=== PATIENT | male | born 1960 | race Caucasian/White ===

== ENCOUNTER 2022-07-20 14:33 | Inpatient (IN) | payer OTHER, SELFPAY ==
[2022-07-20] VITALS (7 sets, daily range): BP systolic 80–119; BP diastolic 41–64; PULSE 75–98; RESP 12–15; TEMP 36.6–38.5; O2SAT 92–97; BMI 39.1
--- NOTE | ~2022-07-20 | CT_ITS ---
EXAMINATION: CT CHEST WITHOUT CONTRAST CLINICAL INFORMATION: Sepsis. Rule out aspiration pneumonia COMPARISON: Chest x-ray performed earlier the same date TECHNIQUE: Multidetector volumetric CT imaging of the chest was done. Axial MIP volume rendering provided. Sagittal and coronal reformatted images were obtained. This CT examination was performed using dose optimization techniques as appropriate, variously including the following: *Automated exposure control *Adjustment of mA and/or kV according to patient size (this includes techniques or standardized protocols for targeted exams where dose is matched to indication/reason for exam; i.e. extremities or head) *Use of iterative reconstruction technique DLP: 464 mGy-cm FINDINGS: LUNGS: Minimal subsegmental and/or passive atelectasis in the dependent lower lobes. No airspace consolidation. No suspicious pulmonary nodules. Mild centrilobular emphysema. Minimal biapical pleural parenchymal scarring. Small amount of secretions or aspirated debris in the trachea and right mainstem bronchus. No segmental airways appear clear. No bronchiectasis. MEDIASTINUM: No cardiomegaly or pericardial effusion. LAD and right coronary artery atherosclerotic vascular calcifications. Minimal calcifications in the region the aortic valve. Borderline dilated ascending thoracic aorta measuring 4 cm in AP diameter. Moderate aortic vascular calcifications. Noted central pulmonary trunk measuring approximately 3.8 cm in diameter. No mediastinal or hilar lymphadenopathy by size criteria. CORONARY ARTERY CALCIFICATION: Present, as above. PLEURA: Trace left basilar pleural effusion. Multiple calcified pleural plaques bilateral consistent with prior asbestos exposure. Mild pleural thickening in the lower hemithoraces. AXILLA: No lymphadenopathy. UPPER ABDOMEN: Subtly nodular liver surface contour raising concern for underlying cirrhosis. Spleen is mildly enlarged measuring 16.8 cm in AP dimension. Small amount of perihepatic ascites. Question of layering sludge or noncalcified stones in the imaged gallbladder. Visualized upper abdominal viscera otherwise unremarkable. OSSEOUS STRUCTURES: There is an acute transverse fracture extending through the anterior superior corner of T12 into the T11-T12 intervertebral disc space, sagittal image 68. No other acute fracture. No suspicious osseous lesion. Mild multilevel degenerative disc disease. CT/CT chest wo IV con IMPRESSION: 1. Unexpected finding: Acute transverse fracture through the anterior superior corner of T12 into the T11-T12 intervertebral disc space. Fracture involves the anterior column. 2. No airspace consolidation. 3. Small amount of secretions/mucous versus aspirated debris in the trachea and right mainstem bronchus. 4. Trace left pleural effusion. 5. Multiple calcified pleural plaques consistent with prior asbestos exposure. 6. Mild centrilobular emphysema. 7. Borderline dilated ascending thoracic aorta measuring 4 cm in AP diameter. 8. Findings compatible with cirrhosis and portal hypertension with splenomegaly and small amount of perihepatic ascites. Correlate clinically.
--- NOTE | ~2022-07-20 | XR_ITS ---
EXAMINATION: XR chest 1V CLINICAL INFORMATION: Reason for Exam fever COMPARISON: None TECHNIQUE: XR chest 1V Tubes and lines: None Lungs and pleura: Small nodular density projecting over the left upper lobe could be a lung nodule or calcified plaque. Density projecting over the right middle lung zone also could be a calcified pleural plaque versus nodule. Heart and mediastinum: The mediastinum is within normal limits.. Bones/soft tissue: Skeletal structures included are normal for patient's age. XR/XR chest 1V IMPRESSION: * No radiographic evidence of acute infiltrate or failure. * Bilateral hyperdense nodular opacities could be lung nodules versus pleural plaques, attention to follow-up outpatient chest CT is recommended.
--- NOTE | ~2022-07-20 | CT_ITS ---
EXAMINATION: CT HEAD WITHOUT CONTRAST CLINICAL INFORMATION: Continued confusion and left upper extremity weakness COMPARISON: None TECHNIQUE: Imaging was performed from the skull base to vertex without intravenous administration of contrast. This CT examination was performed using dose optimization techniques as appropriate, variously including the following: *Automated exposure control *Adjustment of mA and/or kV according to patient size (this includes techniques or standardized protocols for targeted exams where dose is matched to indication/reason for exam; i.e. extremities or head) *Use of iterative reconstruction technique Total exam dose length product: 1035 mGy-cm FINDINGS: No intra or extra-axial fluid collection, hemorrhage, or mass. No ventriculomegaly. No midline shift or herniation. Basal cisterns are patent. [place]-white matter differentiation is maintained. No territorial encephalomalacia. Proportional prominence of the ventricles and sulcal spaces is consistent with mild volume loss. There is minimal nonspecific hypoattenuation the periventricular white matter bilaterally. No calvarial fracture or soft tissue abnormality. Minimal mucosal thickening in the maxillary antra and right frontal sinus as well as the left sphenoid sinus. Trace fluid in a couple posterior mastoid air cells, nonspecific. Status post right lens extraction. CT/CT head/brain wo IV con IMPRESSION: No acute intracranial pathology. No intracranial hemorrhage or acute edematous territorial infarct.
--- NOTE | ~2022-07-20 | XR_ITS ---
EXAMINATION: XR CHEST CLINICAL INFORMATION: Hypoxia COMPARISON: Chest radiograph 07/20/2022 TECHNIQUE: Frontal view of the chest was obtained. Limited evaluation as patient reported to be unable hold position and combative. FINDINGS: Lung bases are partially excluded. There is bilateral airways inflammation and patchy areas of airspace opacity suggesting viral or reactive airways disease. No pleural effusion or pneumothorax, cardiomediastinal contours are unremarkable. There are degenerative changes of the shoulders. XR/XR chest 1V IMPRESSION: Bilateral airways inflammation and subtle patchy airspace opacities suggesting a primary airways inflammatory process
--- NOTE | ~2022-07-20 | US_ITS ---
EXAMINATION: US VENOUS WITH DOPPLER UPPER EXTREMITY, LEFT CLINICAL INFORMATION: Pain and swelling COMPARISON: None TECHNIQUE: Ultrasound of the upper extremity is performed using compression sonography and color and pulse Doppler flow with assessment of augmentation of flow. There is also imaging and Doppler assessment of the jugular and subclavian veins. Spectral analysis with color-flow imaging is performed. FINDINGS: Respiratory variation, normal compression, and augmented flow are noted throughout the upper extremity including the axillary, brachial, cubital, and radial and ulnar veins. There is normal flow in the internal jugular and subclavian veins. There is no visible deep or superficial thrombophlebitis. If the patient's symptoms progress, a followup ultrasound in 5 -7 days might be of value to exclude proximal propagation from a nonvisualized distal arm vein. US/US venous duplex UE LT IMPRESSION: No DVT demonstrated in the left upper extremity
--- NOTE | 2022-07-20 14:46 | ECG_ITS ---
Test Reason : HYPOTENSIVE Blood Pressure : / mmHG Vent. Rate : 078 BPM Atrial Rate : 078 BPM P-R Int : 140 ms QRS Dur : 086 ms QT Int : 440 ms P-R-T Axes : 034 069 065 degrees QTc Int : 501 ms Sinus rhythm with Premature supraventricular complexes Prolonged QT Abnormal ECG When compared with ECG of 08-FEB-2003 14:18, Premature supraventricular complexes are now Present QT has lengthened Referred By: Kehinde Thompson Electronically Signed By:JENISE RODRIGUEZ MD
[2022-07-20] MEDS: 0.9 % Sodium Chloride 1,000 ML 999 ML IV (14:55)
--- NOTE | 2022-07-20 14:55 | ED.AMS ---
HPI - Altered Mental Status General Chief Complaint: Altered Mental Status Stated Complaint: ams Time Seen by Provider: 07/20/22 14:42 Source: patient, EMS and RN notes reviewed Mode of arrival: EMS Limitations: altered mental status History of Present Illness HPI narrative: 62-year-old male came in from SNF for evaluation of mental status change. Limited historian patient and limited history from EMS/long-term patient was recently at [facility] (record was requested but not available currently) patient as per EMS at his baseline normal mental status after shower patient started to have change mental status had a fever of 101 and patient became hypotensive. In the ED patient found to have a fever of 101.3 and patient remained with low blood pressure 85/41. Related Data Home Medications Medication Instructions Recorded Confirmed acetaminophen 325 mg tablet 650 mg PO Q6H PRN Fever Or Pain 07/20/22 07/20/22 albuterol sulfate 90 mcg/actuation 2 puff inhalation QID PRN 07/20/22 07/20/22 aerosol inhaler (ProAir HFA) Shortness Of Breath Or Wheezing amlodipine 10 mg tablet 10 mg PO DAILY 07/20/22 07/20/22 aspirin 325 mg tablet,delayed 325 mg PO DAILY 07/20/22 07/20/22 release bisacodyl 10 mg rectal suppository 10 mg MS DAILY PRN Constipation 07/20/22 07/20/22 cholecalciferol (vitamin D3) 25 25 mcg PO DAILY 07/20/22 07/20/22 mcg (1,000 unit) tablet (Vitamin D3) dextrose 40 % oral gel (Glucose 15 g PO Q15M PRN Hypoglycemia 07/20/22 07/20/22 Gel) fluticasone fur. 100 mcg-umeclid 1 inh inhalation DAILY 07/20/22 07/20/22 62.5 mcg-vilant 25 mcg inhalat.powder (Trelegy Ellipta) fluticasone propionate 50 1 spray intranasal DAILY 07/20/22 07/20/22 mcg/actuation nasal spray,suspension (Flonase Allergy Relief) folic acid 1 mg tablet 1 mg PO DAILY 07/20/22 07/20/22 gabapentin 600 mg tablet 600 mg PO QID 07/20/22 07/20/22 glucagon 1 mg/0.2 mL subcutaneous 1 mg subcut Q20M PRN Hypoglycemia 07/20/22 07/20/22 solution hydroxyzine HCl 10 mg tablet 20 mg PO TID PRN Anxiety 07/20/22 07/20/22 ipratropium 0.5 mg-albuterol 3 mg 3 ml inhalation QID PRN Shortness 07/20/22 07/20/22 (2.5 mg base)/3 mL nebulization Of Breath Or Wheezing soln levalbuterol HCl 0.63 mg/3 mL 0.63 mg inhalation TID PRN 07/20/22 07/20/22 solution for nebulization Shortness Of Breath Or Wheezing losartan 100 mg tablet 100 mg PO DAILY 07/20/22 07/20/22 magnesium hydroxide 400 mg/5 mL 30 ml PO DAILY PRN Constipation 07/20/22 07/20/22 oral suspension (Milk of Magnesia) magnesium oxide 400 mg (241.3 mg 400 mg PO BID 07/20/22 07/20/22 magnesium) tablet melatonin 5 mg tablet 5 mg PO BEDTIME PRN Insomnia 07/20/22 07/20/22 metformin 1,000 mg tablet 1,000 mg PO DAILY@1700 07/20/22 07/20/22 metformin 500 mg tablet 500 mg PO DAILY@0800 07/20/22 07/20/22 methadone 5 mg/5 mL oral solution 5 mg PO DAILY@1200 07/20/22 07/20/22 methadone 5 mg/5 mL oral solution 10 mg PO BID 07/20/22 07/20/22 multivitamin 1 tab PO DAILY 07/20/22 07/20/22 nicotine 14 mg/24 hr daily 1 patch transdermal DAILY 07/20/22 07/20/22 transdermal patch nortriptyline 50 mg capsule 50 mg PO BEDTIME 07/20/22 07/20/22 omega 5-nkk-ybv-fish oil 1,000 mg 1 cap PO BEDTIME 07/20/22 07/20/22 (120 mg-180 mg) capsule omega 9-wmx-bbq-fish oil 1,000 mg 1 cap PO TIDAC 07/20/22 07/20/22 (120 mg-180 mg) capsule pyridoxine (vitamin B6) 50 mg 50 mg PO DAILY 07/20/22 07/20/22 tablet rosuvastatin 10 mg tablet 10 mg PO BEDTIME 07/20/22 07/20/22 sodium phosphates 19 gram-7 118 ml MS DAILY PRN Constipation 07/20/22 07/20/22 gram/118 mL enema (Fleet Enema) testosterone cypionate 200 mg/mL 1 ml IM Q2W 07/20/22 07/20/22 intramuscular oil thiamine HCl (vitamin B1) 100 mg 100 mg PO BID 07/20/22 07/20/22 tablet Allergies Allergy/AdvReac Type Severity Reaction Status Date / Time fentanyl [From Duragesic] Allergy Unknown Unknown Verified 07/20/22 14:45 fluoxetine [From Prozac] Allergy Unknown Unknown Verified 07/20/22 14:45 lisinopril AdvReac Unknown Unknown Verified 07/20/22 14:44 Review of Systems Review of Systems: Yes Unobtainable due to mental condition [facility] Social History Social History Advance Directives: Yes Advance Directives Information Provided: No Advance Directives on File: No Physical Exam ED Vital Signs: Vital Signs - 24 hr 07/20/22 14:39 07/20/22 15:01 07/20/22 15:55 Temperature 101.3 F H Pulse Rate 86 77 Respiratory Rate 14 14 Blood Pressure 85/41 L 94/45 L 96/43 L Pulse Oximetry 94 93 Oxygen Delivery Method Nasal Cannula Nasal Cannula Oxygen Flow Rate 2 BMI result Body Mass Index 39.1 Vital signs have been reviewed as appeared to be correct. Blood pressure hypotensive. Heart rate normal. Respiration rate normal. Temperature normal. Oxygen saturation normal. Appearance: Alert. No acute distress. Head: Normal external exam. Normocephalic. Atraumatic. No [place] signs noted. No raccoon eyes noted Eyes: PERRLA. EOMI. Conjunctiva and sclera normal. Eyelids normal. ENT: TM's Normal. Pharynx normal. Uvula midline. Moist mucous membranes. No trismus noted. No drooling noted. No muffled voice noted. Neck: Normal inspection. Neck supple. FROM. No adenopathy. Thyroid Normal. No meningeal signs. No neck mass noted. CVS: Normal heart rate and rhythm. Heart sound normal. No murmurs noted. Pulses normal throughout. Respiratory: No respiratory distress. Painless inspiration. Breath sounds normal. No wheezes/rales/rhonchi noted. Chest nontender. No accessory muscle usage noted or decreased air movement noted. Abdomen: Soft and nontender. Bowel sounds normal in all 4 quadrants. No distention noted. No organomegaly noted. No visible injury noted. Back: No CVA tenderness. Full range of motion noted. Skin: Skin warm and dry. Normal skin color. Normal skin turgor. No rashes/lesions/lacerations noted. Extremities: No lower extremity edema. Extremities exhibit normal range of motion. Extremities nontender. Neuro: Oriented X 3. Cranial nerve exam: II-XII are grossly intact No motor deficit. No sensory deficit. Reflexes normal. Course Course Course Narrative: 62-year-old male came in for acute mental status change patient had recent hospitalization, patient meets criteria for sepsis with no source of infection E a covered with Zosyn and was given 30 cc/kg IV fluid awaiting for CT of the chest and ABG case signed out to Dr. Temple. Reevaluation(s) Reevaluation #1: Record from [facility] was obtained past medical history is significant for COPD, chronic hypoxic respiratory failure on 3 L of O2 nasal cannula, type 2 diabetes, hypertension patient initially was transferred from [facility] for T9 and T12 fracture hospital course at [facility] was complicated with left upper extremity swelling and rhabdomyolysis with acute kidney injuries and transaminitis and aspiration pneumonia. Time: 15:10 Medications Administered Discontinued Medications Generic Name Dose Route Start Last Admin Trade Name Freq PRN Reason Stop Dose Admin Acetaminophen 650 mg 07/20/22 15:01 07/20/22 15:08 Acetaminophen Supp 650 Mg Supp.Rect MS 07/20/22 15:02 650 mg ONCE ONE Administration Sodium Chloride 1,000 mls @ 999 mls/hr 07/20/22 14:45 07/20/22 14:55 Ns IV 07/20/22 15:45 999 mls/hr .Q1H1M ONE Administration Sodium Chloride 1,983 mls @ 1,983 mls/hr 07/20/22 15:01 07/20/22 15:08 Ns IV 07/20/22 16:00 1,983 mls/hr .Q1H STA Administration Piperacillin Sod/Tazobactam 50 mls @ 100 mls/hr 07/20/22 15:03 07/20/22 15:54 Sod 3.375 gm/ Sodium Chloride IV 07/20/22 15:32 Infused ONCE ONE Infusion Medical Decision Making Differential Diagnosis Differential Diagnoses: The differential diagnosis associated with the presentation includes (Hypercarbia/severe sepsis/aspiration pneumonia/UTI) Admission/Observation Consideration of admission/observation: Escalation of care including admission/observation considered Consult Healthcare Provider Management of the patient was discussed with: Hospitalist Lab Data MDM Lab Attestation statement: I reviewed the patient's lab results. Result Diagrams: 07/20/22 15:16 07/20/22 15:16 Labs: Lab Results 07/20/22 07/20/22 07/20/22 Range/Units 14:56 15:01 15:16 WBC (4.8-10.8) X10*3/uL RBC (4.60-5.80) X10*6/uL Hgb (14.0-18.0) g/dl Hct (42.0-52.0) % MCV (80.0-98.0) fL MCH (27.0-33.0) pg MCHC (31.0-36.0) g/dl RDW (11.0-16.0) % Plt Count (160-400) X10*3/uL MPV (9.4-12.4) fL Immature Gran % (Auto) (0.0-0.4) % Neut % (Auto) (45-73) % Lymph % (Auto) (20-40) % [place] % (Auto) (2-11) % Eos % (Auto) (0-4) % Baso % (Auto) (0-2) % Lymph # (Auto) (1.2-4.9) X10*3/uL [place] # (Auto) (0.1-1.2) X10*3/uL Eos # (Auto) (0.0-0.4) X10*3/uL Baso # (Auto) (0.0-0.2) X10*3/uL Abs Immat Gran (auto) (0.00-0.03) X10*3/uL Absolute Neuts (auto) (2.0-8.3) x10*3/uL Absolute Nucleated RBC (0.0-0.012) X10*3/uL Nucleated RBC % (auto) (0.0-0.2) /100WBC Smear Tech's Comments O2 Saturation % ABG pH at Pt Temp (7.35-7.45) ABG pCO2 at Pt Temp (32-45) mmHg ABG pO2 at Pt Temp (83-108) mmHg ABG HCO3 (22-26) mmol/L ABG Base Excess (Actual) mmol/L Sodium (135-145) mmol/L Potassium (3.3-5.1) mmol/L Chloride (96-108) mmol/L Carbon Dioxide (22-29) mmol/L Anion Gap (12-20) BUN (9-16) mg/dL Creatinine (0.5-1.4) mg/dL Estim Creat Clear Calc Estimated GFR POC Glucose 91 (60-115) mg/dL Random Glucose (60-115) mg/dL Lactic Acid (0.5-2.0) mmol/L Calcium (8.4-10.2) mg/dL Total Bilirubin (0.0-1.0) mg/dL Direct Bilirubin (0.0-0.5) mg/dL AST (5-37) U/L ALT (0-40) U/L Alkaline Phosphatase (39-117) U/L Ammonia 76 H (13-55) umol/L Troponin I High Sens (<3.5-35.0) ng/L B-Natriuretic Peptide (<100) pg/mL Total Protein (6.5-8.0) g/dL Albumin (3.5-5.0) g/dL Lipase (8-78) U/L Urine Color Dark Yellow Urine Appearance Clear Urine pH 6.0 (5.0-9.0) Ur Specific [place] 1.015 (1.005-1.025) Urine Protein Trace (Neg-Trace) mg/dL Urine Glucose (UA) Negative (Negative) mg/dL Urine Ketones Trace (Negative) mg/dL Urine Blood Negative (Negative) Urine Nitrite Negative (Negative) Ur Leukocyte Esterase Trace H (Negative) Urine RBC 0-2 (0-2) /HPF Urine WBC 0-5 (0-5) /HPF Ur Squamous Epith Cells 0-2 (0-2) /HPF Urine Bacteria None Seen (None Seen) Hyaline Casts 3-5 (0-2) /LPF Influenza Type A (PCR) (Negative) Influenza Type B (PCR) (Negative) RSV RNA Qual (PCR) (Negative) SARS-CoV-2 RNA (RT-PCR) (Negative) 07/20/22 07/20/22 07/20/22 Range/Units 15:16 15:16 15:16 WBC 9.4 (4.8-10.8) X10*3/uL RBC 3.17 L (4.60-5.80) X10*6/uL Hgb 10.6 L (14.0-18.0) g/dl Hct 33.2 L (42.0-52.0) % MCV 104.7 H (80.0-98.0) fL MCH 33.4 H (27.0-33.0) pg MCHC 31.9 (31.0-36.0) g/dl RDW 14.6 (11.0-16.0) % Plt Count 157 L (160-400) X10*3/uL MPV 11.6 (9.4-12.4) fL Immature Gran % (Auto) 0.4 (0.0-0.4) % Neut % (Auto) 68.1 (45-73) % Lymph % (Auto) 11.2 L (20-40) % [place] % (Auto) 18.7 H (2-11) % Eos % (Auto) 1.0 (0-4) % Baso % (Auto) 0.6 (0-2) % Lymph # (Auto) 1.1 L (1.2-4.9) X10*3/uL [place] # (Auto) 1.8 H (0.1-1.2) X10*3/uL Eos # (Auto) 0.1 (0.0-0.4) X10*3/uL Baso # (Auto) 0.1 (0.0-0.2) X10*3/uL Abs Immat Gran (auto) 0.04 H (0.00-0.03) X10*3/uL Absolute Neuts (auto) 6.4 (2.0-8.3) x10*3/uL Absolute Nucleated RBC 0.000 (0.0-0.012) X10*3/uL Nucleated RBC % (auto) 0.0 (0.0-0.2) /100WBC Smear Tech's Comments VERIFIED O2 Saturation % ABG pH at Pt Temp (7.35-7.45) ABG pCO2 at Pt Temp (32-45) mmHg ABG pO2 at Pt Temp (83-108) mmHg ABG HCO3 (22-26) mmol/L ABG Base Excess (Actual) mmol/L Sodium 146 H (135-145) mmol/L Potassium 4.2 (3.3-5.1) mmol/L Chloride 116 H (96-108) mmol/L Carbon Dioxide 21 L (22-29) mmol/L Anion Gap 13 (12-20) BUN 27 H (9-16) mg/dL Creatinine 1.45 H (0.5-1.4) mg/dL Estim Creat Clear Calc 65.1 Estimated GFR 50 POC Glucose (60-115) mg/dL Random Glucose 89 (60-115) mg/dL Lactic Acid 1.4 (0.5-2.0) mmol/L Calcium 8.3 L (8.4-10.2) mg/dL Total Bilirubin 1.9 H (0.0-1.0) mg/dL Direct Bilirubin 1.0 H (0.0-0.5) mg/dL AST 164 H (5-37) U/L ALT 79 H (0-40) U/L Alkaline Phosphatase 146 H (39-117) U/L Ammonia (13-55) umol/L Troponin I High Sens (<3.5-35.0) ng/L B-Natriuretic Peptide (<100) pg/mL Total Protein 5.4 L (6.5-8.0) g/dL Albumin 3.0 L (3.5-5.0) g/dL Lipase 10 (8-78) U/L Urine Color Urine Appearance Urine pH (5.0-9.0) Ur Specific [place] (1.005-1.025) Urine Protein (Neg-Trace) mg/dL Urine Glucose (UA) (Negative) mg/dL Urine Ketones (Negative) mg/dL Urine Blood (Negative) Urine Nitrite (Negative) Ur Leukocyte Esterase (Negative) Urine RBC (0-2) /HPF Urine WBC (0-5) /HPF Ur Squamous Epith Cells (0-2) /HPF Urine Bacteria (None Seen) Hyaline Casts (0-2) /LPF Influenza Type A (PCR) (Negative) Influenza Type B (PCR) (Negative) RSV RNA Qual (PCR) (Negative) SARS-CoV-2 RNA (RT-PCR) (Negative) 07/20/22 07/20/22 07/20/22 Range/Units 15:16 15:16 15:16 WBC (4.8-10.8) X10*3/uL RBC (4.60-5.80) X10*6/uL Hgb (14.0-18.0) g/dl Hct (42.0-52.0) % MCV (80.0-98.0) fL MCH (27.0-33.0) pg MCHC (31.0-36.0) g/dl RDW (11.0-16.0) % Plt Count (160-400) X10*3/uL MPV (9.4-12.4) fL Immature Gran % (Auto) (0.0-0.4) % Neut % (Auto) (45-73) % Lymph % (Auto) (20-40) % [place] % (Auto) (2-11) % Eos % (Auto) (0-4) % Baso % (Auto) (0-2) % Lymph # (Auto) (1.2-4.9) X10*3/uL [place] # (Auto) (0.1-1.2) X10*3/uL Eos # (Auto) (0.0-0.4) X10*3/uL Baso # (Auto) (0.0-0.2) X10*3/uL Abs Immat Gran (auto) (0.00-0.03) X10*3/uL Absolute Neuts (auto) (2.0-8.3) x10*3/uL Absolute Nucleated RBC (0.0-0.012) X10*3/uL Nucleated RBC % (auto) (0.0-0.2) /100WBC Smear Tech's Comments O2 Saturation % ABG pH at Pt Temp (7.35-7.45) ABG pCO2 at Pt Temp (32-45) mmHg ABG pO2 at Pt Temp (83-108) mmHg ABG HCO3 (22-26) mmol/L ABG Base Excess (Actual) mmol/L Sodium (135-145) mmol/L Potassium (3.3-5.1) mmol/L Chloride (96-108) mmol/L Carbon Dioxide (22-29) mmol/L Anion Gap (12-20) BUN (9-16) mg/dL Creatinine (0.5-1.4) mg/dL Estim Creat Clear Calc Estimated GFR POC Glucose (60-115) mg/dL Random Glucose (60-115) mg/dL Lactic Acid (0.5-2.0) mmol/L Calcium (8.4-10.2) mg/dL Total Bilirubin (0.0-1.0) mg/dL Direct Bilirubin (0.0-0.5) mg/dL AST (5-37) U/L ALT (0-40) U/L Alkaline Phosphatase (39-117) U/L Ammonia (13-55) umol/L Troponin I High Sens 17.1 (<3.5-35.0) ng/L B-Natriuretic Peptide 61 Cancelled (<100) pg/mL Total Protein (6.5-8.0) g/dL Albumin (3.5-5.0) g/dL Lipase (8-78) U/L Urine Color Urine Appearance Urine pH (5.0-9.0) Ur Specific [place] (1.005-1.025) Urine Protein (Neg-Trace) mg/dL Urine Glucose (UA) (Negative) mg/dL Urine Ketones (Negative) mg/dL Urine Blood (Negative) Urine Nitrite (Negative) Ur Leukocyte Esterase (Negative) Urine RBC (0-2) /HPF Urine WBC (0-5) /HPF Ur Squamous Epith Cells (0-2) /HPF Urine Bacteria (None Seen) Hyaline Casts (0-2) /LPF Influenza Type A (PCR) (Negative) Influenza Type B (PCR) (Negative) RSV RNA Qual (PCR) (Negative) SARS-CoV-2 RNA (RT-PCR) (Negative) 07/20/22 07/20/22 Range/Units 15:21 16:46 WBC (4.8-10.8) X10*3/uL RBC (4.60-5.80) X10*6/uL Hgb (14.0-18.0) g/dl Hct (42.0-52.0) % MCV (80.0-98.0) fL MCH (27.0-33.0) pg MCHC (31.0-36.0) g/dl RDW (11.0-16.0) % Plt Count (160-400) X10*3/uL MPV (9.4-12.4) fL Immature Gran % (Auto) (0.0-0.4) % Neut % (Auto) (45-73) % Lymph % (Auto) (20-40) % [place] % (Auto) (2-11) % Eos % (Auto) (0-4) % Baso % (Auto) (0-2) % Lymph # (Auto) (1.2-4.9) X10*3/uL [place] # (Auto) (0.1-1.2) X10*3/uL Eos # (Auto) (0.0-0.4) X10*3/uL Baso # (Auto) (0.0-0.2) X10*3/uL Abs Immat Gran (auto) (0.00-0.03) X10*3/uL Absolute Neuts (auto) (2.0-8.3) x10*3/uL Absolute Nucleated RBC (0.0-0.012) X10*3/uL Nucleated RBC % (auto) (0.0-0.2) /100WBC Smear [facility]' Comments O2 Saturation 86.0 % ABG pH at Pt Temp 7.35 (7.35-7.45) ABG pCO2 at Pt Temp 38 (32-45) mmHg ABG pO2 at Pt Temp 60 L (83-108) mmHg ABG HCO3 21 L (22-26) mmol/L ABG Base Excess (Actual) -3.5 mmol/L Sodium (135-145) mmol/L Potassium (3.3-5.1) mmol/L Chloride (96-108) mmol/L Carbon Dioxide (22-29) mmol/L Anion Gap (12-20) BUN (9-16) mg/dL Creatinine (0.5-1.4) mg/dL Estim Creat Clear Calc Estimated GFR POC Glucose (60-115) mg/dL Random Glucose (60-115) mg/dL Lactic Acid (0.5-2.0) mmol/L Calcium (8.4-10.2) mg/dL Total Bilirubin (0.0-1.0) mg/dL Direct Bilirubin (0.0-0.5) mg/dL AST (5-37) U/L ALT (0-40) U/L Alkaline Phosphatase (39-117) U/L Ammonia (13-55) umol/L Troponin I High Sens (<3.5-35.0) ng/L B-Natriuretic Peptide (<100) pg/mL Total Protein (6.5-8.0) g/dL Albumin (3.5-5.0) g/dL Lipase (8-78) U/L Urine Color Urine Appearance Urine pH (5.0-9.0) Ur Specific [place] (1.005-1.025) Urine Protein (Neg-Trace) mg/dL Urine Glucose (UA) (Negative) mg/dL Urine Ketones (Negative) mg/dL Urine Blood (Negative) Urine Nitrite (Negative) Ur Leukocyte Esterase (Negative) Urine RBC (0-2) /HPF Urine WBC (0-5) /HPF Ur Squamous Epith Cells (0-2) /HPF Urine Bacteria (None Seen) Hyaline Casts (0-2) /LPF Influenza Type A (PCR) NEGATIVE (Negative) Influenza Type B (PCR) NEGATIVE (Negative) RSV RNA Qual (PCR) NEGATIVE (Negative) SARS-CoV-2 RNA (RT-PCR) POSITIVE A (Negative) Independent Interpretation I performed an independent interpretation of an: Plain X-Ray (Chest: No acute pathology.) Radiology Impression Discussion of test interpretation with radiology: I have reviewed the radiologist's reading. Critical Care Time Critical Care Time Critical Care Time: Yes Total Critical Care Time: 60 Attestation: I spent 60 minutes providing critical care service to the patient, this including time spent at the bedside to evaluate the patient, reassess the patient, monitoring vital signs, review labs, and radiographic studies, counseling the patient/family, discussing the case with consultants, disposition the patient. Discharge Plan Discharge Clinical Impression: Altered mental status, COVID-19 virus infection Patient Disposition: Still a Patient Prescriptions: No Action multivitamin Tablet 1 tab PO DAILY metformin 500 mg Tablet 500 mg PO DAILY@0800 acetaminophen 325 mg Tablet 650 mg PO Q6H PRN (Reason: Fever Or Pain) gabapentin 600 mg Tablet 600 mg PO QID nicotine 14 mg/24 hr Patch 24 Hour 1 patch TRANSDERMAL DAILY ipratropium-albuterol 0.5 mg-3 mg(2.5 mg base)/3 mL Solution For Nebulization 3 ml INHALATION QID PRN (Reason: Shortness Of Breath Or Wheezing) levalbuterol HCl 0.63 mg/3 mL Solution For Nebulization 0.63 mg INHALATION TID PRN (Reason: Shortness Of Breath Or Wheezing) dextrose [Glucose Gel] 40 % Gel 15 g PO Q15M PRN (Reason: Hypoglycemia) Rx Instructions: until symptoms of low blood sugar are controlled thiamine HCl (vitamin B1) 100 mg Tablet 100 mg PO BID magnesium oxide 400 mg (241.3 mg magnesium) Tablet 400 mg PO BID magnesium hydroxide [Milk of Magnesia] 400 mg/5 mL Suspension 30 ml PO DAILY PRN (Reason: Constipation) aspirin 325 mg Tablet,Delayed Release (Dr/Ec) 325 mg PO DAILY amlodipine 10 mg Tablet 10 mg PO DAILY bisacodyl 10 mg Suppository 10 mg MS DAILY PRN (Reason: Constipation) Rx Instructions: use if milk of magnesia doesn't work metformin 1,000 mg Tablet 1,000 mg PO DAILY@1700 Fleet Enema 19-7 gram/118 mL Enema 118 ml MS DAILY PRN (Reason: Constipation) Rx Instructions: when bisacodyl is ineffective pyridoxine (vitamin B6) 50 mg Tablet 50 mg PO DAILY folic acid 1 mg Tablet 1 mg PO DAILY testosterone cypionate 200 mg/mL oil 1 ml IM Q2W Rx Instructions: STARTING 08/02/2022 albuterol sulfate [ProAir HFA] 90 mcg/actuation Hfa Aerosol Inhaler 2 puff INHALATION QID PRN (Reason: Shortness Of Breath Or Wheezing) hydroxyzine HCl 10 mg Tablet 20 mg PO TID PRN (Reason: Anxiety) losartan 100 mg Tablet 100 mg PO DAILY fluticasone propionate [Flonase Allergy Relief] 50 mcg/actuation [place],Suspension 1 spray INTRANASAL DAILY Rx Instructions: administer into each nostril nortriptyline 50 mg Capsule 50 mg PO BEDTIME methadone 5 mg/5 mL Solution 10 mg PO BID methadone 5 mg/5 mL Solution 5 mg PO DAILY@1200 rosuvastatin 10 mg Tablet 10 mg PO BEDTIME cholecalciferol (vitamin D3) [Vitamin D3] 25 mcg (1,000 unit) Tablet 25 mcg PO DAILY melatonin 5 mg Tablet 5 mg PO BEDTIME PRN (Reason: Insomnia) omega 5-vmf-bqv-fish oil 1,000 mg (120 mg-180 mg) Capsule 1 cap PO TIDAC omega 1-xwh-bnk-fish oil 1,000 mg (120 mg-180 mg) Capsule 1 cap PO BEDTIME Trelegy Ellipta 100-62.5-25 mcg Blister With Device 1 inh INHALATION DAILY glucagon 1 mg/0.2 mL Solution 1 mg SUBCUT Q20M PRN (Reason: Hypoglycemia) Rx Instructions: until target blood sugar attained
[2022-07-20 15:01] LABS: Glucose, Whole Blood 91 mg/dL (60-115)
[2022-07-20] MEDS: 0.9 % Sodium Chloride 1,983 ML 1983 ML IV (15:08)
[2022-07-20] MEDS: Acetaminophen Supp 650 MG SUPP.RECT PR (15:08)
[2022-07-20 15:13] LABS: Appearance Urine Clear; Color Urine Dark Yellow; Glucose Urine UA Negative (Negative); Leukocyte Esterase Urine Trace (Negative); Nitrite Urine Negative (Negative); Specific Gravity - Urine 1.015 (1.005-1.025); UMIC TRIGGER UACC YES; Urine Blood Negative (Negative); Urine Ketones Trace mg/dL (Negative); Urine Protein Trace mg/dL (Neg-Trace)
[2022-07-20 15:23] LABS: Basophils Absolute Auto 0.1 X10*3/uL (0.0-0.2); Basophils Percent Auto 0.6 % (0-2); Eosinophils Absolute Auto 0.1 X10*3/uL (0.0-0.4); Hematocrit 33.2 % (42.0-52.0); Hemoglobin 10.6 g/dl (14.0-18.0); Imm Gran Abs Auto 0.04 X10*3/uL (0.00-0.03); Imm Gran Pct Auto 0.4 % (0.0-0.4); Lymphocytes Absolute Auto 1.1 X10*3/uL (1.2-4.9); Lymphocytes Percent Auto 11.2 % (20-40); MANUAL DIFF FLAG SCAN; Mean Corpuscular HGB Conc 31.9 g/dl (31.0-36.0); Mean Corpuscular Hemoglobin 33.4 pg (27.0-33.0); Mean Corpuscular Volume 104.7 fL (80.0-98.0); Mean Platelet Volume 11.6 fL (9.4-12.4); Monocytes Absolute Auto 1.8 X10*3/uL (0.1-1.2); Monocytes Percent Auto 18.7 % (2-11); Neutrophils Absolute Auto 6.4 x10*3/uL (2.0-8.3); Neutrophils Percent Auto 68.1 % (45-73); Platelet Count 157 X10*3/uL (160-400); Red Blood Count 3.17 X10*6/uL (4.60-5.80); Red Cell Distribution Width 14.6 % (11.0-16.0); SCAN SMEAR FLAG 1; White Blood Count 9.4 X10*3/uL (4.8-10.8)
[2022-07-20] MEDS: Piperacillin Sodium/Tazobactam 3.375 GM in 0.9 % Sodium Chloride 50 ML IV (15:24)
[2022-07-20 15:27] LABS: Bacteria Urine None Seen (None Seen); RBC Urine 0-2 /HPF (0-2); Squamous Epithelial Cell Urine 0-2 /HPF (0-2); WBC Urine 0-5 /HPF (0-5)
[2022-07-20 15:42] LABS: Ammonia 76 umol/L (13-55)
[2022-07-20 15:46] LABS: Lactic Acid 1.4 mmol/L (0.5-2.0)
[2022-07-20 15:49] LABS: SLIDE REVIEW VERIFIED
[2022-07-20 15:50] LABS: Alanine Aminotransferase 79 U/L (0-40); Alkaline Phosphatase 146 U/L (39-117); Anion Gap 13 (12-20); Aspartate Amino Transferase 164 U/L (5-37); Bilirubin Total 1.9 mg/dL (0.0-1.0); Blood Urea Nitrogen 27 mg/dL (9-16); Calcium 8.3 mg/dL (8.4-10.2); Carbon Dioxide 21 mmol/L (22-29); Chloride 116 mmol/L (96-108); Creatinine Clr Calc Pharmacy 65.1; Estimated Glomerular Filt Rate 50; Glucose Random 89 mg/dL (60-115); Lipase 10 U/L (8-78); Potassium 4.2 mmol/L (3.3-5.1); Sodium 146 mmol/L (135-145); Total Protein 5.4 g/dL (6.5-8.0)
[2022-07-20 15:56] LABS: Troponin-I High Sensitivity 17.1 ng/L (<3.5-35.0)
[2022-07-20 16:07] LABS: B Type Natriuretic Peptide 61 pg/mL (<100)
[2022-07-20 16:20] LABS: Influenza A PCR NEGATIVE (Negative); Influenza B PCR NEGATIVE (Negative); Resp Syncy Virus RNA Qual PCR NEGATIVE (Negative); SARS COV2 PCR INHOUSE POSITIVE (Negative)
[2022-07-20 16:52] LABS: ABG Base Excess -3.5 mmol/L; ABG HCO3 21 mmol/L (22-26); ABG pCO2 38 mmHg (32-45); ABG pH 7.35 (7.35-7.45); ABG pO2 60 mmHg (83-108)
[2022-07-20 16:54] LABS: ABG Refer to POC result
--- NOTE | 2022-07-20 16:59 | PHA.MEDREC ---
Pharmacy Consult ? Medication Reconciliation Pharmacy has completed the medication reconciliation. Patient has a list from [facility].
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
[2022-07-20] MEDS: Lactated Ringers 1,000 ML 999 ML IV (19:59)
--- NOTE | 2022-07-20 20:08 | PC.NURSE ---
Assumed care for pt. Pt alert and oriented to self. Tearful asking where he is at this time. Reports not knowing where he is or how he got here. Pt re-oriented to place. Pt is confused at this time. Continues asking for where is my morning cup of coffee and cigarette?. O2 sat 96% on 3L nc. RR 14. NSR on monitor with HR 78. Abd soft, distended, and non tender. No apparent distress noted. Pt voided dark yellow urine on the urinal with no issues or complaints. Treatment plan explained to pt. Will continue to monitor.
[2022-07-20] MEDS: LORazepam 0.5 MG TABLET PO (22:02)
--- NOTE | 2022-07-20 22:03 | PC.NURSE ---
Pt medicated as ordered. Alert and oriented to self. Continues to be confused and tearful at times. Pt reports pain on the lower back. Red, blanchable skin on buttocks area noted. Cleansed and barrier cream applied to the area. aware
[2022-07-20 23:36] LABS: Magnesium 1.8 mg/dL (1.6-2.6)
[2022-07-21] MEDS: Enoxaparin Sodium 40 MG/0.4 ML SYRINGE SUBCUT ×2 (00:11→23:26)
[2022-07-21] MEDS: Lactulose 20 GM/30 ML SOLUTION 30 GM PO ×4 (00:11→22:04)
[2022-07-21] MEDS: Lactated Ringers 1,000 ML 100 ML IVCONT ×2 (00:52→09:46)
[2022-07-21 00:56] VITALS: PULSE 69; RESP 12; O2SAT 96
[2022-07-21 02:17] VITALS: PULSE 67; RESP 12; O2SAT 95
--- NOTE | 2022-07-21 02:17 | PC.NURSE ---
Pt sleeping at the bedside in no apparent distress. Breahts are even and unlabored with equal chest rises. Will continue to monitor.
[2022-07-21 04:15] VITALS: BP 104/53; PULSE 63; RESP 15; O2SAT 97
[2022-07-21 07:13] LABS: Glucose, Whole Blood 78 mg/dL (60-115)
[2022-07-21 07:17] LABS: Hemoglobin 10.7 g/dl (14.0-18.0); Mean Corpuscular HGB Conc 31.5 g/dl (31.0-36.0); Mean Corpuscular Hemoglobin 33.2 pg (27.0-33.0); Mean Corpuscular Volume 105.6 fL (80.0-98.0); PLT CLUMP 1; Red Blood Count 3.22 X10*6/uL (4.60-5.80); Red Cell Distribution Width 14.4 % (11.0-16.0)
[2022-07-21 07:34] LABS: Anion Gap 15 (12-20); Blood Urea Nitrogen 22 mg/dL (9-16); Calcium 8.2 mg/dL (8.4-10.2); Carbon Dioxide 17 mmol/L (22-29); Chloride 118 mmol/L (96-108); Estimated Glomerular Filt Rate > 60; Glucose Random 82 mg/dL (60-115); Potassium 4.4 mmol/L (3.3-5.1); Sodium 146 mmol/L (135-145)
[2022-07-21 07:42] LABS: Platelet Count 128 X10*3/uL (160-400); White Blood Count 6.2 X10*3/uL (4.8-10.8)
--- NOTE | 2022-07-21 07:43 | P.EN_ITS ---
Event Note Date of Service: 07/21/22 Event Note: Consult placed for ascending thoracic aorta borderline aneurysm - would need to be followed by CT surgery at [facility]. No acute intervention. Will follow p.r.n. Time Spent With Patient Time: Total time managing care of this patient today ____ minutes.
[2022-07-21] MEDS: Aspirin Enteric Coated 325 MG TABLET.DR PO (07:50)
[2022-07-21] MEDS: methADONE HCl 10 MG TABLET PO ×2 (07:50→21:53)
[2022-07-21 07:51] VITALS: BP 113/67; PULSE 65; RESP 12; TEMP 36.8; O2SAT 95
[2022-07-21] MEDS: Magnesium Oxide 400 MG TABLET PO ×2 (07:51→21:54)
[2022-07-21] MEDS: Folic Acid 1 MG TABLET PO (07:51)
[2022-07-21] MEDS: Multivitamin TABLET 1 TAB PO (07:51)
[2022-07-21] MEDS: amLODIPine Besylate 10 MG TABLET PO (07:51)
[2022-07-21] MEDS: Cholecalciferol (Vitamin D3) 25 MCG TABLET PO (07:51)
[2022-07-21] MEDS: Gabapentin 600 MG TABLET PO ×4 (07:51→21:53)
[2022-07-21] MEDS: Nicotine 14 MG PATCH.TD24 TRANSDERMA (07:51)
[2022-07-21] MEDS: Thiamine HCL 100 MG TABLET PO ×2 (07:52→21:53)
--- NOTE | 2022-07-21 08:46 | MHC.CM.PN ---
Patient is Covid (+) and here with AMS; CM spoke with Primary Contact/Father/Cristobal @ [phone]. Patient lives alone in a house and required no DME [employer]. Home self care is the tentative plan and CM has initiated and will follow for dc planning. Cristobal is unsure of Patient's covid/vax status and who the OPHTHALMOLOGY TECHNICIAN is.
--- NOTE | 2022-07-21 09:40 | MHC.EDTECH ---
pt found to be incontinent of feces and urine, RN and PCT cleaned pt, new linens pt sitting up in bed resting comfortably
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
--- NOTE | 2022-07-21 10:48 | PC.NURSE ---
pt incontinent of massive amount of bm and urine, has brief in place from snf facility, heavily saturated. pt cleaned and maddison care done new linens in place. pt ate breakfast, took all morning medications without swallow issue.
[2022-07-21 12:27] LABS: Glucose, Whole Blood 89 mg/dL (60-115)
--- NOTE | 2022-07-21 12:48 | PC.NURSE ---
cleaned of incontinent stool again, pt unable to discern when he needs to use restroom or when soiled.
[2022-07-21] MEDS: methADONE HCl 5 MG TABLET PO (13:12)
--- NOTE | 2022-07-21 17:38 | PC.NURSE ---
attempting to ambulate in room, redirectable, making nonsensical statements, incontinent. linens changed, back to stretcher without incident.
[2022-07-21 18:38] LABS: Glucose, Whole Blood 77 mg/dL (60-115)
--- NOTE | 2022-07-21 19:20 | PC.NURSE ---
I took over care of the pt at 1900. As soon as I got on, pt pulled out his IV in the riht forearm. Bleeding was controlled and pt was cleaned up. Pt IV in the left shoulder still in tact, patent, and secured.
[2022-07-21 21:48] LABS: Glucose, Whole Blood 79 mg/dL (60-115)
[2022-07-21] MEDS: Atorvastatin Calcium 40 MG TABLET PO (21:53)
[2022-07-21] MEDS: Nortriptyline HCl 25 MG CAPSULE 50 MG PO (21:53)
[2022-07-21] MEDS: Melatonin 3 MG TABLET 6 MG PO (22:01)
[2022-07-21] MEDS: Haloperidol Lactate 5 MG/ML VIAL IM (23:25)
[2022-07-22] VITALS (7 sets, daily range): BP systolic 120–158; BP diastolic 58–97; PULSE 80–118; RESP 12–18; TEMP 36.3–37.6; O2SAT 90–93
[2022-07-22] MEDS: Lactated Ringers 1,000 ML 100 ML IVCONT ×3 (01:37→22:46)
[2022-07-22 07:36] LABS: Glucose, Whole Blood 79 mg/dL (60-115)
[2022-07-22] MEDS: Nicotine 14 MG PATCH.TD24 TRANSDERMA (07:44)
[2022-07-22] MEDS: Gabapentin 600 MG TABLET PO ×4 (07:45→20:33)
[2022-07-22] MEDS: methADONE HCl 10 MG TABLET PO ×2 (07:45→20:35)
[2022-07-22] MEDS: amLODIPine Besylate 10 MG TABLET PO (07:45)
[2022-07-22] MEDS: Aspirin Enteric Coated 325 MG TABLET.DR PO (07:45)
[2022-07-22] MEDS: Thiamine HCL 100 MG TABLET PO ×2 (07:45→20:35)
[2022-07-22] MEDS: Multivitamin TABLET 1 TAB PO (07:47)
[2022-07-22] MEDS: Lactulose 20 GM/30 ML SOLUTION 30 GM PO ×3 (07:47→20:33)
[2022-07-22] MEDS: Pyridoxine HCl (Vitamin B6) 50 MG TABLET PO (07:47)
[2022-07-22] MEDS: Folic Acid 1 MG TABLET PO (07:48)
[2022-07-22] MEDS: Cholecalciferol (Vitamin D3) 25 MCG TABLET PO (07:48)
[2022-07-22] MEDS: Magnesium Oxide 400 MG TABLET PO ×2 (08:07→20:36)
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
[2022-07-22 10:05] LABS: Ammonia 70 umol/L (13-55)
[2022-07-22 11:44] LABS: Glucose, Whole Blood 96 mg/dL (60-115)
[2022-07-22] MEDS: methADONE HCl 5 MG TABLET PO (12:46)
[2022-07-22 16:54] LABS: Glucose, Whole Blood 99 mg/dL (60-115)
[2022-07-22 20:24] LABS: Glucose, Whole Blood 103 mg/dL (60-115)
[2022-07-22] MEDS: Acetaminophen 325 MG TABLET 650 MG PO (20:33)
[2022-07-22] MEDS: Melatonin 3 MG TABLET 6 MG PO (20:34)
[2022-07-22] MEDS: Nortriptyline HCl 25 MG CAPSULE 50 MG PO (20:34)
[2022-07-22] MEDS: Atorvastatin Calcium 40 MG TABLET PO (20:35)
[2022-07-22] MEDS: 0.9 % Sodium Chloride Flush 3 ML SYRINGE IVFLUSH (20:36)
[2022-07-23] MEDS: Enoxaparin Sodium 40 MG/0.4 ML SYRINGE SUBCUT ×2 (00:47→23:55)
[2022-07-23] MEDS: OLANZapine 10 MG VIAL 5 MG IM (00:55)
[2022-07-23 05:18] VITALS: BP 147/69; PULSE 109; RESP 16; TEMP 36.8; O2SAT 93
[2022-07-23 07:22] LABS: Ammonia 59 umol/L (13-55)
[2022-07-23 07:27] LABS: Glucose, Whole Blood 84 mg/dL (60-115)
[2022-07-23 08:33] VITALS: BP 148/66; PULSE 110; RESP 18; O2SAT 92
[2022-07-23] MEDS: Gabapentin 600 MG TABLET PO ×3 (09:32→23:54)
[2022-07-23] MEDS: Magnesium Oxide 400 MG TABLET PO ×2 (09:33→23:55)
[2022-07-23] MEDS: methADONE HCl 10 MG TABLET PO ×2 (09:34→23:54)
[2022-07-23] MEDS: Folic Acid 1 MG TABLET PO (09:34)
[2022-07-23] MEDS: Cholecalciferol (Vitamin D3) 25 MCG TABLET PO (09:34)
[2022-07-23] MEDS: amLODIPine Besylate 10 MG TABLET PO (09:36)
[2022-07-23] MEDS: Multivitamin TABLET 1 TAB PO (09:49)
[2022-07-23] MEDS: Nicotine 14 MG PATCH.TD24 TRANSDERMA (09:49)
[2022-07-23 10:50] LABS: Glucose, Whole Blood 83 mg/dL (60-115)
--- NOTE | 2022-07-23 11:46 | HO.PM.IMPN ---
Subjective Subjective Date of Service: 07/23/22 Physical Exam Vital Signs: Vital Signs: Last Vital Signs Temp 98.2 F 07/23/22 05:18 Pulse 110 H 07/23/22 08:33 Resp 18 07/23/22 08:33 BP 148/66 H 07/23/22 08:33 Pulse Ox 92 07/23/22 08:33 O2 Del Method 07/23/22 08:33 O2 Flow Rate 3 07/21/22 07:51 Oxygen Flow Rate 2 07/20/22 14:39 BMI result Body Mass Index 39.1 Const: Other: General: AO X 2, no acute distress Resp: CTA bilateral CVS: S1,S2,RRR GI: +BS, NT, no distention Skin: No rash Neuro: motor grossly intact Psych: appropriate affect Objective Data Active Medications Acetaminophen (Acetaminophen 325 Mg Tablet) 650 mg PO Q6H PRN PRN Reason: Pain, Mild (Pain Scale 1-3) Last Admin: 07/22/22 20:33 Dose: 650 mg Documented By: CARLOZ Albuterol Sulfate (Albuterol Sulfate 90 Mcg 8 Gm Inhaler) 2 puff INHALE QID PRN PRN Reason: Shortness Of Breath Or Wheezing Albuterol/Ipratropium (Albuterol/Iprat 2.5/0.5mg 3 Ml Ampul.Neb) 3 ml INHALE QID PRN PRN Reason: Shortness Of Breath Or Wheezing Amlodipine Besylate (Amlodipine Besylate 10 Mg Tablet) 10 mg PO DAILY [facility]; Protocol Last Admin: 07/23/22 09:36 Dose: 10 mg Documented By: BALJINDER Aspirin (Aspirin Enteric Coated 325 Mg Tablet.) 325 mg PO DAILY [facility] Last Admin: 07/23/22 09:36 Dose: Not Given Documented By: BALJINDER Non-Admin Reason: can't crush Atorvastatin Calcium (Atorvastatin Calcium 40 Mg Tablet) 40 mg PO BEDTIME [facility] Last Admin: 07/22/22 20:35 Dose: 40 mg Documented By: CRALOZ Dextrose (Dextrose 50 % 25 Gm/50 Ml Syringe) 25 gm IVPUSH Q15M PRN; Protocol PRN Reason: per Hypoglycemia Standing Ord. Enoxaparin Sodium (Enoxaparin Sodium 40 Mg/0.4 Ml Syringe) 40 mg SUBCUT Q24H [facility] Last Admin: 07/23/22 00:47 Dose: 40 mg Documented By: CARLOZ Fluticasone Propionate (Fluticasone Propionate Nasal 16 Gm [place]) 1 spray NOSTRIL-B DAILY [facility] Last Admin: 07/23/22 09:29 Dose: Not Given Documented By: BALJINDER Non-Admin Reason: Patient Refused Folic Acid (Folic Acid 1 Mg Tablet) 1 mg PO DAILY [facility] Last Admin: 07/23/22 09:34 Dose: 1 mg Documented By: BALJINDER Gabapentin (Gabapentin 600 Mg Tablet) 600 mg PO QID [facility] Last Admin: 07/23/22 09:32 Dose: 600 mg Documented By: BALJINDER Glucagon (Glucagon,Human Recombinant 1 Mg/Ml Vial) 1 mg IM Q20M PRN PRN Reason: Hypoglycemia Glucose (Glucose Gel 15 Gm Gel..Gram.) 15 gm PO Q15M PRN PRN Reason: Hypoglycemia Glucose (Glucose Gel 15 Gm Gel..Gram.) 15 gm PO Q15M PRN; Protocol PRN Reason: per Hypoglycemia Standing Ord. Insulin Human Lispro (Insulin Lispro 100 Unit/Ml 3 Ml Vial) 0 unit SUBCUT QIDAS [facility]; Protocol Last Admin: 07/23/22 11:27 Dose: Not Given Documented By: BALJINDER Non-Admin Reason: No Insulin Coverage Lactulose (Lactulose 20 Gm/30 Ml Solution) 30 gm PO TID [facility] Last Admin: 07/23/22 09:49 Dose: Not Given Documented By: BALJINDER Non-Admin Reason: Patient Refused Magnesium Oxide (Magnesium Oxide 400 Mg Tablet) 400 mg PO BID [facility] Last Admin: 07/23/22 09:33 Dose: 400 mg Documented By: BALJINDER Melatonin (Melatonin 3 Mg Tablet) 6 mg PO BEDTIME PRN PRN Reason: Insomnia Last Admin: 07/22/22 20:34 Dose: 6 mg Documented By: CARLOZ Methadone HCl (Methadone Hcl 5 Mg Tablet) 5 mg PO DAILY@1200 [facility] Last Admin: 07/22/22 12:46 Dose: 5 mg Documented By: BRI Methadone HCl (Methadone Hcl 10 Mg Tablet) 10 mg PO BID [facility] Last Admin: 07/23/22 09:34 Dose: 10 mg Documented By: BALJINDER Multivitamins/Vitamin C (Multivitamin Tablet) 1 tab PO DAILY [facility] Last Admin: 07/23/22 09:49 Dose: 1 tab Documented By: BALJINDER Nicotine (Nicotine 14 Mg Patch.Td24) 14 mg TRANSDERMA DAILY [facility] Last Admin: 07/23/22 09:49 Dose: 14 mg Documented By: BALJINDER Nortriptyline HCl (Nortriptyline Hcl 25 Mg Capsule) 50 mg PO BEDTIME [facility] Last Admin: 07/22/22 20:34 Dose: 50 mg Documented By: CARLOZ Pharmacy Consult (Consult Rx Perform Med Rec) 1 each MISCELLANE ONCE PRN PRN Reason: Consult order Pyridoxine HCl (Pyridoxine Hcl (Vitamin B6) 50 Mg Tablet) 50 mg PO DAILY [facility] Last Admin: 07/23/22 09:39 Dose: Not Given Documented By: BALJINDER Non-Admin Reason: Patient Refused Sodium Biphosphate/Sodium Phosphate (Sodium Phosphate,[place]-Dibasic 133 Ml Enema) 118 ml [place] DAILY PRN PRN Reason: Constipation Sodium Chloride (0.9 % Sodium Chloride Flush 3 Ml Syringe) 3 ml IVFLUSH QSHIFT [facility] Last Admin: 07/23/22 09:37 Dose: Not Given Documented By: BALJINDER Non-Admin Reason: Patient Refused Thiamine HCl (Thiamine Hcl 100 Mg Tablet) 100 mg PO BID [facility] Last Admin: 07/23/22 09:49 Dose: Not Given Documented By: BALJINDER Non-Admin Reason: Patient Refused Vitamin D (Cholecalciferol (Vitamin D3) 25 Mcg Tablet) 25 mcg PO DAILY [facility] Last Admin: 07/23/22 09:34 Dose: 25 mcg Documented By: BALJINDER Labs CBC & Chem 7: 07/21/22 06:23 07/21/22 06:23 Labs: Laboratory Results - last 24 hr 07/22/22 07/22/22 07/23/22 16:48 20:08 07:01 POC Glucose 99 103 Ammonia 59 H 07/23/22 07/23/22 07:19 10:46 POC Glucose 84 83 Ammonia Microbiology Microbiology Results: Microbiology 07/20/22 15:21 Blood Culture - Preliminary Blood - Venous No growth after 48 hours. 07/20/22 15:16 Blood Culture - Preliminary Blood - Venous No growth after 48 hours. Assessment and Plan (1) Metabolic encephalopathy: Status: Acute (2) Altered mental status: Status: Acute (3) COVID-19 virus infection: Status: Acute Plan ? 62-year-old male with a PMH significant for?COPD, chronic hypoxic respiratory failure on 3 L of O2 at home, [id number] DM 2, HTN, and H/O vertebral fractures who presents from an SNF to the ED with altered mental status. Pt will be admitted to the hospital for treatment of AMS and hypotension in the setting of COVID infection. # COVID--Assymptomanic. Monitor, add steroid if O2 drops below 90 # hypOtension--likely secondary to dehydration and resolved with IVF. Hold BP meds for now # Hepatic encephalopathy (which is a metabolic encephalopathy) with underlying cirrhosis. He is more lucid today, continue lactulose, monitor ammonia (down today) #Anxiety--seems pretty calm now, Ativan PRN # ANEUDY-- likely secondary to dehydration, resolved after IVF # transaminitis -- likely secondary to chirrosis -- follow labs # left arm swelling -- patient was worked up for left arm pain during his recent stay at [facility]; trauma team evaluated him and thought it was likely because his arm was pinned when he fell for a prolonged time.? X-ray of the left forearm and elbow was negative for fractures, left upper extremity ultrasound was negative for DVT. Symptomatic pain treatment # T9 and T12 vertebral fractures -- patient seen by neuro surgery at [facility] at most recent admission who did not recommend brace or logroll precautions -- continue methadone for chronic back pain -- PT, rehab placement upon discharge # alcohol dependence -- h/o withdrawal, most recently during [facility] admission earlier this month -- has not drank since -- continue thiamine and folic acid supplements # h/o aspiration -- dx of aspiration pneumonia at [facility] on 07/03 -- CT today shows evidence of possible aspirated debris in trachea and right mainstem bronchus -- NPO pending swallow eval -- hold on abx for now, pt afebrile, no leukocytosis # dilated ascending thoracic aorta -- CT found dilated ascending thoracic aorta of 4cm -- vascular surgery recommend surveillance # diabetes, non-insulin dependent -- hold home meds -- ssi # COPD, no acute exacerbation, bronchoidlators PRN # HTN--hold Med now given recent low bp Full Code need for inpatient: Hepatic encephalopathy, covid, ANEUDY/dehydration and needing IVF hydration Time Spent With Patient Time: Total time managing care of this patient today ____ minutes. Quality Stroke Does the patient have a stroke diagnosis?: No VTE Prior VTE?: No VTE Risk Level:: Medical - moderate - high VTE Device Contraindication: Treatment Not Indicated VTE Drug Contraindication: N/A - Med Ordered
[2022-07-23 15:12] VITALS: BP 166/74; PULSE 115; RESP 25; TEMP 36.6; O2SAT 91
[2022-07-23 15:28] LABS: Glucose, Whole Blood 90 mg/dL (60-115)
--- NOTE | 2022-07-23 15:48 | MHC.CM.PN ---
DP return to [facility] via BLS. The patient is not ready for discharge today. He is still encephalopathic.
[2022-07-23] MEDS: Albuterol/Iprat 2.5/0.5MG 3 ML AMPUL.NEB INHALE (18:26)
[2022-07-23 18:30] VITALS: PULSE 126; RESP 20; O2SAT 85
[2022-07-23 19:27] LABS: Glucose, Whole Blood 90 mg/dL (60-115)
[2022-07-23 23:50] VITALS: BP 155/74; PULSE 100; RESP 22; TEMP 37.3; O2SAT 94
[2022-07-23] MEDS: Thiamine HCL 100 MG TABLET PO (23:54)
[2022-07-23] MEDS: Atorvastatin Calcium 40 MG TABLET PO (23:54)
[2022-07-23] MEDS: Nortriptyline HCl 25 MG CAPSULE 50 MG PO (23:54)
[2022-07-23] MEDS: 0.9 % Sodium Chloride Flush 3 ML SYRINGE IVFLUSH (23:55)
[2022-07-24 07:33] LABS: Glucose, Whole Blood 93 mg/dL (60-115)
[2022-07-24 08:00] VITALS: BP 152/86; PULSE 104; RESP 20; TEMP 37; O2SAT 92
[2022-07-24] MEDS: Folic Acid 1 MG TABLET PO (09:38)
[2022-07-24] MEDS: Gabapentin 600 MG TABLET PO ×4 (09:38→21:02)
[2022-07-24] MEDS: Multivitamin TABLET 1 TAB PO (09:38)
[2022-07-24] MEDS: Pyridoxine HCl (Vitamin B6) 50 MG TABLET PO (09:38)
[2022-07-24] MEDS: Thiamine HCL 100 MG TABLET PO ×2 (09:38→21:02)
[2022-07-24] MEDS: Magnesium Oxide 400 MG TABLET PO ×2 (09:38→21:02)
[2022-07-24] MEDS: Cholecalciferol (Vitamin D3) 25 MCG TABLET PO (09:38)
[2022-07-24] MEDS: amLODIPine Besylate 10 MG TABLET PO (09:38)
[2022-07-24] MEDS: Lactulose 20 GM/30 ML SOLUTION 30 GM PO ×3 (09:39→21:02)
[2022-07-24] MEDS: methADONE HCl 10 MG TABLET PO ×2 (09:39→21:02)
[2022-07-24] MEDS: Aspirin Enteric Coated 325 MG TABLET.DR PO (09:40)
[2022-07-24] MEDS: 0.9 % Sodium Chloride Flush 3 ML SYRINGE IVFLUSH ×3 (09:40→21:03)
[2022-07-24] MEDS: Nicotine 14 MG PATCH.TD24 TRANSDERMA (09:43)
[2022-07-24 10:51] LABS: Glucose, Whole Blood 137 mg/dL (60-115)
--- NOTE | 2022-07-24 11:24 | HO.PM.IMPN ---
Subjective Subjective Date of Service: 07/24/22 Interval History: f/u on confusion, covid Still confused, less agitated and overall seem better, Review of Systems no fever confused Physical Exam Vital Signs: Vital Signs: Last Vital Signs Temp 98.6 F 07/24/22 08:00 Pulse 104 H 07/24/22 08:00 Resp 20 07/24/22 08:00 BP 152/86 H 07/24/22 08:00 Pulse Ox 92 07/24/22 08:00 O2 Del Method 07/24/22 08:00 O2 Flow Rate 3 07/24/22 08:00 Oxygen Flow Rate 2 07/20/22 14:39 BMI result Body Mass Index 39.1 Const: Other: General: AO X 2, no acute distress Resp: CTA bilateral CVS: S1,S2,RRR GI: +BS, NT, no distention Skin: No rash Neuro: motor grossly intact Psych: appropriate affect Objective Data Active Medications Acetaminophen (Acetaminophen 325 Mg Tablet) 650 mg PO Q6H PRN PRN Reason: Pain, Mild (Pain Scale 1-3) Last Admin: 07/22/22 20:33 Dose: 650 mg Documented By: CARLOZ Albuterol Sulfate (Albuterol Sulfate 90 Mcg 8 Gm Inhaler) 2 puff INHALE QID PRN PRN Reason: Shortness Of Breath Or Wheezing Albuterol/Ipratropium (Albuterol/Iprat 2.5/0.5mg 3 Ml Ampul.Neb) 3 ml INHALE QID PRN PRN Reason: Shortness Of Breath Or Wheezing Last Admin: 07/23/22 18:26 Dose: 3 ml Documented By: ZACKERY Amlodipine Besylate (Amlodipine Besylate 10 Mg Tablet) 10 mg PO DAILY [facility]; Protocol Last Admin: 07/24/22 09:38 Dose: 10 mg Documented By: FERNY Aspirin (Aspirin Enteric Coated 325 Mg Tablet.) 325 mg PO DAILY [facility] Last Admin: 07/24/22 09:40 Dose: 325 mg Documented By: FERNY Atorvastatin Calcium (Atorvastatin Calcium 40 Mg Tablet) 40 mg PO BEDTIME [facility] Last Admin: 07/23/22 23:54 Dose: 40 mg Documented By: ANTOIC Dextrose (Dextrose 50 % 25 Gm/50 Ml Syringe) 25 gm IVPUSH Q15M PRN; Protocol PRN Reason: per Hypoglycemia Standing Ord. Enoxaparin Sodium (Enoxaparin Sodium 40 Mg/0.4 Ml Syringe) 40 mg SUBCUT Q24H [facility] Last Admin: 07/23/22 23:55 Dose: 40 mg Documented By: ELLIE Fluticasone Propionate (Fluticasone Propionate Nasal 16 Gm [place]) 1 spray NOSTRIL-B DAILY [facility] Last Admin: 07/24/22 09:40 Dose: Not Given Documented By: FERNY Non-Admin Reason: Patient Refused Folic Acid (Folic Acid 1 Mg Tablet) 1 mg PO DAILY [facility] Last Admin: 07/24/22 09:38 Dose: 1 mg Documented By: FERNY Gabapentin (Gabapentin 600 Mg Tablet) 600 mg PO QID [facility] Last Admin: 07/24/22 09:38 Dose: 600 mg Documented By: FERNY Glucagon (Glucagon,Human Recombinant 1 Mg/Ml Vial) 1 mg IM Q20M PRN PRN Reason: Hypoglycemia Glucose (Glucose Gel 15 Gm Gel..Gram.) 15 gm PO Q15M PRN PRN Reason: Hypoglycemia Glucose (Glucose Gel 15 Gm Gel..Gram.) 15 gm PO Q15M PRN; Protocol PRN Reason: per Hypoglycemia Standing Ord. Insulin Human Lispro (Insulin Lispro 100 Unit/Ml 3 Ml Vial) 0 unit SUBCUT QIDACHS [facility]; Protocol Last Admin: 07/24/22 11:10 Dose: Not Given Documented By: FERNY Non-Admin Reason: No Insulin Coverage Lactulose (Lactulose 20 Gm/30 Ml Solution) 30 gm PO TID [facility] Last Admin: 07/24/22 09:39 Dose: 30 gm Documented By: FERNY Magnesium Oxide (Magnesium Oxide 400 Mg Tablet) 400 mg PO BID [facility] Last Admin: 07/24/22 09:38 Dose: 400 mg Documented By: FERNY Melatonin (Melatonin 3 Mg Tablet) 6 mg PO BEDTIME PRN PRN Reason: Insomnia Last Admin: 07/22/22 20:34 Dose: 6 mg Documented By: CARLOZ Methadone HCl (Methadone Hcl 5 Mg Tablet) 5 mg PO DAILY@1200 [facility] Last Admin: 07/23/22 13:25 Dose: Not Given Documented By: BALJINDER Non-Admin Reason: Pain Methadone HCl (Methadone Hcl 10 Mg Tablet) 10 mg PO BID [facility] Last Admin: 07/24/22 09:39 Dose: 10 mg Documented By: FERNY Multivitamins/Vitamin C (Multivitamin Tablet) 1 tab PO DAILY [facility] Last Admin: 07/24/22 09:38 Dose: 1 tab Documented By: FERNY Nicotine (Nicotine 14 Mg Patch.Td24) 14 mg TRANSDERMA DAILY [facility] Last Admin: 07/24/22 09:43 Dose: 14 mg Documented By: FERNY Nortriptyline HCl (Nortriptyline Hcl 25 Mg Capsule) 50 mg PO BEDTIME [facility] Last Admin: 07/23/22 23:54 Dose: 50 mg Documented By: ANTOIC Pharmacy Consult (Consult Rx Perform Med Rec) 1 each MISCELLANE ONCE PRN PRN Reason: Consult order Pyridoxine HCl (Pyridoxine Hcl (Vitamin B6) 50 Mg Tablet) 50 mg PO DAILY [facility] Last Admin: 07/24/22 09:38 Dose: 50 mg Documented By: FERNY Sodium Biphosphate/Sodium Phosphate (Sodium Phosphate,[place]-Dibasic 133 Ml Enema) 118 ml [place] DAILY PRN PRN Reason: Constipation Sodium Chloride (0.9 % Sodium Chloride Flush 3 Ml Syringe) 3 ml IVFLUSH QSHIFT [facility] Last Admin: 07/24/22 09:40 Dose: 3 ml Documented By: FERNY Thiamine HCl (Thiamine Hcl 100 Mg Tablet) 100 mg PO BID [facility] Last Admin: 07/24/22 09:38 Dose: 100 mg Documented By: FERNY Vitamin D (Cholecalciferol (Vitamin D3) 25 Mcg Tablet) 25 mcg PO DAILY [facility] Last Admin: 07/24/22 09:38 Dose: 25 mcg Documented By: FERNY Labs CBC & Chem 7: 07/21/22 06:23 07/21/22 06:23 Labs: Laboratory Results - last 24 hr 07/23/22 07/23/22 07/24/22 15:18 19:21 07:29 POC Glucose 90 90 93 07/24/22 10:47 POC Glucose 137 H Assessment and Plan (1) Metabolic encephalopathy: Status: Acute (2) Altered mental status: Status: Acute (3) COVID-19 virus infection: Status: Acute Plan ? 62-year-old male with a PMH significant for?COPD, chronic hypoxic respiratory failure on 3 L of O2 at home, [id number] DM 2, HTN, and H/O vertebral fractures who presents from an SNF to the ED with altered mental status. Pt will be admitted to the hospital for treatment of AMS and hypotension in the setting of COVID infection. # COVID--Assymptomanic. His now on O2, starting decadron ? Remdesevir, repeat xray # hypOtension--likely secondary to dehydration and resolved with IVF. Hold BP meds for now # Hepatic encephalopathy (which is a metabolic encephalopathy) with underlying cirrhosis. He is more lucid today, continue lactulose, monitor ammonia (down today) #Anxiety--seems pretty calm now, Ativan PRN # ANEUDY-- likely secondary to dehydration, resolved after IVF # transaminitis -- likely secondary to chirrosis -- follow labs # left arm swelling -- patient was worked up for left arm pain during his recent stay at [facility]; trauma team evaluated him and thought it was likely because his arm was pinned when he fell for a prolonged time.? X-ray of the left forearm and elbow was negative for fractures, left upper extremity ultrasound was negative for DVT. Symptomatic pain treatment # T9 and T12 vertebral fractures -- patient seen by neuro surgery at [facility] at most recent admission who did not recommend brace or logroll precautions -- continue methadone for chronic back pain -- PT, rehab placement upon discharge # alcohol dependence -- h/o withdrawal, most recently during [facility] admission earlier this month -- has not drank since -- continue thiamine and folic acid supplements # h/o aspiration -- dx of aspiration pneumonia at [facility] on 07/03 -- CT today shows evidence of possible aspirated debris in trachea and right mainstem bronchus -- hold on abx for now, pt afebrile, no leukocytosis # dilated ascending thoracic aorta -- CT found dilated ascending thoracic aorta of 4cm -- vascular surgery recommend surveillance # diabetes, non-insulin dependent -- hold home meds -- ssi # COPD, no acute exacerbation, bronchoidlators PRN # HTN--hold Med now given recent low bp Full Code need for inpatient: Hepatic encephalopathy, covid, ANEUDY/dehydration and needing IVF hydration Time Spent With Patient Time: Total time managing care of this patient today ____ minutes. Quality Stroke Does the patient have a stroke diagnosis?: No VTE Prior VTE?: No VTE Risk Level:: Medical - moderate - high VTE Device Contraindication: Treatment Not Indicated VTE Drug Contraindication: N/A - Med Ordered
[2022-07-24] MEDS: dexAMETHasone sod phosphate 4 MG/ML VIAL 6 MG IVPUSH (12:30)
[2022-07-24] MEDS: methADONE HCl 5 MG TABLET PO (12:31)
[2022-07-24 15:57] VITALS: BP 148/71; PULSE 98; RESP 20; TEMP 36.8; O2SAT 94
[2022-07-24 16:26] LABS: Glucose, Whole Blood 162 mg/dL (60-115)
[2022-07-24] MEDS: Insulin Lispro 100 UNIT/ML 3 ML VIAL SUBCUT ×2 (17:08→21:03)
[2022-07-24 20:58] LABS: Glucose, Whole Blood 163 mg/dL (60-115)
[2022-07-24] MEDS: Nortriptyline HCl 25 MG CAPSULE 50 MG PO (21:02)
[2022-07-24] MEDS: Atorvastatin Calcium 40 MG TABLET PO (21:02)
[2022-07-24] MEDS: Enoxaparin Sodium 40 MG/0.4 ML SYRINGE SUBCUT (21:03)
[2022-07-24 23:32] VITALS: BP 130/73; PULSE 88; RESP 18; TEMP 36.9; O2SAT 92
[2022-07-25 07:14] VITALS: BP 153/78; PULSE 91; RESP 17; TEMP 36.6; O2SAT 97
[2022-07-25 07:26] LABS: Glucose, Whole Blood 138 mg/dL (60-115)
[2022-07-25] MEDS: Folic Acid 1 MG TABLET PO (08:45)
[2022-07-25] MEDS: methADONE HCl 10 MG TABLET PO ×2 (08:45→23:19)
[2022-07-25] MEDS: Cholecalciferol (Vitamin D3) 25 MCG TABLET PO (08:45)
[2022-07-25] MEDS: Gabapentin 600 MG TABLET PO ×4 (08:45→23:20)
[2022-07-25] MEDS: amLODIPine Besylate 10 MG TABLET PO (08:45)
[2022-07-25] MEDS: Magnesium Oxide 400 MG TABLET PO ×2 (08:46→23:20)
[2022-07-25] MEDS: dexAMETHasone sod phosphate 4 MG/ML VIAL 6 MG IVPUSH (08:46)
[2022-07-25] MEDS: Pyridoxine HCl (Vitamin B6) 50 MG TABLET PO (08:46)
[2022-07-25] MEDS: Thiamine HCL 100 MG TABLET PO ×2 (08:46→23:20)
[2022-07-25] MEDS: 0.9 % Sodium Chloride Flush 3 ML SYRINGE IVFLUSH ×3 (08:46→23:24)
[2022-07-25] MEDS: Multivitamin TABLET 1 TAB PO (08:46)
[2022-07-25] MEDS: Nicotine 14 MG PATCH.TD24 TRANSDERMA (08:46)
--- NOTE | 2022-07-25 08:50 | MHC.CM.PN ---
Patient continues with confusion. No discharge planned today. DP return to [facility] @ [facility] via BLS.
[2022-07-25] MEDS: Lactulose 20 GM/30 ML SOLUTION 30 GM PO ×3 (09:10→23:20)
--- NOTE | 2022-07-25 11:20 | HO.PM.IMPN ---
Subjective Subjective Date of Service: 07/25/22 Interval History: f/u on confusion, covid less confused and cooperative, no hypoxia Review of Systems no fever confused Physical Exam Vital Signs: Vital Signs: Last Vital Signs Temp 97.9 F 07/25/22 07:14 Pulse 91 07/25/22 07:14 Resp 17 07/25/22 07:14 BP 153/78 H 07/25/22 07:14 Pulse Ox 97 07/25/22 07:14 O2 Del Method 07/25/22 07:14 O2 Flow Rate 3 07/25/22 07:14 Oxygen Flow Rate 2 07/20/22 14:39 BMI result Body Mass Index 39.1 Const: Other: General: AO X 2, no acute distress Resp: CTA bilateral CVS: S1,S2,RRR GI: +BS, NT, no distention Skin: No rash Neuro: motor grossly intact Psych: appropriate affect Objective Data Active Medications Acetaminophen (Acetaminophen 325 Mg Tablet) 650 mg PO Q6H PRN PRN Reason: Pain, Mild (Pain Scale 1-3) Last Admin: 07/22/22 20:33 Dose: 650 mg Documented By: CARLOZ Albuterol Sulfate (Albuterol Sulfate 90 Mcg 8 Gm Inhaler) 2 puff INHALE QID PRN PRN Reason: Shortness Of Breath Or Wheezing Albuterol/Ipratropium (Albuterol/Iprat 2.5/0.5mg 3 Ml Ampul.Neb) 3 ml INHALE QID PRN PRN Reason: Shortness Of Breath Or Wheezing Last Admin: 07/23/22 18:26 Dose: 3 ml Documented By: ZACKERY Amlodipine Besylate (Amlodipine Besylate 10 Mg Tablet) 10 mg PO DAILY [facility]; Protocol Last Admin: 07/25/22 08:45 Dose: 10 mg Documented By: FERNY Aspirin (Aspirin Enteric Coated 325 Mg Tablet.) 325 mg PO DAILY [facility] Last Admin: 07/25/22 08:55 Dose: Not Given Documented By: FERNY Non-Admin Reason: low platelets/ not crushable Atorvastatin Calcium (Atorvastatin Calcium 40 Mg Tablet) 40 mg PO BEDTIME [facility] Last Admin: 07/24/22 21:02 Dose: 40 mg Documented By: ANTOIC Dexamethasone Sodium Phosphate (Dexamethasone Sod Phosphate 4 Mg/Ml Vial) 6 mg IVPUSH DAILY [facility] Last Admin: 07/25/22 08:46 Dose: 6 mg Documented By: FERNY Dextrose (Dextrose 50 % 25 Gm/50 Ml Syringe) 25 gm IVPUSH Q15M PRN; Protocol PRN Reason: per Hypoglycemia Standing Ord. Enoxaparin Sodium (Enoxaparin Sodium 40 Mg/0.4 Ml Syringe) 40 mg SUBCUT Q24H [facility] Last Admin: 07/24/22 21:03 Dose: 40 mg Documented By: ELLIE Fluticasone Propionate (Fluticasone Propionate Nasal 16 Gm [place]) 1 spray NOSTRIL-B DAILY [facility] Last Admin: 07/24/22 09:40 Dose: Not Given Documented By: FERNY Non-Admin Reason: Patient Refused Folic Acid (Folic Acid 1 Mg Tablet) 1 mg PO DAILY [facility] Last Admin: 07/25/22 08:45 Dose: 1 mg Documented By: FERNY Gabapentin (Gabapentin 600 Mg Tablet) 600 mg PO QID [facility] Last Admin: 07/25/22 08:45 Dose: 600 mg Documented By: FERNY Glucagon (Glucagon,Human Recombinant 1 Mg/Ml Vial) 1 mg IM Q20M PRN PRN Reason: Hypoglycemia Glucose (Glucose Gel 15 Gm Gel..Gram.) 15 gm PO Q15M PRN PRN Reason: Hypoglycemia Glucose (Glucose Gel 15 Gm Gel..Gram.) 15 gm PO Q15M PRN; Protocol PRN Reason: per Hypoglycemia Standing Ord. Insulin Human Lispro (Insulin Lispro 100 Unit/Ml 3 Ml Vial) 0 unit SUBCUT QIDACHS [facility]; Protocol Last Admin: 07/25/22 07:37 Dose: Not Given Documented By: FERNY Non-Admin Reason: No Insulin Coverage Lactulose (Lactulose 20 Gm/30 Ml Solution) 30 gm PO TID [facility] Last Admin: 07/24/22 21:02 Dose: 30 gm Documented By: ELLIE Magnesium Oxide (Magnesium Oxide 400 Mg Tablet) 400 mg PO BID [facility] Last Admin: 07/25/22 08:46 Dose: 400 mg Documented By: FERNY Melatonin (Melatonin 3 Mg Tablet) 6 mg PO BEDTIME PRN PRN Reason: Insomnia Last Admin: 07/22/22 20:34 Dose: 6 mg Documented By: CARLOZ Methadone HCl (Methadone Hcl 5 Mg Tablet) 5 mg PO DAILY@1200 [facility] Last Admin: 07/24/22 12:31 Dose: 5 mg Documented By: FERNY Methadone HCl (Methadone Hcl 10 Mg Tablet) 10 mg PO BID [facility] Last Admin: 07/25/22 08:45 Dose: 10 mg Documented By: FERNY Multivitamins/Vitamin C (Multivitamin Tablet) 1 tab PO DAILY [facility] Last Admin: 07/25/22 08:46 Dose: 1 tab Documented By: FERNY Nicotine (Nicotine 14 Mg Patch.Td24) 14 mg TRANSDERMA DAILY [facility] Last Admin: 07/25/22 08:46 Dose: 14 mg Documented By: FERNY Nortriptyline HCl (Nortriptyline Hcl 25 Mg Capsule) 50 mg PO BEDTIME [facility] Last Admin: 07/24/22 21:02 Dose: 50 mg Documented By: ANTOIC Pharmacy Consult (Consult Rx Perform Med Rec) 1 each MISCELLANE ONCE PRN PRN Reason: Consult order Pyridoxine HCl (Pyridoxine Hcl (Vitamin B6) 50 Mg Tablet) 50 mg PO DAILY [facility] Last Admin: 07/25/22 08:46 Dose: 50 mg Documented By: FERNY Sodium Biphosphate/Sodium Phosphate (Sodium Phosphate,[place]-Dibasic 133 Ml [place]) 118 ml [place] DAILY PRN PRN Reason: Constipation Sodium Chloride (0.9 % Sodium Chloride Flush 3 Ml Syringe) 3 ml IVFLUSH QSHIFT [facility] Last Admin: 07/25/22 08:46 Dose: 3 ml Documented By: FERNY Thiamine HCl (Thiamine Hcl 100 Mg Tablet) 100 mg PO BID [facility] Last Admin: 07/25/22 08:46 Dose: 100 mg Documented By: FERNY Vitamin D (Cholecalciferol (Vitamin D3) 25 Mcg Tablet) 25 mcg PO DAILY [facility] Last Admin: 07/25/22 08:45 Dose: 25 mcg Documented By: FERNY Labs 07/21/22 06:23 07/21/22 06:23 Labs: Laboratory Results - last 24 hr 07/24/22 07/24/22 07/25/22 16:23 20:55 07:13 POC Glucose 162 H 163 H 138 H Assessment and Plan (1) Metabolic encephalopathy: Status: Acute (2) Altered mental status: Status: Acute (3) COVID-19 virus infection: Status: Acute Plan ? 62-year-old male with a PMH significant for?COPD, chronic hypoxic respiratory failure on 3 L of O2 at home, [id number] DM 2, HTN, and H/O vertebral fractures who presents from an SNF to the ED with altered mental status. Pt will be admitted to the hospital for treatment of AMS and hypotension in the setting of COVID infection. # COVID--Assymptomanic. His now on O2, starting decadron, doing better # hypOtension--likely secondary to dehydration and resolved with IVF. Hold BP meds for now # Hepatic encephalopathy (which is a metabolic encephalopathy) with underlying cirrhosis. He is more lucid today #Anxiety--seems pretty calm now, Ativan PRN # ANEUDY-- likely secondary to dehydration, resolved after IVF # transaminitis -- likely secondary to chirrosis -- follow labs # left arm swelling -- patient was worked up for left arm pain during his recent stay at [facility]; trauma team evaluated him and thought it was likely because his arm was pinned when he fell for a prolonged time.? X-ray of the left forearm and elbow was negative for fractures, left upper extremity ultrasound was negative for DVT. Symptomatic pain treatment # T9 and T12 vertebral fractures -- patient seen by neuro surgery at [facility] at most recent admission who did not recommend brace or logroll precautions -- continue methadone for chronic back pain -- PT, rehab placement upon discharge # alcohol dependence -- h/o withdrawal, most recently during [facility] admission earlier this month -- has not drank since -- continue thiamine and folic acid supplements # h/o aspiration -- dx of aspiration pneumonia at [facility] on 07/03 -- CT today shows evidence of possible aspirated debris in trachea and right mainstem bronchus -- hold on abx for now, pt afebrile, no leukocytosis # dilated ascending thoracic aorta -- CT found dilated ascending thoracic aorta of 4cm -- vascular surgery recommend surveillance # diabetes, non-insulin dependent -- hold home meds -- ssi # COPD, no acute exacerbation, bronchoidlators PRN # HTN--hold Med now given recent low bp Full Code need for inpatient: Hepatic encephalopathy, covid, ANEUDY/dehydration and needing IVF hydration Time Spent With Patient Time: Total time managing care of this patient today ____ minutes. Quality Stroke Does the patient have a stroke diagnosis?: No VTE Prior VTE?: No VTE Risk Level:: Medical - moderate - high VTE Device Contraindication: Treatment Not Indicated VTE Drug Contraindication: N/A - Med Ordered
[2022-07-25 11:30] LABS: Glucose, Whole Blood 124 mg/dL (60-115)
[2022-07-25] MEDS: methADONE HCl 5 MG TABLET PO (12:27)
[2022-07-25 16:19] LABS: Glucose, Whole Blood 133 mg/dL (60-115)
--- NOTE | 2022-07-25 18:51 | PC.NURSE ---
throughout the shift, patient was at times combative, aggressive towards staff. Pt would dangle legs and arms over the bedrails and urinate on the floor. He would benefit from a sitter.
[2022-07-25 19:40] VITALS: BP 162/86; PULSE 89; RESP 20; TEMP 36.9; O2SAT 96
[2022-07-25 20:39] LABS: Glucose, Whole Blood 129 mg/dL (60-115)
[2022-07-25 23:13] VITALS: BP 155/86; PULSE 91; RESP 18; TEMP 36.7; O2SAT 93
[2022-07-25] MEDS: Enoxaparin Sodium 40 MG/0.4 ML SYRINGE SUBCUT (23:16)
[2022-07-25] MEDS: Nortriptyline HCl 25 MG CAPSULE 50 MG PO (23:19)
[2022-07-25] MEDS: Atorvastatin Calcium 40 MG TABLET PO (23:20)
[2022-07-25] MEDS: Melatonin 3 MG TABLET 6 MG PO (23:24)
[2022-07-26 03:40] VITALS: BP 133/70; PULSE 77; RESP 18; TEMP 36.2; O2SAT 96
[2022-07-26 07:30] VITALS: BP 147/85; PULSE 71; RESP 17; TEMP 36.3; O2SAT 95
[2022-07-26 07:58] LABS: Glucose, Whole Blood 100 mg/dL (60-115)
[2022-07-26] MEDS: LORazepam 2 MG/ML VIAL 1 MG IVPUSH ×2 (09:33→21:54)
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
[2022-07-26] MEDS: 0.9 % Sodium Chloride Flush 3 ML SYRINGE IVFLUSH ×2 (10:52→21:56)
[2022-07-26] MEDS: Nicotine 14 MG PATCH.TD24 TRANSDERMA (10:52)
[2022-07-26] MEDS: dexAMETHasone sod phosphate 4 MG/ML VIAL 6 MG IVPUSH (10:53)
[2022-07-26] MEDS: Magnesium Oxide 400 MG TABLET PO ×2 (10:54→22:11)
[2022-07-26] MEDS: Pyridoxine HCl (Vitamin B6) 50 MG TABLET PO (10:54)
[2022-07-26] MEDS: Multivitamin TABLET 1 TAB PO (10:54)
[2022-07-26] MEDS: Gabapentin 600 MG TABLET PO ×3 (10:54→21:53)
[2022-07-26] MEDS: Cholecalciferol (Vitamin D3) 25 MCG TABLET PO (10:54)
[2022-07-26] MEDS: Thiamine HCL 100 MG TABLET PO ×2 (10:54→21:53)
[2022-07-26] MEDS: Folic Acid 1 MG TABLET PO (10:54)
[2022-07-26] MEDS: amLODIPine Besylate 10 MG TABLET PO (10:54)
[2022-07-26 11:41] LABS: Glucose, Whole Blood 92 mg/dL (60-115)
[2022-07-26 15:04] VITALS: BP 177/91; PULSE 114; RESP 20; TEMP 37.2; O2SAT 95
[2022-07-26 16:01] LABS: Glucose, Whole Blood 120 mg/dL (60-115)
[2022-07-26 19:29] LABS: Glucose, Whole Blood 127 mg/dL (60-115)
[2022-07-26 21:50] VITALS: BP 135/74; PULSE 103; RESP 20; TEMP 36.7; O2SAT 96
[2022-07-26] MEDS: Nortriptyline HCl 25 MG CAPSULE 50 MG PO (21:53)
[2022-07-26] MEDS: Acetaminophen 325 MG TABLET 650 MG PO (21:53)
[2022-07-26] MEDS: Atorvastatin Calcium 40 MG TABLET PO (21:53)
[2022-07-26] MEDS: Lactulose 20 GM/30 ML SOLUTION 30 GM PO (21:54)
[2022-07-26] MEDS: Melatonin 3 MG TABLET 6 MG PO (21:56)
[2022-07-26 23:00] VITALS: BP 162/84; PULSE 92; RESP 17; TEMP 36.7; O2SAT 92
--- NOTE | 2022-07-27 | ECG_ITS ---
Test Reason : qt check Blood Pressure : / mmHG Vent. Rate : 098 BPM Atrial Rate : 098 BPM P-R Int : 152 ms QRS Dur : 084 ms QT Int : 374 ms P-R-T Axes : 051 076 064 degrees QTc Int : 477 ms Normal sinus rhythm Junctional ST depression, probably normal Borderline ECG When compared with ECG of 20-JUL-2022 16:01, Premature supraventricular complexes are no longer Present Referred By: Danny Ritter Electronically Signed By:Mauro Mcfarland
[2022-07-27 08:00] VITALS: BP 155/87; PULSE 94; RESP 17; TEMP 36.8; O2SAT 92
[2022-07-27 08:03] LABS: Glucose, Whole Blood 89 mg/dL (60-115)
[2022-07-27] MEDS: 0.9 % Sodium Chloride Flush 3 ML SYRINGE IVFLUSH (09:48)
[2022-07-27] MEDS: Nicotine 14 MG PATCH.TD24 TRANSDERMA (09:48)
[2022-07-27] MEDS: Thiamine HCL 100 MG TABLET PO ×2 (09:49→21:39)
[2022-07-27] MEDS: Cholecalciferol (Vitamin D3) 25 MCG TABLET PO (09:49)
[2022-07-27] MEDS: Folic Acid 1 MG TABLET PO (09:49)
[2022-07-27] MEDS: Pyridoxine HCl (Vitamin B6) 50 MG TABLET PO (09:49)
[2022-07-27] MEDS: amLODIPine Besylate 10 MG TABLET PO (09:49)
[2022-07-27] MEDS: Gabapentin 600 MG TABLET PO ×4 (09:50→21:39)
[2022-07-27] MEDS: Multivitamin TABLET 1 TAB PO (09:50)
[2022-07-27] MEDS: Magnesium Oxide 400 MG TABLET PO ×2 (09:50→21:39)
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
[2022-07-27] MEDS: LORazepam 2 MG/ML VIAL 1 MG IVPUSH (11:03)
[2022-07-27 11:26] LABS: Glucose, Whole Blood 79 mg/dL (60-115)
[2022-07-27] MEDS: Lactulose 20 GM/30 ML SOLUTION 30 GM PO ×2 (14:02→21:41)
[2022-07-27 16:00] VITALS: BP 137/78; PULSE 87; RESP 17; TEMP 36.6; O2SAT 94
[2022-07-27 16:38] LABS: Glucose, Whole Blood 102 mg/dL (60-115)
[2022-07-27] MEDS: LORazepam 2 MG/ML VIAL 1 MG IM (17:13)
[2022-07-27 19:41] LABS: Glucose, Whole Blood 95 mg/dL (60-115)
[2022-07-27 19:52] VITALS: BP 144/87; PULSE 95; RESP 20; TEMP 36.4; O2SAT 92
[2022-07-27] MEDS: Atorvastatin Calcium 40 MG TABLET PO (21:39)
[2022-07-27] MEDS: Nortriptyline HCl 25 MG CAPSULE 50 MG PO (21:39)
[2022-07-28] MEDS: Enoxaparin Sodium 40 MG/0.4 ML SYRINGE SUBCUT (00:40)
[2022-07-28 07:28] VITALS: BP 141/55; PULSE 77; RESP 12; TEMP 36.9; O2SAT 93
[2022-07-28 07:52] LABS: Glucose, Whole Blood 89 mg/dL (60-115)
[2022-07-28 09:24] VITALS: BP 145/81; PULSE 118; RESP 20; TEMP 37.7; O2SAT 94
--- NOTE | 2022-07-28 09:24 | MHC.CM.PN ---
DP return to [facility] @ [facility]. Patient continues with encephalopathy. Patient is not ready to discharge today.
[2022-07-28] MEDS: amLODIPine Besylate 10 MG TABLET PO (09:53)
[2022-07-28] MEDS: Gabapentin 600 MG TABLET PO ×4 (09:53→22:05)
[2022-07-28] MEDS: Folic Acid 1 MG TABLET PO (09:53)
[2022-07-28] MEDS: Pyridoxine HCl (Vitamin B6) 50 MG TABLET PO (09:53)
[2022-07-28] MEDS: Thiamine HCL 100 MG TABLET PO ×2 (09:53→22:05)
[2022-07-28] MEDS: Cholecalciferol (Vitamin D3) 25 MCG TABLET PO (09:53)
[2022-07-28] MEDS: dexAMETHasone sod phosphate 4 MG/ML VIAL 6 MG IVPUSH (09:54)
[2022-07-28] MEDS: Aspirin Enteric Coated 325 MG TABLET.DR PO (09:54)
[2022-07-28] MEDS: Acetaminophen 325 MG TABLET 650 MG PO (09:54)
[2022-07-28] MEDS: Nicotine 14 MG PATCH.TD24 TRANSDERMA (09:55)
[2022-07-28] MEDS: 0.9 % Sodium Chloride Flush 3 ML SYRINGE IVFLUSH ×2 (09:55→18:01)
[2022-07-28] MEDS: Lactulose 20 GM/30 ML SOLUTION 30 GM PO ×3 (09:56→22:04)
[2022-07-28] MEDS: Fluticasone Propionate Nasal 16 GM SPRAY 1 SPRAY NOSTRIL-B (09:56)
[2022-07-28] MEDS: Multivitamin TABLET 1 TAB PO (09:57)
[2022-07-28] MEDS: Magnesium Oxide 400 MG TABLET PO ×2 (09:57→22:06)
[2022-07-28 11:33] LABS: Glucose, Whole Blood 135 mg/dL (60-115)
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
[2022-07-28] MEDS: LORazepam 2 MG/ML VIAL 1 MG IM (12:44)
[2022-07-28 14:04] LABS: Hematocrit 40.9 % (42.0-52.0); Hemoglobin 12.9 g/dl (14.0-18.0); Mean Corpuscular HGB Conc 31.5 g/dl (31.0-36.0); Mean Corpuscular Hemoglobin 33.1 pg (27.0-33.0); Mean Corpuscular Volume 104.9 fL (80.0-98.0); Mean Platelet Volume 12.6 fL (9.4-12.4); Platelet Count 126 X10*3/uL (160-400); Red Cell Distribution Width 14.5 % (11.0-16.0)
[2022-07-28 14:26] LABS: Blood Urea Nitrogen 21 mg/dL (9-16); Calcium 9.2 mg/dL (8.4-10.2); Creatinine Clr Calc Pharmacy 100.4; Estimated Glomerular Filt Rate > 60; Glucose Random 131 mg/dL (60-115)
[2022-07-28 15:01] LABS: Anion Gap 15 (12-20); Carbon Dioxide 22 mmol/L (22-29); Chloride 130 mmol/L (96-108); Potassium 3.6 mmol/L (3.3-5.1); Sodium 163 mmol/L (135-145)
[2022-07-28 15:16] VITALS: BP 159/77; PULSE 91; RESP 20; TEMP 37.3; O2SAT 91
[2022-07-28 16:16] LABS: Glucose, Whole Blood 112 mg/dL (60-115)
[2022-07-28] MEDS: Dextrose 5 % 1,000 ML 150 ML IVCONT (16:59)
[2022-07-28 19:48] LABS: Glucose, Whole Blood 194 mg/dL (60-115)
[2022-07-28] MEDS: LORazepam 2 MG/ML VIAL 1 MG IVPUSH (21:59)
[2022-07-28] MEDS: Atorvastatin Calcium 40 MG TABLET PO (22:05)
[2022-07-28] MEDS: Nortriptyline HCl 25 MG CAPSULE 50 MG PO (22:05)
[2022-07-28] MEDS: Insulin Lispro 100 UNIT/ML 3 ML VIAL SUBCUT (22:05)
[2022-07-28] MEDS: Melatonin 3 MG TABLET 6 MG PO (22:05)
[2022-07-28] MEDS: Nystatin Powder 15 GM BOTTLE 1 APPL TOPICAL (22:06)
[2022-07-28 23:06] VITALS: BP 157/81; PULSE 87; RESP 20; TEMP 36.9; O2SAT 90
[2022-07-29] MEDS: 0.9 % Sodium Chloride Flush 3 ML SYRINGE IVFLUSH
[2022-07-29] MEDS: Dextrose 5 % 1,000 ML 150 ML IVCONT ×2 (03:52→04:59)
[2022-07-29 07:25] LABS: Glucose, Whole Blood 172 mg/dL (60-115)
[2022-07-29 07:41] LABS: Anion Gap 15 (12-20); Blood Urea Nitrogen 25 mg/dL (9-16); Calcium 8.9 mg/dL (8.4-10.2); Carbon Dioxide 20 mmol/L (22-29); Chloride 133 mmol/L (96-108); Creatinine Clr Calc Pharmacy 87.4; Estimated Glomerular Filt Rate > 60; Glucose Random 189 mg/dL (60-115); Potassium 4.2 mmol/L (3.3-5.1); Sodium 164 mmol/L (135-145)
[2022-07-29 07:49] VITALS: BP 142/73; PULSE 87; RESP 16; TEMP 36.7; O2SAT 95
[2022-07-29] MEDS: Lactulose 20 GM/30 ML SOLUTION 30 GM PO ×3 (09:07→21:03)
[2022-07-29] MEDS: Nicotine 14 MG PATCH.TD24 TRANSDERMA (09:07)
[2022-07-29] MEDS: OLANZapine 10 MG VIAL 5 MG IM (09:07)
[2022-07-29] MEDS: Insulin Lispro 100 UNIT/ML 3 ML VIAL SUBCUT ×4 (09:08→21:04)
[2022-07-29] MEDS: Aspirin Enteric Coated 325 MG TABLET.DR PO (09:09)
[2022-07-29] MEDS: dexAMETHasone sod phosphate 4 MG/ML VIAL 6 MG IVPUSH (09:09)
[2022-07-29] MEDS: Cholecalciferol (Vitamin D3) 25 MCG TABLET PO (09:09)
[2022-07-29] MEDS: Folic Acid 1 MG TABLET PO (09:09)
[2022-07-29] MEDS: amLODIPine Besylate 10 MG TABLET PO (09:10)
[2022-07-29] MEDS: Multivitamin TABLET 1 TAB PO (09:10)
[2022-07-29] MEDS: Magnesium Oxide 400 MG TABLET PO ×2 (09:10→21:05)
[2022-07-29] MEDS: Thiamine HCL 100 MG TABLET PO ×2 (09:10→21:05)
[2022-07-29] MEDS: Gabapentin 600 MG TABLET PO ×4 (09:10→21:05)
[2022-07-29] MEDS: Pyridoxine HCl (Vitamin B6) 50 MG TABLET PO (09:10)
[2022-07-29] MEDS: Fluticasone Propionate Nasal 16 GM SPRAY 1 SPRAY NOSTRIL-B (09:28)
--- NOTE | 2022-07-29 10:26 | P.CONNP_ITS ---
History of Present Illness Reason for Consult Consult date: 07/29/22 Chief Complaint Chief complaint: Hypertension History of Present Illness Narrative: 62-year-old male with a PMH significant for?COPD, chronic hypoxic respiratory failure on 3 L of O2 at home, [id number] DM 2, HTN, and H/O vertebral fractures who presents from an SNF to the ED with altered mental status.?He was recently admitted to [facility] from July 03 through July 18 .? His hospital course was complicated by left upper extremity swelling, rhab domyolysis, leukocytosis, ANEUDY, transaminitis, acute hypoxic respiratory failure, AMS, aspiration pneumonia and acute alcohol withdrawal. ?In the ED, during this presentation, patient was found have a fever of 101.3 with a blood pressure as low as 85/41. Labs were significant for no leukocytosis, H&H of 10.6/33.2, BUN of 27, creatinine of 1.45, mild transaminitis, hyperbilirubinemia, and alk phos, and elevated ammonia at 76. CXR showed no evidence for acute infiltrates or failure. CT?of chest showed T12 fracture, small amount of secretions/mucus versus aspirated debris in the trachea and right mainstem bronchus, trace left pleural effusion, evidence of asbestos exposure, borderline dilated ascending thoracic aorta of 4 cm, in findings compatible with cirrhosis and portal hypertension with splenomegaly and small amount of perihepatic ascites. Pt was treated with fluids for hypotension. Pt will be admitted to the hospital for treatment of AMS and hypotension.He remains hypernatremic. Nephrology has been consulted to assist in his clinical care. Review of Systems Review of Systems Yes all other systems are reviewed and are negative [facility] Social History Social History Unable to assess alcohol history related to: Unable to respond Patient Tobacco Use Status: Tobacco use Unknown Advance Directives Date on File: 07/22/22 service: No Current occupational status: employed Meds Allergies Allergy/AdvReac Type Severity Reaction Status Date / Time fentanyl [From Duragesic] Allergy Unknown Unknown Verified 07/20/22 14:45 fluoxetine [From Prozac] Allergy Unknown Unknown Verified 07/20/22 14:45 lisinopril AdvReac Unknown Unknown Verified 07/20/22 14:44 Active Medications: Current Medications Acetaminophen (Acetaminophen 325 Mg Tablet) 650 mg PO Q6H PRN PRN Reason: Pain, Mild (Pain Scale 1-3) Last Admin: 07/28/22 09:54 Dose: 650 mg Albuterol Sulfate (Albuterol Sulfate 90 Mcg 8 Gm Inhaler) 2 puff INHALE QID PRN PRN Reason: Shortness Of Breath Or Wheezing Amlodipine Besylate (Amlodipine Besylate 10 Mg Tablet) 10 mg PO DAILY [facility]; Protocol Last Admin: 07/29/22 09:10 Dose: 10 mg Aspirin (Aspirin Enteric Coated 325 Mg Tablet.Dr) 325 mg PO DAILY [facility] Last Admin: 07/29/22 09:09 Dose: 325 mg Atorvastatin Calcium (Atorvastatin Calcium 40 Mg Tablet) 40 mg PO BEDTIME [facility] Last Admin: 07/28/22 22:05 Dose: 40 mg Dexamethasone Sodium Phosphate (Dexamethasone Sod Phosphate 4 Mg/Ml Vial) 6 mg IVPUSH DAILY [facility] Last Admin: 07/29/22 09:09 Dose: 6 mg Dextrose (Dextrose 50 % 25 Gm/50 Ml Syringe) 25 gm IVPUSH Q15M PRN; Protocol PRN Reason: per Hypoglycemia Standing Ord. Enoxaparin Sodium (Enoxaparin Sodium 40 Mg/0.4 Ml Syringe) 40 mg SUBCUT Q24H [facility] Last Admin: 07/29/22 00:00 Dose: 40 mg Fluticasone Propionate (Fluticasone Propionate Nasal 16 Gm [place]) 1 spray NOSTRIL-B DAILY [facility] Last Admin: 07/29/22 09:28 Dose: 1 spray Folic Acid (Folic Acid 1 Mg Tablet) 1 mg PO DAILY [facility] Last Admin: 07/29/22 09:09 Dose: 1 mg Gabapentin (Gabapentin 600 Mg Tablet) 600 mg PO QID [facility] Last Admin: 07/29/22 09:10 Dose: 600 mg Glucagon (Glucagon,Human Recombinant 1 Mg/Ml Vial) 1 mg IM Q20M PRN PRN Reason: Hypoglycemia Glucose (Glucose Gel 15 Gm Gel..Gram.) 15 gm PO Q15M PRN PRN Reason: Hypoglycemia Glucose (Glucose Gel 15 Gm Gel..Gram.) 15 gm PO Q15M PRN; Protocol PRN Reason: per Hypoglycemia Standing Ord. Dextrose (D5w) 1,000 mls @ 150 mls/hr IVCONT .Q6H40M [facility] Last Admin: 07/29/22 04:59 Dose: 150 mls/hr Insulin Human Lispro (Insulin Lispro 100 Unit/Ml 3 Ml Vial) 0 unit SUBCUT QIDACHS [facility]; Protocol Last Admin: 07/29/22 09:08 Dose: 2 unit Lactulose (Lactulose 20 Gm/30 Ml Solution) 30 gm PO TID [facility] Last Admin: 07/29/22 09:07 Dose: 30 gm Lorazepam (Lorazepam 2 Mg/Ml Vial) 1 mg IVPUSH ONCE PRN PRN Reason: anxiety/restlessness Last Admin: 07/27/22 11:03 Dose: 1 mg Lorazepam (Lorazepam 2 Mg/Ml Vial) 1 mg IVPUSH Q6H PRN PRN Reason: Anxiety Last Admin: 07/28/22 21:59 Dose: 1 mg Lorazepam (Lorazepam 2 Mg/Ml Vial) 1 mg IM Q6H PRN PRN Reason: anxiety/restlessness Last Admin: 07/28/22 12:44 Dose: 1 mg Magnesium Oxide (Magnesium Oxide 400 Mg Tablet) 400 mg PO BID [facility] Last Admin: 07/29/22 09:10 Dose: 400 mg Melatonin (Melatonin 3 Mg Tablet) 6 mg PO BEDTIME PRN PRN Reason: Insomnia Last Admin: 07/28/22 22:05 Dose: 6 mg Multivitamins/Vitamin C (Multivitamin Tablet) 1 tab PO DAILY [facility] Last Admin: 07/29/22 09:10 Dose: 1 tab Nicotine (Nicotine 14 Mg Patch.Td24) 14 mg TRANSDERMA DAILY [facility] Last Admin: 07/29/22 09:07 Dose: 14 mg Nortriptyline HCl (Nortriptyline Hcl 25 Mg Capsule) 50 mg PO BEDTIME [facility] Last Admin: 07/28/22 22:05 Dose: 50 mg Nystatin (Nystatin Powder 15 Gm Bottle) 1 appl TOPICAL BID [facility] Last Admin: 07/29/22 09:29 Dose: Not Given Pharmacy Consult (Consult Rx Perform Med Rec) 1 each MISCELLANE ONCE PRN PRN Reason: Consult order Pyridoxine HCl (Pyridoxine Hcl (Vitamin B6) 50 Mg Tablet) 50 mg PO DAILY [facility] Last Admin: 07/29/22 09:10 Dose: 50 mg Sodium Biphosphate/Sodium Phosphate (Sodium Phosphate,[place]-Dibasic 133 Ml Enema) 118 ml [place] DAILY PRN PRN Reason: Constipation Sodium Chloride (0.9 % Sodium Chloride Flush 3 Ml Syringe) 3 ml IVFLUSH QSHIFT [facility] Last Admin: 07/29/22 09:09 Dose: Not Given Thiamine HCl (Thiamine Hcl 100 Mg Tablet) 100 mg PO BID [facility] Last Admin: 07/29/22 09:10 Dose: 100 mg Vitamin D (Cholecalciferol (Vitamin D3) 25 Mcg Tablet) 25 mcg PO DAILY [facility] Last Admin: 07/29/22 09:09 Dose: 25 mcg Home Medications Medication Instructions Recorded Confirmed Last Taken Type acetaminophen 325 mg tablet 650 mg PO Q6H PRN Fever Or Pain 07/20/22 07/20/22 Unknown History albuterol sulfate 90 mcg/actuation 2 puff inhalation QID PRN 07/20/22 07/20/22 Unknown History aerosol inhaler (ProAir HFA) Shortness Of Breath Or Wheezing amlodipine 10 mg tablet 10 mg PO DAILY 07/20/22 07/20/22 Unknown History aspirin 325 mg tablet,delayed 325 mg PO DAILY 07/20/22 07/20/22 Unknown History release bisacodyl 10 mg rectal suppository 10 mg [place] DAILY PRN Constipation 07/20/22 07/20/22 Unknown History cholecalciferol (vitamin D3) 25 25 mcg PO DAILY 07/20/22 07/20/22 Unknown History mcg (1,000 unit) tablet (Vitamin D3) dextrose 40 % oral gel (Glucose 15 g PO Q15M PRN Hypoglycemia 07/20/22 07/20/22 Unknown History Gel) fluticasone fur. 100 mcg-umeclid 1 inh inhalation DAILY 07/20/22 07/20/22 Unknown History 62.5 mcg-vilant 25 mcg inhalat.powder (Trelegy Ellipta) fluticasone propionate 50 1 spray intranasal DAILY 07/20/22 07/20/22 Unknown History mcg/actuation nasal spray,suspension (Flonase Allergy Relief) folic acid 1 mg tablet 1 mg PO DAILY 07/20/22 07/20/22 Unknown History gabapentin 600 mg tablet 600 mg PO QID 07/20/22 07/20/22 Unknown History glucagon 1 mg/0.2 mL subcutaneous 1 mg subcut Q20M PRN Hypoglycemia 07/20/22 0 07/20/22 Unknown History solution hydroxyzine HCl 10 mg tablet 20 mg PO TID PRN Anxiety 07/20/22 07/20/22 Unknown History ipratropium 0.5 mg-albuterol 3 mg 3 ml inhalation QID PRN Shortness 07/20/22 07/20/22 Unknown History (2.5 mg base)/3 mL nebulization Of Breath Or Wheezing soln levalbuterol HCl 0.63 mg/3 mL 0.63 mg inhalation TID PRN 07/20/22 07/20/22 Unknown History solution for nebulization Shortness Of Breath Or Wheezing losartan 100 mg tablet 100 mg PO DAILY 07/20/22 07/20/22 Unknown History magnesium hydroxide 400 mg/5 mL 30 ml PO DAILY PRN Constipation 07/20/22 07/20/22 Unknown History oral suspension (Milk of Magnesia) magnesium oxide 400 mg (241.3 mg 400 mg PO BID 07/20/22 07/20/22 Unknown History magnesium) tablet melatonin 5 mg tablet 5 mg PO BEDTIME PRN Insomnia 07/20/22 07/20/22 Unknown History metformin 1,000 mg tablet 1,000 mg PO DAILY@1700 07/20/22 07/20/22 Unknown History metformin 500 mg tablet 500 mg PO DAILY@0800 07/20/22 07/20/22 Unknown History methadone 5 mg/5 mL oral solution 5 mg PO DAILY@1200 rhabdomyolysis 07/20/22 07/20/22 Unknown History methadone 5 mg/5 mL oral solution 10 mg PO BID rhabdomyolysis 07/20/22 07/20/22 Unknown History multivitamin 1 tab PO DAILY 07/20/22 07/20/22 Unknown History nicotine 14 mg/24 hr daily 1 patch transdermal DAILY 07/20/22 07/20/22 Unknown History transdermal patch nortriptyline 50 mg capsule 50 mg PO BEDTIME 07/20/22 07/20/22 Unknown History omega 3-cnh-orq-fish oil 1,000 mg 1 cap PO BEDTIME 07/20/22 07/20/22 Unknown History (120 mg-180 mg) capsule omega 9-enj-vgu-fish oil 1,000 mg 1 cap PO TIDAC 07/20/22 07/20/22 Unknown History (120 mg-180 mg) capsule pyridoxine (vitamin B6) 50 mg 50 mg PO DAILY 07/20/22 07/20/22 Unknown History tablet rosuvastatin 10 mg tablet 10 mg PO BEDTIME 07/20/22 07/20/22 Unknown History sodium phosphates 19 gram-7 118 ml [place] DAILY PRN Constipation 07/20/22 07/20/22 Unknown History gram/118 mL enema (Fleet Enema) testosterone cypionate 200 mg/mL 1 ml IM Q2W 07/20/22 07/20/22 Unknown History intramuscular oil thiamine HCl (vitamin B1) 100 mg 100 mg PO BID 07/20/22 07/20/22 Unknown History tablet Physical Exam Vital Signs: Last Vital Signs Temp 98.0 F 07/29/22 07:49 Pulse 87 07/29/22 07:49 Resp 16 07/29/22 07:49 BP 142/73 H 07/29/22 07:49 Pulse Ox 95 07/29/22 07:49 O2 Del Method 07/29/22 07:49 O2 Flow Rate 3 07/29/22 07:49 Oxygen Flow Rate 2 07/20/22 14:39 BMI result Body Mass Index 39.1 Const General: no acute distress Neck Neck: Yes supple Resp Auscultation: diminished lung sounds Cardio Rate: regular rate GI Palpation (GI): Soft to palpation Skin Rashes: no rashes Results Lab Results 07/28/22 13:52 07/29/22 06:52 Lab results: Chemistry 07/28/22 07/28/22 07/29/22 13:52 23:05 06:52 Sodium 163 H* Cancelled 164 H* Potassium 3.6 Cancelled 4.2 Carbon Dioxide 22 Cancelled 20 L BUN 21 H Cancelled 25 H Creatinine 0.94 Cancelled 1.08 Calcium 9.2 D Cancelled 8.9 Hematology 07/28/22 13:52 WBC 14.0 H Hgb 12.9 L D Plt Count 126 L Assessment and Plan (1) Hypernatremia: Status: Acute Plan Has significant water deficit Getting D5W @ 150/hour; Could increase D5W to 200/hr ANEUDY has improved; C/W rest of current supportive management Time Spent With Patient Time: Total time managing care of this patient today ____ minutes. Procedures Date of Service Date of Service: 07/29/22
[2022-07-29 11:20] LABS: Glucose, Whole Blood 152 mg/dL (60-115)
[2022-07-29] MEDS: Dextrose 5 % 1,000 ML 200 ML IVCONT ×3 (11:29→23:10)
[2022-07-29 11:30] VITALS: BP 158/83; PULSE 85; RESP 16; TEMP 36.8; O2SAT 94
[2022-07-29] MEDS: LORazepam 2 MG/ML VIAL 1 MG IVPUSH ×2 (14:26→21:04)
[2022-07-29 15:19] VITALS: BP 153/83; PULSE 85; RESP 20; TEMP 36.7; O2SAT 91
--- NOTE | 2022-07-29 15:59 | P.PNIM_ITS ---
Subjective Subjective Date of Service: 07/29/22 Interval History: Remains confused/intermittent agitation Review of Systems Unable to obtain Physical Exam Vital Signs: Vital Signs: Last Vital Signs Temp 98.0 F 07/29/22 15:19 Pulse 85 07/29/22 15:19 Resp 20 07/29/22 15:19 BP 153/83 H 07/29/22 15:19 Pulse Ox 91 L 07/29/22 15:19 O2 Del Method 07/29/22 15:19 O2 Flow Rate 3 07/29/22 15:19 Oxygen Flow Rate 2 07/20/22 14:39 BMI result Body Mass Index 39.1 Const: Other: Awake alert agitated HEENT: Other: Membranes dry Resp: Other: Clear to auscultation bilaterally no rales rhonchi or wheezes Cardio: Other: No S4; positive S1-S2; no S3 murmurs rubs or gallops GI: Other: Soft nontender nondistended normoactive bowel sounds Extrem: Other: No edema bilaterally Objective Data Active Medications Acetaminophen (Acetaminophen 325 Mg Tablet) 650 mg PO Q6H PRN PRN Reason: Pain, Mild (Pain Scale 1-3) Last Admin: 07/28/22 09:54 Dose: 650 mg Documented By: SALLY Albuterol Sulfate (Albuterol Sulfate 90 Mcg 8 Gm Inhaler) 2 puff INHALE QID PRN PRN Reason: Shortness Of Breath Or Wheezing Amlodipine Besylate (Amlodipine Besylate 10 Mg Tablet) 10 mg PO DAILY [facility]; Protocol Last Admin: 07/29/22 09:10 Dose: 10 mg Documented By: JUANITA Aspirin (Aspirin Enteric Coated 325 Mg Tablet.Dr) 325 mg PO DAILY [facility] Last Admin: 07/29/22 09:09 Dose: 325 mg Documented By: JUANITA Atorvastatin Calcium (Atorvastatin Calcium 40 Mg Tablet) 40 mg PO BEDTIME [facility] Last Admin: 07/28/22 22:05 Dose: 40 mg Documented By: DELMAR Dexamethasone Sodium Phosphate (Dexamethasone Sod Phosphate 4 Mg/Ml Vial) 6 mg IVPUSH DAILY [facility] Last Admin: 07/29/22 09:09 Dose: 6 mg Documented By: JUANITA Dextrose (Dextrose 50 % 25 Gm/50 Ml Syringe) 25 gm IVPUSH Q15M PRN; Protocol PRN Reason: per Hypoglycemia Standing Ord. Enoxaparin Sodium (Enoxaparin Sodium 40 Mg/0.4 Ml Syringe) 40 mg SUBCUT Q24H [facility] Last Admin: 07/29/22 00:00 Dose: 40 mg Documented By: DELMAR Fluticasone Propionate (Fluticasone Propionate Nasal 16 Gm [place]) 1 spray NOSTRIL-B DAILY [facility] Last Admin: 07/29/22 09:28 Dose: 1 spray Documented By: JAUNITA Folic Acid (Folic Acid 1 Mg Tablet) 1 mg PO DAILY [facility] Last Admin: 07/29/22 09:09 Dose: 1 mg Documented By: JUANITA Gabapentin (Gabapentin 600 Mg Tablet) 600 mg PO QID [facility] Last Admin: 07/29/22 14:26 Dose: 600 mg Documented By: JUANITA Glucagon (Glucagon,Human Recombinant 1 Mg/Ml Vial) 1 mg IM Q20M PRN PRN Reason: Hypoglycemia Glucose (Glucose Gel 15 Gm Gel..Gram.) 15 gm PO Q15M PRN PRN Reason: Hypoglycemia Glucose (Glucose Gel 15 Gm Gel..Gram.) 15 gm PO Q15M PRN; Protocol PRN Reason: per Hypoglycemia Standing Ord. Dextrose (D5w) 1,000 mls @ 200 mls/hr IVCONT .Q5H [facility] Last Admin: 07/29/22 11:29 Dose: 200 mls/hr Documented By: JUANITA Insulin Human Lispro (Insulin Lispro 100 Unit/Ml 3 Ml Vial) 0 unit SUBCUT QIDACHS [facility]; Protocol Last Admin: 07/29/22 12:21 Dose: 2 unit Documented By: JUANITA Lactulose (Lactulose 20 Gm/30 Ml Solution) 30 gm PO TID [facility] Last Admin: 07/29/22 14:33 Dose: 30 gm Documented By: JUANITA Lorazepam (Lorazepam 2 Mg/Ml Vial) 1 mg IVPUSH ONCE PRN PRN Reason: anxiety/restlessness Last Admin: 07/29/22 14:26 Dose: 1 mg Documented By: JUANITA Lorazepam (Lorazepam 2 Mg/Ml Vial) 1 mg IVPUSH Q6H PRN PRN Reason: Anxiety Last Admin: 07/28/22 21:59 Dose: 1 mg Documented By: DELMAR Lorazepam (Lorazepam 2 Mg/Ml Vial) 1 mg IM Q6H PRN PRN Reason: anxiety/restlessness Last Admin: 07/28/22 12:44 Dose: 1 mg Documented By: SALLY Magnesium Oxide (Magnesium Oxide 400 Mg Tablet) 400 mg PO BID [facility] Last Admin: 07/29/22 09:10 Dose: 400 mg Documented By: JUANITA Melatonin (Melatonin 3 Mg Tablet) 6 mg PO BEDTIME PRN PRN Reason: Insomnia Last Admin: 07/28/22 22:05 Dose: 6 mg Documented By: DELMAR Multivitamins/Vitamin C (Multivitamin Tablet) 1 tab PO DAILY [facility] Last Admin: 07/29/22 09:10 Dose: 1 tab Documented By: JUANITA Nicotine (Nicotine 14 Mg Patch.Td24) 14 mg TRANSDERMA DAILY [facility] Last Admin: 07/29/22 09:07 Dose: 14 mg Documented By: JUANITA Nortriptyline HCl (Nortriptyline Hcl 25 Mg Capsule) 50 mg PO BEDTIME [facility] Last Admin: 07/28/22 22:05 Dose: 50 mg Documented By: DELMAR Nystatin (Nystatin Powder 15 Gm Bottle) 1 appl TOPICAL BID [facility] Last Admin: 07/29/22 09:29 Dose: Not Given Documented By: JUANITA Non-Admin Reason: Med Not Available Pharmacy Consult (Consult Rx Perform Med Rec) 1 each MISCELLANE ONCE PRN PRN Reason: Consult order Pyridoxine HCl (Pyridoxine Hcl (Vitamin B6) 50 Mg Tablet) 50 mg PO DAILY [facility] Last Admin: 07/29/22 09:10 Dose: 50 mg Documented By: JUANITA Sodium Biphosphate/Sodium Phosphate (Sodium Phosphate,[place]-Dibasic 133 Ml Enema) 118 ml [place] DAILY PRN PRN Reason: Constipation Sodium Chloride (0.9 % Sodium Chloride Flush 3 Ml Syringe) 3 ml IVFLUSH QSHIFT [facility] Last Admin: 07/29/22 09:09 Dose: Not Given Documented By: JUANITA Non-Admin Reason: IV Running Thiamine HCl (Thiamine Hcl 100 Mg Tablet) 100 mg PO BID [facility] Last Admin: 07/29/22 09:10 Dose: 100 mg Documented By: JUANITA Vitamin D (Cholecalciferol (Vitamin D3) 25 Mcg Tablet) 25 mcg PO DAILY [facility] Last Admin: 07/29/22 09:09 Dose: 25 mcg Documented By: JUANITA Labs 07/28/22 13:52 07/29/22 06:52 Labs: Laboratory Results - last 24 hr 07/28/22 07/28/22 07/28/22 16:09 19:42 23:05 Anion Gap Cancelled Estim Creat Clear Calc Cancelled Estimated GFR Cancelled POC Glucose 112 194 H Random Glucose Cancelled Calcium Cancelled 07/29/22 07/29/22 07/29/22 06:52 07:14 11:16 Anion Gap 15 Estim Creat Clear Calc 87.4 Estimated GFR > 60 POC Glucose 172 H 152 H Random Glucose 189 H Calcium 8.9 Assessment and Plan (1) COVID-19 virus infection: Status: Acute (2) Metabolic encephalopathy: Status: Acute (3) Hypernatremia: Status: Acute (4) Other fracture of t9-t10 vertebra, initial encounter for closed fracture: Status: Acute (5) Diabetes type 2, controlled: Status: Acute Plan ? 62-year-old male with a PMH significant for?COPD, chronic hypoxic respiratory failure on 3 L of O2 at home, [id number]-zqkfgxcei DM 2, HTN, and H/O vertebral fractures who presents from an SNF to the ED with altered mental status. Pt will be admitted to the hospital for treatment of AMS and hypotension in the setting of COVID infection. 1.COVID-19 -titrate O2 to maintain sats greater equal to 92% -continue Decadron as ordered -DuoNebs p.r.n. 2. Hypernatremia -free water deficit approximately 10 L -D5W at 200 cc an hour -follow renals/divalents 3.Hepatic encephalopathy (which is a metabolic encephalopathy) -multifactorial -continue lactulose t.i.d. -follow ammonia levels and LFTs 4. T9 and T12 vertebral fractures - methadone for chronic back pain; has not received since admit may be contributing to behaviors -- PT, rehab placement upon discharge 5. h/o aspiration -- dx of aspiration pneumonia at [facility] on 07/03 -- CT shows evidence of possible aspirated debris in trachea and right mainstem bronchus -- hold on abx for now, pt afebrile, no leukocytosis 6.Diabetes, non-insulin dependent -acceptable control off therapies -lispro sliding scale 7.HTN -reassess in a.m. -add back therapies as appropriate Full Code Requires ongoing hospitalization to treat metabolic encephalopathy; also requires free water repletion for free water deficit of 10 L Time Spent With Patient Time: Total time managing care of this patient today ____ minutes. Quality Stroke Does the patient have a stroke diagnosis?: No VTE Prior VTE?: No VTE Risk Level:: Medical - moderate - high VTE Device Contraindication: Treatment Not Indicated VTE Drug Contraindication: N/A - Med Ordered
[2022-07-29 16:15] LABS: Glucose, Whole Blood 250 mg/dL (60-115)
[2022-07-29 19:30] LABS: Glucose, Whole Blood 165 mg/dL (60-115)
[2022-07-29] MEDS: Melatonin 3 MG TABLET 6 MG PO (21:05)
[2022-07-29] MEDS: Atorvastatin Calcium 40 MG TABLET PO (21:05)
[2022-07-29] MEDS: Nortriptyline HCl 25 MG CAPSULE 50 MG PO (21:05)
[2022-07-29] MEDS: Acetaminophen 325 MG TABLET 650 MG PO (21:06)
[2022-07-29] MEDS: Nystatin Powder 15 GM BOTTLE 1 APPL TOPICAL (21:07)
[2022-07-29] MEDS: Enoxaparin Sodium 40 MG/0.4 ML SYRINGE SUBCUT ×2 (23:41)
[2022-07-30] VITALS: BP 135/70; PULSE 86; RESP 20; TEMP 36.5; O2SAT 96
[2022-07-30] MEDS: Dextrose 5 % 1,000 ML 200 ML IVCONT ×4 (04:36→23:42)
[2022-07-30 07:10] LABS: Hematocrit 37.1 % (42.0-52.0); Hemoglobin 11.7 g/dl (14.0-18.0); Imm Gran Abs Auto 0.08 X10*3/uL (0.00-0.03); Imm Gran Pct Auto 0.7 % (0.0-0.4); Lymphocytes Absolute Auto 1.7 X10*3/uL (1.2-4.9); Lymphocytes Percent Auto 13.9 % (20-40); MANUAL DIFF FLAG SCAN; Mean Corpuscular HGB Conc 31.5 g/dl (31.0-36.0); Mean Corpuscular Hemoglobin 32.3 pg (27.0-33.0); Mean Corpuscular Volume 102.5 fL (80.0-98.0); Monocytes Absolute Auto 0.8 X10*3/uL (0.1-1.2); Monocytes Percent Auto 6.9 % (2-11); Neutrophils Absolute Auto 9.6 x10*3/uL (2.0-8.3); Neutrophils Percent Auto 78.5 % (45-73); PLT CLUMP 1; Red Blood Count 3.62 X10*6/uL (4.60-5.80); Red Cell Distribution Width 13.8 % (11.0-16.0); SCAN SMEAR FLAG 1
[2022-07-30 07:16] VITALS: BP 146/79; PULSE 84; RESP 14; TEMP 36.7; O2SAT 92
[2022-07-30 07:20] LABS: White Blood Count 12.3 X10*3/uL (4.8-10.8)
[2022-07-30 07:21] LABS: Platelet Count 89 X10*3/uL (160-400)
[2022-07-30 07:28] LABS: Glucose, Whole Blood 154 mg/dL (60-115)
[2022-07-30 07:56] LABS: Alanine Aminotransferase 83 U/L (0-40); Albumin Level 2.9 g/dL (3.5-5.0); Alkaline Phosphatase 164 U/L (39-117); Anion Gap 15 (12-20); Aspartate Amino Transferase 94 U/L (5-37); Bilirubin Total 2.1 mg/dL (0.0-1.0); Blood Urea Nitrogen 23 mg/dL (9-16); Calcium 8.5 mg/dL (8.4-10.2); Carbon Dioxide 20 mmol/L (22-29); Chloride 121 mmol/L (96-108); Creatinine Clr Calc Pharmacy 113.8; Estimated Glomerular Filt Rate > 60; Glucose Fasting 168 mg/dL (60-99); Potassium 3.7 mmol/L (3.3-5.1); Sodium 152 mmol/L (135-145)
[2022-07-30 07:59] LABS: SLIDE REVIEW VERIFIED
[2022-07-30] MEDS: Lactulose 20 GM/30 ML SOLUTION 30 GM PO ×3 (08:21→20:30)
[2022-07-30] MEDS: dexAMETHasone sod phosphate 4 MG/ML VIAL 6 MG IVPUSH (08:22)
[2022-07-30] MEDS: Insulin Lispro 100 UNIT/ML 3 ML VIAL SUBCUT ×2 (08:24→17:04)
[2022-07-30] MEDS: Nicotine 14 MG PATCH.TD24 TRANSDERMA (08:24)
[2022-07-30] MEDS: Multivitamin TABLET 1 TAB PO (08:25)
[2022-07-30] MEDS: amLODIPine Besylate 10 MG TABLET PO (08:25)
[2022-07-30] MEDS: Cholecalciferol (Vitamin D3) 25 MCG TABLET PO (08:25)
[2022-07-30] MEDS: Thiamine HCL 100 MG TABLET PO ×2 (08:25→20:31)
[2022-07-30] MEDS: Gabapentin 600 MG TABLET PO ×4 (08:25→20:31)
[2022-07-30] MEDS: Pyridoxine HCl (Vitamin B6) 50 MG TABLET PO (08:25)
[2022-07-30] MEDS: Magnesium Oxide 400 MG TABLET PO ×2 (08:26→20:30)
[2022-07-30] MEDS: Aspirin Enteric Coated 325 MG TABLET.DR PO (08:26)
[2022-07-30] MEDS: Folic Acid 1 MG TABLET PO (08:26)
[2022-07-30] MEDS: Fluticasone Propionate Nasal 16 GM SPRAY 1 SPRAY NOSTRIL-B (08:27)
[2022-07-30] MEDS: Nystatin Powder 15 GM BOTTLE 1 APPL TOPICAL ×2 (08:27→20:32)
[2022-07-30 10:38] LABS: Ammonia 59 umol/L (13-55)
[2022-07-30 11:29] LABS: Glucose, Whole Blood 108 mg/dL (60-115)
[2022-07-30 12:56] VITALS: BMI 39.1
--- NOTE | 2022-07-30 12:59 | MHC.CLN ---
RE: CONSULT PT WITH INCREASED NUTRITION RISK R/T PRESSURE INJURY PO 50-75% DIET RX: 1800DM CHOPPED WITH HT LIQ-RECOMMEND INCREASING TO 2200DM TO PROMOTE WOUND HEALING PT WITH STAGE 2 COCCYX-NO WOUND ASSESSMENT AVAILABLE RECOMMEND ADDING ENSURE MAX BID TO INCREASE KCALS/PROTEIN SUPP PROVIDES 300KCALS, 60G PROTEIN MONITOR PO INTAKE CLOSELY SEE ALSO FULL CLINICAL NUTRITION ASSESSMENT
[2022-07-30] MEDS: rifAXIMin 550 MG TABLET PO ×2 (13:52→20:31)
--- NOTE | 2022-07-30 14:51 | P.PNIM_ITS ---
Subjective Subjective Date of Service: 07/30/22 Interval History: Remains intermittently agitated. Fair response to Haldol Ativan Review of Systems Unable to obtain Physical Exam Vital Signs: Vital Signs: Last Vital Signs Temp 98.1 F 07/30/22 07:16 Pulse 84 07/30/22 07:16 Resp 14 07/30/22 07:16 BP 146/79 H 07/30/22 07:16 Pulse Ox 92 07/30/22 07:16 O2 Del Method 07/30/22 07:16 O2 Flow Rate 3 07/30/22 07:16 Oxygen Flow Rate 2 07/20/22 14:39 BMI result Body Mass Index 39.1 Const: Other: Awake alert agitated HEENT: Other: Membranes dry Resp: Other: Clear to auscultation bilaterally no rales rhonchi or wheezes Cardio: Other: No S4; positive S1-S2; no S3 murmurs rubs or gallops GI: Other: Soft nontender nondistended normoactive bowel sounds Extrem: Other: No edema bilaterally Objective Data Active Medications Acetaminophen (Acetaminophen 325 Mg Tablet) 650 mg PO Q6H PRN PRN Reason: Pain, Mild (Pain Scale 1-3) Last Admin: 07/29/22 21:06 Dose: 650 mg Documented By: CARLOZ Albuterol Sulfate (Albuterol Sulfate 90 Mcg 8 Gm Inhaler) 2 puff INHALE QID PRN PRN Reason: Shortness Of Breath Or Wheezing Amlodipine Besylate (Amlodipine Besylate 10 Mg Tablet) 10 mg PO DAILY [facility]; Protocol Last Admin: 07/30/22 08:25 Dose: 10 mg Documented By: FRAN Aspirin (Aspirin Enteric Coated 325 Mg Tablet.) 325 mg PO DAILY [facility] Last Admin: 07/30/22 08:26 Dose: 325 mg Documented By: FRAN Atorvastatin Calcium (Atorvastatin Calcium 40 Mg Tablet) 40 mg PO BEDTIME [facility] Last Admin: 07/29/22 21:05 Dose: 40 mg Documented By: CARLOZ Dexamethasone Sodium Phosphate (Dexamethasone Sod Phosphate 4 Mg/Ml Vial) 6 mg IVPUSH DAILY [facility] Last Admin: 07/30/22 08:22 Dose: 6 mg Documented By: FRAN Dextrose (Dextrose 50 % 25 Gm/50 Ml Syringe) 25 gm IVPUSH Q15M PRN; Protocol PRN Reason: per Hypoglycemia Standing Ord. Enoxaparin Sodium (Enoxaparin Sodium 40 Mg/0.4 Ml Syringe) 40 mg SUBCUT Q24H [facility] Last Admin: 07/29/22 23:41 Dose: 40 mg Documented By: CARLOZ Fluticasone Propionate (Fluticasone Propionate Nasal 16 Gm [place]) 1 spray NOSTRIL-B DAILY [facility] Last Admin: 07/30/22 08:27 Dose: 1 spray Documented By: FRAN Folic Acid (Folic Acid 1 Mg Tablet) 1 mg PO DAILY [facility] Last Admin: 07/30/22 08:26 Dose: 1 mg Documented By: FRAN Gabapentin (Gabapentin 600 Mg Tablet) 600 mg PO QID [facility] Last Admin: 07/30/22 13:52 Dose: 600 mg Documented By: FRAN Glucagon (Glucagon,Human Recombinant 1 Mg/Ml Vial) 1 mg IM Q20M PRN PRN Reason: Hypoglycemia Glucose (Glucose Gel 15 Gm Gel..Gram.) 15 gm PO Q15M PRN PRN Reason: Hypoglycemia Glucose (Glucose Gel 15 Gm Gel..Gram.) 15 gm PO Q15M PRN; Protocol PRN Reason: per Hypoglycemia Standing Ord. Dextrose (D5w) 1,000 mls @ 200 mls/hr IVCONT .Q5H [facility] Last Admin: 07/30/22 12:27 Dose: 200 mls/hr Documented By: FRAN Insulin Human Lispro (Insulin Lispro 100 Unit/Ml 3 Ml Vial) 0 unit SUBCUT QIDACHS [facility]; Protocol Last Admin: 07/30/22 12:25 Dose: Not Given Documented By: FRAN Non-Admin Reason: No Insulin Coverage Lactulose (Lactulose 20 Gm/30 Ml Solution) 30 gm PO TID [facility] Last Admin: 07/30/22 08:21 Dose: 30 gm Documented By: FRAN Lorazepam (Lorazepam 2 Mg/Ml Vial) 1 mg IVPUSH ONCE PRN PRN Reason: anxiety/restlessness Last Admin: 07/29/22 14:26 Dose: 1 mg Documented By: JUANITA Lorazepam (Lorazepam 2 Mg/Ml Vial) 1 mg IVPUSH Q6H PRN PRN Reason: Anxiety Last Admin: 07/29/22 21:04 Dose: 1 mg Documented By: CARLOZ Lorazepam (Lorazepam 2 Mg/Ml Vial) 1 mg IM Q6H PRN PRN Reason: anxiety/restlessness Last Admin: 07/28/22 12:44 Dose: 1 mg Documented By: SALLY Magnesium Oxide (Magnesium Oxide 400 Mg Tablet) 400 mg PO BID [facility] Last Admin: 07/30/22 08:26 Dose: 400 mg Documented By: FRAN Melatonin (Melatonin 3 Mg Tablet) 6 mg PO BEDTIME PRN PRN Reason: Insomnia Last Admin: 07/29/22 21:05 Dose: 6 mg Documented By: CARLOZ Multivitamins/Vitamin C (Multivitamin Tablet) 1 tab PO DAILY [facility] Last Admin: 07/30/22 08:25 Dose: 1 tab Documented By: FRAN Nicotine (Nicotine 14 Mg Patch.Td24) 14 mg TRANSDERMA DAILY [facility] Last Admin: 07/30/22 08:24 Dose: 14 mg Documented By: FRAN Nortriptyline HCl (Nortriptyline Hcl 25 Mg Capsule) 50 mg PO BEDTIME [facility] Last Admin: 07/29/22 21:05 Dose: 50 mg Documented By: CARLOZ Nystatin (Nystatin Powder 15 Gm Bottle) 1 appl TOPICAL BID [facility] Last Admin: 07/30/22 08:27 Dose: 1 appl Documented By: FRAN Pharmacy Consult (Consult Rx Perform Med Rec) 1 each MISCELLANE ONCE PRN PRN Reason: Consult order Pyridoxine HCl (Pyridoxine Hcl (Vitamin B6) 50 Mg Tablet) 50 mg PO DAILY [facility] Last Admin: 07/30/22 08:25 Dose: 50 mg Documented By: FRAN Rifaximin (Rifaximin 550 Mg Tablet) 550 mg PO BID [facility] Last Admin: 07/30/22 13:52 Dose: 550 mg Documented By: FRAN Risperidone (Risperidone 0.5 Mg Tablet) 0.5 mg PO BID [facility] Sodium Biphosphate/Sodium Phosphate (Sodium Phosphate,[place]-Dibasic 133 Ml Enema) 118 ml IN DAILY PRN PRN Reason: Constipation Sodium Chloride (0.9 % Sodium Chloride Flush 3 Ml Syringe) 3 ml IVFLUSH QSHIFT [facility] Last Admin: 07/30/22 09:35 Dose: Not Given Documented By: FRAN Non-Admin Reason: IV Running Thiamine HCl (Thiamine Hcl 100 Mg Tablet) 100 mg PO BID [facility] Last Admin: 07/30/22 08:25 Dose: 100 mg Documented By: FRAN Vitamin D (Cholecalciferol (Vitamin D3) 25 Mcg Tablet) 25 mcg PO DAILY [facility] Last Admin: 07/30/22 08:25 Dose: 25 mcg Documented By: FRAN Labs 07/30/22 06:59 07/30/22 06:59 Labs: Laboratory Results - last 24 hr 07/29/22 07/29/22 07/30/22 16:11 19:24 06:59 MCV 102.5 H MCH 32.3 MCHC 31.5 RDW 13.8 Plt Count 89 L D MPV 13.0 H Immature Gran % (Auto) 0.7 H Neut % (Auto) 78.5 H Lymph % (Auto) 13.9 L [place] % (Auto) 6.9 Eos % (Auto) 0.0 Baso % (Auto) 0.0 Lymph # (Auto) 1.7 [place] # (Auto) 0.8 Eos # (Auto) 0.0 Baso # (Auto) 0.0 Abs Immat Gran (auto) 0.08 H Absolute Neuts (auto) 9.6 H Absolute Nucleated RBC 0.000 Nucleated RBC % (auto) 0.0 Smear Tech's Comments VERIFIED Anion Gap Estim Creat Clear Calc Estimated GFR POC Glucose 250 H 165 H Fasting Glucose Calcium Total Bilirubin AST ALT Alkaline Phosphatase Ammonia Total Protein Albumin 07/30/22 07/30/22 07/30/22 06:59 07:16 10:20 MCV MCH MCHC RDW Plt Count MPV Immature Gran % (Auto) Neut % (Auto) Lymph % (Auto) [place] % (Auto) Eos % (Auto) Baso % (Auto) Lymph # (Auto) [place] # (Auto) Eos # (Auto) Baso # (Auto) Abs Immat Gran (auto) Absolute Neuts (auto) Absolute Nucleated RBC Nucleated RBC % (auto) Smear Tech's Comments Anion Gap 15 Estim Creat Clear Calc 113.8 Estimated GFR > 60 POC Glucose 154 H Fasting Glucose 168 H Calcium 8.5 Total Bilirubin 2.1 H AST 94 H ALT 83 H Alkaline Phosphatase 164 H Ammonia 59 H Total Protein 6.0 L Albumin 2.9 L 07/30/22 11:05 MCV MCH MCHC RDW Plt Count MPV Immature Gran % (Auto) Neut % (Auto) Lymph % (Auto) [place] % (Auto) Eos % (Auto) Baso % (Auto) Lymph # (Auto) [place] # (Auto) Eos # (Auto) Baso # (Auto) Abs Immat Gran (auto) Absolute Neuts (auto) Absolute Nucleated RBC Nucleated RBC % (auto) Smear Tech's Comments Anion Gap Estim Creat Clear Calc Estimated GFR POC Glucose 108 Fasting Glucose Calcium Total Bilirubin AST ALT Alkaline Phosphatase Ammonia Total Protein Albumin Assessment and Plan (1) COVID-19 virus infection: Status: Acute (2) Metabolic encephalopathy: Status: Acute (3) Hypernatremia: Status: Acute (4) Other fracture of t9-t10 vertebra, initial encounter for closed fracture: Status: Acute (5) Diabetes type 2, controlled: Status: Acute Plan ? 62-year-old male with a PMH significant for?COPD, chronic hypoxic respiratory failure on 3 L of O2 at home, [id number] DM 2, HTN, and H/O vertebral fractures who presents from an SNF to the ED with altered mental status. Pt will be admitted to the hospital for treatment of AMS and hypotension in the setting of COVID infection. 1.COVID-19 -titrate O2 to maintain sats greater equal to 92% -continue Decadron as ordered -Hung p.r.n. 2. Hypernatremia -free water deficit approximately 10 L -D5W at 200 cc an hour -follow renals/divalents 3.Hepatic encephalopathy (which is a metabolic encephalopathy) .... Symptoms of delirium -add risperidone 0.5 mg b.i.d. -multifactorial -continue lactulose t.i.d. -follow ammonia levels and LFTs 4. T9 and T12 vertebral fractures - methadone for chronic back pain; has not received since admit may be contr ibuting to behaviors -- PT, rehab placement upon discharge 5. h/o aspiration -- dx of aspiration pneumonia at [facility] on 07/03 -- CT shows evidence of possible aspirated debris in trachea and right mainstem bronchus -- hold on abx for now, pt afebrile, no leukocytosis 6.Diabetes, non-insulin dependent -acceptable control off therapies -lispro sliding scale 7.HTN -reassess in a.m. -add back therapies as appropriate Full Code Requires ongoing hospitalization to treat metabolic encephalopathy; also requires free water repletion for free water deficit of 10 L Time Spent With Patient Time: Total time managing care of this patient today ____ minutes. Quality Stroke Does the patient have a stroke diagnosis?: No VTE Prior VTE?: No VTE Risk Level:: Medical - moderate - high VTE Device Contraindication: Treatment Not Indicated VTE Drug Contraindication: N/A - Med Ordered
[2022-07-30] MEDS: risperiDONE 0.5 MG TABLET PO ×2 (15:34→20:31)
[2022-07-30 15:52] VITALS: BP 130/70; PULSE 91; RESP 18; TEMP 37.1; O2SAT 93
[2022-07-30 16:37] LABS: Glucose, Whole Blood 205 mg/dL (60-115)
--- NOTE | 2022-07-30 18:45 | PM.PNNEP ---
Subjective Subjective Date of Service: 07/30/22 Interval history: Remains intermittently agitated. Fair response to Haldol Ativan; All recent data reviewed Physical Exam Vital Signs: Vital Signs: Last Vital Signs Temp 98.8 F 07/30/22 15:52 Pulse 91 07/30/22 15:52 Resp 18 07/30/22 15:52 BP 130/70 07/30/22 15:52 Pulse Ox 93 07/30/22 15:52 O2 Del Method 07/30/22 15:52 O2 Flow Rate 3 07/30/22 15:52 Oxygen Flow Rate 2 07/20/22 14:39 BMI result Body Mass Index 39.1 Const: General: no acute distress Neck: Neck: Yes supple Resp: Auscultation: diminished lung sounds Cardio: Rate: regular rate GI: Palpation (GI): Soft to palpation Neuro: Other: Confused Objective Data Labs 07/30/22 06:59 07/30/22 06:59 Labs: Laboratory Results - last 24 hr 07/29/22 07/30/22 07/30/22 19:24 06:59 06:59 WBC 12.3 H RBC 3.62 L Hgb 11.7 L Hct 37.1 L MCV 102.5 H MCH 32.3 MCHC 31.5 RDW 13.8 Plt Count 89 L D MPV 13.0 H Immature Gran % (Auto) 0.7 H Neut % (Auto) 78.5 H Lymph % (Auto) 13.9 L [place] % (Auto) 6.9 Eos % (Auto) 0.0 Baso % (Auto) 0.0 Lymph # (Auto) 1.7 [place] # (Auto) 0.8 Eos # (Auto) 0.0 Baso # (Auto) 0.0 Abs Immat Gran (auto) 0.08 H Absolute Neuts (auto) 9.6 H Absolute Nucleated RBC 0.000 Nucleated RBC % (auto) 0.0 Smear Tech's Comments VERIFIED Sodium 152 H Potassium 3.7 Chloride 121 H Carbon Dioxide 20 L Anion Gap 15 BUN 23 H Creatinine 0.83 Estim Creat Clear Calc 113.8 Estimated GFR > 60 POC Glucose 165 H Fasting Glucose 168 H Calcium 8.5 Total Bilirubin 2.1 H AST 94 H ALT 83 H Alkaline Phosphatase 164 H Ammonia Total Protein 6.0 L Albumin 2.9 L 07/30/22 07/30/22 07/30/22 07:16 10:20 11:05 WBC RBC Hgb Hct MCV MCH MCHC RDW Plt Count MPV Immature Gran % (Auto) Neut % (Auto) Lymph % (Auto) [place] % (Auto) Eos % (Auto) Baso % (Auto) Lymph # (Auto) [place] # (Auto) Eos # (Auto) Baso # (Auto) Abs Immat Gran (auto) Absolute Neuts (auto) Absolute Nucleated RBC Nucleated RBC % (auto) Smear Tech's Comments Sodium Potassium Chloride Carbon Dioxide Anion Gap BUN Creatinine Estim Creat Clear Calc Estimated GFR POC Glucose 154 H 108 Fasting Glucose Calcium Total Bilirubin AST ALT Alkaline Phosphatase Ammonia 59 H Total Protein Albumin 07/30/22 16:30 WBC RBC Hgb Hct MCV MCH MCHC RDW Plt Count MPV Immature Gran % (Auto) Neut % (Auto) Lymph % (Auto) [place] % (Auto) Eos % (Auto) Baso % (Auto) Lymph # (Auto) [place] # (Auto) Eos # (Auto) Baso # (Auto) Abs Immat Gran (auto) Absolute Neuts (auto) Absolute Nucleated RBC Nucleated RBC % (auto) Smear Tech's Comments Sodium Potassium Chloride Carbon Dioxide Anion Gap BUN Creatinine Estim Creat Clear Calc Estimated GFR POC Glucose 205 H Fasting Glucose Calcium Total Bilirubin AST ALT Alkaline Phosphatase Ammonia Total Protein Albumin Microbiology Microbiology Results: Microbiology 07/20/22 15:21 Blood - Venous Blood Culture - Final No growth after 5 days. 07/20/22 15:16 Blood - Venous Blood Culture - Final No growth after 5 days. Procedures Date of Service Date of Service: 07/30/22 Assessment & Plan Assessment and plan (1) Hypernatremia: Status: Acute Assessment and Plan: Has significant water deficit Increased D5W to 200/hour; Eliana function back to baseline C/W rest of? current supportive management Progress Note: Quality Stroke Does the patient have a stroke diagnosis?: No
[2022-07-30 19:42] VITALS: BP 140/80; PULSE 73; RESP 18; TEMP 36.7; O2SAT 93
[2022-07-30] MEDS: Atorvastatin Calcium 40 MG TABLET PO (20:31)
[2022-07-30] MEDS: Nortriptyline HCl 25 MG CAPSULE 50 MG PO (20:31)
[2022-07-30 20:37] LABS: Glucose, Whole Blood 144 mg/dL (60-115)
[2022-07-31] MEDS: Enoxaparin Sodium 40 MG/0.4 ML SYRINGE SUBCUT (00:15)
[2022-07-31] MEDS: 0.9 % Sodium Chloride Flush 3 ML SYRINGE IVFLUSH ×4 (00:16→20:39)
[2022-07-31] MEDS: Dextrose 5 % 1,000 ML 200 ML IVCONT ×2 (03:22→08:31)
[2022-07-31 05:05] VITALS: BP 179/72; PULSE 74; RESP 16; TEMP 36.4; O2SAT 96
[2022-07-31 07:21] LABS: MANUAL DIFF FLAG NO
[2022-07-31 07:27] LABS: Glucose, Whole Blood 191 mg/dL (60-115)
[2022-07-31 07:41] LABS: Basophils Percent Auto 0.1 % (0-2); Hemoglobin 11.9 g/dl (14.0-18.0); Imm Gran Abs Auto 0.08 X10*3/uL (0.00-0.03); Imm Gran Pct Auto 0.6 % (0.0-0.4); Lymphocytes Absolute Auto 1.4 X10*3/uL (1.2-4.9); Lymphocytes Percent Auto 10.4 % (20-40); Mean Corpuscular HGB Conc 32.2 g/dl (31.0-36.0); Mean Corpuscular Hemoglobin 33.1 pg (27.0-33.0); Mean Corpuscular Volume 102.8 fL (80.0-98.0); Mean Platelet Volume 13.3 fL (9.4-12.4); Monocytes Absolute Auto 0.9 X10*3/uL (0.1-1.2); Monocytes Percent Auto 6.9 % (2-11); Neutrophils Absolute Auto 10.9 x10*3/uL (2.0-8.3); Platelet Count 101 X10*3/uL (160-400); Red Cell Distribution Width 13.5 % (11.0-16.0); White Blood Count 13.3 X10*3/uL (4.8-10.8)
[2022-07-31 08:00] VITALS: BP 158/76; PULSE 77; RESP 20; TEMP 36.6; O2SAT 93
[2022-07-31] MEDS: Nicotine 14 MG PATCH.TD24 TRANSDERMA (08:09)
[2022-07-31] MEDS: dexAMETHasone sod phosphate 4 MG/ML VIAL 6 MG IVPUSH (08:10)
[2022-07-31] MEDS: Lactulose 20 GM/30 ML SOLUTION 30 GM PO ×3 (08:10→20:27)
[2022-07-31] MEDS: Cholecalciferol (Vitamin D3) 25 MCG TABLET PO (08:11)
[2022-07-31] MEDS: Pyridoxine HCl (Vitamin B6) 50 MG TABLET PO (08:11)
[2022-07-31] MEDS: Folic Acid 1 MG TABLET PO (08:11)
[2022-07-31] MEDS: Aspirin Enteric Coated 325 MG TABLET.DR PO (08:11)
[2022-07-31] MEDS: Thiamine HCL 100 MG TABLET PO ×2 (08:11→20:26)
[2022-07-31] MEDS: risperiDONE 0.5 MG TABLET PO (08:11)
[2022-07-31] MEDS: rifAXIMin 550 MG TABLET PO ×2 (08:11→20:26)
[2022-07-31] MEDS: Gabapentin 600 MG TABLET PO ×4 (08:11→20:26)
[2022-07-31] MEDS: Multivitamin TABLET 1 TAB PO (08:12)
[2022-07-31] MEDS: Magnesium Oxide 400 MG TABLET PO ×2 (08:12→20:27)
[2022-07-31] MEDS: Insulin Lispro 100 UNIT/ML 3 ML VIAL SUBCUT ×3 (08:13→22:25)
[2022-07-31 08:18] LABS: Alanine Aminotransferase 87 U/L (0-40); Albumin Level 2.9 g/dL (3.5-5.0); Alkaline Phosphatase 185 U/L (39-117); Anion Gap 13 (12-20); Aspartate Amino Transferase 88 U/L (5-37); Bilirubin Total 2.3 mg/dL (0.0-1.0); Blood Urea Nitrogen 20 mg/dL (9-16); Calcium 8.4 mg/dL (8.4-10.2); Carbon Dioxide 20 mmol/L (22-29); Chloride 117 mmol/L (96-108); Creatinine Clr Calc Pharmacy 115.2; Estimated Glomerular Filt Rate > 60; Glucose Fasting 203 mg/dL (60-99); Potassium 3.2 mmol/L (3.3-5.1); Sodium 147 mmol/L (135-145); Total Protein 5.7 g/dL (6.5-8.0)
[2022-07-31] MEDS: Fluticasone Propionate Nasal 16 GM SPRAY 1 SPRAY NOSTRIL-B (08:37)
[2022-07-31] MEDS: Nystatin Powder 15 GM BOTTLE 1 APPL TOPICAL ×2 (08:37→20:39)
[2022-07-31] MEDS: amLODIPine Besylate 10 MG TABLET PO (08:42)
[2022-07-31 11:15] LABS: Glucose, Whole Blood 111 mg/dL (60-115)
[2022-07-31 15:20] VITALS: BP 150/82; PULSE 82; RESP 20; TEMP 37.1; O2SAT 93
[2022-07-31 16:05] LABS: Glucose, Whole Blood 190 mg/dL (60-115)
[2022-07-31] MEDS: Acetaminophen 325 MG TABLET 650 MG PO (16:32)
--- NOTE | 2022-07-31 16:40 | P.PNIM_ITS ---
Subjective Subjective Date of Service: 07/31/22 Interval History: Remains delirious; Risperdal not effective a current dosing Review of Systems Unable to obtain Physical Exam Vital Signs: Vital Signs: Last Vital Signs Temp 98.8 F 07/31/22 15:20 Pulse 82 07/31/22 15:20 Resp 20 07/31/22 15:20 BP 150/82 H 07/31/22 15:20 Pulse Ox 93 07/31/22 15:20 O2 Del Method 07/31/22 15:20 O2 Flow Rate 3 07/31/22 15:20 Oxygen Flow Rate 2 07/20/22 14:39 BMI result Body Mass Index 39.1 Const: Other: Awake alert agitated HEENT: Other: Membranes dry Resp: Other: Clear to auscultation bilaterally no rales rhonchi or wheezes Cardio: Other: No S4; positive S1-S2; no S3 murmurs rubs or gallops GI: Other: Soft nontender nondistended normoactive bowel sounds Extrem: Other: No edema bilaterally Objective Data Active Medications Acetaminophen (Acetaminophen 325 Mg Tablet) 650 mg PO Q6H PRN PRN Reason: Pain, Mild (Pain Scale 1-3) Last Admin: 07/31/22 16:32 Dose: 650 mg Documented By: QUOC Albuterol Sulfate (Albuterol Sulfate 90 Mcg 8 Gm Inhaler) 2 puff INHALE QID PRN PRN Reason: Shortness Of Breath Or Wheezing Amlodipine Besylate (Amlodipine Besylate 10 Mg Tablet) 10 mg PO DAILY [facility]; Protocol Last Admin: 07/31/22 08:42 Dose: 10 mg Documented By: FRAN Aspirin (Aspirin Enteric Coated 325 Mg Tablet.) 325 mg PO DAILY [facility] Last Admin: 07/31/22 08:11 Dose: 325 mg Documented By: FRAN Atorvastatin Calcium (Atorvastatin Calcium 40 Mg Tablet) 40 mg PO BEDTIME [facility] Last Admin: 07/30/22 20:31 Dose: 40 mg Documented By: MAITE Dexamethasone Sodium Phosphate (Dexamethasone Sod Phosphate 4 Mg/Ml Vial) 6 mg IVPUSH DAILY [facility] Last Admin: 07/31/22 08:10 Dose: 6 mg Documented By: FRAN Dextrose (Dextrose 50 % 25 Gm/50 Ml Syringe) 25 gm IVPUSH Q15M PRN; Protocol PRN Reason: per Hypoglycemia Standing Ord. Enoxaparin Sodium (Enoxaparin Sodium 40 Mg/0.4 Ml Syringe) 40 mg SUBCUT Q24H [facility] Last Admin: 07/31/22 00:15 Dose: 40 mg Documented By: MAITE Fluticasone Propionate (Fluticasone Propionate Nasal 16 Gm [place]) 1 spray NOSTRIL-B DAILY [facility] Last Admin: 07/31/22 08:37 Dose: 1 spray Documented By: FRAN Folic Acid (Folic Acid 1 Mg Tablet) 1 mg PO DAILY [facility] Last Admin: 07/31/22 08:11 Dose: 1 mg Documented By: FRAN Gabapentin (Gabapentin 600 Mg Tablet) 600 mg PO QID [facility] Last Admin: 07/31/22 16:32 Dose: 600 mg Documented By: QUOC Glucagon (Glucagon,Human Recombinant 1 Mg/Ml Vial) 1 mg IM Q20M PRN PRN Reason: Hypoglycemia Glucose (Glucose Gel 15 Gm Gel..Gram.) 15 gm PO Q15M PRN PRN Reason: Hypoglycemia Glucose (Glucose Gel 15 Gm Gel..Gram.) 15 gm PO Q15M PRN; Protocol PRN Reason: per Hypoglycemia Standing Ord. Insulin Human Lispro (Insulin Lispro 100 Unit/Ml 3 Ml Vial) 0 unit SUBCUT QIDACHS [facility]; Protocol Last Admin: 07/31/22 16:32 Dose: 2 unit Documented By: QUOC Lactulose (Lactulose 20 Gm/30 Ml Solution) 30 gm PO TID [facility] Last Admin: 07/31/22 14:28 Dose: 30 gm Documented By: FRAN Lorazepam (Lorazepam 2 Mg/Ml Vial) 1 mg IVPUSH ONCE PRN PRN Reason: anxiety/restlessness Last Admin: 07/29/22 14:26 Dose: 1 mg Documented By: JUANITA Lorazepam (Lorazepam 2 Mg/Ml Vial) 1 mg IVPUSH Q6H PRN PRN Reason: Anxiety Last Admin: 07/29/22 21:04 Dose: 1 mg Documented By: CARLOZ Lorazepam (Lorazepam 2 Mg/Ml Vial) 1 mg IM Q6H PRN PRN Reason: anxiety/restlessness Last Admin: 07/28/22 12:44 Dose: 1 mg Documented By: SALLY Magnesium Oxide (Magnesium Oxide 400 Mg Tablet) 400 mg PO BID [facility] Last Admin: 07/31/22 08:12 Dose: 400 mg Documented By: FRAN Melatonin (Melatonin 3 Mg Tablet) 6 mg PO BEDTIME PRN PRN Reason: Insomnia Last Admin: 07/29/22 21:05 Dose: 6 mg Documented By: CARLOZ Multivitamins/Vitamin C (Multivitamin Tablet) 1 tab PO DAILY [facility] Last Admin: 07/31/22 08:12 Dose: 1 tab Documented By: FRAN Nicotine (Nicotine 14 Mg Patch.Td24) 14 mg TRANSDERMA DAILY [facility] Last Admin: 07/31/22 08:09 Dose: 14 mg Documented By: FRAN Nortriptyline HCl (Nortriptyline Hcl 25 Mg Capsule) 50 mg PO BEDTIME [facility] Last Admin: 07/30/22 20:31 Dose: 50 mg Documented By: MAITE Nystatin (Nystatin Powder 15 Gm Bottle) 1 appl TOPICAL BID [facility] Last Admin: 07/31/22 08:37 Dose: 1 appl Documented By: FRAN Pharmacy Consult (Consult Rx Perform Med Rec) 1 each MISCELLANE ONCE PRN PRN Reason: Consult order Pyridoxine HCl (Pyridoxine Hcl (Vitamin B6) 50 Mg Tablet) 50 mg PO DAILY [facility] Last Admin: 07/31/22 08:11 Dose: 50 mg Documented By: FRAN Rifaximin (Rifaximin 550 Mg Tablet) 550 mg PO BID [facility] Last Admin: 07/31/22 08:11 Dose: 550 mg Documented By: FRAN Risperidone (Risperidone 0.5 Mg Tablet) 0.5 mg PO BID [facility] Last Admin: 07/31/22 08:11 Dose: 0.5 mg Documented By: FRAN Sodium Biphosphate/Sodium Phosphate (Sodium Phosphate,[place]-Dibasic 133 Ml Enema) 118 ml [place] DAILY PRN PRN Reason: Constipation Sodium Chloride (0.9 % Sodium Chloride Flush 3 Ml Syringe) 3 ml IVFLUSH QSHIFT [facility] Last Admin: 07/31/22 16:33 Dose: 3 ml Documented By: QUOC Thiamine HCl (Thiamine Hcl 100 Mg Tablet) 100 mg PO BID [facility] Last Admin: 07/31/22 08:11 Dose: 100 mg Documented By: FRAN Vitamin D (Cholecalciferol (Vitamin D3) 25 Mcg Tablet) 25 mcg PO DAILY [facility] Last Admin: 07/31/22 08:11 Dose: 25 mcg Documented By: FRAN Labs 07/31/22 06:51 07/31/22 06:51 Labs: Laboratory Results - last 24 hr 07/30/22 07/31/22 07/31/22 20:31 06:51 06:51 MCV 102.8 H MCH 33.1 H MCHC 32.2 RDW 13.5 Plt Count 101 L MPV 13.3 H Immature Gran % (Auto) 0.6 H Neut % (Auto) 82.0 H Lymph % (Auto) 10.4 L [place] % (Auto) 6.9 Eos % (Auto) 0.0 Baso % (Auto) 0.1 Lymph # (Auto) 1.4 [place] # (Auto) 0.9 Eos # (Auto) 0.0 Baso # (Auto) 0.0 Abs Immat Gran (auto) 0.08 H Absolute Neuts (auto) 10.9 H Absolute Nucleated RBC 0.000 Nucleated RBC % (auto) 0.0 Anion Gap 13 Estim Creat Clear Calc 115.2 Estimated GFR > 60 POC Glucose 144 H Fasting Glucose 203 H Calcium 8.4 Total Bilirubin 2.3 H AST 88 H ALT 87 H Alkaline Phosphatase 185 H Total Protein 5.7 L Albumin 2.9 L 07/31/22 07/31/22 07/31/22 07:24 11:11 16:01 MCV MCH MCHC RDW Plt Count MPV Immature Gran % (Auto) Neut % (Auto) Lymph % (Auto) [place] % (Auto) Eos % (Auto) Baso % (Auto) Lymph # (Auto) [place] # (Auto) Eos # (Auto) Baso # (Auto) Abs Immat Gran (auto) Absolute Neuts (auto) Absolute Nucleated RBC Nucleated RBC % (auto) Anion Gap Estim Creat Clear Calc Estimated GFR POC Glucose 191 H 111 190 H Fasting Glucose Calcium Total Bilirubin AST ALT Alkaline Phosphatase Total Protein Albumin Assessment and Plan (1) COVID-19 virus infection: Status: Acute (2) Metabolic encephalopathy: Status: Acute (3) Hypernatremia: Status: Acute (4) Diabetes type 2, controlled: Status: Acute Plan ? 62-year-old male with a PMH significant for?COPD, chronic hypoxic respiratory failure on 3 L of O2 at home, [id number] DM 2, HTN, and H/O vertebral fractures who presents from an SNF to the ED with altered mental status. Pt will be admitted to the hospital for treatment of AMS and hypotension in the setting of COVID infection. 1.COVID-19 -titrate O2 to maintain sats greater equal to 92% -continue Decadron as ordered -JaradoNesaundra p.r.devyn 2. Hypernatremia -free water deficit improving -continue D5W at 200 cc an hour -follow renals/divalents 3.Hepatic encephalopathy (which is a metabolic encephalopathy) .... Symptoms of delirium -increase risperidone 1 mg b.i.d. -multifactorial -continue lactulose t.i.d. -follow ammonia levels and LFTs -no improvement overnight will consult psych in a.m. 4. T9 and T12 vertebral fractures - methadone for chronic back pain; has not received since admit may be contribu ting to behaviors -- PT, rehab placement upon discharge 5. h/o aspiration -- dx of aspiration pneumonia at [facility] on 07/03 -- CT shows evidence of possible aspirated debris in trachea and right mainstem bronchus -- hold on abx for now, pt afebrile, no leukocytosis 6.Diabetes, non-insulin dependent -acceptable control off therapies -lispro sliding scale 7.HTN -reassess in a.m. -add back therapies as appropriate Full Code Requires ongoing hospitalization to treat metabolic encephalopathy; also requires free water repletion for free water deficit of 10 L Time Spent With Patient Time: Total time managing care of this patient today ____ minutes. Quality Stroke Does the patient have a stroke diagnosis?: No VTE Prior VTE?: No VTE Risk Level:: Medical - moderate - high VTE Device Contraindication: Treatment Not Indicated VTE Drug Contraindication: N/A - Med Ordered
--- NOTE | 2022-07-31 16:45 | MHC.CM.PN ---
DP return to [facility] @ [facility] via BLS. No PT eval today. Patient continues with confusion.
--- NOTE | 2022-07-31 18:40 | PM.PNNEP ---
Subjective Subjective Date of Service: 07/31/22 Interval history: Remains delirious; Serum Na improving Physical Exam Vital Signs: Vital Signs: Last Vital Signs Temp 98.8 F 07/31/22 15:20 Pulse 82 07/31/22 15:20 Resp 20 07/31/22 15:20 BP 150/82 H 07/31/22 15:20 Pulse Ox 93 07/31/22 15:20 O2 Del Method 07/31/22 15:20 O2 Flow Rate 3 07/31/22 15:20 Oxygen Flow Rate 2 07/20/22 14:39 BMI result Body Mass Index 39.1 Const: General: no acute distress Neck: Neck: Yes supple Resp: Auscultation: diminished lung sounds Cardio: Rate: regular rate GI: Palpation (GI): Soft to palpation Neuro: Other: Delerious Objective Data Labs 07/31/22 06:51 07/31/22 06:51 Labs: Laboratory Results - last 24 hr 07/30/22 07/31/22 07/31/22 20:31 06:51 06:51 WBC 13.3 H RBC 3.60 L Hgb 11.9 L Hct 37.0 L MCV 102.8 H MCH 33.1 H MCHC 32.2 RDW 13.5 Plt Count 101 L MPV 13.3 H Immature Gran % (Auto) 0.6 H Neut % (Auto) 82.0 H Lymph % (Auto) 10.4 L [place] % (Auto) 6.9 Eos % (Auto) 0.0 Baso % (Auto) 0.1 Lymph # (Auto) 1.4 [place] # (Auto) 0.9 Eos # (Auto) 0.0 Baso # (Auto) 0.0 Abs Immat Gran (auto) 0.08 H Absolute Neuts (auto) 10.9 H Absolute Nucleated RBC 0.000 Nucleated RBC % (auto) 0.0 Sodium 147 H Potassium 3.2 L Chloride 117 H Carbon Dioxide 20 L Anion Gap 13 BUN 20 H Creatinine 0.82 Estim Creat Clear Calc 115.2 Estimated GFR > 60 POC Glucose 144 H Fasting Glucose 203 H Calcium 8.4 Total Bilirubin 2.3 H AST 88 H ALT 87 H Alkaline Phosphatase 185 H Total Protein 5.7 L Albumin 2.9 L 07/31/22 07/31/22 07/31/22 07:24 11:11 16:01 WBC RBC Hgb Hct MCV MCH MCHC RDW Plt Count MPV Immature Gran % (Auto) Neut % (Auto) Lymph % (Auto) [place] % (Auto) Eos % (Auto) Baso % (Auto) Lymph # (Auto) [place] # (Auto) Eos # (Auto) Baso # (Auto) Abs Immat Gran (auto) Absolute Neuts (auto) Absolute Nucleated RBC Nucleated RBC % (auto) Sodium Potassium Chloride Carbon Dioxide Anion Gap BUN Creatinine Estim Creat Clear Calc Estimated GFR POC Glucose 191 H 111 190 H Fasting Glucose Calcium Total Bilirubin AST ALT Alkaline Phosphatase Total Protein Albumin Microbiology Microbiology Results: Microbiology 07/20/22 15:21 Blood - Venous Blood Culture - Final No growth after 5 days. 07/20/22 15:16 Blood - Venous Blood Culture - Final No growth after 5 days. Procedures Date of Service Date of Service: 07/31/22 Assessment & Plan Assessment and plan (1) Hypernatremia: Status: Acute Assessment and Plan: Had significant water deficit- improving; COVID 19 + Renal function improved to baseline Getting D5W @ 200/hour; Na improved C/W rest of? current supportive management Time Spent With Patient Time: Total time managing care of this patient today ____ minutes. Progress Note: Quality Stroke Does the patient have a stroke diagnosis?: No
[2022-07-31] MEDS: Nortriptyline HCl 25 MG CAPSULE 50 MG PO (20:25)
[2022-07-31] MEDS: risperiDONE 1 MG TABLET PO (20:26)
[2022-07-31] MEDS: Atorvastatin Calcium 40 MG TABLET PO (20:26)
[2022-07-31 20:38] VITALS: BP 144/84; PULSE 73; RESP 18; TEMP 37; O2SAT 93
[2022-07-31 21:02] LABS: Glucose, Whole Blood 188 mg/dL (60-115)
[2022-07-31 23:22] VITALS: BP 143/67; PULSE 84; RESP 20; TEMP 36.8; O2SAT 96
[2022-08-01] MEDS: Haloperidol Lactate 5 MG/ML VIAL 2.5 MG IVPUSH (00:39)
[2022-08-01 06:19] LABS: MANUAL DIFF FLAG NO
[2022-08-01 06:34] LABS: Basophils Percent Auto 0.1 % (0-2); Hematocrit 37.8 % (42.0-52.0); Hemoglobin 12.5 g/dl (14.0-18.0); Imm Gran Pct Auto 0.8 % (0.0-0.4); Lymphocytes Absolute Auto 1.6 X10*3/uL (1.2-4.9); Lymphocytes Percent Auto 12.4 % (20-40); Mean Corpuscular HGB Conc 33.1 g/dl (31.0-36.0); Mean Corpuscular Hemoglobin 33.4 pg (27.0-33.0); Mean Corpuscular Volume 101.1 fL (80.0-98.0); Mean Platelet Volume 12.9 fL (9.4-12.4); Monocytes Absolute Auto 0.9 X10*3/uL (0.1-1.2); Monocytes Percent Auto 7.5 % (2-11); Neutrophils Absolute Auto 9.9 x10*3/uL (2.0-8.3); Neutrophils Percent Auto 79.2 % (45-73); Platelet Count 107 X10*3/uL (160-400); Red Blood Count 3.74 X10*6/uL (4.60-5.80); Red Cell Distribution Width 13.5 % (11.0-16.0); White Blood Count 12.6 X10*3/uL (4.8-10.8)
[2022-08-01 07:31] LABS: Alanine Aminotransferase 115 U/L (0-40); Albumin Level 2.8 g/dL (3.5-5.0); Alkaline Phosphatase 193 U/L (39-117); Aspartate Amino Transferase 106 U/L (5-37); Bilirubin Total 2.2 mg/dL (0.0-1.0); Blood Urea Nitrogen 25 mg/dL (9-16); Calcium 8.6 mg/dL (8.4-10.2); Creatinine Clr Calc Pharmacy 113.8; Estimated Glomerular Filt Rate > 60; Glucose Fasting 130 mg/dL (60-99); Total Protein 5.8 g/dL (6.5-8.0)
[2022-08-01 07:44] LABS: Glucose, Whole Blood 130 mg/dL (60-115)
[2022-08-01 08:00] VITALS: BP 128/72; PULSE 93; RESP 18; TEMP 36.4; O2SAT 93
[2022-08-01 08:24] LABS: Anion Gap 14 (12-20); Carbon Dioxide 19 mmol/L (22-29); Chloride 123 mmol/L (96-108); Potassium 3.8 mmol/L (3.3-5.1); Sodium 152 mmol/L (135-145)
[2022-08-01] MEDS: rifAXIMin 550 MG TABLET PO ×2 (09:45→21:57)
[2022-08-01] MEDS: risperiDONE 1 MG TABLET PO ×2 (09:46→21:58)
[2022-08-01] MEDS: amLODIPine Besylate 10 MG TABLET PO (09:46)
[2022-08-01] MEDS: Gabapentin 600 MG TABLET PO ×4 (09:46→21:57)
[2022-08-01] MEDS: Aspirin Enteric Coated 325 MG TABLET.DR PO (09:46)
[2022-08-01] MEDS: Cholecalciferol (Vitamin D3) 25 MCG TABLET PO (09:46)
[2022-08-01] MEDS: Magnesium Oxide 400 MG TABLET PO ×2 (09:46→21:59)
[2022-08-01] MEDS: Multivitamin TABLET 1 TAB PO (09:46)
[2022-08-01] MEDS: Folic Acid 1 MG TABLET PO (09:46)
[2022-08-01] MEDS: Lactulose 20 GM/30 ML SOLUTION 30 GM PO ×3 (09:46→21:59)
[2022-08-01] MEDS: Pyridoxine HCl (Vitamin B6) 50 MG TABLET PO (09:46)
[2022-08-01] MEDS: Thiamine HCL 100 MG TABLET PO ×2 (09:46→21:58)
[2022-08-01] MEDS: dexAMETHasone sod phosphate 4 MG/ML VIAL 6 MG IVPUSH (09:47)
[2022-08-01] MEDS: Nicotine 14 MG PATCH.TD24 TRANSDERMA (09:47)
[2022-08-01] MEDS: 0.9 % Sodium Chloride Flush 3 ML SYRINGE IVFLUSH ×2 (09:56→21:59)
[2022-08-01] MEDS: Dextrose 5 % 1,000 ML 200 ML IVCONT ×3 (09:57→21:58)
[2022-08-01] MEDS: Nystatin Powder 15 GM BOTTLE 1 APPL TOPICAL ×2 (10:42→21:59)
--- NOTE | 2022-08-01 11:05 | MHC.CM.PN ---
Per ROUNDS discussion, Patient may be medically cleared to [facility]. CM has asked [facility] to initiate auth with [facility] today. CM will follow.
[2022-08-01 11:15] LABS: Glucose, Whole Blood 205 mg/dL (60-115)
--- NOTE | 2022-08-01 11:16 | MHC.CLN ---
F/U PO INTAKE REMAINS 50-75% DIET RX: 2200DM CHOPPED WITH HT LIQ-APPROPRIATE PT RECEIVING ENSURE MAX BID TO INCREASE KCALS/PROTEIN SUPP PROVIDES 300KCALS, 60G PROTEIN MONITOR PO INTAKE CLOSELY
[2022-08-01] MEDS: Insulin Lispro 100 UNIT/ML 3 ML VIAL SUBCUT ×3 (11:48→21:59)
--- NOTE | 2022-08-01 12:26 | PM.PNNEP ---
Subjective Subjective Date of Service: 08/01/22 Interval history: seen and examined confused Physical Exam Vital Signs: Vital Signs: Last Vital Signs Temp 97.5 F 08/01/22 08:00 Pulse 93 08/01/22 08:00 Resp 18 08/01/22 08:00 BP 128/72 08/01/22 08:00 Pulse Ox 93 08/01/22 08:00 O2 Del Method 08/01/22 08:00 O2 Flow Rate 3 08/01/22 08:00 Oxygen Flow Rate 2 07/20/22 14:39 BMI result Body Mass Index 39.1 Const: General: no acute distress HEENT: Head: Yes normocephalic and Yes atraumatic Neck: Neck: Yes supple Resp: Auscultation: diminished lung sounds Cardio: Heart sounds: S1 normal heart sound present and S2 normal heart sound present GI: Palpation (GI): Soft to palpation and nontender Extrem: General: Yes pedal edema Objective Data Labs 08/01/22 06:07 08/01/22 06:07 Labs: Laboratory Results - last 24 hr 07/31/22 07/31/22 08/01/22 16:01 20:58 06:07 WBC 12.6 H RBC 3.74 L Hgb 12.5 L Hct 37.8 L MCV 101.1 H MCH 33.4 H MCHC 33.1 RDW 13.5 Plt Count 107 L MPV 12.9 H Immature Gran % (Auto) 0.8 H Neut % (Auto) 79.2 H Lymph % (Auto) 12.4 L [place] % (Auto) 7.5 Eos % (Auto) 0.0 Baso % (Auto) 0.1 Lymph # (Auto) 1.6 [place] # (Auto) 0.9 Eos # (Auto) 0.0 Baso # (Auto) 0.0 Abs Immat Gran (auto) 0.10 H Absolute Neuts (auto) 9.9 H Absolute Nucleated RBC 0.000 Nucleated RBC % (auto) 0.0 Sodium Potassium Chloride Carbon Dioxide Anion Gap BUN Creatinine Estim Creat Clear Calc Estimated GFR POC Glucose 190 H 188 H Fasting Glucose Calcium Total Bilirubin AST ALT Alkaline Phosphatase Total Protein Albumin 08/01/22 08/01/22 08/01/22 06:07 07:38 11:00 WBC RBC Hgb Hct MCV MCH MCHC RDW Plt Count MPV Immature Gran % (Auto) Neut % (Auto) Lymph % (Auto) [place] % (Auto) Eos % (Auto) Baso % (Auto) Lymph # (Auto) [place] # (Auto) Eos # (Auto) Baso # (Auto) Abs Immat Gran (auto) Absolute Neuts (auto) Absolute Nucleated RBC Nucleated RBC % (auto) Sodium 152 H Potassium 3.8 Chloride 123 H Carbon Dioxide 19 L Anion Gap 14 BUN 25 H Creatinine 0.83 Estim Creat Clear Calc 113.8 Estimated GFR > 60 POC Glucose 130 H 205 H Fasting Glucose 130 H Calcium 8.6 Total Bilirubin 2.2 H AST 106 H ALT 115 H Alkaline Phosphatase 193 H Total Protein 5.8 L Albumin 2.8 L Microbiology Microbiology Results: Microbiology 07/20/22 15:21 Blood - Venous Blood Culture - Final No growth after 5 days. 07/20/22 15:16 Blood - Venous Blood Culture - Final No growth after 5 days. Procedures Date of Service Date of Service: 08/01/22 Assessment & Plan Assessment and plan (1) Hypernatremia: Status: Acute (2) COVID-19 virus infection: Status: Acute Plan elevated serum sodium due to free water deficit non renal water loss REC continue D5 follow kidney function and electrolytes Time Spent With Patient Time: Total time managing care of this patient today ____ minutes. Progress Note: Quality Stroke Does the patient have a stroke diagnosis?: No
--- NOTE | 2022-08-01 14:41 | HO.PM.IMPN ---
Subjective Subjective Date of Service: 08/01/22 Interval History: Much clearer today but remains confused Review of Systems Unable to obtain Physical Exam Vital Signs: Vital Signs: Last Vital Signs Temp 97.5 F 08/01/22 08:00 Pulse 93 08/01/22 08:00 Resp 18 08/01/22 08:00 BP 128/72 08/01/22 08:00 Pulse Ox 93 08/01/22 08:00 O2 Del Method 08/01/22 08:00 O2 Flow Rate 3 08/01/22 08:00 Oxygen Flow Rate 2 07/20/22 14:39 BMI result Body Mass Index 39.1 Const: Other: Awake alert agitated HEENT: Other: Membranes dry Resp: Other: Clear to auscultation bilaterally no rales rhonchi or wheezes Cardio: Other: No S4; positive S1-S2; no S3 murmurs rubs or gallops GI: Other: Soft nontender nondistended normoactive bowel sounds Extrem: Other: No edema bilaterally Objective Data Active Medications Acetaminophen (Acetaminophen 325 Mg Tablet) 650 mg PO Q6H PRN PRN Reason: Pain, Mild (Pain Scale 1-3) Last Admin: 07/31/22 16:32 Dose: 650 mg Documented By: QUOC Albuterol Sulfate (Albuterol Sulfate 90 Mcg 8 Gm Inhaler) 2 puff INHALE QID PRN PRN Reason: Shortness Of Breath Or Wheezing Amlodipine Besylate (Amlodipine Besylate 10 Mg Tablet) 10 mg PO DAILY [facility]; Protocol Last Admin: 08/01/22 09:46 Dose: 10 mg Documented By: BRI Aspirin (Aspirin Enteric Coated 325 Mg Tablet.) 325 mg PO DAILY [facility] Last Admin: 08/01/22 09:46 Dose: 325 mg Documented By: BRI Atorvastatin Calcium (Atorvastatin Calcium 40 Mg Tablet) 40 mg PO BEDTIME [facility] Last Admin: 07/31/22 20:26 Dose: 40 mg Documented By: NATHALIA Dexamethasone Sodium Phosphate (Dexamethasone Sod Phosphate 4 Mg/Ml Vial) 6 mg IVPUSH DAILY [facility] Last Admin: 08/01/22 09:47 Dose: 6 mg Documented By: BRI Comments: Dextrose (Dextrose 50 % 25 Gm/50 Ml Syringe) 25 gm IVPUSH Q15M PRN; Protocol PRN Reason: per Hypoglycemia Standing Ord. Enoxaparin Sodium (Enoxaparin Sodium 40 Mg/0.4 Ml Syringe) 40 mg SUBCUT Q24H [facility] Last Admin: 08/01/22 00:43 Dose: Not Given Documented By: NATHALIA Non-Admin Reason: Patient Refused Fluticasone Propionate (Fluticasone Propionate Nasal 16 Gm [place]) 1 spray NOSTRIL-B DAILY [facility] Last Admin: 07/31/22 08:37 Dose: 1 spray Documented By: FRAN Folic Acid (Folic Acid 1 Mg Tablet) 1 mg PO DAILY [facility] Last Admin: 08/01/22 09:46 Dose: 1 mg Documented By: BRI Gabapentin (Gabapentin 600 Mg Tablet) 600 mg PO QID [facility] Last Admin: 08/01/22 13:58 Dose: 600 mg Documented By: BRI Glucagon (Glucagon,Human Recombinant 1 Mg/Ml Vial) 1 mg IM Q20M PRN PRN Reason: Hypoglycemia Glucose (Glucose Gel 15 Gm Gel..Gram.) 15 gm PO Q15M PRN PRN Reason: Hypoglycemia Glucose (Glucose Gel 15 Gm Gel..Gram.) 15 gm PO Q15M PRN; Protocol PRN Reason: per Hypoglycemia Standing Ord. Dextrose (D5w) 1,000 mls @ 200 mls/hr IVCONT .Q5H [facility] Last Admin: 08/01/22 14:00 Dose: 200 mls/hr Documented By: BRI Insulin Human Lispro (Insulin Lispro 100 Unit/Ml 3 Ml Vial) 0 unit SUBCUT QIDACHS [facility]; Protocol Last Admin: 08/01/22 11:48 Dose: 4 unit Documented By: BRI Lactulose (Lactulose 20 Gm/30 Ml Solution) 30 gm PO TID [facility] Last Admin: 08/01/22 09:46 Dose: 30 gm Documented By: BRI Lorazepam (Lorazepam 2 Mg/Ml Vial) 1 mg IM Q6H PRN PRN Reason: anxiety/restlessness Last Admin: 07/28/22 12:44 Dose: 1 mg Documented By: SALLY Magnesium Oxide (Magnesium Oxide 400 Mg Tablet) 400 mg PO BID [facility] Last Admin: 08/01/22 09:46 Dose: 400 mg Documented By: BRI Melatonin (Melatonin 3 Mg Tablet) 6 mg PO BEDTIME PRN PRN Reason: Insomnia Last Admin: 07/29/22 21:05 Dose: 6 mg Documented By: CARLOZ Multivitamins/Vitamin C (Multivitamin Tablet) 1 tab PO DAILY [facility] Last Admin: 08/01/22 09:46 Dose: 1 tab Documented By: BRI Nicotine (Nicotine 14 Mg Patch.Td24) 14 mg TRANSDERMA DAILY [facility] Last Admin: 08/01/22 09:47 Dose: 14 mg Documented By: BRI Nortriptyline HCl (Nortriptyline Hcl 25 Mg Capsule) 50 mg PO BEDTIME [facility] Last Admin: 07/31/22 20:25 Dose: 50 mg Documented By: NATHALIA Nystatin (Nystatin Powder 15 Gm Bottle) 1 appl TOPICAL BID [facility] Last Admin: 08/01/22 10:42 Dose: 1 appl Documented By: BRI Pharmacy Consult (Consult Rx Perform Med Rec) 1 each MISCELLANE ONCE PRN PRN Reason: Consult order Pyridoxine HCl (Pyridoxine Hcl (Vitamin B6) 50 Mg Tablet) 50 mg PO DAILY [facility] Last Admin: 08/01/22 09:46 Dose: 50 mg Documented By: BRI Rifaximin (Rifaximin 550 Mg Tablet) 550 mg PO BID [facility] Last Admin: 08/01/22 09:45 Dose: 550 mg Documented By: BRI Risperidone (Risperidone 1 Mg Tablet) 1 mg PO BID [facility] Last Admin: 08/01/22 09:46 Dose: 1 mg Documented By: BRI Sodium Biphosphate/Sodium Phosphate (Sodium Phosphate,[place]-Dibasic 133 Ml Enema) 118 ml [place] DAILY PRN PRN Reason: Constipation Sodium Chloride (0.9 % Sodium Chloride Flush 3 Ml Syringe) 3 ml IVFLUSH QSHIFT [facility] Last Admin: 08/01/22 09:56 Dose: 3 ml Documented By: BRI Thiamine HCl (Thiamine Hcl 100 Mg Tablet) 100 mg PO BID [facility] Last Admin: 08/01/22 09:46 Dose: 100 mg Documented By: BRI Vitamin D (Cholecalciferol (Vitamin D3) 25 Mcg Tablet) 25 mcg PO DAILY [facility] Last Admin: 08/01/22 09:46 Dose: 25 mcg Documented By: BRI Labs 08/01/22 06:07 08/01/22 06:07 Labs: Laboratory Results - last 24 hr 07/31/22 07/31/22 08/01/22 16:01 20:58 06:07 MCV 101.1 H MCH 33.4 H MCHC 33.1 RDW 13.5 Plt Count 107 L MPV 12.9 H Immature Gran % (Auto) 0.8 H Neut % (Auto) 79.2 H Lymph % (Auto) 12.4 L [place] % (Auto) 7.5 Eos % (Auto) 0.0 Baso % (Auto) 0.1 Lymph # (Auto) 1.6 [place] # (Auto) 0.9 Eos # (Auto) 0.0 Baso # (Auto) 0.0 Abs Immat Gran (auto) 0.10 H Absolute Neuts (auto) 9.9 H Absolute Nucleated RBC 0.000 Nucleated RBC % (auto) 0.0 Anion Gap Estim Creat Clear Calc Estimated GFR POC Glucose 190 H 188 H Fasting Glucose Calcium Total Bilirubin AST ALT Alkaline Phosphatase Total Protein Albumin 08/01/22 08/01/22 08/01/22 06:07 07:38 11:00 MCV MCH MCHC RDW Plt Count MPV Immature Gran % (Auto) Neut % (Auto) Lymph % (Auto) [place] % (Auto) Eos % (Auto) Baso % (Auto) Lymph # (Auto) [place] # (Auto) Eos # (Auto) Baso # (Auto) Abs Immat Gran (auto) Absolute Neuts (auto) Absolute Nucleated RBC Nucleated RBC % (auto) Anion Gap 14 Estim Creat Clear Calc 113.8 Estimated GFR > 60 POC Glucose 130 H 205 H Fasting Glucose 130 H Calcium 8.6 Total Bilirubin 2.2 H AST 106 H ALT 115 H Alkaline Phosphatase 193 H Total Protein 5.8 L Albumin 2.8 L Assessment and Plan (1) COVID-19 virus infection: Status: Acute (2) Hypernatremia: Status: Acute (3) Metabolic encephalopathy: Status: Acute Plan ? 62-year-old male with a PMH significant for?COPD, chronic hypoxic respiratory failure on 3 L of O2 at home, [id number] DM 2, HTN, and H/O vertebral fractures who presents from an SNF to the ED with altered mental status. Pt will be admitted to the hospital for treatment of AMS and hypotension in the setting of COVID infection. 1.COVID-19 -titrate O2 to maintain sats greater equal to 92% -continue Decadron as ordered -Hung p.rlamar 2. Hypernatremia -free water deficit improving -continue D5W at 200 cc an hour -follow renals/divalents 3.Hepatic encephalopathy (which is a metabolic encephalopathy) .... Symptoms of delirium -increased risperidone 1 mg b.i.d.... Good response continue same -multifactorial -continue lactulose t.i.d. -follow ammonia levels and LFTs 4. T9 and T12 vertebral fractures - methadone for chronic back pain; has not received since admit may be contributing to behaviors -- PT, rehab placement upon discharge 5.Diabetes, non-insulin dependent -acceptable control off therapies -lispro sliding scale 7.HTN -acceptable control -adjust as indicated Full Code Requires ongoing hospitalization to treat metabolic encephalopathy; also requires free water repletion for free water deficit of 10 L Time Spent With Patient Time: Total time managing care of this patient today ____ minutes. Quality Stroke Does the patient have a stroke diagnosis?: No VTE Prior VTE?: No VTE Risk Level:: Medical - moderate - high VTE Device Contraindication: Treatment Not Indicated VTE Drug Contraindication: N/A - Med Ordered
[2022-08-01 15:38] VITALS: BP 141/76; PULSE 89; RESP 18; TEMP 36.7; O2SAT 94
[2022-08-01 16:15] LABS: Glucose, Whole Blood 265 mg/dL (60-115)
[2022-08-01 19:41] LABS: Glucose, Whole Blood 297 mg/dL (60-115)
[2022-08-01] MEDS: Atorvastatin Calcium 40 MG TABLET PO (21:57)
[2022-08-01] MEDS: Nortriptyline HCl 25 MG CAPSULE 50 MG PO (21:57)
[2022-08-01 23:37] VITALS: BP 165/84; PULSE 68; RESP 18; TEMP 36.3; O2SAT 94
[2022-08-02] MEDS: Enoxaparin Sodium 40 MG/0.4 ML SYRINGE SUBCUT (01:32)
[2022-08-02] MEDS: Dextrose 5 % 1,000 ML 200 ML IVCONT (05:07)
[2022-08-02 07:41] LABS: Glucose, Whole Blood 184 mg/dL (60-115)
[2022-08-02 08:00] VITALS: BP 140/80; PULSE 102; RESP 22; TEMP 36.2; O2SAT 94
[2022-08-02] MEDS: Thiamine HCL 100 MG TABLET PO ×2 (08:59→22:13)
[2022-08-02] MEDS: Aspirin Enteric Coated 325 MG TABLET.DR PO (08:59)
[2022-08-02] MEDS: Cholecalciferol (Vitamin D3) 25 MCG TABLET PO (08:59)
[2022-08-02] MEDS: Gabapentin 600 MG TABLET PO ×4 (08:59→22:12)
[2022-08-02] MEDS: risperiDONE 1 MG TABLET PO ×2 (08:59→22:13)
[2022-08-02] MEDS: Multivitamin TABLET 1 TAB PO (08:59)
[2022-08-02] MEDS: Insulin Lispro 100 UNIT/ML 3 ML VIAL SUBCUT ×4 (08:59→22:13)
[2022-08-02] MEDS: amLODIPine Besylate 10 MG TABLET PO (09:00)
[2022-08-02] MEDS: Folic Acid 1 MG TABLET PO (09:00)
[2022-08-02] MEDS: Pyridoxine HCl (Vitamin B6) 50 MG TABLET PO (09:00)
[2022-08-02] MEDS: dexAMETHasone sod phosphate 4 MG/ML VIAL 6 MG IVPUSH (09:00)
[2022-08-02] MEDS: rifAXIMin 550 MG TABLET PO ×2 (09:00→22:12)
[2022-08-02] MEDS: Nicotine 14 MG PATCH.TD24 TRANSDERMA (09:01)
[2022-08-02] MEDS: Magnesium Oxide 400 MG TABLET PO ×2 (09:02→22:12)
[2022-08-02 09:07] LABS: Basophils Percent Auto 0.1 % (0-2); Eosinophils Absolute Auto 0.1 X10*3/uL (0.0-0.4); Eosinophils Percent Auto 0.4 % (0-4); Hematocrit 39.9 % (42.0-52.0); Hemoglobin 13.1 g/dl (14.0-18.0); Imm Gran Abs Auto 0.32 X10*3/uL (0.00-0.03); Imm Gran Pct Auto 1.3 % (0.0-0.4); Lymphocytes Absolute Auto 1.7 X10*3/uL (1.2-4.9); Lymphocytes Percent Auto 6.9 % (20-40); MANUAL DIFF FLAG SCAN; Mean Corpuscular Hemoglobin 32.7 pg (27.0-33.0); Mean Corpuscular Volume 99.5 fL (80.0-98.0); Monocytes Absolute Auto 1.4 X10*3/uL (0.1-1.2); Monocytes Percent Auto 5.5 % (2-11); Neutrophils Absolute Auto 21.2 x10*3/uL (2.0-8.3); Neutrophils Percent Auto 85.8 % (45-73); Platelet Count 119 X10*3/uL (160-400); Red Blood Count 4.01 X10*6/uL (4.60-5.80); Red Cell Distribution Width 13.6 % (11.0-16.0); SCAN SMEAR FLAG 1; White Blood Count 24.7 X10*3/uL (4.8-10.8)
[2022-08-02] MEDS: 0.9 % Sodium Chloride Flush 3 ML SYRINGE IVFLUSH ×3 (09:09→22:14)
[2022-08-02 09:14] LABS: Mean Corpuscular HGB Conc 32.8 g/dl (31.0-36.0)
[2022-08-02 09:26] LABS: Alanine Aminotransferase 134 U/L (0-40); Albumin Level 2.8 g/dL (3.5-5.0); Alkaline Phosphatase 212 U/L (39-117); Anion Gap 9 (12-20); Aspartate Amino Transferase 94 U/L (5-37); Bilirubin Total 2.1 mg/dL (0.0-1.0); Blood Urea Nitrogen 22 mg/dL (9-16); Calcium 8.5 mg/dL (8.4-10.2); Carbon Dioxide 20 mmol/L (22-29); Chloride 115 mmol/L (96-108); Creatinine Clr Calc Pharmacy 119.5; Estimated Glomerular Filt Rate > 60; Glucose Fasting 187 mg/dL (60-99); Potassium 3.2 mmol/L (3.3-5.1); Sodium 141 mmol/L (135-145); Total Protein 5.8 g/dL (6.5-8.0)
[2022-08-02 09:31] LABS: SLIDE REVIEW VERIFIED
[2022-08-02 09:57] LABS: Ammonia 74 umol/L (13-55)
--- NOTE | 2022-08-02 10:05 | PM.PNNEP ---
Subjective Subjective Date of Service: 08/02/22 Interval history: seen and examined remains confused Physical Exam Vital Signs: Vital Signs: Last Vital Signs Temp 97.2 F 08/02/22 08:00 Pulse 102 H 08/02/22 08:00 Resp 22 H 08/02/22 08:00 BP 140/80 H 08/02/22 08:00 Pulse Ox 94 08/02/22 08:00 O2 Del Method 08/02/22 08:00 O2 Flow Rate 3 08/02/22 08:00 Oxygen Flow Rate 2 07/20/22 14:39 BMI result Body Mass Index 39.1 Const: General: no acute distress HEENT: Head: Yes normocephalic and Yes atraumatic Neck: Neck: Yes supple Resp: Auscultation: diminished lung sounds Cardio: Heart sounds: S1 normal heart sound present and S2 normal heart sound present GI: Palpation (GI): Soft to palpation and nontender Extrem: General: Yes pedal edema Objective Data Labs 08/02/22 08:37 08/02/22 08:37 Labs: Laboratory Results - last 24 hr 08/01/22 08/01/22 08/01/22 11:00 16:09 19:25 WBC RBC Hgb Hct MCV MCH MCHC RDW Plt Count MPV Immature Gran % (Auto) Neut % (Auto) Lymph % (Auto) [place] % (Auto) Eos % (Auto) Baso % (Auto) Lymph # (Auto) [place] # (Auto) Eos # (Auto) Baso # (Auto) Abs Immat Gran (auto) Absolute Neuts (auto) Absolute Nucleated RBC Nucleated RBC % (auto) Smear Tech's Comments Sodium Potassium Chloride Carbon Dioxide Anion Gap BUN Creatinine Estim Creat Clear Calc Estimated GFR POC Glucose 205 H 265 H 297 H Fasting Glucose Calcium Total Bilirubin AST ALT Alkaline Phosphatase Ammonia Total Protein Albumin 08/02/22 08/02/22 08/02/22 07:32 08:37 08:37 WBC 24.7 H RBC 4.01 L Hgb 13.1 L Hct 39.9 L MCV 99.5 H MCH 32.7 MCHC 32.8 RDW 13.6 Plt Count 119 L MPV 13.0 H Immature Gran % (Auto) 1.3 H Neut % (Auto) 85.8 H Lymph % (Auto) 6.9 L [place] % (Auto) 5.5 Eos % (Auto) 0.4 Baso % (Auto) 0.1 Lymph # (Auto) 1.7 [place] # (Auto) 1.4 H Eos # (Auto) 0.1 Baso # (Auto) 0.0 Abs Immat Gran (auto) 0.32 H Absolute Neuts (auto) 21.2 H Absolute Nucleated RBC 0.000 Nucleated RBC % (auto) 0.0 Smear Tech's Comments VERIFIED Sodium Potassium Chloride Carbon Dioxide Anion Gap BUN Creatinine Estim Creat Clear Calc Estimated GFR POC Glucose 184 H Fasting Glucose Calcium Total Bilirubin AST ALT Alkaline Phosphatase Ammonia 74 H Total Protein Albumin 08/02/22 08:37 WBC RBC Hgb Hct MCV MCH MCHC RDW Plt Count MPV Immature Gran % (Auto) Neut % (Auto) Lymph % (Auto) [place] % (Auto) Eos % (Auto) Baso % (Auto) Lymph # (Auto) [place] # (Auto) Eos # (Auto) Baso # (Auto) Abs Immat Gran (auto) Absolute Neuts (auto) Absolute Nucleated RBC Nucleated RBC % (auto) Smear Tech's Comments Sodium 141 Potassium 3.2 L Chloride 115 H Carbon Dioxide 20 L Anion Gap 9 L BUN 22 H Creatinine 0.79 Estim Creat Clear Calc 119.5 Estimated GFR > 60 POC Glucose Fasting Glucose 187 H Calcium 8.5 Total Bilirubin 2.1 H AST 94 H ALT 134 H Alkaline Phosphatase 212 H Ammonia Total Protein 5.8 L Albumin 2.8 L Microbiology Microbiology Results: Microbiology 07/20/22 15:21 Blood - Venous Blood Culture - Final No growth after 5 days. 07/20/22 15:16 Blood - Venous Blood Culture - Final No growth after 5 days. Procedures Date of Service Date of Service: 08/02/22 Assessment & Plan Assessment and plan (1) Hypernatremia: Status: Acute (2) COVID-19 virus infection: Status: Acute Plan free water deficit corrected non renal water loss REC discontinue D5 change IVF to D5 1/2 NS replace potassium follow kidney function and electrolytes Time Spent With Patient Time: Total time managing care of this patient today ____ minutes. Progress Note: Quality Stroke Does the patient have a stroke diagnosis?: No
[2022-08-02] MEDS: Fluticasone Propionate Nasal 16 GM SPRAY 1 SPRAY NOSTRIL-B (10:28)
[2022-08-02] MEDS: Lactulose 20 GM/30 ML SOLUTION 30 GM PO ×3 (10:28→22:13)
[2022-08-02] MEDS: Nystatin Powder 15 GM BOTTLE 1 APPL TOPICAL ×2 (10:29→22:14)
[2022-08-02 11:44] LABS: Glucose, Whole Blood 211 mg/dL (60-115)
--- NOTE | 2022-08-02 12:27 | HO.PM.IMPN ---
Subjective Subjective Date of Service: 08/02/22 Interval History: Remains confused but improved. No fever. Notable diarrhea from lactulose however ammonia remains elevated Review of Systems Unable to obtain Physical Exam Vital Signs: Vital Signs: Last Vital Signs Temp 97.2 F 08/02/22 08:00 Pulse 102 H 08/02/22 08:00 Resp 22 H 08/02/22 08:00 BP 140/80 H 08/02/22 08:00 Pulse Ox 94 08/02/22 08:00 O2 Del Method 08/02/22 08:00 O2 Flow Rate 3 08/02/22 08:00 Oxygen Flow Rate 2 07/20/22 14:39 BMI result Body Mass Index 39.1 Const: Other: Awake alert agitated HEENT: Other: Membranes dry Resp: Other: Clear to auscultation bilaterally no rales rhonchi or wheezes Cardio: Other: No S4; positive S1-S2; no S3 murmurs rubs or gallops GI: Other: Soft nontender nondistended normoactive bowel sounds Skin: Other: Coccyx wound..... Stage I/2 Extrem: Other: No edema bilaterally Objective Data Active Medications Acetaminophen (Acetaminophen 325 Mg Tablet) 650 mg PO Q6H PRN PRN Reason: Pain, Mild (Pain Scale 1-3) Last Admin: 07/31/22 16:32 Dose: 650 mg Documented By: QUOC Albuterol Sulfate (Albuterol Sulfate 90 Mcg 8 Gm Inhaler) 2 puff INHALE QID PRN PRN Reason: Shortness Of Breath Or Wheezing Amlodipine Besylate (Amlodipine Besylate 10 Mg Tablet) 10 mg PO DAILY [facility]; Protocol Last Admin: 08/02/22 09:00 Dose: 10 mg Documented By: WING Aspirin (Aspirin Enteric Coated 325 Mg Tablet.) 325 mg PO DAILY [facility] Last Admin: 08/02/22 08:59 Dose: 325 mg Documented By: WING Atorvastatin Calcium (Atorvastatin Calcium 40 Mg Tablet) 40 mg PO BEDTIME [facility] Last Admin: 08/01/22 21:57 Dose: 40 mg Documented By: CHE Dextrose (Dextrose 50 % 25 Gm/50 Ml Syringe) 25 gm IVPUSH Q15M PRN; Protocol PRN Reason: per Hypoglycemia Standing Ord. Enoxaparin Sodium (Enoxaparin Sodium 40 Mg/0.4 Ml Syringe) 40 mg SUBCUT Q24H [facility] Last Admin: 08/02/22 01:32 Dose: 40 mg Documented By: CHE Fluticasone Propionate (Fluticasone Propionate Nasal 16 Gm [place]) 1 spray NOSTRIL-B DAILY [facility] Last Admin: 08/02/22 10:28 Dose: 1 spray Documented By: WING Folic Acid (Folic Acid 1 Mg Tablet) 1 mg PO DAILY [facility] Last Admin: 08/02/22 09:00 Dose: 1 mg Documented By: WING Gabapentin (Gabapentin 600 Mg Tablet) 600 mg PO QID [facility] Last Admin: 08/02/22 08:59 Dose: 600 mg Documented By: WING Glucagon (Glucagon,Human Recombinant 1 Mg/Ml Vial) 1 mg IM Q20M PRN PRN Reason: Hypoglycemia Glucose (Glucose Gel 15 Gm Gel..Gram.) 15 gm PO Q15M PRN PRN Reason: Hypoglycemia Glucose (Glucose Gel 15 Gm Gel..Gram.) 15 gm PO Q15M PRN; Protocol PRN Reason: per Hypoglycemia Standing Ord. Dextrose/Sodium Chloride (D51/2ns) 1,000 mls @ 100 mls/hr IVCONT .Q10H [facility] Vancomycin HCl 1,250 mg/ (Sodium Chloride) 250 mls @ 166.667 mls/hr IV ONCE ONE Stop: 08/02/22 13:52 Piperacillin Sod/Tazobactam (Sod 4.5 gm/ Sodium Chloride) 100 mls @ 200 mls/hr IV Q6H [facility] Insulin Human Lispro (Insulin Lispro 100 Unit/Ml 3 Ml Vial) 0 unit SUBCUT QIDACHS [facility]; Protocol Last Admin: 08/02/22 08:59 Dose: 2 unit Documented By: WING Lactulose (Lactulose 20 Gm/30 Ml Solution) 30 gm PO TID [facility] Last Admin: 08/02/22 10:28 Dose: 30 gm Documented By: WING Magnesium Oxide (Magnesium Oxide 400 Mg Tablet) 400 mg PO BID [facility] Last Admin: 08/02/22 09:02 Dose: 400 mg Documented By: WING Melatonin (Melatonin 3 Mg Tablet) 6 mg PO BEDTIME PRN PRN Reason: Insomnia Last Admin: 07/29/22 21:05 Dose: 6 mg Documented By: CARLOZ Multivitamins/Vitamin C (Multivitamin Tablet) 1 tab PO DAILY [facility] Last Admin: 08/02/22 08:59 Dose: 1 tab Documented By: WING Nicotine (Nicotine 14 Mg Patch.Td24) 14 mg TRANSDERMA DAILY [facility] Last Admin: 08/02/22 09:01 Dose: 14 mg Documented By: WING Nortriptyline HCl (Nortriptyline Hcl 25 Mg Capsule) 50 mg PO BEDTIME [facility] Last Admin: 08/01/22 21:57 Dose: 50 mg Documented By: CHE Nystatin (Nystatin Powder 15 Gm Bottle) 1 appl TOPICAL BID [facility] Last Admin: 08/02/22 10:29 Dose: 1 appl Documented By: WING Pharmacy Consult (Consult Rx Perform Med Rec) 1 each MISCELLANE ONCE PRN PRN Reason: Consult order Pharmacy Consult (Consult Rx Vancomycin Dosing) 1 each MISCELLANE DAILY PRN PRN Reason: Consult order Pyridoxine HCl (Pyridoxine Hcl (Vitamin B6) 50 Mg Tablet) 50 mg PO DAILY [facility] Last Admin: 08/02/22 09:00 Dose: 50 mg Documented By: WING Rifaximin (Rifaximin 550 Mg Tablet) 550 mg PO BID [facility] Last Admin: 08/02/22 09:00 Dose: 550 mg Documented By: WING Risperidone (Risperidone 1 Mg Tablet) 1 mg PO BID [facility] Last Admin: 08/02/22 08:59 Dose: 1 mg Documented By: WING Sodium Biphosphate/Sodium Phosphate (Sodium Phosphate,[place]-Dibasic 133 Ml Enema) 118 ml [place] DAILY PRN PRN Reason: Constipation Sodium Chloride (0.9 % Sodium Chloride Flush 3 Ml Syringe) 3 ml IVFLUSH QSHIFT [facility] Last Admin: 08/02/22 09:09 Dose: 3 ml Documented By: WING Thiamine HCl (Thiamine Hcl 100 Mg Tablet) 100 mg PO BID [facility] Last Admin: 08/02/22 08:59 Dose: 100 mg Documented By: WING Vitamin D (Cholecalciferol (Vitamin D3) 25 Mcg Tablet) 25 mcg PO DAILY [facility] Last Admin: 08/02/22 08:59 Dose: 25 mcg Documented By: WING Labs 08/02/22 08:37 08/02/22 08:37 Labs: Laboratory Results - last 24 hr 08/01/22 08/01/22 08/02/22 16:09 19:25 07:32 MCV MCH MCHC RDW Plt Count MPV Immature Gran % (Auto) Neut % (Auto) Lymph % (Auto) Wallace % (Auto) Eos % (Auto) Baso % (Auto) Lymph # (Auto) [place] # (Auto) Eos # (Auto) Baso # (Auto) Abs Immat Gran (auto) Absolute Neuts (auto) Absolute Nucleated RBC Nucleated RBC % (auto) Smear Tech's Comments Anion Gap Estim Creat Clear Calc Estimated GFR POC Glucose 265 H 297 H 184 H Fasting Glucose Calcium Total Bilirubin AST ALT Alkaline Phosphatase Ammonia Total Protein Albumin 08/02/22 08/02/22 08/02/22 08:37 08:37 08:37 MCV 99.5 H MCH 32.7 MCHC 32.8 RDW 13.6 Plt Count 119 L MPV 13.0 H Immature Gran % (Auto) 1.3 H Neut % (Auto) 85.8 H Lymph % (Auto) 6.9 L Wallace % (Auto) 5.5 Eos % (Auto) 0.4 Baso % (Auto) 0.1 Lymph # (Auto) 1.7 Wallace # (Auto) 1.4 H Eos # (Auto) 0.1 Baso # (Auto) 0.0 Abs Immat Gran (auto) 0.32 H Absolute Neuts (auto) 21.2 H Absolute Nucleated RBC 0.000 Nucleated RBC % (auto) 0.0 Smear Tech's Comments VERIFIED Anion Gap 9 L Estim Creat Clear Calc 119.5 Estimated GFR > 60 POC Glucose Fasting Glucose 187 H Calcium 8.5 Total Bilirubin 2.1 H AST 94 H ALT 134 H Alkaline Phosphatase 212 H Ammonia 74 H Total Protein 5.8 L Albumin 2.8 L 08/02/22 11:35 MCV MCH MCHC RDW Plt Count MPV Immature Gran % (Auto) Neut % (Auto) Lymph % (Auto) Wallace % (Auto) Eos % (Auto) Baso % (Auto) Lymph # (Auto) Wallace # (Auto) Eos # (Auto) Baso # (Auto) Abs Immat Gran (auto) Absolute Neuts (auto) Absolute Nucleated RBC Nucleated RBC % (auto) Smear Tech's Comments Anion Gap Estim Creat Clear Calc Estimated GFR POC Glucose 211 H Fasting Glucose Calcium Total Bilirubin AST ALT Alkaline Phosphatase Ammonia Total Protein Albumin Assessment and Plan (1) Leukocytosis: Status: Acute (2) Hypernatremia: Status: Acute (3) Metabolic encephalopathy: Status: Acute (4) Diabetes type 2, controlled: Status: Acute Plan ? 62-year-old male with a PMH significant for?COPD, chronic hypoxic respiratory failure on 3 L of O2 at home, [id number] DM 2, HTN, and H/O vertebral fractures who presents from an SNF to the ED with altered mental status. Pt will be admitted to the hospital for treatment of AMS and hypotension in the setting of COVID infection. 1.Leukocytosis -likely secondary to coccyx breakdown and profuse diarrhea -check blood cultures x2 -empirically treat with vancomycin Zosyn -ID consult 2. Hypernatremia -resolved -switch to D51/2 NS -follow renals/divalents 3.Hepatic encephalopathy (which is a metabolic encephalopathy) .... Symptoms of delirium -increased risperidone 1 mg b.i.d.... Good response continue same -multifactorial -continue lactulose t.i.d..... Ammonia remains elevated and now with diarrhea -follow ammonia levels and LFTs 4. T9 and T12 vertebral fractures - methadone for chronic back pain; has not received since admit may be contributing to behaviors -- PT, rehab placement upon discharge 5.Diabetes, non-insulin dependent -acceptable control off therapies -lispro sliding scale 7.HTN -acceptable control -adjust as indicated 8.COVID-19 -recovered Full Code Requires ongoing hospitalization to treat metabolic encephalopathy; now with new white count requiring investigation Time Spent With Patient Time: Total time managing care of this patient today ____ minutes. Quality Stroke Does the patient have a stroke diagnosis?: No VTE Prior VTE?: No VTE Risk Level:: Medical - moderate - high VTE Device Contraindication: Treatment Not Indicated VTE Drug Contraindication: N/A - Med Ordered
--- NOTE | 2022-08-02 13:01 | PHA.PROG ---
Admission Date/Time: July 20, 2022 23:17 Indication: SSTI Weight in k.398 kg Adjusted body weight in K KG [place] body weight in K KG Obesity Dosing Indication % IBW: Serum Creatinine - Last 168 Hours 07/28/22 07/28/22 07/29/22 13:52 23:05 06:52 Creatinine 0.94 Cancelled 1.08 07/30/22 07/31/22 08/01/22 06:59 06:51 06:07 Creatinine 0.83 0.82 0.83 08/02/22 08:37 Creatinine 0.79 Estimated CrCl and GFR - Last 168 Hours 07/28/22 07/28/22 07/29/22 13:52 23:05 06:52 Estim Creat Clear Calc 100.4 Cancelled 87.4 Estimated GFR > 60 Cancelled > 60 07/30/22 07/31/22 08/01/22 06:59 06:51 06:07 Estim Creat Clear Calc 113.8 115.2 113.8 Estimated GFR > 60 > 60 > 60 08/02/22 08:37 Estim Creat Clear Calc 119.5 Estimated GFR > 60 Vancomycin Loading Dose:2000 MG Current Vancomycin Dosing Regimen: 1250 MG Q12H Vancomycin Monitoring using AUC goal of 400 - 600 range with trough as surrogate: PREDICTED AUC OF 558, TROUGH 15.6 TOX 11% Date and Time for next Vancomycin Level to be drawn: BEFORE DOSE 3 08/03/22 @1200 Pharmacist Comments on Vancomycin Plan: OBESE MODEL USED Vancomycin dosing will take advantage of [employer] (formerly [employer]) as a clinical decision support tool that uses Bayesian modeling to calculate individual patient's pharmacokinetic parameters and forecast the patient's drug concentration time course with the target goal AUC 24 range of 400 - 600 mg/L/hr.
[2022-08-02 13:13] VITALS: BP 135/81; PULSE 91; RESP 20; O2SAT 93
[2022-08-02] MEDS: Piperacillin Sodium/Tazobactam 4.5 GM in 0.9 % Sodium Chloride 100 ML IV ×2 (14:48→17:49)
[2022-08-02 15:27] VITALS: BP 148/77; PULSE 81; RESP 20; TEMP 36.7; O2SAT 91
[2022-08-02] MEDS: Dextrose 5 % and 0.45 % NaCl 1,000 ML 100 ML IVCONT (15:49)
[2022-08-02 16:10] LABS: Glucose, Whole Blood 257 mg/dL (60-115)
[2022-08-02 19:38] LABS: Glucose, Whole Blood 240 mg/dL (60-115)
[2022-08-02 20:59] LABS: MANUAL DIFF FLAG NO
[2022-08-02 21:04] LABS: Basophils Percent Auto 0.1 % (0-2); Hematocrit 36.9 % (42.0-52.0); Hemoglobin 12.3 g/dl (14.0-18.0); Imm Gran Abs Auto 0.27 X10*3/uL (0.00-0.03); Imm Gran Pct Auto 1.3 % (0.0-0.4); Lymphocytes Percent Auto 4.7 % (20-40); Mean Corpuscular HGB Conc 33.3 g/dl (31.0-36.0); Mean Corpuscular Hemoglobin 32.9 pg (27.0-33.0); Mean Corpuscular Volume 98.7 fL (80.0-98.0); Mean Platelet Volume 13.3 fL (9.4-12.4); Monocytes Absolute Auto 1.1 X10*3/uL (0.1-1.2); Monocytes Percent Auto 5.2 % (2-11); Neutrophils Percent Auto 88.7 % (45-73); Platelet Count 111 X10*3/uL (160-400); Red Blood Count 3.74 X10*6/uL (4.60-5.80); Red Cell Distribution Width 13.6 % (11.0-16.0); SCAN SMEAR FLAG 1; White Blood Count 20.3 X10*3/uL (4.8-10.8)
[2022-08-02 21:13] LABS: PLT ABN DIST 1
[2022-08-02] MEDS: Atorvastatin Calcium 40 MG TABLET PO (22:13)
[2022-08-02] MEDS: Nortriptyline HCl 25 MG CAPSULE 50 MG PO (22:13)
[2022-08-02 23:51] VITALS: BP 151/86; PULSE 88; RESP 18; TEMP 36.6; O2SAT 96
[2022-08-03] MEDS: Piperacillin Sodium/Tazobactam 4.5 GM in 0.9 % Sodium Chloride 100 ML IV ×3 (05:43→15:54)
[2022-08-03 06:22] LABS: MANUAL DIFF FLAG NO
[2022-08-03 06:31] LABS: Basophils Percent Auto 0.1 % (0-2); Eosinophils Percent Auto 0.2 % (0-4); Hematocrit 37.3 % (42.0-52.0); Hemoglobin 12.4 g/dl (14.0-18.0); Imm Gran Pct Auto 1.6 % (0.0-0.4); Lymphocytes Absolute Auto 1.4 X10*3/uL (1.2-4.9); Lymphocytes Percent Auto 7.3 % (20-40); Mean Corpuscular HGB Conc 33.2 g/dl (31.0-36.0); Mean Corpuscular Volume 99.2 fL (80.0-98.0); Mean Platelet Volume 13.2 fL (9.4-12.4); Monocytes Absolute Auto 1.3 X10*3/uL (0.1-1.2); Monocytes Percent Auto 6.7 % (2-11); Neutrophils Percent Auto 84.1 % (45-73); Platelet Count 100 X10*3/uL (160-400); Red Blood Count 3.76 X10*6/uL (4.60-5.80); Red Cell Distribution Width 13.4 % (11.0-16.0)
[2022-08-03 06:51] LABS: Alanine Aminotransferase 136 U/L (0-40); Albumin Level 2.7 g/dL (3.5-5.0); Alkaline Phosphatase 206 U/L (39-117); Anion Gap 15 (12-20); Aspartate Amino Transferase 87 U/L (5-37); Blood Urea Nitrogen 23 mg/dL (9-16); Calcium 8.3 mg/dL (8.4-10.2); Carbon Dioxide 18 mmol/L (22-29); Chloride 115 mmol/L (96-108); Creatinine Clr Calc Pharmacy 121.1; Estimated Glomerular Filt Rate > 60; Glucose Random 172 mg/dL (60-115); Potassium 3.8 mmol/L (3.3-5.1); Sodium 144 mmol/L (135-145); Total Protein 5.7 g/dL (6.5-8.0)
[2022-08-03 07:35] LABS: Glucose, Whole Blood 168 mg/dL (60-115)
[2022-08-03] MEDS: Lactulose 20 GM/30 ML SOLUTION 30 GM PO ×3 (07:53→21:52)
[2022-08-03] MEDS: Gabapentin 600 MG TABLET PO ×4 (07:54→21:51)
[2022-08-03] MEDS: rifAXIMin 550 MG TABLET PO ×2 (07:54→21:51)
[2022-08-03] MEDS: risperiDONE 1 MG TABLET PO ×2 (07:54→21:51)
[2022-08-03] MEDS: Folic Acid 1 MG TABLET PO (07:54)
[2022-08-03] MEDS: Nicotine 14 MG PATCH.TD24 TRANSDERMA (07:55)
[2022-08-03] MEDS: Pyridoxine HCl (Vitamin B6) 50 MG TABLET PO (07:56)
[2022-08-03] MEDS: Aspirin Enteric Coated 325 MG TABLET.DR PO (07:56)
[2022-08-03] MEDS: Magnesium Oxide 400 MG TABLET PO ×2 (07:56→21:53)
[2022-08-03] MEDS: Multivitamin TABLET 1 TAB PO (07:56)
[2022-08-03] MEDS: Cholecalciferol (Vitamin D3) 25 MCG TABLET PO (07:56)
--- NOTE | 2022-08-03 07:56 | HE.PHANOTE ---
Addendum entered by Frieda Talbot [facility] 08/03/22 08:05: Dr. Gaston also notified Original Note: Vancomycin Dosing Addendum Vancomycin 2000 mg loading dose administered from 08/02/22 @1400 to 08/03/22 @0200 per RN. RN stated there were problems with IV access and the infusion kept stopping. 08/03/22 @0200 dose not given. Times of vancomycin readjusted. Will get random level before 3rd dose tonight at 1800, AAMIR duff notified.
[2022-08-03] MEDS: amLODIPine Besylate 10 MG TABLET PO (07:57)
[2022-08-03] MEDS: Fluticasone Propionate Nasal 16 GM SPRAY 1 SPRAY NOSTRIL-B (07:57)
[2022-08-03] MEDS: Insulin Lispro 100 UNIT/ML 3 ML VIAL SUBCUT ×3 (07:58→17:00)
[2022-08-03] MEDS: Thiamine HCL 100 MG TABLET PO ×2 (07:58→21:52)
[2022-08-03 08:00] VITALS: BP 110/72; PULSE 109; RESP 18; TEMP 36.2; O2SAT 96
[2022-08-03] MEDS: vancomycin HCL 1,250 MG in 0.9 % Sodium Chloride 250 ML 166.67 MG IV (09:00)
[2022-08-03] MEDS: 0.9 % Sodium Chloride Flush 3 ML SYRINGE IVFLUSH (09:13)
[2022-08-03] MEDS: Nystatin Powder 15 GM BOTTLE 1 APPL TOPICAL (10:05)
[2022-08-03] MEDS: Dextrose 5 % and 0.45 % NaCl 1,000 ML 100 ML IVCONT ×2 (10:31→18:27)
[2022-08-03 11:24] LABS: Glucose, Whole Blood 165 mg/dL (60-115)
--- NOTE | 2022-08-03 13:24 | P.PNIM_ITS ---
Subjective Subjective Date of Service: 08/03/22 Interval History: Remains confused but improved. No fever. Notable diarrhea from lactulose however ammonia remains elevated Review of Systems Unable to obtain Physical Exam Vital Signs: Vital Signs: Last Vital Signs Temp 97.2 F 08/03/22 08:00 Pulse 109 H 08/03/22 08:00 Resp 18 08/03/22 08:00 BP 110/72 08/03/22 08:00 Pulse Ox 96 08/03/22 08:00 O2 Del Method 08/03/22 08:00 O2 Flow Rate 3 08/03/22 08:00 Oxygen Flow Rate 2 07/20/22 14:39 BMI result Body Mass Index 39.1 Const: Other: Awake alert agitated HEENT: Other: Membranes dry Resp: Other: Clear to auscultation bilaterally no rales rhonchi or wheezes Cardio: Other: No S4; positive S1-S2; no S3 murmurs rubs or gallops GI: Other: Soft nontender nondistended normoactive bowel sounds Skin: Other: Coccyx wound..... Stage I/2 Extrem: Other: No edema bilaterally Objective Data Active Medications Acetaminophen (Acetaminophen 325 Mg Tablet) 650 mg PO Q6H PRN PRN Reason: Pain, Mild (Pain Scale 1-3) Last Admin: 07/31/22 16:32 Dose: 650 mg Documented By: QUOC Albuterol Sulfate (Albuterol Sulfate 90 Mcg 8 Gm Inhaler) 2 puff INHALE QID PRN PRN Reason: Shortness Of Breath Or Wheezing Amlodipine Besylate (Amlodipine Besylate 10 Mg Tablet) 10 mg PO DAILY [facility]; Protocol Last Admin: 08/03/22 07:57 Dose: 10 mg Documented By: WING Aspirin (Aspirin Enteric Coated 325 Mg Tablet.) 325 mg PO DAILY [facility] Last Admin: 08/03/22 07:56 Dose: 325 mg Documented By: WING Atorvastatin Calcium (Atorvastatin Calcium 40 Mg Tablet) 40 mg PO BEDTIME [facility] Last Admin: 08/02/22 22:13 Dose: 40 mg Documented By: CHE Dextrose (Dextrose 50 % 25 Gm/50 Ml Syringe) 25 gm IVPUSH Q15M PRN; Protocol PRN Reason: per Hypoglycemia Standing Ord. Enoxaparin Sodium (Enoxaparin Sodium 40 Mg/0.4 Ml Syringe) 40 mg SUBCUT Q24H [facility] Last Admin: 08/02/22 23:50 Dose: Not Given Documented By: CHE Non-Admin Reason: Physician Held Med Fluticasone Propionate (Fluticasone Propionate Nasal 16 Gm [place]) 1 spray NOSTRIL-B DAILY [facility] Last Admin: 08/03/22 07:57 Dose: 1 spray Documented By: WING Folic Acid (Folic Acid 1 Mg Tablet) 1 mg PO DAILY [facility] Last Admin: 08/03/22 07:54 Dose: 1 mg Documented By: WING Gabapentin (Gabapentin 600 Mg Tablet) 600 mg PO QID [facility] Last Admin: 08/03/22 07:54 Dose: 600 mg Documented By: WING Glucagon (Glucagon,Human Recombinant 1 Mg/Ml Vial) 1 mg IM Q20M PRN PRN Reason: Hypoglycemia Glucose (Glucose Gel 15 Gm Gel..Gram.) 15 gm PO Q15M PRN PRN Reason: Hypoglycemia Glucose (Glucose Gel 15 Gm Gel..Gram.) 15 gm PO Q15M PRN; Protocol PRN Reason: per Hypoglycemia Standing Ord. Dextrose/Sodium Chloride (D51/2ns) 1,000 mls @ 100 mls/hr IVCONT .Q10H [facility] Last Admin: 08/03/22 10:31 Dose: 100 mls/hr Documented By: WING Piperacillin Sod/Tazobactam (Sod 4.5 gm/ Sodium Chloride) 100 mls @ 200 mls/hr IV Q6H [facility] Last Infusion: 08/03/22 09:00 Dose: 0 mls/hr Documented By: WING Vancomycin HCl 1,250 mg/ (Sodium Chloride) 250 mls @ 166.667 mls/hr IV Q12H [facility] Last Infusion: 08/03/22 10:35 Dose: 0 mls/hr Documented By: WING Insulin Human Lispro (Insulin Lispro 100 Unit/Ml 3 Ml Vial) 0 unit SUBCUT QIDACHS [facility]; Protocol Last Admin: 08/03/22 11:48 Dose: 2 unit Documented By: WING Lactulose (Lactulose 20 Gm/30 Ml Solution) 30 gm PO TID [facility] Last Admin: 08/03/22 07:53 Dose: 30 gm Documented By: WING Magnesium Oxide (Magnesium Oxide 400 Mg Tablet) 400 mg PO BID [facility] Last Admin: 08/03/22 07:56 Dose: 400 mg Documented By: WING Melatonin (Melatonin 3 Mg Tablet) 6 mg PO BEDTIME PRN PRN Reason: Insomnia Last Admin: 07/29/22 21:05 Dose: 6 mg Documented By: CARLOZ Multivitamins/Vitamin C (Multivitamin Tablet) 1 tab PO DAILY [facility] Last Admin: 08/03/22 07:56 Dose: 1 tab Documented By: WING Nicotine (Nicotine 14 Mg Patch.Td24) 14 mg TRANSDERMA DAILY [facility] Last Admin: 08/03/22 07:55 Dose: 14 mg Documented By: WING Nortriptyline HCl (Nortriptyline Hcl 25 Mg Capsule) 50 mg PO BEDTIME [facility] Last Admin: 08/02/22 22:13 Dose: 50 mg Documented By: CHE Nystatin (Nystatin Powder 15 Gm Bottle) 1 appl TOPICAL BID [facility] Last Admin: 08/03/22 10:05 Dose: 1 appl Documented By: WING Pharmacy Consult (Consult Rx Perform Med Rec) 1 each MISCELLANE ONCE PRN PRN Reason: Consult order Pharmacy Consult (Consult Rx Vancomycin Dosing) 1 each MISCELLANE DAILY PRN PRN Reason: Consult order Pyridoxine HCl (Pyridoxine Hcl (Vitamin B6) 50 Mg Tablet) 50 mg PO DAILY [facility] Last Admin: 08/03/22 07:56 Dose: 50 mg Documented By: WING Rifaximin (Rifaximin 550 Mg Tablet) 550 mg PO BID [facility] Last Admin: 08/03/22 07:54 Dose: 550 mg Documented By: WING Risperidone (Risperidone 1 Mg Tablet) 1 mg PO BID [facility] Last Admin: 08/03/22 07:54 Dose: 1 mg Documented By: WING Sodium Biphosphate/Sodium Phosphate (Sodium Phosphate,[place]-Dibasic 133 Ml Enema) 118 ml [place] DAILY PRN PRN Reason: Constipation Sodium Chloride (0.9 % Sodium Chloride Flush 3 Ml Syringe) 3 ml IVFLUSH QSHIFT [facility] Last Admin: 08/03/22 09:13 Dose: 3 ml Documented By: WING Thiamine HCl (Thiamine Hcl 100 Mg Tablet) 100 mg PO BID [facility] Last Admin: 08/03/22 07:58 Dose: 100 mg Documented By: WING Vitamin D (Cholecalciferol (Vitamin D3) 25 Mcg Tablet) 25 mcg PO DAILY [facility] Last Admin: 08/03/22 07:56 Dose: 25 mcg Documented By: WING Labs 08/03/22 05:30 08/03/22 05:30 Labs: Laboratory Results - last 24 hr 08/02/22 08/02/22 08/02/22 16:06 19:34 20:37 MCV 98.7 H MCH 32.9 MCHC 33.3 RDW 13.6 Plt Count 111 L MPV 13.3 H Immature Gran % (Auto) 1.3 H Neut % (Auto) 88.7 H Lymph % (Auto) 4.7 L [place] % (Auto) 5.2 Eos % (Auto) 0.0 Baso % (Auto) 0.1 Lymph # (Auto) 1.0 L [place] # (Auto) 1.1 Eos # (Auto) 0.0 Baso # (Auto) 0.0 Abs Immat Gran (auto) 0.27 H Absolute Neuts (auto) 18.0 H Absolute Nucleated RBC 0.000 Nucleated RBC % (auto) 0.0 Anion Gap Estim Creat Clear Calc Estimated GFR POC Glucose 257 H 240 H Random Glucose Calcium Total Bilirubin AST ALT Alkaline Phosphatase Total Protein Albumin 08/03/22 08/03/22 08/03/22 05:30 05:30 07:31 MCV 99.2 H MCH 33.0 MCHC 33.2 RDW 13.4 Plt Count 100 L MPV 13.2 H Immature Gran % (Auto) 1.6 H Neut % (Auto) 84.1 H Lymph % (Auto) 7.3 L [place] % (Auto) 6.7 Eos % (Auto) 0.2 Baso % (Auto) 0.1 Lymph # (Auto) 1.4 [place] # (Auto) 1.3 H Eos # (Auto) 0.0 Baso # (Auto) 0.0 Abs Immat Gran (auto) 0.30 H Absolute Neuts (auto) 16.0 H Absolute Nucleated RBC 0.000 Nucleated RBC % (auto) 0.0 Anion Gap 15 Estim Creat Clear Calc 121.1 Estimated GFR > 60 POC Glucose 168 H Random Glucose 172 H Calcium 8.3 L Total Bilirubin 2.0 H AST 87 H ALT 136 H Alkaline Phosphatase 206 H Total Protein 5.7 L Albumin 2.7 L 08/03/22 11:21 MCV MCH MCHC RDW Plt Count MPV Immature Gran % (Auto) Neut % (Auto) Lymph % (Auto) [place] % (Auto) Eos % (Auto) Baso % (Auto) Lymph # (Auto) [place] # (Auto) Eos # (Auto) Baso # (Auto) Abs Immat Gran (auto) Absolute Neuts (auto) Absolute Nucleated RBC Nucleated RBC % (auto) Anion Gap Estim Creat Clear Calc Estimated GFR POC Glucose 165 H Random Glucose Calcium Total Bilirubin AST ALT Alkaline Phosphatase Total Protein Albumin Assessment and Plan (1) Leukocytosis: Status: Acute (2) Hypernatremia: Status: Acute (3) Altered mental status: Status: Acute Plan ? 62-year-old male with a PMH significant for?COPD, chronic hypoxic respiratory failure on 3 L of O2 at home, [id number] DM 2, HTN, and H/O vertebral fractures who presents from an SNF to the ED with altered mental status. Pt will be admitted to the hospital for treatment of AMS and hypotension in the setting of COVID infection. 1.Leukocytosis (improved with antibiotics) -likely secondary to coccyx breakdown and profuse diarrhea -check blood cultures x2 -empirically treat with vancomycin Zosyn -ID consult 2. Hypernatremia -resolved -switch to D51/2 NS -follow renals/divalents 3.Hepatic encephalopathy (which is a metabolic encephalopathy) .... Symptoms of delirium -increased risperidone 1 mg b.i.d.... Good response continue same -multifactorial -continue lactulose t.i.d..... Ammonia remains elevated and now with diarrhea -follow ammonia levels and LFTs 4. T9 and T12 vertebral fractures - methadone for chronic back pain; has not received since admit may be contri buting to behaviors -- PT, rehab placement upon discharge 5.Diabetes, non-insulin dependent -acceptable control off therapies -lispro sliding scale 7.HTN -acceptable control -adjust as indicated 8.COVID-19 -recovered Full Code Requires ongoing hospitalization to treat metabolic encephalopathy; now with new white count requiring investigation Time Spent With Patient Time: Total time managing care of this patient today ____ minutes. Quality Stroke Does the patient have a stroke diagnosis?: No VTE Prior VTE?: No VTE Risk Level:: Medical - moderate - high VTE Device Contraindication: Treatment Not Indicated VTE Drug Contraindication: N/A - Med Ordered
[2022-08-03 15:17] VITALS: BP 152/73; PULSE 101; RESP 20; TEMP 36.7; O2SAT 90
[2022-08-03 16:18] LABS: Glucose, Whole Blood 195 mg/dL (60-115)
[2022-08-03 18:37] LABS: Vancomycin Random 5.9 mcg/mL (15-20)
[2022-08-03 19:33] LABS: Glucose, Whole Blood 198 mg/dL (60-115)
[2022-08-03] MEDS: Haloperidol Lactate 5 MG/ML VIAL IM (20:00)
[2022-08-03] MEDS: Nortriptyline HCl 25 MG CAPSULE 50 MG PO (21:51)
[2022-08-03] MEDS: Atorvastatin Calcium 40 MG TABLET PO (21:51)
[2022-08-04] VITALS: BP 143/82; PULSE 93; RESP 16; TEMP 36.7; O2SAT 96
[2022-08-04] MEDS: Enoxaparin Sodium 40 MG/0.4 ML SYRINGE SUBCUT (01:28)
[2022-08-04] MEDS: Nystatin Powder 15 GM BOTTLE 1 APPL TOPICAL ×3 (01:28→22:48)
[2022-08-04 03:05] VITALS: BP 163/88; PULSE 94; RESP 18; TEMP 36.2; O2SAT 95
[2022-08-04 07:30] LABS: Basophils Percent Auto 0.2 % (0-2); Eosinophils Absolute Auto 0.4 X10*3/uL (0.0-0.4); Eosinophils Percent Auto 2.6 % (0-4); Hematocrit 34.1 % (42.0-52.0); Hemoglobin 11.6 g/dl (14.0-18.0); Imm Gran Abs Auto 0.33 X10*3/uL (0.00-0.03); Imm Gran Pct Auto 2.1 % (0.0-0.4); Lymphocytes Absolute Auto 1.7 X10*3/uL (1.2-4.9); Lymphocytes Percent Auto 10.7 % (20-40); MANUAL DIFF FLAG SCAN; Mean Corpuscular Hemoglobin 33.3 pg (27.0-33.0); Monocytes Absolute Auto 1.3 X10*3/uL (0.1-1.2); Monocytes Percent Auto 7.9 % (2-11); Neutrophils Percent Auto 76.5 % (45-73); PLT CLUMP 1; Red Blood Count 3.48 X10*6/uL (4.60-5.80); Red Cell Distribution Width 13.8 % (11.0-16.0); SCAN SMEAR FLAG 1
[2022-08-04 07:53] LABS: Glucose, Whole Blood 134 mg/dL (60-115)
[2022-08-04 08:00] VITALS: BP 137/78; PULSE 76; RESP 18; TEMP 36.1; O2SAT 91
[2022-08-04 08:33] LABS: Alanine Aminotransferase 129 U/L (0-40); Albumin Level 2.5 g/dL (3.5-5.0); Alkaline Phosphatase 184 U/L (39-117); Anion Gap 12 (12-20); Aspartate Amino Transferase 96 U/L (5-37); Bilirubin Total 1.7 mg/dL (0.0-1.0); Blood Urea Nitrogen 26 mg/dL (9-16); Calcium 8.2 mg/dL (8.4-10.2); Carbon Dioxide 16 mmol/L (22-29); Chloride 121 mmol/L (96-108); Creatinine Clr Calc Pharmacy 136.9; Estimated Glomerular Filt Rate > 60; Glucose Random 132 mg/dL (60-115); Potassium 3.3 mmol/L (3.3-5.1); Sodium 146 mmol/L (135-145); Total Protein 5.3 g/dL (6.5-8.0)
[2022-08-04 08:43] LABS: C Reactive Protein 1.79 mg/dL (< or = 0.50)
[2022-08-04 08:45] LABS: Procalcitonin 0.27 ng/mL
[2022-08-04 08:45] LABS: Platelet Count 80 X10*3/uL (160-400); White Blood Count 15.7 X10*3/uL (4.8-10.8)
[2022-08-04 08:46] LABS: SLIDE REVIEW VERIFIED
[2022-08-04] MEDS: Lactulose 20 GM/30 ML SOLUTION 30 GM PO (09:22)
[2022-08-04] MEDS: rifAXIMin 550 MG TABLET PO ×2 (09:24→22:44)
[2022-08-04] MEDS: Thiamine HCL 100 MG TABLET PO ×2 (09:24→22:45)
[2022-08-04] MEDS: amLODIPine Besylate 10 MG TABLET PO (09:25)
[2022-08-04] MEDS: Multivitamin TABLET 1 TAB PO (09:25)
[2022-08-04] MEDS: Folic Acid 1 MG TABLET PO (09:25)
[2022-08-04] MEDS: risperiDONE 1 MG TABLET PO ×2 (09:25→22:45)
[2022-08-04] MEDS: Nicotine 14 MG PATCH.TD24 TRANSDERMA (09:25)
[2022-08-04] MEDS: Aspirin Enteric Coated 325 MG TABLET.DR PO (09:25)
[2022-08-04] MEDS: Pyridoxine HCl (Vitamin B6) 50 MG TABLET PO (09:25)
[2022-08-04] MEDS: Magnesium Oxide 400 MG TABLET PO ×2 (09:25→22:46)
[2022-08-04] MEDS: Cholecalciferol (Vitamin D3) 25 MCG TABLET PO (09:25)
[2022-08-04] MEDS: Gabapentin 600 MG TABLET PO ×4 (09:25→22:45)
--- NOTE | 2022-08-04 10:57 | MHC.CM.PN ---
Patient is documented to have s/s of Confusion; CM spoke with Primary Contact/Father/Cristobal @ [phone] and addressed IMM with him (original to be mailed certified letter to Cristobal and a copy to be placed on the chart). Returning to [facility] is the goal and CM will continue to follow.
[2022-08-04 11:15] LABS: COVID-19 Test Positive (Negative); IDNOW Serial# 16C4AD1C
[2022-08-04 11:16] LABS: Glucose, Whole Blood 217 mg/dL (60-115)
[2022-08-04] MEDS: Piperacillin Sodium/Tazobactam 4.5 GM in 0.9 % Sodium Chloride 100 ML IV ×3 (11:16→22:46)
--- NOTE | 2022-08-04 11:21 | HE.PHANOTE ---
Vancomycin Dosing Patient has not received a dose of vancomycin since 08/03 @ 0900 due to patient not having IV access. Time has been adjust for dose to stat 08/04 @ 1200 as patient now has IV access. Since patient has not received any dose since last level, patient will receive two dose of current regimen and a level will be drawn 08/05 @ 1000. Chiquita Chávez, JoeyD
[2022-08-04] MEDS: Dextrose 5 % and 0.45 % NaCl 1,000 ML 100 ML IVCONT (11:41)
[2022-08-04] MEDS: Insulin Lispro 100 UNIT/ML 3 ML VIAL SUBCUT ×3 (11:46→22:45)
[2022-08-04] MEDS: vancomycin HCL 1,250 MG in 0.9 % Sodium Chloride 250 ML 166.67 MG IV (12:31)
[2022-08-04 12:47] LABS: Leukocytes Stool Qualitative NEGATIVE (NEGATIVE)
[2022-08-04 13:10] LABS: CDiff Gene PCR NEGATIVE (Negative)
[2022-08-04 14:06] LABS: Adenovirus F 40/41 Not Detected (Not Detect.); Astrovirus Not Detected (Not Detect.); Campylobacter Not Detected (Not Detect.); Cryptosporidium Not Detected (Not Detect.); Cyclospora cayetanensis Not Detected (Not Detect.); E. coli EAEC Not Detected (Not Detect.); E. coli EPEC Not Detected (Not Detect.); E. coli ETEC Not Detected (Not Detect.); E. coli STEC Not Detected (Not Detect.); Entamoeba histolytica Not Detected (Not Detect.); Giardia lamblia Not Detected (Not Detect.); Norovirus GI/GII Not Detected (Not Detect.); Plesiomonas shigelloides Not Detected (Not Detect.); Rotavirus A Not Detected (Not Detect.); Salmonella Not Detected (Not Detect.); Sapovirus Not Detected (Not Detect.); Shigella sp./EIEC Not Detected (Not Detect.); Vibrio Not Detected (Not Detect.); Vibrio Cholerae Not Detected (Not Detect.); Yersinia enterocolitica Not Detected (Not Detect.)
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
[2022-08-04 15:35] VITALS: BP 120/63; PULSE 98; RESP 13; TEMP 36.6; O2SAT 92
[2022-08-04 16:04] LABS: Glucose, Whole Blood 162 mg/dL (60-115)
--- NOTE | 2022-08-04 16:26 | P.CNID_ITS ---
History of Present Illness Data of Consult Service Date: 08/04/22 Requesting physician: Tello Patricio Primary Care Provider: Unknown Physician HPI Reason for consult: fever of unknown origin He presents with lethargy for a day. He had recently been at [facility]. He has temperature 101.3 He has positive COVID and is not on oxygen at this time. He also has diarrhea,elevated LFTs. Stool panel negative. He has atelectasis lungs Review of Systems Review of Systems: Yes all other systems are reviewed and are negative [facility] Family History Family history: reviewed and not pertinent Social History Social History Unable to assess alcohol history related to: Unable to respond Patient Tobacco Use Status: Tobacco use Unknown Advance Directives Date on File: 07/22/22 service: No Current occupational status: employed Meds Allergies Allergy/AdvReac Type Severity Reaction Status Date / Time fentanyl [From Duragesic] Allergy Unknown Unknown Verified 07/20/22 14:45 fluoxetine [From Prozac] Allergy Unknown Unknown Verified 07/20/22 14:45 lisinopril AdvReac Unknown Unknown Verified 07/20/22 14:44 Active Medications: Current Medications Acetaminophen (Acetaminophen 325 Mg Tablet) 650 mg PO Q6H PRN PRN Reason: Pain, Mild (Pain Scale 1-3) Last Admin: 07/31/22 16:32 Dose: 650 mg Albuterol Sulfate (Albuterol Sulfate 90 Mcg 8 Gm Inhaler) 2 puff INHALE QID PRN PRN Reason: Shortness Of Breath Or Wheezing Amlodipine Besylate (Amlodipine Besylate 10 Mg Tablet) 10 mg PO DAILY [facility]; Protocol Last Admin: 08/04/22 09:25 Dose: 10 mg Aspirin (Aspirin Enteric Coated 325 Mg Tablet.) 325 mg PO DAILY [facility] Last Admin: 08/04/22 09:25 Dose: 325 mg Atorvastatin Calcium (Atorvastatin Calcium 40 Mg Tablet) 40 mg PO BEDTIME [facility] Last Admin: 08/03/22 21:51 Dose: 40 mg Dextrose (Dextrose 50 % 25 Gm/50 Ml Syringe) 25 gm IVPUSH Q15M PRN; Protocol PRN Reason: per Hypoglycemia Standing Ord. Enoxaparin Sodium (Enoxaparin Sodium 40 Mg/0.4 Ml Syringe) 40 mg SUBCUT Q24H [facility] Last Admin: 08/04/22 01:28 Dose: 40 mg Fluticasone Propionate (Fluticasone Propionate Nasal 16 Gm [place]) 1 spray NOSTRIL-B DAILY [facility] Last Admin: 08/04/22 09:26 Dose: Not Given Folic Acid (Folic Acid 1 Mg Tablet) 1 mg PO DAILY [facility] Last Admin: 08/04/22 09:25 Dose: 1 mg Gabapentin (Gabapentin 600 Mg Tablet) 600 mg PO QID [facility] Last Admin: 08/04/22 11:47 Dose: 600 mg Glucagon (Glucagon,Human Recombinant 1 Mg/Ml Vial) 1 mg IM Q20M PRN PRN Reason: Hypoglycemia Glucose (Glucose Gel 15 Gm Gel..Gram.) 15 gm PO Q15M PRN PRN Reason: Hypoglycemia Glucose (Glucose Gel 15 Gm Gel..Gram.) 15 gm PO Q15M PRN; Protocol PRN Reason: per Hypoglycemia Standing Ord. Vancomycin HCl 1,250 mg/ (Sodium Chloride) 250 mls @ 166.667 mls/hr IV Q12H [facility] Last Infusion: 08/04/22 14:20 Dose: Infused Piperacillin Sod/Tazobactam (Sod 4.5 gm/ Sodium Chloride) 100 mls @ 200 mls/hr IV Q6H [facility] Last Infusion: 08/04/22 11:47 Dose: Infused Insulin Human Lispro (Insulin Lispro 100 Unit/Ml 3 Ml Vial) 0 unit SUBCUT QIDACHS [facility]; Protocol Last Admin: 08/04/22 11:46 Dose: 4 unit Lactulose (Lactulose 20 Gm/30 Ml Solution) 30 gm PO DAILY [facility] Magnesium Oxide (Magnesium Oxide 400 Mg Tablet) 400 mg PO BID [facility] Last Admin: 08/04/22 09:25 Dose: 400 mg Melatonin (Melatonin 3 Mg Tablet) 6 mg PO BEDTIME PRN PRN Reason: Insomnia Last Admin: 07/29/22 21:05 Dose: 6 mg Multivitamins/Vitamin C (Multivitamin Tablet) 1 tab PO DAILY [facility] Last Admin: 08/04/22 09:25 Dose: 1 tab Nicotine (Nicotine 14 Mg Patch.Td24) 14 mg TRANSDERMA DAILY [facility] Last Admin: 08/04/22 09:25 Dose: 14 mg Non-Formulary Medication (Sekyyuvshnk-Epohrevdk-Xqkxwgac [Trelegy Ellipta]) 1 inhalation INHALE DAILY [facility] Nortriptyline HCl (Nortriptyline Hcl 25 Mg Capsule) 50 mg PO BEDTIME [facility] Last Admin: 08/03/22 21:51 Dose: 50 mg Nystatin (Nystatin Powder 15 Gm Bottle) 1 appl TOPICAL BID [facility] Last Admin: 08/04/22 09:26 Dose: 1 appl Pharmacy Consult (Consult Rx Perform Med Rec) 1 each MISCELLANE ONCE PRN PRN Reason: Consult order Pharmacy Consult (Consult Rx Vancomycin Dosing) 1 each MISCELLANE DAILY PRN PRN Reason: Consult order Pyridoxine HCl (Pyridoxine Hcl (Vitamin B6) 50 Mg Tablet) 50 mg PO DAILY [facility] Last Admin: 08/04/22 09:25 Dose: 50 mg Rifaximin (Rifaximin 550 Mg Tablet) 550 mg PO BID [facility] Last Admin: 08/04/22 09:24 Dose: 550 mg Risperidone (Risperidone 1 Mg Tablet) 1 mg PO BID [facility] Last Admin: 08/04/22 09:25 Dose: 1 mg Sodium Biphosphate/Sodium Phosphate (Sodium Phosphate,[place]-Dibasic 133 Ml Enema) 118 ml [place] DAILY PRN PRN Reason: Constipation Sodium Chloride (0.9 % Sodium Chloride Flush 3 Ml Syringe) 3 ml IVFLUSH QSHIFT [facility] Last Admin: 08/04/22 07:10 Dose: Not Given Thiamine HCl (Thiamine Hcl 100 Mg Tablet) 100 mg PO BID [facility] Last Admin: 08/04/22 09:24 Dose: 100 mg Vitamin D (Cholecalciferol (Vitamin D3) 25 Mcg Tablet) 25 mcg PO DAILY [facility] Last Admin: 08/04/22 09:25 Dose: 25 mcg Home Medications Medication Instructions Recorded Confirmed Last Taken Type acetaminophen 325 mg tablet 650 mg PO Q6H PRN Fever Or Pain 07/20/22 07/20/22 Unknown History albuterol sulfate 90 mcg/actuation 2 puff inhalation QID PRN 07/20/22 07/20/22 Unknown History aerosol inhaler (ProAir HFA) Shortness Of Breath Or Wheezing amlodipine 10 mg tablet 10 mg PO DAILY 07/20/22 07/20/22 Unknown History aspirin 325 mg tablet,delayed 325 mg PO DAILY 07/20/22 07/20/22 Unknown History release bisacodyl 10 mg rectal suppository 10 mg [place] DAILY PRN Constipation 07/20/22 07/20/22 Unknown History cholecalciferol (vitamin D3) 25 25 mcg PO DAILY 07/20/22 07/20/22 Unknown History mcg (1,000 unit) tablet (Vitamin D3) dextrose 40 % oral gel (Glucose 15 g PO Q15M PRN Hypoglycemia 07/20/22 07/20/22 Unknown History Gel) fluticasone fur. 100 mcg-umeclid 1 inh inhalation DAILY 07/20/22 07/20/22 Unknown History 62.5 mcg-vilant 25 mcg inhalat.powder (Trelegy Ellipta) fluticasone propionate 50 1 spray intranasal DAILY 07/20/22 07/20/22 Unknown History mcg/actuation nasal spray,suspension (Flonase Allergy Relief) folic acid 1 mg tablet 1 mg PO DAILY 07/20/22 07/20/22 Unknown History gabapentin 600 mg tablet 600 mg PO QID 07/20/22 07/20/22 Unknown History glucagon 1 mg/0.2 mL subcutaneous 1 mg subcut Q20M PRN Hypoglycemia 07/20/22 07/20/22 Unknown History solution hydroxyzine HCl 10 mg tablet 20 mg PO TID PRN Anxiety 07/20/22 07/20/22 Unknown History ipratropium 0.5 mg-albuterol 3 mg 3 ml inhalation QID PRN Shortness 07/20/22 07/20/22 Unknown History (2.5 mg base)/3 mL nebulization Of Breath Or Wheezing soln levalbuterol HCl 0.63 mg/3 mL 0.63 mg inhalation TID PRN 07/20/22 07/20/22 Unknown History solution for nebulization Shortness Of Breath Or Wheezing losartan 100 mg tablet 100 mg PO DAILY 07/20/22 07/20/22 Unknown History magnesium hydroxide 400 mg/5 mL 30 ml PO DAILY PRN Constipation 07/20/22 07/20/22 Unknown History oral suspension (Milk of Magnesia) magnesium oxide 400 mg (241.3 mg 400 mg PO BID 07/20/22 07/20/22 Unknown History magnesium) tablet melatonin 5 mg tablet 5 mg PO BEDTIME PRN Insomnia 07/20/22 07/20/22 Unknown History metformin 1,000 mg tablet 1,000 mg PO DAILY@1700 07/20/22 07/20/22 Unknown History metformin 500 mg tablet 500 mg PO DAILY@0800 07/20/22 07/20/22 Unknown History methadone 5 mg/5 mL oral solution 5 mg PO DAILY@1200 rhabdomyolysis 07/20/22 07/20/22 Unknown History methadone 5 mg/5 mL oral solution 10 mg PO BID rhabdomyolysis 07/20/22 07/20/22 Unknown History multivitamin 1 tab PO DAILY 07/20/22 07/20/22 Unknown History nicotine 14 mg/24 hr daily 1 patch transdermal DAILY 07/20/22 07/20/22 Unknown History transdermal patch nortriptyline 50 mg capsule 50 mg PO BEDTIME 07/20/22 07/20/22 Unknown History omega 3-yut-kne-fish oil 1,000 mg 1 cap PO BEDTIME 07/20/22 07/20/22 Unknown H istory (120 mg-180 mg) capsule omega 2-wls-knc-fish oil 1,000 mg 1 cap PO TIDAC 07/20/22 07/20/22 Unknown History (120 mg-180 mg) capsule pyridoxine (vitamin B6) 50 mg 50 mg PO DAILY 07/20/22 07/20/22 Unknown History tablet rosuvastatin 10 mg tablet 10 mg PO BEDTIME 07/20/22 07/20/22 Unknown History sodium phosphates 19 gram-7 118 ml [place] DAILY PRN Constipation 07/20/22 07/20/22 Unknown History gram/118 mL enema (Fleet Enema) testosterone cypionate 200 mg/mL 1 ml IM Q2W 07/20/22 07/20/22 Unknown History intramuscular oil thiamine HCl (vitamin B1) 100 mg 100 mg PO BID 07/20/22 07/20/22 Unknown History tablet Physical Exam Vital Signs: Vital Signs: Last Vital Signs Temp 97.8 F 08/04/22 15:35 Pulse 98 08/04/22 15:35 Resp 13 08/04/22 15:35 BP 120/63 08/04/22 15:35 Pulse Ox 92 08/04/22 15:35 O2 Del Method 08/04/22 15:35 O2 Flow Rate 3 08/04/22 00:00 Oxygen Flow Rate 2 07/20/22 14:39 BMI result Body Mass Index 39.1 Const: General: cooperative HEENT: Head: Yes normal to inspection Face and sinus: Yes normal facial exam Mouth: Normal oral and palatal mucosa present Teeth and gingiva: dentition normal Eyes: General: appearance normal, both eyes and all related structures Pupils: Equal, round and reactive pupils present Resp: Effort & Inspection: normal respiratory effort Cardio: Rate: regular rate Rhythm: regular rhythm GI: Palpation (GI): Soft to palpation and nontender : General: Yes no CVA tenderness Back/Spine/Pelvis: Back: no CVA tenderness Skin: General skin exam: no rashes or lesions noted Neuro: General: moves all extremities Cranial nerves: Yes Equal, round and reactive pupils present Extrem: General: Yes normal to inspection Psych: Other: confusion Results Labs 08/04/22 06:58 08/04/22 07:55 Labs: Short CBC 08/04/22 Range/Units 06:58 WBC 15.7 H (4.8-10.8) X10*3/uL Hgb 11.6 L (14.0-18.0) g/dl Hct 34.1 L (42.0-52.0) % Plt Count 80 L (160-400) X10*3/uL BMP 08/04/22 07:55 Sodium 146 H Potassium 3.3 Chloride 121 H Carbon Dioxide 16 L BUN 26 H Creatinine 0.69 Calcium 8.2 L Liver Function 08/04/22 Range/Units 07:55 Total Bilirubin 1.7 H (0.0-1.0) mg/dL AST 96 H (5-37) U/L ALT 129 H (0-40) U/L Alkaline Phosphatase 184 H (39-117) U/L Albumin 2.5 L (3.5-5.0) g/dL Microbiology Microbiology Results: Microbiology 08/02/22 13:03 Blood - Venous Blood Culture - Preliminary No growth after 48 hours. 08/02/22 13:03 Blood - Venous Blood Culture - Preliminary No growth after 48 hours. 07/20/22 15:21 Blood - Venous Blood Culture - Final No growth after 5 days. 07/20/22 15:16 Blood - Venous Blood Culture - Final No growth after 5 days. Assessment and Plan (1) Leukocytosis: Status: Acute (2) Metabolic encephalopathy: Status: Acute He has COVID and resolving leukocytosis. He has possible aspiration pneumonia. He has no oxygen requirement at this time. (3) COVID-19 virus infection: Status: Acute Plan Continue Zosyn 3-5 d total Stop Vancomycin Time Spent With Patient Time: Total time managing care of this patient today ____ minutes.
--- NOTE | 2022-08-04 16:34 | P.CONWO_ITS ---
History of Present Illness Data of Consult Service Date: 08/04/22 Requesting physician: Tello Patricio Primary Care Provider: Unknown Physician HPI Reason for consult: coccygeal ulcer [id number]: Very ill 62 year old male with aortic aneurysm history and discussion of some type of thoracic vertebral issue possibly contributing to impaired mobility, incontinent of urine and stool, further confounded by alcohol withdrawal and hyperammonemia/liver disease for which lactulose is indicated. We are asked to view the coccygeal ulcer and make recommendations under these circumstances. A rectal tube has already been placed as of 02 AUG 2022. Review of Systems Review of Systems: The patient opens his eyes and looks at me with tactile and verbal cueing. He falls back to sleep. An aide helps with get him onto his side. Yes Unobtainable due to mental status PMFSH Social History Unable to assess alcohol history related to: Unable to respond Patient Tobacco Use Status: Tobacco use Unknown Advance Directives Date on File: 07/22/22 service: No Current occupational status: employed Meds Allergies Allergy/AdvReac Type Severity Reaction Status Date / Time fentanyl [From Duragesic] Allergy Unknown Unknown Verified 07/20/22 14:45 fluoxetine [From Prozac] Allergy Unknown Unknown Verified 07/20/22 14:45 lisinopril AdvReac Unknown Unknown Verified 07/20/22 14:44 Active Medications: Current Medications Acetaminophen (Acetaminophen 325 Mg Tablet) 650 mg PO Q6H PRN PRN Reason: Pain, Mild (Pain Scale 1-3) Last Admin: 07/31/22 16:32 Dose: 650 mg Albuterol Sulfate (Albuterol Sulfate 90 Mcg 8 Gm Inhaler) 2 puff INHALE QID PRN PRN Reason: Shortness Of Breath Or Wheezing Amlodipine Besylate (Amlodipine Besylate 10 Mg Tablet) 10 mg PO DAILY [facility]; Protocol Last Admin: 08/04/22 09:25 Dose: 10 mg Aspirin (Aspirin Enteric Coated 325 Mg Tablet.) 325 mg PO DAILY [facility] Last Admin: 08/04/22 09:25 Dose: 325 mg Atorvastatin Calcium (Atorvastatin Calcium 40 Mg Tablet) 40 mg PO BEDTIME [facility] Last Admin: 08/03/22 21:51 Dose: 40 mg Dextrose (Dextrose 50 % 25 Gm/50 Ml Syringe) 25 gm IVPUSH Q15M PRN; Protocol PRN Reason: per Hypoglycemia Standing Ord. Enoxaparin Sodium (Enoxaparin Sodium 40 Mg/0.4 Ml Syringe) 40 mg SUBCUT Q24H [facility] Last Admin: 08/04/22 01:28 Dose: 40 mg Fluticasone Propionate (Fluticasone Propionate Nasal 16 Gm Eads) 1 spray NOSTRIL-B DAILY [facility] Last Admin: 08/04/22 09:26 Dose: Not Given Folic Acid (Folic Acid 1 Mg Tablet) 1 mg PO DAILY [facility] Last Admin: 08/04/22 09:25 Dose: 1 mg Gabapentin (Gabapentin 600 Mg Tablet) 600 mg PO QID [facility] Last Admin: 08/04/22 11:47 Dose: 600 mg Glucagon (Glucagon,Human Recombinant 1 Mg/Ml Vial) 1 mg IM Q20M PRN PRN Reason: Hypoglycemia Glucose (Glucose Gel 15 Gm Gel..Gram.) 15 gm PO Q15M PRN PRN Reason: Hypoglycemia Glucose (Glucose Gel 15 Gm Gel..Gram.) 15 gm PO Q15M PRN; Protocol PRN Reason: per Hypoglycemia Standing Ord. Vancomycin HCl 1,250 mg/ (Sodium Chloride) 250 mls @ 166.667 mls/hr IV Q12H [facility] Last Infusion: 08/04/22 14:20 Dose: Infused Piperacillin Sod/Tazobactam (Sod 4.5 gm/ Sodium Chloride) 100 mls @ 200 mls/hr IV Q6H [facility] Last Infusion: 08/04/22 11:47 Dose: Infused Insulin Human Lispro (Insulin Lispro 100 Unit/Ml 3 Ml Vial) 0 unit SUBCUT QIDACHS [facility]; Protocol Last Admin: 08/04/22 11:46 Dose: 4 unit Lactulose (Lactulose 20 Gm/30 Ml Solution) 30 gm PO DAILY [facility] Magnesium Oxide (Magnesium Oxide 400 Mg Tablet) 400 mg PO BID [facility] Last Admin: 08/04/22 09:25 Dose: 400 mg Melatonin (Melatonin 3 Mg Tablet) 6 mg PO BEDTIME PRN PRN Reason: Insomnia Last Admin: 07/29/22 21:05 Dose: 6 mg Multivitamins/Vitamin C (Multivitamin Tablet) 1 tab PO DAILY [facility] Last Admin: 08/04/22 09:25 Dose: 1 tab Nicotine (Nicotine 14 Mg Patch.Td24) 14 mg TRANSDERMA DAILY [facility] Last Admin: 08/04/22 09:25 Dose: 14 mg Non-Formulary Medication (Efipabvqctz-Cfzmwwyqo-Upymsyfb [Trelegy Ellipta]) 1 inhalation INHALE DAILY [facility] Nortriptyline HCl (Nortriptyline Hcl 25 Mg Capsule) 50 mg PO BEDTIME [facility] Last Admin: 08/03/22 21:51 Dose: 50 mg Nystatin (Nystatin Powder 15 Gm Bottle) 1 appl TOPICAL BID [facility] Last Admin: 08/04/22 09:26 Dose: 1 appl Pharmacy Consult (Consult Rx Perform Med Rec) 1 each MISCELLANE ONCE PRN PRN Reason: Consult order Pyridoxine HCl (Pyridoxine Hcl (Vitamin B6) 50 Mg Tablet) 50 mg PO DAILY [facility] Last Admin: 08/04/22 09:25 Dose: 50 mg Rifaximin (Rifaximin 550 Mg Tablet) 550 mg PO BID [facility] Last Admin: 08/04/22 09:24 Dose: 550 mg Risperidone (Risperidone 1 Mg Tablet) 1 mg PO BID [facility] Last Admin: 08/04/22 09:25 Dose: 1 mg Sodium Biphosphate/Sodium Phosphate (Sodium Phosphate,Clinch-Dibasic 133 Ml Enema) 118 ml AL DAILY PRN PRN Reason: Constipation Sodium Chloride (0.9 % Sodium Chloride Flush 3 Ml Syringe) 3 ml IVFLUSH QSHIFT [facility] Last Admin: 08/04/22 07:10 Dose: Not Given Thiamine HCl (Thiamine Hcl 100 Mg Tablet) 100 mg PO BID [facility] Last Admin: 08/04/22 09:24 Dose: 100 mg Vitamin D (Cholecalciferol (Vitamin D3) 25 Mcg Tablet) 25 mcg PO DAILY [facility] Last Admin: 08/04/22 09:25 Dose: 25 mcg Home Medications Medication Instructions Recorded Confirmed Last Taken Type acetaminophen 325 mg tablet 650 mg PO Q6H PRN Fever Or Pain 07/20/22 07/20/22 Unknown History albuterol sulfate 90 mcg/actuation 2 puff inhalation QID PRN 07/20/22 07/20/22 Unknown History aerosol inhaler (ProAir HFA) Shortness Of Breath Or Wheezing amlodipine 10 mg tablet 10 mg PO DAILY 07/20/22 07/20/22 Unknown History aspirin 325 mg tablet,delayed 325 mg PO DAILY 07/20/22 07/20/22 Unknown History release bisacodyl 10 mg rectal suppository 10 mg AL DAILY PRN Constipation 07/20/22 07/20/22 Unknown History cholecalciferol (vitamin D3) 25 25 mcg PO DAILY 07/20/22 07/20/22 Unknown Histor y mcg (1,000 unit) tablet (Vitamin D3) dextrose 40 % oral gel (Glucose 15 g PO Q15M PRN Hypoglycemia 07/20/22 07/20/22 Unknown History Gel) fluticasone fur. 100 mcg-umeclid 1 inh inhalation DAILY 07/20/22 07/20/22 Unknown History 62.5 mcg-vilant 25 mcg inhalat.powder (Trelegy Ellipta) fluticasone propionate 50 1 spray intranasal DAILY 07/20/22 07/20/22 Unknown H istory mcg/actuation nasal spray,suspension (Flonase Allergy Relief) folic acid 1 mg tablet 1 mg PO DAILY 07/20/22 07/20/22 Unknown History gabapentin 600 mg tablet 600 mg PO QID 07/20/22 07/20/22 Unknown History glucagon 1 mg/0.2 mL subcutaneous 1 mg subcut Q20M PRN Hypoglycemia 07/20/22 07/20/22 Unknown History solution hydroxyzine HCl 10 mg tablet 20 mg PO TID PRN Anxiety 07/20/22 07/20/22 Unknown History ipratropium 0.5 mg-albuterol 3 mg 3 ml inhalation QID PRN Shortness 07/20/22 07/20/22 Unknown History (2.5 mg base)/3 mL nebulization Of Breath Or Wheezing soln levalbuterol HCl 0.63 mg/3 mL 0.63 mg inhalation TID PRN 07/20/22 07/20/22 Unkno wn History solution for nebulization Shortness Of Breath Or Wheezing losartan 100 mg tablet 100 mg PO DAILY 07/20/22 07/20/22 Unknown History magnesium hydroxide 400 mg/5 mL 30 ml PO DAILY PRN Constipation 07/20/22 07/20/22 Unknown History oral suspension (Milk of Magnesia) magnesium oxide 400 mg (241.3 mg 400 mg PO BID 07/20/22 07/20/22 Unknown History magnesium) tablet melatonin 5 mg tablet 5 mg PO BEDTIME PRN Insomnia 07/20/22 07/20/22 Unknown History metformin 1,000 mg tablet 1,000 mg PO DAILY@1700 07/20/22 07/20/22 Unknown History metformin 500 mg tablet 500 mg PO DAILY@0800 07/20/22 07/20/22 Unknown History methadone 5 mg/5 mL oral solution 5 mg PO DAILY@1200 rhabdomyolysis 07/20/22 07/20/22 Unknown History methadone 5 mg/5 mL oral solution 10 mg PO BID rhabdomyolysis 07/20/22 07/20/22 Unknown History multivitamin 1 tab PO DAILY 07/20/22 07/20/22 Unknown History nicotine 14 mg/24 hr daily 1 patch transdermal DAILY 07/20/22 07/20/22 Unknown History transdermal patch nortriptyline 50 mg capsule 50 mg PO BEDTIME 07/20/22 07/20/22 Unknown History omega 8-nus-pfl-fish oil 1,000 mg 1 cap PO BEDTIME 07/20/22 07/20/22 Unknown History (120 mg-180 mg) capsule omega 1-xzw-net-fish oil 1,000 mg 1 cap PO TIDAC 07/20/22 07/20/22 Unknown History (120 mg-180 mg) capsule pyridoxine (vitamin B6) 50 mg 50 mg PO DAILY 07/20/22 07/20/22 Unknown History tablet rosuvastatin 10 mg tablet 10 mg PO BEDTIME 07/20/22 07/20/22 Unknown History sodium phosphates 19 gram-7 118 ml AL DAILY PRN Constipation 07/20/22 07/20/22 Unknown History gram/118 mL enema (Fleet Enema) testosterone cypionate 200 mg/mL 1 ml IM Q2W 07/20/22 07/20/22 Unknown History intramuscular oil thiamine HCl (vitamin B1) 100 mg 100 mg PO BID 07/20/22 07/20/22 Unknown History tablet Physical Exam Vital Signs and Narrative: Vital Signs: Last Vital Signs Temp 97.8 F 08/04/22 15:35 Pulse 98 08/04/22 15:35 Resp 13 08/04/22 15:35 BP 120/63 08/04/22 15:35 Pulse Ox 92 08/04/22 15:35 O2 Del Method 08/04/22 15:35 O2 Flow Rate 3 08/04/22 00:00 Oxygen Flow Rate 2 07/20/22 14:39 BMI result Body Mass Index 39.1 Skin preservation of the perianal area and surrounding buttocks is excellent. There is no skin breakdown from moisture associated dermatitis. Tinge of pinkish hue and scant moisture are seen, possibly from normal sweating. The rectal tube is doing a good job diverting wet stool away from the dermis of the buttocks. A small Allevyn foam is removed from the apex of the coccyx to view the wound, then subsequently replaced. Beneath this is a full-thickness slough laden ulcer of unclear etiology. Because of surrounding blanchable dermis, it is unlikely that the primary source is ischemic pressure. It is more likely that chronic wetness initially contributed to friction and shear to cause this ulcer. It is appropriately addressed with a rectal tube. See recommendations for further possible strategies. Results Labs 08/04/22 06:58 08/04/22 07:55 Labs: Laboratory Results - last 24 hr 08/03/22 08/03/22 08/04/22 18:07 19:29 06:58 MCV 98.0 MCH 33.3 H MCHC 34.0 RDW 13.8 Plt Count 80 L MPV Not Reportable Immature Gran % (Auto) 2.1 H Neut % (Auto) 76.5 H Lymph % (Auto) 10.7 L Clinch % (Auto) 7.9 Eos % (Auto) 2.6 Baso % (Auto) 0.2 Lymph # (Auto) 1.7 Clinch # (Auto) 1.3 H Eos # (Auto) 0.4 Baso # (Auto) 0.0 Abs Immat Gran (auto) 0.33 H Absolute Neuts (auto) 12.0 H Absolute Nucleated RBC 0.000 Nucleated RBC % (auto) 0.0 Smear Tech's Comments VERIFIED Anion Gap Estim Creat Clear Calc Estimated GFR POC Glucose 198 H Random Glucose Calcium Total Bilirubin AST ALT Alkaline Phosphatase C-Reactive Protein Total Protein Albumin Procalcitonin Stool Leukocytes, Qual Stl C. cayetanensis PCR Stool Rotavirus A PCR Stl Adenov F 40/41 PCR Stool Astrovirus (PCR) Stool Campylobacter PCR Stool Cryptosporidium PCR Stl Sh Tox Pr E STEC PCR Stool E coli O157 PCR Stl Enterotoxigenic E PCR Stool EPEC (PCR) Stool EAEC (PCR) Stl E. histolytica PCR Stool Giardia Lamblia PCR Stl P. shigelloides PCR Stool Salmonella PCR Stool Sapovirus (PCR) Stl Shigella/EIEC PCR St Y.enterocolitica PCR Stool Vibrio (PCR) Stl Vibrio cholerae PCR Stl Norovirus GI/GII PCR Random Vancomycin 5.9 L C. difficile Tox B Gene COVID-19 (FABIOLA) COVID-19 [employer] 08/04/22 08/04/22 08/04/22 07:48 07:55 07:55 MCV MCH MCHC RDW Plt Count MPV Immature Gran % (Auto) Neut % (Auto) Lymph % (Auto) Clinch % (Auto) Eos % (Auto) Baso % (Auto) Lymph # (Auto) Clinch # (Auto) Eos # (Auto) Baso # (Auto) Abs Immat Gran (auto) Absolute Neuts (auto) Absolute Nucleated RBC Nucleated RBC % (auto) Smear Tech's Comments Anion Gap 12 Estim Creat Clear Calc 136.9 Estimated GFR > 60 POC Glucose 134 H Random Glucose 132 H Calcium 8.2 L Total Bilirubin 1.7 H AST 96 H ALT 129 H Alkaline Phosphatase 184 H C-Reactive Protein 1.79 H Total Protein 5.3 L Albumin 2.5 L Procalcitonin 0.27 Stool Leukocytes, Qual Stl C. cayetanensis PCR Stool Rotavirus A PCR Stl Adenov F 40/41 PCR Stool Astrovirus (PCR) Stool Campylobacter PCR Stool Cryptosporidium PCR Stl Sh Tox Pr E STEC PCR Stool E coli O157 PCR Stl Enterotoxigenic E PCR Stool EPEC (PCR) Stool EAEC (PCR) Stl E. histolytica PCR Stool Giardia Lamblia PCR Stl P. shigelloides PCR Stool Salmonella PCR Stool Sapovirus (PCR) Stl Shigella/EIEC PCR St Y.enterocolitica PCR Stool Vibrio (PCR) Stl Vibrio cholerae PCR Stl Norovirus GI/GII PCR Random Vancomycin C. difficile Tox B Gene COVID-19 (FABIOLA) COVID-19 kaufDA Com 08/04/22 08/04/22 08/04/22 10:45 11:11 11:30 MCV MCH MCHC RDW Plt Count MPV Immature Gran % (Auto) Neut % (Auto) Lymph % (Auto) Clinch % (Auto) Eos % (Auto) Baso % (Auto) Lymph # (Auto) Clinch # (Auto) Eos # (Auto) Baso # (Auto) Abs Immat Gran (auto) Absolute Neuts (auto) Absolute Nucleated RBC Nucleated RBC % (auto) Smear Tech's Comments Anion Gap Estim Creat Clear Calc Estimated GFR POC Glucose 217 H Random Glucose Calcium Total Bilirubin AST ALT Alkaline Phosphatase C-Reactive Protein Total Protein Albumin Procalcitonin Stool Leukocytes, Qual NEGATIVE Stl C. cayetanensis PCR Stool Rotavirus A PCR Stl Adenov F 40/ PCR Stool Astrovirus (PCR) Stool Campylobacter PCR Stool Cryptosporidium PCR Stl Sh Tox Pr E STEC PCR Stool E coli O157 PCR Stl Enterotoxigenic E PCR Stool EPEC (PCR) Stool EAEC (PCR) Stl E. histolytica PCR Stool Giardia Lamblia PCR Stl P. shigelloides PCR Stool Salmonella PCR Stool Sapovirus (PCR) Stl Shigella/EIEC PCR St Y.enterocolitica PCR Stool Vibrio (PCR) Stl Vibrio cholerae PCR Stl Norovirus GI/GII PCR Random Vancomycin C. difficile Tox B Gene COVID-19 (FABIOLA) Positive A COVID-19 Clin Com See Note 08/04/22 08/04/22 08/04/22 11:30 11:30 16:01 MCV MCH MCHC RDW Plt Count MPV Immature Gran % (Auto) Neut % (Auto) Lymph % (Auto) Clinch % (Auto) Eos % (Auto) Baso % (Auto) Lymph # (Auto) Clinch # (Auto) Eos # (Auto) Baso # (Auto) Abs Immat Gran (auto) Absolute Neuts (auto) Absolute Nucleated RBC Nucleated RBC % (auto) Smear Tech's Comments Anion Gap Estim Creat Clear Calc Estimated GFR POC Glucose 162 H Random Glucose Calcium Total Bilirubin AST ALT Alkaline Phosphatase C-Reactive Protein Total Protein Albumin Procalcitonin Stool Leukocytes, Qual Stl C. cayetanensis PCR Not Detected Stool Rotavirus A PCR Not Detected Stl Adenov F 40 PCR Not Detected Stool Astrovirus (PCR) Not Detected Stool Campylobacter PCR Not Detected Stool Cryptosporidium PCR Not Detected Stl Sh Tox Pr E STEC PCR Not Detected Stool E coli O157 PCR Not applicable Stl Enterotoxigenic E PCR Not Detected Stool EPEC (PCR) Not Detected Stool EAEC (PCR) Not Detected Stl E. histolytica PCR Not Detected Stool Giardia Lamblia PCR Not Detected Stl P. shigelloides PCR Not Detected Stool Salmonella PCR Not Detected Stool Sapovirus (PCR) Not Detected Stl Shigella/EIEC PCR Not Detected St Y.enterocolitica PCR Not Detected Stool Vibrio (PCR) Not Detected Stl Vibrio cholerae PCR Not Detected Stl Norovirus GI/GII PCR Not Detected Random Vancomycin C. difficile Tox B Gene NEGATIVE COVID-19 (FABIOLA) COVID-19 Clin Com Assessment and Plan (1) Dermatitis, unspecified: Status: Acute Plan 62 year old male with multiple medical problems who has a previous hospitalization at [facility] recently, was sent to a subacute facility and returns here for ongoing care. His disposition is not clear to me. The skin of the buttocks is well preserved with a rectal tube. One might consider the application of zinc oxide to the pinkish perianal and buttocks dermis for protection from moisture associated dermatitis. A better solution to the coccyg eal opening might be small piece of silver alginate cut to fit the hole with periwound zinc and secondary dressing atop. The problem with the Allevyn foam as primary dressing is that it harbors moisture and macerates the intact tissue. If large enough, it can reduce friction/shear forces, another consideration, a hint of this is seen at the foam border edge. In general, for the amount of complexity that this patient has endured, in addition to prolonged hospitalization and impaired mobility, his skin looks very much intact, other than this coccygeal wound which does not show pressure as the primary etiology based on blanchability of surrounding tissues. Time Spent With Patient Time: Total time managing care of this patient today ____ minutes.
[2022-08-04 19:33] VITALS: BP 124/70; PULSE 101; RESP 17; TEMP 36.8; O2SAT 94
[2022-08-04 20:16] LABS: Glucose, Whole Blood 183 mg/dL (60-115)
[2022-08-04] MEDS: Acetaminophen 325 MG TABLET 650 MG PO (22:42)
[2022-08-04] MEDS: Melatonin 3 MG TABLET 6 MG PO (22:44)
[2022-08-04] MEDS: Atorvastatin Calcium 40 MG TABLET PO (22:45)
[2022-08-04] MEDS: Nortriptyline HCl 25 MG CAPSULE 50 MG PO (22:45)
[2022-08-04 23:30] VITALS: BP 134/72; PULSE 99; RESP 18; TEMP 36.9; O2SAT 96
[2022-08-05] MEDS: Enoxaparin Sodium 40 MG/0.4 ML SYRINGE SUBCUT (00:36)
[2022-08-05] MEDS: vancomycin HCL 1,250 MG in 0.9 % Sodium Chloride 250 ML 166.7 MG IV (00:36)
[2022-08-05] MEDS: 0.9 % Sodium Chloride Flush 3 ML SYRINGE IVFLUSH (00:36)
[2022-08-05] MEDS: Piperacillin Sodium/Tazobactam 4.5 GM in 0.9 % Sodium Chloride 100 ML IV ×4 (05:47→22:55)
[2022-08-05 06:39] LABS: MANUAL DIFF FLAG NO
[2022-08-05 06:49] LABS: Basophils Percent Auto 0.2 % (0-2); Eosinophils Absolute Auto 0.5 X10*3/uL (0.0-0.4); Eosinophils Percent Auto 3.7 % (0-4); Hematocrit 36.2 % (42.0-52.0); Hemoglobin 11.9 g/dl (14.0-18.0); Imm Gran Abs Auto 0.18 X10*3/uL (0.00-0.03); Imm Gran Pct Auto 1.4 % (0.0-0.4); Lymphocytes Absolute Auto 1.8 X10*3/uL (1.2-4.9); Mean Corpuscular HGB Conc 32.9 g/dl (31.0-36.0); Mean Corpuscular Hemoglobin 33.1 pg (27.0-33.0); Mean Corpuscular Volume 100.8 fL (80.0-98.0); Mean Platelet Volume 12.7 fL (9.4-12.4); Monocytes Absolute Auto 1.2 X10*3/uL (0.1-1.2); Monocytes Percent Auto 9.2 % (2-11); Neutrophils Absolute Auto 9.3 x10*3/uL (2.0-8.3); Neutrophils Percent Auto 71.5 % (45-73); Red Blood Count 3.59 X10*6/uL (4.60-5.80)
[2022-08-05 06:50] LABS: Platelet Count 75 X10*3/uL (160-400)
[2022-08-05 07:16] LABS: Alanine Aminotransferase 122 U/L (0-40); Albumin Level 2.4 g/dL (3.5-5.0); Alkaline Phosphatase 179 U/L (39-117); Aspartate Amino Transferase 103 U/L (5-37); Bilirubin Total 1.7 mg/dL (0.0-1.0); Blood Urea Nitrogen 19 mg/dL (9-16); Creatinine Clr Calc Pharmacy 129.4; Estimated Glomerular Filt Rate > 60; Glucose Random 82 mg/dL (60-115); Total Protein 5.4 g/dL (6.5-8.0)
[2022-08-05 07:26] LABS: Anion Gap 13 (12-20); Carbon Dioxide 16 mmol/L (22-29); Chloride 118 mmol/L (96-108); Potassium 4.2 mmol/L (3.3-5.1); Sodium 143 mmol/L (135-145)
[2022-08-05 07:27] VITALS: BP 132/72; PULSE 102; RESP 20; TEMP 36.9; O2SAT 95
[2022-08-05 07:55] LABS: Glucose, Whole Blood 94 mg/dL (60-115)
[2022-08-05 08:21] LABS: Ammonia 53 umol/L (13-55)
--- NOTE | 2022-08-05 10:39 | PM.PNNEP ---
Subjective Subjective Date of Service: 08/05/22 Interval history: Events noted Physical Exam Vital Signs: Vital Signs: Last Vital Signs Temp 98.5 F 08/05/22 07:27 Pulse 102 H 08/05/22 07:27 Resp 20 08/05/22 07:27 BP 132/72 08/05/22 07:27 Pulse Ox 95 08/05/22 07:27 O2 Del Method 08/05/22 07:27 O2 Flow Rate 3 08/05/22 07:27 Oxygen Flow Rate 2 07/20/22 14:39 BMI result Body Mass Index 39.1 Const: General: no acute distress HEENT: Head: Yes normocephalic and Yes atraumatic Neck: Neck: Yes supple Resp: Auscultation: diminished lung sounds Cardio: Rate: regular rate Heart sounds: S1 normal heart sound present and S2 normal heart sound present GI: Palpation (GI): Soft to palpation and nontender Skin: Rashes: no rashes Neuro: Other: Delerious Extrem: General: Yes pedal edema Objective Data Labs 08/05/22 06:06 08/05/22 06:06 Labs: Laboratory Results - last 24 hr 08/04/22 08/04/22 08/04/22 10:45 11:11 11:30 WBC RBC Hgb Hct MCV MCH MCHC RDW Plt Count MPV Immature Gran % (Auto) Neut % (Auto) Lymph % (Auto) [place] % (Auto) Eos % (Auto) Baso % (Auto) Lymph # (Auto) [place] # (Auto) Eos # (Auto) Baso # (Auto) Abs Immat Gran (auto) Absolute Neuts (auto) Absolute Nucleated RBC Nucleated RBC % (auto) Sodium Potassium Chloride Carbon Dioxide Anion Gap BUN Creatinine Estim Creat Clear Calc Estimated GFR POC Glucose 217 H Random Glucose Calcium Total Bilirubin AST ALT Alkaline Phosphatase Ammonia Total Protein Albumin Stool Leukocytes, Qual NEGATIVE Stl C. cayetanensis PCR Stool Rotavirus A PCR Stl Adenov F 40/41 PCR Stool Astrovirus (PCR) Stool Campylobacter PCR Stool Cryptosporidium PCR Stl Sh Tox Pr E STEC PCR Stool E coli O157 PCR Stl Enterotoxigenic E PCR Stool EPEC (PCR) Stool EAEC (PCR) Stl E. histolytica PCR Stool Giardia Lamblia PCR Stl P. shigelloides PCR Stool Salmonella PCR Stool Sapovirus (PCR) Stl Shigella/EIEC PCR St Y.enterocolitica PCR Stool Vibrio (PCR) Stl Vibrio cholerae PCR Stl Norovirus GI/GII PCR C. difficile Tox B Gene COVID-19 (FABIOLA) Positive A COVID-19 Clin Com See Note 08/04/22 08/04/22 08/04/22 11:30 11:30 16:01 WBC RBC Hgb Hct MCV MCH MCHC RDW Plt Count MPV Immature Gran % (Auto) Neut % (Auto) Lymph % (Auto) [place] % (Auto) Eos % (Auto) Baso % (Auto) Lymph # (Auto) [place] # (Auto) Eos # (Auto) Baso # (Auto) Abs Immat Gran (auto) Absolute Neuts (auto) Absolute Nucleated RBC Nucleated RBC % (auto) Sodium Potassium Chloride Carbon Dioxide Anion Gap BUN Creatinine Estim Creat Clear Calc Estimated GFR POC Glucose 162 H Random Glucose Calcium Total Bilirubin AST ALT Alkaline Phosphatase Ammonia Total Protein Albumin Stool Leukocytes, Qual Stl C. cayetanensis PCR Not Detected Stool Rotavirus A PCR Not Detected Stl Adenov F 40/41 PCR Not Detected Stool Astrovirus (PCR) Not Detected Stool Campylobacter PCR Not Detected Stool Cryptosporidium PCR Not Detected Stl Sh Tox Pr E STEC PCR Not Detected Stool E coli O157 PCR Not applicable Stl Enterotoxigenic E PCR Not Detected Stool EPEC (PCR) Not Detected Stool EAEC (PCR) Not Detected Stl E. histolytica PCR Not Detected Stool Giardia Lamblia PCR Not Detected Stl P. shigelloides PCR Not Detected Stool Salmonella PCR Not Detected Stool Sapovirus (PCR) Not Detected Stl Shigella/EIEC PCR Not Detected St Y.enterocolitica PCR Not Detected Stool Vibrio (PCR) Not Detected Stl Vibrio cholerae PCR Not Detected Stl Norovirus GI/GII PCR Not Detected C. difficile Tox B Gene NEGATIVE COVID-19 (FABIOLA) COVID-19 Clin Com 08/04/22 08/05/22 08/05/22 20:07 06:06 06:06 WBC 13.0 H RBC 3.59 L Hgb 11.9 L Hct 36.2 L MCV 100.8 H MCH 33.1 H MCHC 32.9 RDW 14.0 Plt Count 75 L MPV 12.7 H Immature Gran % (Auto) 1.4 H Neut % (Auto) 71.5 Lymph % (Auto) 14.0 L [place] % (Auto) 9.2 Eos % (Auto) 3.7 Baso % (Auto) 0.2 Lymph # (Auto) 1.8 [place] # (Auto) 1.2 Eos # (Auto) 0.5 H Baso # (Auto) 0.0 Abs Immat Gran (auto) 0.18 H Absolute Neuts (auto) 9.3 H Absolute Nucleated RBC 0.000 Nucleated RBC % (auto) 0.0 Sodium 143 Potassium 4.2 D Chloride 118 H Carbon Dioxide 16 L Anion Gap 13 BUN 19 H Creatinine 0.73 Estim Creat Clear Calc 129.4 Estimated GFR > 60 POC Glucose 183 H Random Glucose 82 Calcium 8.0 L Total Bilirubin 1.7 H AST 103 H ALT 122 H Alkaline Phosphatase 179 H Ammonia Total Protein 5.4 L Albumin 2.4 L Stool Leukocytes, Qual Stl C. cayetanensis PCR Stool Rotavirus A PCR Stl Adenov F 40/ PCR Stool Astrovirus (PCR) Stool Campylobacter PCR Stool Cryptosporidium PCR Stl Sh Tox Pr E STEC PCR Stool E coli O157 PCR Stl Enterotoxigenic E PCR Stool EPEC (PCR) Stool EAEC (PCR) Stl E. histolytica PCR Stool Giardia Lamblia PCR Stl P. shigelloides PCR Stool Salmonella PCR Stool Sapovirus (PCR) Stl Shigella/EIEC PCR St Y.enterocolitica PCR Stool Vibrio (PCR) Stl Vibrio cholerae PCR Stl Norovirus GI/GII PCR C. difficile Tox B Gene COVID-19 (FABIOLA) COVID-19 Clin Com 08/05/22 08/05/22 07:50 08:06 WBC RBC Hgb Hct MCV MCH MCHC RDW Plt Count MPV Immature Gran % (Auto) Neut % (Auto) Lymph % (Auto) [place] % (Auto) Eos % (Auto) Baso % (Auto) Lymph # (Auto) [place] # (Auto) Eos # (Auto) Baso # (Auto) Abs Immat Gran (auto) Absolute Neuts (auto) Absolute Nucleated RBC Nucleated RBC % (auto) Sodium Potassium Chloride Carbon Dioxide Anion Gap BUN Creatinine Estim Creat Clear Calc Estimated GFR POC Glucose 94 Random Glucose Calcium Total Bilirubin AST ALT Alkaline Phosphatase Ammonia 53 Total Protein Albumin Stool Leukocytes, Qual Stl C. cayetanensis PCR Stool Rotavirus A PCR Stl Adenov F 40/ PCR Stool Astrovirus (PCR) Stool Campylobacter PCR Stool Cryptosporidium PCR Stl Sh Tox Pr E STEC PCR Stool E coli O157 PCR Stl Enterotoxigenic E PCR Stool EPEC (PCR) Stool EAEC (PCR) Stl E. histolytica PCR Stool Giardia Lamblia PCR Stl P. shigelloides PCR Stool Salmonella PCR Stool Sapovirus (PCR) Stl Shigella/EIEC PCR St Y.enterocolitica PCR Stool Vibrio (PCR) Stl Vibrio cholerae PCR Stl Norovirus GI/GII PCR C. difficile Tox B Gene COVID-19 (FABIOLA) COVID-19 Clin Com Microbiology Microbiology Results: Microbiology 08/02/22 13:03 Blood - Venous Blood Culture - Preliminary No growth after 48 hours. 08/02/22 13:03 Blood - Venous Blood Culture - Preliminary No growth after 48 hours. 07/20/22 15:21 Blood - Venous Blood Culture - Final No growth after 5 days. 07/20/22 15:16 Blood - Venous Blood Culture - Final No growth after 5 days. Procedures Date of Service Date of Service: 08/05/22 Assessment & Plan Assessment and plan (1) Hypernatremia: Status: Acute (2) COVID-19 virus infection: Status: Acute Plan free water deficit leading to dysnatremia non renal water loss REC Keep I > O with D5 1/2 NS watch potassium follow kidney function and electrolytes Time Spent With Patient Time: Total time managing care of this patient today ____ minutes. Progress Note: Quality Stroke Does the patient have a stroke diagnosis?: No
--- NOTE | 2022-08-05 11:16 | HO.PICC ---
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 Following completion of [place] Protocol the skin and soft tissues were anesthetized with 1% Lidocaine plain. Using ultrasound guidance, right brachial vein access was obtained twice by Pattie Koenig RN, but unable to pass guidewire. Right brachial vein access was obtained on first attempt by Torin Wesley RN. Over an 0.018 wire through peel-away sheath, a 5FR double lumen PASV PICC line was positioned. Catheter length is 45 CM internal length, 0 CM external length, for a total trimmed length of 45 CM. The procedure was performed in S272. Tip verification was performed by Radha Bacon with Sherlock 3CG. Tip located in SVC. Ultrasound was used to document vein patency and for needle entry. A formal ultrasound picture and cardiac rhythm strip was recorded. Vascular Director Of Cardiology has released the line for use and it is currently dressed with a StatLock, Tegaderm, and CHG disc. Verification has been performed for blood return and line patency. Arm Circumference: 29 CM Equipment: Tigermed Power PICC Solo Catheter Type: 5FR PASV double lumen PICC Lot #: [id number]
[2022-08-05 12:02] LABS: Glucose, Whole Blood 152 mg/dL (60-115)
[2022-08-05] MEDS: Gabapentin 600 MG TABLET PO ×3 (12:23→21:12)
[2022-08-05] MEDS: rifAXIMin 550 MG TABLET PO ×2 (12:23→21:12)
[2022-08-05] MEDS: risperiDONE 1 MG TABLET PO ×2 (12:24→21:12)
[2022-08-05] MEDS: Thiamine HCL 100 MG TABLET PO ×2 (12:24→21:12)
[2022-08-05] MEDS: Aspirin Enteric Coated 325 MG TABLET.DR PO (12:24)
[2022-08-05] MEDS: Pyridoxine HCl (Vitamin B6) 50 MG TABLET PO (12:24)
[2022-08-05] MEDS: amLODIPine Besylate 10 MG TABLET PO (12:24)
[2022-08-05] MEDS: Folic Acid 1 MG TABLET PO (12:24)
[2022-08-05] MEDS: Cholecalciferol (Vitamin D3) 25 MCG TABLET PO (12:24)
[2022-08-05] MEDS: Magnesium Oxide 400 MG TABLET PO ×2 (12:24→21:12)
[2022-08-05] MEDS: Multivitamin TABLET 1 TAB PO (12:25)
[2022-08-05] MEDS: Insulin Lispro 100 UNIT/ML 3 ML VIAL SUBCUT ×2 (12:25→21:11)
[2022-08-05] MEDS: Nicotine 14 MG PATCH.TD24 TRANSDERMA (12:25)
--- NOTE | 2022-08-05 14:39 | HO.PM.IMPN ---
Subjective Subjective Date of Service: 08/05/22 Interval History: remains confused family - brother + father- at bedside; pt has improved considerably from admission but still not at his baseline pt was drinking EtOH heavily at home Review of Systems Review of Systems: Yes Unobtainable due to mental status Physical Exam Vital Signs: Vital Signs: Last Vital Signs Temp 98.5 F 08/05/22 07:27 Pulse 102 H 08/05/22 07:27 Resp 20 08/05/22 07:27 BP 132/72 08/05/22 07:27 Pulse Ox 95 08/05/22 07:27 O2 Del Method 08/05/22 07:27 O2 Flow Rate 3 08/05/22 07:27 Oxygen Flow Rate 2 07/20/22 14:39 BMI result Body Mass Index 39.1 Gen: in no acute distress HEENT: sclera anicteric, moist mucus membranes Neck: supple Lungs: clear to auscultation bilaterally Heart: regular rate and rhythm, no murmurs Abd: soft, non-tender, non-distended Ext: no edema Skin: warm/well-perfused Neuro: alert, disoriented, no asterixis Psych: appropriate affect Objective Data Active Medications Acetaminophen (Acetaminophen 325 Mg Tablet) 650 mg PO Q6H PRN PRN Reason: Pain, Mild (Pain Scale 1-3) Last Admin: 08/04/22 22:42 Dose: 650 mg Documented By: CARLOZ Albuterol Sulfate (Albuterol Sulfate 90 Mcg 8 Gm Inhaler) 2 puff INHALE QID PRN PRN Reason: Shortness Of Breath Or Wheezing Amlodipine Besylate (Amlodipine Besylate 10 Mg Tablet) 10 mg PO DAILY [facility]; Protocol Last Admin: 08/05/22 12:24 Dose: 10 mg Documented By: PREMA Aspirin (Aspirin Enteric Coated 325 Mg Tablet.) 325 mg PO DAILY [facility] Last Admin: 08/05/22 12:24 Dose: 325 mg Documented By: PREMA Atorvastatin Calcium (Atorvastatin Calcium 40 Mg Tablet) 40 mg PO BEDTIME [facility] Last Admin: 08/04/22 22:45 Dose: 40 mg Documented By: CARLOZ Dextrose (Dextrose 50 % 25 Gm/50 Ml Syringe) 25 gm IVPUSH Q15M PRN; Protocol PRN Reason: per Hypoglycemia Standing Ord. Enoxaparin Sodium (Enoxaparin Sodium 40 Mg/0.4 Ml Syringe) 40 mg SUBCUT Q24H [facility] Last Admin: 08/05/22 00:36 Dose: 40 mg Documented By: CARLOZ Fluticasone Propionate (Fluticasone Propionate Nasal 16 Gm [place]) 1 spray NOSTRIL-B DAILY [facility] Last Admin: 08/05/22 11:59 Dose: Not Given Documented By: ZACK-RENA Non-Admin Reason: Patient Refused Folic Acid (Folic Acid 1 Mg Tablet) 1 mg PO DAILY [facility] Last Admin: 08/05/22 12:24 Dose: 1 mg Documented By: ZACK-RENA Gabapentin (Gabapentin 600 Mg Tablet) 600 mg PO QID [facility] Last Admin: 08/05/22 12:23 Dose: 600 mg Documented By: PREMA Glucagon (Glucagon,Human Recombinant 1 Mg/Ml Vial) 1 mg IM Q20M PRN PRN Reason: Hypoglycemia Glucose (Glucose Gel 15 Gm Gel..Gram.) 15 gm PO Q15M PRN PRN Reason: Hypoglycemia Glucose (Glucose Gel 15 Gm Gel..Gram.) 15 gm PO Q15M PRN; Protocol PRN Reason: per Hypoglycemia Standing Ord. Piperacillin Sod/Tazobactam (Sod 4.5 gm/ Sodium Chloride) 100 mls @ 200 mls/hr IV Q6H [facility] Stop: 08/09/22 10:59 Last Infusion: 08/05/22 13:22 Dose: 0 mls/hr Documented By: PREMA Insulin Human Lispro (Insulin Lispro 100 Unit/Ml 3 Ml Vial) 0 unit SUBCUT QIDACHS [facility]; Protocol Last Admin: 08/05/22 12:25 Dose: 2 unit Documented By: PREMA Lactulose (Lactulose 20 Gm/30 Ml Solution) 30 gm PO DAILY [facility] Last Admin: 08/05/22 11:59 Dose: Not Given Documented By: SEEMAFA Non-Admin Reason: per md Magnesium Oxide (Magnesium Oxide 400 Mg Tablet) 400 mg PO BID [facility] Last Admin: 08/05/22 12:24 Dose: 400 mg Documented By: PREMA Melatonin (Melatonin 3 Mg Tablet) 6 mg PO BEDTIME PRN PRN Reason: Insomnia Last Admin: 08/04/22 22:44 Dose: 6 mg Documented By: CARLOZ Multivitamins/Vitamin C (Multivitamin Tablet) 1 tab PO DAILY [facility] Last Admin: 08/05/22 12:25 Dose: 1 tab Documented By: PREMA Nicotine (Nicotine 14 Mg Patch.Td24) 14 mg TRANSDERMA DAILY [facility] Last Admin: 08/05/22 12:25 Dose: 14 mg Documented By: PREMA Non-Formulary Medication (Ywmyxgyuink-Jhyqfbkkf-Sawscbke [Trelegy Ellipta]) 1 inhalation INHALE DAILY [facility] Nortriptyline HCl (Nortriptyline Hcl 25 Mg Capsule) 50 mg PO BEDTIME [facility] Last Admin: 08/04/22 22:45 Dose: 50 mg Documented By: CARLOZ Nystatin (Nystatin Powder 15 Gm Bottle) 1 appl TOPICAL BID [facility] Last Admin: 08/05/22 12:25 Dose: Not Given Documented By: PREMA Non-Admin Reason: Off Unit: Surgery Pharmacy Consult (Consult Rx Perform Med Rec) 1 each MISCELLANE ONCE PRN PRN Reason: Consult order Pyridoxine HCl (Pyridoxine Hcl (Vitamin B6) 50 Mg Tablet) 50 mg PO DAILY [facility] Last Admin: 08/05/22 12:24 Dose: 50 mg Documented By: PREMA Rifaximin (Rifaximin 550 Mg Tablet) 550 mg PO BID [facility] Last Admin: 08/05/22 12:23 Dose: 550 mg Documented By: PREMA Risperidone (Risperidone 1 Mg Tablet) 1 mg PO BID [facility] Last Admin: 08/05/22 12:24 Dose: 1 mg Documented By: PREMA Sodium Biphosphate/Sodium Phosphate (Sodium Phosphate,[place]-Dibasic 133 Ml [place]ema) 118 ml [place] DAILY PRN PRN Reason: Constipation Sodium Chloride (0.9 % Sodium Chloride Flush 3 Ml Syringe) 3 ml IVFLUSH QSHIFT [facility] Last Admin: 08/05/22 07:10 Dose: Not Given Documented By: [email or web address]-ABDIRIZAKFA Non-Admin Reason: See Note Sodium Chloride (0.9 % Sodium Chloride Flush 10 Ml Syringe) 5 ml IVFLUSH TID [facility] Last Admin: 08/05/22 12:25 Dose: Not Given Documented By: ZACK-RENA Non-Admin Reason: See Note Thiamine HCl (Thiamine Hcl 100 Mg Tablet) 100 mg PO BID [facility] Last Admin: 08/05/22 12:24 Dose: 100 mg Documented By: PREMA Vitamin D (Cholecalciferol (Vitamin D3) 25 Mcg Tablet) 25 mcg PO DAILY [facility] Last Admin: 08/05/22 12:24 Dose: 25 mcg Documented By: PREMA Labs 08/05/22 06:06 08/05/22 06:06 Labs: Laboratory Results - last 24 hr 08/04/22 08/04/22 08/05/22 16:01 20:07 06:06 MCV 100.8 H MCH 33.1 H MCHC 32.9 RDW 14.0 Plt Count 75 L MPV 12.7 H Immature Gran % (Auto) 1.4 H Neut % (Auto) 71.5 Lymph % (Auto) 14.0 L [place] % (Auto) 9.2 Eos % (Auto) 3.7 Baso % (Auto) 0.2 Lymph # (Auto) 1.8 [place] # (Auto) 1.2 Eos # (Auto) 0.5 H Baso # (Auto) 0.0 Abs Immat Gran (auto) 0.18 H Absolute Neuts (auto) 9.3 H Absolute Nucleated RBC 0.000 Nucleated RBC % (auto) 0.0 Anion Gap Estim Creat Clear Calc Estimated GFR POC Glucose 162 H 183 H Random Glucose Calcium Total Bilirubin AST ALT Alkaline Phosphatase Ammonia Total Protein Albumin 08/05/22 08/05/22 08/05/22 06:06 07:50 08:06 MCV MCH MCHC RDW Plt Count MPV Immature Gran % (Auto) Neut % (Auto) Lymph % (Auto) [place] % (Auto) Eos % (Auto) Baso % (Auto) Lymph # (Auto) [place] # (Auto) Eos # (Auto) Baso # (Auto) Abs Immat Gran (auto) Absolute Neuts (auto) Absolute Nucleated RBC Nucleated RBC % (auto) Anion Gap 13 Estim Creat Clear Calc 129.4 Estimated GFR > 60 POC Glucose 94 Random Glucose 82 Calcium 8.0 L Total Bilirubin 1.7 H AST 103 H ALT 122 H Alkaline Phosphatase 179 H Ammonia 53 Total Protein 5.4 L Albumin 2.4 L 08/05/22 11:58 MCV MCH MCHC RDW Plt Count MPV Immature Gran % (Auto) Neut % (Auto) Lymph % (Auto) [place] % (Auto) Eos % (Auto) Baso % (Auto) Lymph # (Auto) [place] # (Auto) Eos # (Auto) Baso # (Auto) Abs Immat Gran (auto) Absolute Neuts (auto) Absolute Nucleated RBC Nucleated RBC % (auto) Anion Gap Estim Creat Clear Calc Estimated GFR POC Glucose 152 H Random Glucose Calcium Total Bilirubin AST ALT Alkaline Phosphatase Ammonia Total Protein Albumin Microbiology Microbiology Results: Microbiology 08/02/22 13:03 Blood Culture - Preliminary Blood - Venous No growth after 48 hours. 08/02/22 13:03 Blood Culture - Preliminary Blood - Venous No growth after 48 hours. Assessment and Plan (1) Leukocytosis: Status: Acute (2) Hypernatremia: Status: Acute (3) Altered mental status: Status: Acute Plan d#16 62yo M with alcoholc cirrhosis, COPD, chronic hypoxia on 3L O2, DM2, HTN, vertebral fractures, sent in from [facility] where he was for STR with AMS, found to have Covid-19 infection # leukocytosis # aspiration PNA - on baseline amount of O2 [3L]. ID consulted appreciated. pip/meño 08/04-08/09/22. trend PCT. WBCs coming down # hyperNa - resolved # hepatic encephalopathy - hold lactulose for a few days due to profuse diarrhea [tests for infection all negative], d/c rectal tube, continue rifaximin # T9/T12 vertebral fractures - was on methadone for chronic back pain but this was stopped due to encephalopathy; pain is controlled at this point # DM2 - correction-dose lispro # COPD not in acute exac - prn albuterol, triple controller inhaler therapy # chronic hypoxic resp failure - 3L O2 via NC # hypotension # ANEUDY - resolved after fluid repletion # HTN - amlodipine # AUD - continue B vitamins; no evidence of withdrawal but may have EtOH dementia # Covid-19 - recovered, s/p dexamethasone # VTE ppx: LMWH # dispo: anticipate return to SNF after resolution of infection issue In my clinical judgment, the patient requires continued inpatient hospitalization for the following reasons: IV ABX Time Spent With Patient Time: Total time managing care of this patient today __35__ minutes. Quality Stroke Does the patient have a stroke diagnosis?: No VTE Prior VTE?: No VTE Risk Level:: Medical - moderate - high VTE Device Contraindication: Treatment Not Indicated VTE Drug Contraindication: N/A - Med Ordered
[2022-08-05 15:23] VITALS: BP 140/77; PULSE 97; RESP 18; TEMP 36.4; O2SAT 97
[2022-08-05] MEDS: 0.9 % Sodium Chloride Flush 10 ML SYRINGE 5 ML IVFLUSH ×2 (15:37→22:55)
[2022-08-05 15:59] LABS: Glucose, Whole Blood 111 mg/dL (60-115)
[2022-08-05 19:50] LABS: Glucose, Whole Blood 176 mg/dL (60-115)
[2022-08-05] MEDS: Atorvastatin Calcium 40 MG TABLET PO (21:12)
[2022-08-05] MEDS: Nortriptyline HCl 25 MG CAPSULE 50 MG PO (21:12)
[2022-08-05] MEDS: Nystatin Powder 15 GM BOTTLE 1 APPL TOPICAL (22:59)
[2022-08-05 23:34] VITALS: BP 158/76; PULSE 96; RESP 18; TEMP 37.1
[2022-08-06] MEDS: 0.9 % Sodium Chloride Flush 3 ML SYRINGE IVFLUSH (00:43)
[2022-08-06] MEDS: Enoxaparin Sodium 40 MG/0.4 ML SYRINGE SUBCUT (00:43)
[2022-08-06 04:01] VITALS: BP 139/73; PULSE 91; RESP 20; TEMP 37.2; O2SAT 94
[2022-08-06] MEDS: Piperacillin Sodium/Tazobactam 4.5 GM in 0.9 % Sodium Chloride 100 ML IV ×4 (06:02→22:44)
[2022-08-06 07:27] VITALS: BP 142/72; PULSE 96; RESP 12; TEMP 36.9; O2SAT 95
[2022-08-06 07:34] LABS: Hematocrit 33.2 % (42.0-52.0); Hemoglobin 11.3 g/dl (14.0-18.0); Mean Corpuscular Hemoglobin 34.2 pg (27.0-33.0); Mean Corpuscular Volume 100.6 fL (80.0-98.0); Mean Platelet Volume 12.8 fL (9.4-12.4); Red Cell Distribution Width 14.2 % (11.0-16.0); White Blood Count 15.9 X10*3/uL (4.8-10.8)
[2022-08-06 07:35] LABS: Platelet Count 79 X10*3/uL (160-400)
[2022-08-06 07:35] LABS: Glucose, Whole Blood 128 mg/dL (60-115)
[2022-08-06 07:38] LABS: INTERNATIONAL NORM RATIO 1.8 (0.9-1.1); Prothrombin Time 21.5 SEC (10.0-13.1)
[2022-08-06 08:07] LABS: Anion Gap 12 (12-20); Blood Urea Nitrogen 17 mg/dL (9-16); Carbon Dioxide 17 mmol/L (22-29); Chloride 120 mmol/L (96-108); Creatinine Clr Calc Pharmacy 136.9; Estimated Glomerular Filt Rate > 60; Glucose Random 128 mg/dL (60-115); Magnesium 1.9 mg/dL (1.6-2.6); Potassium 3.3 mmol/L (3.3-5.1); Sodium 146 mmol/L (135-145)
[2022-08-06 08:11] LABS: Procalcitonin 0.23 ng/mL
[2022-08-06 08:56] LABS: Ammonia 52 umol/L (13-55)
--- NOTE | 2022-08-06 09:10 | MHC.CM.PN ---
Patient from [facility] for STR. He was sent to [facility] for AMS. Patient Covid+ on admit. He is considered covid recovered. Patient is not medically cleared for discharge. A PT eval will be ordered by MD when the patient is ready and able to participate. A clinical update has been sent to [facility] this morning. DP return to [facility] for STR via BLS.
[2022-08-06] MEDS: 0.9 % Sodium Chloride Flush 10 ML SYRINGE 5 ML IVFLUSH ×3 (09:16→20:54)
[2022-08-06 09:18] VITALS: BP 142/72; PULSE 96; O2SAT 95
[2022-08-06] MEDS: Nicotine 14 MG PATCH.TD24 TRANSDERMA (09:18)
[2022-08-06] MEDS: Gabapentin 600 MG TABLET PO ×4 (09:20→20:55)
[2022-08-06] MEDS: Cholecalciferol (Vitamin D3) 25 MCG TABLET PO (09:20)
[2022-08-06] MEDS: Thiamine HCL 100 MG TABLET PO ×2 (09:20→20:55)
[2022-08-06] MEDS: amLODIPine Besylate 10 MG TABLET PO (09:20)
[2022-08-06] MEDS: Magnesium Oxide 400 MG TABLET PO ×2 (09:20→20:55)
[2022-08-06] MEDS: rifAXIMin 550 MG TABLET PO ×2 (09:20→20:55)
[2022-08-06] MEDS: risperiDONE 1 MG TABLET PO ×2 (09:20→20:55)
[2022-08-06] MEDS: Pyridoxine HCl (Vitamin B6) 50 MG TABLET PO (09:21)
[2022-08-06] MEDS: Multivitamin TABLET 1 TAB PO (09:21)
[2022-08-06] MEDS: Folic Acid 1 MG TABLET PO (09:21)
[2022-08-06] MEDS: Aspirin Enteric Coated 325 MG TABLET.DR PO (09:21)
[2022-08-06] MEDS: Nystatin Powder 15 GM BOTTLE 1 APPL TOPICAL ×2 (09:22→21:09)
[2022-08-06] MEDS: Fluticasone Propionate Nasal 16 GM SPRAY 1 SPRAY NOSTRIL-B (09:22)
--- NOTE | 2022-08-06 10:49 | MHC.CLN ---
F/U PO INTAKE VARIABLE RANGING FROM 0-75% DIET RX: 2200DM CHOPPED WITH HT LIQ-APPROPRIATE PT RECEIVING ENSURE MAX BID TO INCREASE KCALS/PROTEIN FOR WOUND HEALING SUPP PROVIDES 300KCALS, 60G PROTEIN MONITOR PO INTAKE CLOSELY
--- NOTE | 2022-08-06 10:57 | HO.PM.IMPN ---
Subjective Subjective Date of Service: 08/06/22 Interval History: fewer stools + less liquid no fever confused no abd pain no hematochezia or melena Review of Systems Review of Systems: Yes all other systems are reviewed and are negative Physical Exam Vital Signs: Vital Signs: Last Vital Signs Temp 98.5 F 08/06/22 07:27 Pulse 96 08/06/22 09:18 Resp 12 08/06/22 07:27 BP 142/72 H 08/06/22 09:18 Pulse Ox 95 08/06/22 09:18 O2 Del Method 08/06/22 07:27 O2 Flow Rate 2 08/06/22 07:27 Oxygen Flow Rate 2 07/20/22 14:39 BMI result Body Mass Index 39.1 Gen: in no acute distress HEENT: sclera anicteric, moist mucus membranes Neck: supple Lungs: clear to auscultation bilaterally Heart: regular rate and rhythm, no murmurs Abd: soft, non-tender, non-distended Ext: no edema Skin: warm/well-perfused Neuro: alert, disoriented, no asterixis Psych: appropriate affect Objective Data Active Medications Acetaminophen (Acetaminophen 325 Mg Tablet) 650 mg PO Q6H PRN PRN Reason: Pain, Mild (Pain Scale 1-3) Last Admin: 08/04/22 22:42 Dose: 650 mg Documented By: CARLOZ Albuterol Sulfate (Albuterol Sulfate 90 Mcg 8 Gm Inhaler) 2 puff INHALE QID PRN PRN Reason: Shortness Of Breath Or Wheezing Amlodipine Besylate (Amlodipine Besylate 10 Mg Tablet) 10 mg PO DAILY [facility]; Protocol Last Admin: 08/06/22 09:20 Dose: 10 mg Documented By: FRAN Aspirin (Aspirin Enteric Coated 325 Mg Tablet.) 325 mg PO DAILY [facility] Last Admin: 08/06/22 09:21 Dose: 325 mg Documented By: FRAN Atorvastatin Calcium (Atorvastatin Calcium 40 Mg Tablet) 40 mg PO BEDTIME [facility] Last Admin: 08/05/22 21:12 Dose: 40 mg Documented By: ALISHA Dextrose (Dextrose 50 % 25 Gm/50 Ml Syringe) 25 gm IVPUSH Q15M PRN; Protocol PRN Reason: per Hypoglycemia Standing Ord. Enoxaparin Sodium (Enoxaparin Sodium 40 Mg/0.4 Ml Syringe) 40 mg SUBCUT Q24H [facility] Last Admin: 08/06/22 00:43 Dose: 40 mg Documented By: CAROLINA Fluticasone Propionate (Fluticasone Propionate Nasal 16 Gm [place]) 1 spray NOSTRIL-B DAILY [facility] Last Admin: 08/06/22 09:22 Dose: 1 spray Documented By: FRAN Folic Acid (Folic Acid 1 Mg Tablet) 1 mg PO DAILY [facility] Last Admin: 08/06/22 09:21 Dose: 1 mg Documented By: FRAN Gabapentin (Gabapentin 600 Mg Tablet) 600 mg PO QID [facility] Last Admin: 08/06/22 09:20 Dose: 600 mg Documented By: FRAN Glucagon (Glucagon,Human Recombinant 1 Mg/Ml Vial) 1 mg IM Q20M PRN PRN Reason: Hypoglycemia Glucose (Glucose Gel 15 Gm Gel..Gram.) 15 gm PO Q15M PRN PRN Reason: Hypoglycemia Glucose (Glucose Gel 15 Gm Gel..Gram.) 15 gm PO Q15M PRN; Protocol PRN Reason: per Hypoglycemia Standing Ord. Piperacillin Sod/Tazobactam (Sod 4.5 gm/ Sodium Chloride) 100 mls @ 200 mls/hr IV Q6H [facility] Stop: 08/09/22 10:59 Last Infusion: 08/06/22 06:48 Dose: 0 mls/hr Documented By: CAROLINA Insulin Human Lispro (Insulin Lispro 100 Unit/Ml 3 Ml Vial) 0 unit SUBCUT QIDACHS [facility]; Protocol Last Admin: 08/06/22 09:15 Dose: Not Given Documented By: FRAN Non-Admin Reason: No Insulin Coverage Lactulose (Lactulose 20 Gm/30 Ml Solution) 30 gm PO DAILY [facility] Last Admin: 08/05/22 11:59 Dose: Not Given Documented By: ZACK-SOFFA Non-Admin Reason: per md Magnesium Oxide (Magnesium Oxide 400 Mg Tablet) 400 mg PO BID [facility] Last Admin: 08/06/22 09:20 Dose: 400 mg Documented By: FRAN Melatonin (Melatonin 3 Mg Tablet) 6 mg PO BEDTIME PRN PRN Reason: Insomnia Last Admin: 08/04/22 22:44 Dose: 6 mg Documented By: CARLOZ Multivitamins/Vitamin C (Multivitamin Tablet) 1 tab PO DAILY [facility] Last Admin: 08/06/22 09:21 Dose: 1 tab Documented By: FRAN Nicotine (Nicotine 14 Mg Patch.Td24) 14 mg TRANSDERMA DAILY [facility] Last Admin: 08/06/22 09:18 Dose: 14 mg Documented By: FRAN Non-Formulary Medication (Kzptzmccxci-Txirnyjaz-Ozlmnelp [Trelegy Ellipta]) 1 inhalation INHALE DAILY [facility] Nortriptyline HCl (Nortriptyline Hcl 25 Mg Capsule) 50 mg PO BEDTIME [facility] Last Admin: 08/05/22 21:12 Dose: 50 mg Documented By: ALISHA Nystatin (Nystatin Powder 15 Gm Bottle) 1 appl TOPICAL BID [facility] Last Admin: 08/06/22 09:22 Dose: 1 appl Documented By: FRAN Pharmacy Consult (Consult Rx Perform Med Rec) 1 each MISCELLANE ONCE PRN PRN Reason: Consult order Pyridoxine HCl (Pyridoxine Hcl (Vitamin B6) 50 Mg Tablet) 50 mg PO DAILY [facility] Last Admin: 08/06/22 09:21 Dose: 50 mg Documented By: FRAN Rifaximin (Rifaximin 550 Mg Tablet) 550 mg PO BID [facility] Last Admin: 08/06/22 09:20 Dose: 550 mg Documented By: FRAN Risperidone (Risperidone 1 Mg Tablet) 1 mg PO BID [facility] Last Admin: 08/06/22 09:20 Dose: 1 mg Documented By: FRAN Sodium Biphosphate/Sodium Phosphate (Sodium Phosphate,[place]-Dibasic 133 Ml Enema) 118 ml [place] DAILY PRN PRN Reason: Constipation Sodium Chloride (0.9 % Sodium Chloride Flush 3 Ml Syringe) 3 ml IVFLUSH QSHIFT [facility] Last Admin: 08/06/22 09:17 Dose: Not Given Documented By: FRAN Non-Admin Reason: iv dc Sodium Chloride (0.9 % Sodium Chloride Flush 10 Ml Syringe) 5 ml IVFLUSH TID [facility] Last Admin: 08/06/22 09:16 Dose: 5 ml Documented By: FRAN Thiamine HCl (Thiamine Hcl 100 Mg Tablet) 100 mg PO BID [facility] Last Admin: 08/06/22 09:20 Dose: 100 mg Documented By: FRAN Vitamin D (Cholecalciferol (Vitamin D3) 25 Mcg Tablet) 25 mcg PO DAILY [facility] Last Admin: 08/06/22 09:20 Dose: 25 mcg Documented By: FRAN Labs 08/06/22 07:25 08/06/22 07:25 Labs: Laboratory Results - last 24 hr 08/05/22 08/05/22 08/05/22 11:58 15:25 19:46 MCV MCH MCHC RDW Plt Count MPV Absolute Nucleated RBC Nucleated RBC % (auto) PT INR Anion Gap Estim Creat Clear Calc Estimated GFR POC Glucose 152 H 111 176 H Random Glucose Calcium Magnesium Ammonia Procalcitonin 08/06/22 08/06/22 08/06/22 07:25 07:25 07:25 MCV 100.6 H MCH 34.2 H MCHC 34.0 RDW 14.2 Plt Count 79 L MPV 12.8 H Absolute Nucleated RBC 0.000 Nucleated RBC % (auto) 0.0 PT INR Anion Gap 12 Estim Creat Clear Calc 136.9 Estimated GFR > 60 POC Glucose Random Glucose 128 H Calcium 8.0 L Magnesium 1.9 Ammonia Procalcitonin 0.23 08/06/22 08/06/22 08/06/22 07:25 07:29 08:42 MCV MCH MCHC RDW Plt Count MPV Absolute Nucleated RBC Nucleated RBC % (auto) PT 21.5 H INR 1.8 H Anion Gap Estim Creat Clear Calc Estimated GFR POC Glucose 128 H Random Glucose Calcium Magnesium Ammonia 52 Procalcitonin Assessment and Plan (1) Leukocytosis: Status: Acute (2) Hypernatremia: Status: Acute (3) Altered mental status: Status: Acute Plan d#17 62yo M with alcoholc cirrhosis, COPD, chronic hypoxia on 3L O2, DM2, HTN, vertebral fractures, sent in from [facility] where he was for STR with AMS, found to have Covid-19 infection # leukocytosis # aspiration PNA - on baseline amount of O2 [3L]. ID consulted appreciated. pip/meño 08/04-08/09/22. trend PCT. WBCs coming down # hyperNa - resolved # hepatic encephalopathy - hold lactulose for a few days due to profuse diarrhea [tests for infection all negative], d/c'ed rectal tube, continue rifaximin # T9/T12 vertebral fractures - was on methadone for chronic back pain but this was stopped due to encephalopathy; pain is controlled at this point # coccygeal wound, not pressure - Wound Care consulted, recommend: zinc oxide to the pinkish perianal and buttocks dermis for protection from moisture associated dermatitis. A better solution to the coccygeal opening might be small piece of silver alginate cut to fit the hole with periwound zinc and secondary dressing atop # DM2 - correction-dose lispro # COPD not in acute exac - prn albuterol, triple controller inhaler therapy # chronic hypoxic resp failure - 3L O2 via NC # hypotension # ANEUDY - resolved after fluid repletion # HTN - amlodipine # AUD - continue B vitamins; no evidence of withdrawal but may have EtOH dementia; [employer] consultation # Covid-19 - recovered, s/p dexamethasone # VTE ppx: LMWH # dispo: anticipate return to SNF after resolution of infection issue In my clinical judgment, the patient requires continued inpatient hospitalization for the following reasons: IV ABX Time Spent With Patient Time: Total time managing care of this patient today _35___ minutes. Quality Stroke Does the patient have a stroke diagnosis?: No VTE Prior VTE?: No VTE Risk Level:: Medical - moderate - high VTE Device Contraindication: Treatment Not Indicated VTE Drug Contraindication: N/A - Med Ordered
[2022-08-06 11:11] LABS: Glucose, Whole Blood 212 mg/dL (60-115)
[2022-08-06] MEDS: Insulin Lispro 100 UNIT/ML 3 ML VIAL SUBCUT ×2 (12:52→16:46)
[2022-08-06 15:34] VITALS: BP 134/68; PULSE 89; RESP 18; TEMP 37; O2SAT 96
--- NOTE | 2022-08-06 15:54 | MHC.SL.SWA ---
Addendum entered and electronically signed by Alessia Berkowitz MA, CCC-[employer] SENIOR DEVELOPER 08/07/22 11:59: D.S. Original Note: Risk of Aspiration Due to: Neurological Condition History of Pneumonia Reduced Cognition Dysphasia Diet Status: UPGRADE liquids Liquid Consistency and Strategies for Safe Swallow: Liquid Intake Recommendation: Thin Liquid Intake Strategies: Small Sips No Straws Solid Food Consistency: Dietary Recommendations: Chopped/Advanced (NDD3) Oral Medication Intake: Whole with Liquid Please contact the pharmacy regarding appropriate crushable or liquid drug formulations that are available whenever modified delivery is recommended. Compensatory Strategies and Precautions to be Taken for Safe Swallow: Sitting Upright (90 deg) No Straw Liquids from Cup Small Bites and Sips Alternate Liquids/Solids Rate of Ingestion Change Supervision While Eating and Drinking for Safe Swallow: Total Supervision (1:1) Recommendation for Speech: Outpatient Speech Therapy Inpatient Speech Therapy Comment: Recommend UPGRADE to THIN liquids. Continue with CHOPPED/ADVANCED (NDD3) solids. Pills whole in liquid/puree depending on patient preference. Recommend full supervision d/t observed impulsivity when presented w/ cup of water. Monitor for s/s of aspiration. Updated MD, RN, and RD via [employer]. [employer]IOR DEVEL[employer] to continue to follow. If [facility] or hospitalist indicate there was a MBSS was done (at [facility]) indicating silent aspiration, recommend downgrade liquids to recommended thickness based on MBSS and recommend repeat MBSS. Food Production Manager Clinican/Clinical Fellow: Yes: Danelle Garcia M.A., CF-[employer] SENIOR DEVELOPER Supervisory Statement: I have reviewed and agree with the student/clinical fellow's documentation: Speech Language Pathologist:
[2022-08-06 16:20] LABS: Glucose, Whole Blood 154 mg/dL (60-115)
[2022-08-06 19:50] VITALS: BP 143/64; PULSE 78; RESP 18; TEMP 37.1; O2SAT 95
[2022-08-06 20:37] LABS: Glucose, Whole Blood 95 mg/dL (60-115)
[2022-08-06] MEDS: Nortriptyline HCl 25 MG CAPSULE 50 MG PO (20:55)
[2022-08-06] MEDS: Atorvastatin Calcium 40 MG TABLET PO (20:55)
[2022-08-07] VITALS: BP 125/73; PULSE 91; RESP 18; TEMP 37.7; O2SAT 95
[2022-08-07] MEDS: Enoxaparin Sodium 40 MG/0.4 ML SYRINGE SUBCUT ×2 (00:34→23:31)
[2022-08-07] MEDS: 0.9 % Sodium Chloride Flush 3 ML SYRINGE IVFLUSH ×2 (00:34→20:06)
[2022-08-07] MEDS: Piperacillin Sodium/Tazobactam 4.5 GM in 0.9 % Sodium Chloride 100 ML IV ×4 (04:26→22:46)
[2022-08-07 06:54] LABS: Ammonia 51 umol/L (13-55); Hematocrit 31.9 % (42.0-52.0); Hemoglobin 10.6 g/dl (14.0-18.0); Mean Corpuscular HGB Conc 33.2 g/dl (31.0-36.0); Mean Corpuscular Hemoglobin 33.1 pg (27.0-33.0); Mean Corpuscular Volume 99.7 fL (80.0-98.0); Mean Platelet Volume 12.6 fL (9.4-12.4); Red Cell Distribution Width 14.4 % (11.0-16.0); White Blood Count 16.9 X10*3/uL (4.8-10.8)
[2022-08-07 06:56] LABS: Platelet Count 86 X10*3/uL (160-400)
[2022-08-07 07:18] LABS: Alanine Aminotransferase 84 U/L (0-40); Albumin Level 2.5 g/dL (3.5-5.0); Alkaline Phosphatase 181 U/L (39-117); Anion Gap 11 (12-20); Aspartate Amino Transferase 50 U/L (5-37); Bilirubin Total 2.3 mg/dL (0.0-1.0); Blood Urea Nitrogen 17 mg/dL (9-16); Calcium 7.8 mg/dL (8.4-10.2); Carbon Dioxide 20 mmol/L (22-29); Chloride 120 mmol/L (96-108); Creatinine Clr Calc Pharmacy 143.1; Estimated Glomerular Filt Rate > 60; Glucose Random 175 mg/dL (60-115); Magnesium 1.9 mg/dL (1.6-2.6); Potassium 2.9 mmol/L (3.3-5.1); Sodium 148 mmol/L (135-145); Total Protein 5.2 g/dL (6.5-8.0)
[2022-08-07 07:37] VITALS: BP 130/70; PULSE 98; RESP 20; TEMP 37.2; O2SAT 93
[2022-08-07 07:39] LABS: Glucose, Whole Blood 171 mg/dL (60-115)
[2022-08-07] MEDS: Insulin Lispro 100 UNIT/ML 3 ML VIAL SUBCUT ×3 (07:56→20:07)
[2022-08-07] MEDS: Potassium Chloride ER 20 MEQ TAB.ER.PRT 40 MEQ PO (07:56)
[2022-08-07] MEDS: risperiDONE 1 MG TABLET PO ×2 (07:56→20:06)
[2022-08-07] MEDS: Dextrose 5 % 1,000 ML 75 ML IVCONT ×2 (07:56→20:06)
[2022-08-07] MEDS: amLODIPine Besylate 10 MG TABLET PO (07:58)
[2022-08-07] MEDS: rifAXIMin 550 MG TABLET PO ×2 (07:58→20:06)
[2022-08-07] MEDS: Cholecalciferol (Vitamin D3) 25 MCG TABLET PO (07:58)
[2022-08-07] MEDS: Folic Acid 1 MG TABLET PO (07:58)
[2022-08-07] MEDS: Pyridoxine HCl (Vitamin B6) 50 MG TABLET PO (07:58)
[2022-08-07] MEDS: Aspirin Enteric Coated 325 MG TABLET.DR PO (07:58)
[2022-08-07] MEDS: Gabapentin 600 MG TABLET PO ×4 (07:58→20:06)
[2022-08-07] MEDS: Thiamine HCL 100 MG TABLET PO ×2 (07:58→20:06)
[2022-08-07] MEDS: Lactulose 20 GM/30 ML SOLUTION 30 GM PO (07:59)
[2022-08-07] MEDS: Magnesium Oxide 400 MG TABLET PO ×2 (07:59→20:06)
[2022-08-07] MEDS: Potassium Chloride/H20 10 MEQ/100 ML PIGGYBACK 100 MEQ IV ×4 (07:59→11:26)
[2022-08-07] MEDS: Multivitamin TABLET 1 TAB PO (07:59)
[2022-08-07] MEDS: Nystatin Powder 15 GM BOTTLE 1 APPL TOPICAL ×2 (08:00→20:22)
[2022-08-07] MEDS: Nicotine 14 MG PATCH.TD24 TRANSDERMA (08:00)
[2022-08-07 09:43] VITALS: BP 130/70; PULSE 98; O2SAT 93
--- NOTE | 2022-08-07 10:21 | HO.PM.IMPN ---
Subjective Subjective Date of Service: 08/07/22 Interval History: Denies abd pain Still quite confused Stools more formed Na high, K low Review of Systems Review of Systems: Yes all other systems are reviewed and are negative Physical Exam Vital Signs: Vital Signs: Last Vital Signs Temp 99.0 F 08/07/22 07:37 Pulse 98 08/07/22 09:43 Resp 20 08/07/22 07:37 BP 130/70 08/07/22 09:43 Pulse Ox 93 08/07/22 09:43 O2 Del Method 08/07/22 07:37 O2 Flow Rate 3 08/07/22 07:37 Oxygen Flow Rate 2 07/20/22 14:39 BMI result Body Mass Index 39.1 Gen: in no acute distress HEENT: sclera anicteric, moist mucus membranes Neck: supple Lungs: clear to auscultation bilaterally Heart: regular rate and rhythm, no murmurs Abd: soft, non-tender, non-distended Ext: no edema, RUE PICC Skin: warm/well-perfused Neuro: alert, disoriented, no asterixis Psych: appropriate affect Objective Data Active Medications Acetaminophen (Acetaminophen 325 Mg Tablet) 650 mg PO Q6H PRN PRN Reason: Pain, Mild (Pain Scale 1-3) Last Admin: 08/04/22 22:42 Dose: 650 mg Documented By: CARLOZ Albuterol Sulfate (Albuterol Sulfate 90 Mcg 8 Gm Inhaler) 2 puff INHALE QID PRN PRN Reason: Shortness Of Breath Or Wheezing Amlodipine Besylate (Amlodipine Besylate 10 Mg Tablet) 10 mg PO DAILY [facility]; Protocol Last Admin: 08/07/22 07:58 Dose: 10 mg Documented By: LO Aspirin (Aspirin Enteric Coated 325 Mg Tablet.) 325 mg PO DAILY [facility] Last Admin: 08/07/22 07:58 Dose: 325 mg Documented By: LO Atorvastatin Calcium (Atorvastatin Calcium 40 Mg Tablet) 40 mg PO BEDTIME [facility] Last Admin: 08/06/22 20:55 Dose: 40 mg Documented By: ALISHA Dextrose (Dextrose 50 % 25 Gm/50 Ml Syringe) 25 gm IVPUSH Q15M PRN; Protocol PRN Reason: per Hypoglycemia Standing Ord. Enoxaparin Sodium (Enoxaparin Sodium 40 Mg/0.4 Ml Syringe) 40 mg SUBCUT Q24H [facility] Last Admin: 08/07/22 00:34 Dose: 40 mg Documented By: ROBER Fluticasone Propionate (Fluticasone Propionate Nasal 16 Gm Rush) 1 spray NOSTRIL-B DAILY [facility] Last Admin: 08/07/22 08:16 Dose: Not Given Documented By: LO Non-Admin Reason: Patient Refused Folic Acid (Folic Acid 1 Mg Tablet) 1 mg PO DAILY [facility] Last Admin: 08/07/22 07:58 Dose: 1 mg Documented By: LO Gabapentin (Gabapentin 600 Mg Tablet) 600 mg PO QID [facility] Last Admin: 08/07/22 07:58 Dose: 600 mg Documented By: LO Glucagon (Glucagon,Human Recombinant 1 Mg/Ml Vial) 1 mg IM Q20M PRN PRN Reason: Hypoglycemia Glucose (Glucose Gel 15 Gm Gel..Gram.) 15 gm PO Q15M PRN PRN Reason: Hypoglycemia Glucose (Glucose Gel 15 Gm Gel..Gram.) 15 gm PO Q15M PRN; Protocol PRN Reason: per Hypoglycemia Standing Ord. Piperacillin Sod/Tazobactam (Sod 4.5 gm/ Sodium Chloride) 100 mls @ 200 mls/hr IV Q6H [facility] Stop: 08/09/22 10:59 Last Infusion: 08/07/22 05:13 Dose: 0 mls/hr Documented By: ROBER Dextrose (D5w) 1,000 mls @ 75 mls/hr IVCONT .[id number] [facility] Last Admin: 08/07/22 07:56 Dose: 75 mls/hr Documented By: LO Potassium Chloride (Potassium Chloride/H20) 10 meq in 100 mls @ 100 mls/hr IV Q1H [facility] Stop: 08/07/22 11:29 Last Admin: 08/07/22 09:15 Dose: 100 mls/hr Documented By: LO Insulin Human Lispro (Insulin Lispro 100 Unit/Ml 3 Ml Vial) 0 unit SUBCUT QIDACHS [facility]; Protocol Last Admin: 08/07/22 07:56 Dose: 2 unit Documented By: LO Lactulose (Lactulose 20 Gm/30 Ml Solution) 30 gm PO DAILY [facility] Last Admin: 08/07/22 07:59 Dose: 30 gm Documented By: LO Magnesium Oxide (Magnesium Oxide 400 Mg Tablet) 400 mg PO BID [facility] Last Admin: 08/07/22 07:59 Dose: 400 mg Documented By: LO Melatonin (Melatonin 3 Mg Tablet) 6 mg PO BEDTIME PRN PRN Reason: Insomnia Last Admin: 08/04/22 22:44 Dose: 6 mg Documented By: CARLOZ Multivitamins/Vitamin C (Multivitamin Tablet) 1 tab PO DAILY [facility] Last Admin: 08/07/22 07:59 Dose: 1 tab Documented By: LO Nicotine (Nicotine 14 Mg Patch.Td24) 14 mg TRANSDERMA DAILY [facility] Last Admin: 08/07/22 08:00 Dose: 14 mg Documented By: LO Non-Formulary Medication (Vimkptjvmht-Ckspsbnha-Ouzrmghy [Trelegy Ellipta]) 1 inhalation INHALE DAILY [facility] Nortriptyline HCl (Nortriptyline Hcl 25 Mg Capsule) 50 mg PO BEDTIME [facility] Last Admin: 08/06/22 20:55 Dose: 50 mg Documented By: ALISHA Nystatin (Nystatin Powder 15 Gm Bottle) 1 appl TOPICAL BID [facility] Last Admin: 08/07/22 08:00 Dose: 1 appl Documented By: LO Pharmacy Consult (Consult Rx Perform Med Rec) 1 each MISCELLANE ONCE PRN PRN Reason: Consult order Pyridoxine HCl (Pyridoxine Hcl (Vitamin B6) 50 Mg Tablet) 50 mg PO DAILY [facility] Last Admin: 08/07/22 07:58 Dose: 50 mg Documented By: LO Rifaximin (Rifaximin 550 Mg Tablet) 550 mg PO BID [facility] Last Admin: 08/07/22 07:58 Dose: 550 mg Documented By: LO Risperidone (Risperidone 1 Mg Tablet) 1 mg PO BID [facility] Last Admin: 08/07/22 07:56 Dose: 1 mg Documented By: LO Sodium Biphosphate/Sodium Phosphate (Sodium Phosphate,[place]-Dibasic 133 Ml Enema) 118 ml NV DAILY PRN PRN Reason: Constipation Sodium Chloride (0.9 % Sodium Chloride Flush 3 Ml Syringe) 3 ml IVFLUSH QSHIFT [facility] Last Admin: 08/07/22 08:31 Dose: Not Given Documented By: LO Non-Admin Reason: IV Running Sodium Chloride (0.9 % Sodium Chloride Flush 10 Ml Syringe) 5 ml IVFLUSH TID [facility] Last Admin: 08/07/22 09:17 Dose: Not Given Documented By: LO Non-Admin Reason: IV Running Thiamine HCl (Thiamine Hcl 100 Mg Tablet) 100 mg PO BID [facility] Last Admin: 08/07/22 07:58 Dose: 100 mg Documented By: LO Vitamin D (Cholecalciferol (Vitamin D3) 25 Mcg Tablet) 25 mcg PO DAILY [facility] Last Admin: 08/07/22 07:58 Dose: 25 mcg Documented By: LO Labs 08/07/22 06:30 08/07/22 06:30 Labs: Laboratory Results - last 24 hr 08/06/22 08/06/22 08/06/22 11:06 15:32 19:49 MCV MCH MCHC RDW Plt Count MPV Absolute Nucleated RBC Nucleated RBC % (auto) Anion Gap Estim Creat Clear Calc Estimated GFR POC Glucose 212 H 154 H 95 Random Glucose Calcium Magnesium Total Bilirubin AST ALT Alkaline Phosphatase Ammonia Total Protein Albumin 08/07/22 08/07/22 08/07/22 06:30 06:30 06:30 MCV 99.7 H MCH 33.1 H MCHC 33.2 RDW 14.4 Plt Count 86 L MPV 12.6 H Absolute Nucleated RBC 0.000 Nucleated RBC % (auto) 0.0 Anion Gap 11 L Estim Creat Clear Calc 143.1 Estimated GFR > 60 POC Glucose Random Glucose 175 H Calcium 7.8 L Magnesium 1.9 Total Bilirubin 2.3 H AST 50 H ALT 84 H Alkaline Phosphatase 181 H Ammonia 51 Total Protein 5.2 L Albumin 2.5 L 08/07/22 07:26 MCV MCH MCHC RDW Plt Count MPV Absolute Nucleated RBC Nucleated RBC % (auto) Anion Gap Estim Creat Clear Calc Estimated GFR POC Glucose 171 H Random Glucose Calcium Magnesium Total Bilirubin AST ALT Alkaline Phosphatase Ammonia Total Protein Albumin Assessment and Plan (1) Hypernatremia: Status: Acute (2) Metabolic encephalopathy: Status: Acute (3) Leukocytosis: Status: Acute (4) Altered mental status: Status: Acute Plan d#[id number] 62yo M with alcoholic cirrhosis, COPD, chronic hypoxia on 3L O2, DM2, HTN, vertebral fractures, sent in from [facility] where he was for STR with AMS, found to have Covid-19 infection # leukocytosis # aspiration PNA - on baseline amount of O2 [3L]. ID consulted appreciated. pip/meño 08/04-08/09/22. trend PCT. WBCs coming down # hyperNa - will give IV D5W @ 75/hr, should correct Na to 144-145 by tomorrow. encourage free water intake. # hypoK - replete IV/PO and recheck BMP in AM # aspiration - [employer] following: DOWNGRADE to NECTAR THICK lquids and PILLS CRUSHED in PUREE today # hepatic encephalopathy - holding lactulose for a few days due to profuse diarrhea [tests for infection all negative], d/c'ed rectal tube on 08/05. resume in a few days? continue rifaximin # T9/T12 vertebral fractures - was on methadone for chronic back pain but this was stopped due to encephalopathy; pain is controlled at this point # thrombocytopaenia - mild, stable; due to cirrhosis # coccygeal wound, not pressure - Wound Care consulted, recommend: zinc oxide to the pinkish perianal and buttocks dermis for protection from moisture associated dermatitis. A better solution to the coccygeal opening might be small piece of silver alginate cut to fit the hole with periwound zinc and secondary dressing atop # DM2 - correction-dose lispro # COPD not in acute exac - prn albuterol, triple controller inhaler therapy # chronic hypoxic resp failure - 3L O2 via NC # hypotension # ANEUDY - resolved after fluid repletion # HTN - amlodipine # AUD - continue B vitamins; no evidence of withdrawal but may have EtOH dementia # Covid-19 - recovered, s/p dexamethasone # VTE ppx: LMWH # dispo: anticipate return to SNF after improvement in electrolytes In my clinical judgment, the patient requires continued inpatient hospitalization for the following reasons: IV ABX, electrolyte repletion Time Spent With Patient Time: Total time managing care of this patient today __40__ minutes. Quality Stroke Does the patient have a stroke diagnosis?: No VTE Prior VTE?: No VTE Risk Level:: Medical - moderate - high VTE Device Contraindication: Treatment Not Indicated VTE Drug Contraindication: N/A - Med Ordered
--- NOTE | 2022-08-07 10:28 | MHC.SL.SWA ---
Speech Pathologist Impression: Risk of Aspiration Due to: Neurological Condition History of Pneumonia Reduced Cognition Dysphasia Diet Status: Recommend DOWNGRADE liquids to NECTAR THICK, administer pills CRUSHED in PUREE, AVOID/remove from tray foods with MIXED CONSISTENCIES (e.g. soups with solids, cereal and milk, fruit in syrup). Liquid Consistency and Strategies for Safe Swallow: Liquid Intake Recommendation: Louin Thick Liquid Intake Strategies: Small Sips No Straws Solid Food Consistency: Dietary Recommendations: Chopped/Advanced (NDD3) Additional Modifications to Solid Foods: AVOID/remove from tray foods with MIXED CONSISTENCIES (e.g. soups with solids, cereal and milk, fruit in syrup). No straws. Patient would benefit from supervision during meal due to risk for aspiration and evident impulsivity/confusion. Oral Medication Intake: Crushed with Puree Please contact the pharmacy regarding appropriate crushable or liquid drug formulations that are available whenever modified delivery is recommended. Compensatory Strategies and Precautions to be Taken for Safe Swallow: Sitting Upright (90 deg) No Straw Liquids from Cup Small Bites and Sips Alternate Liquids/Solids Rate of Ingestion Change Supervision While Eating and Drinking for Safe Swallow: Total Supervision (1:1) Foods to Avoid: MIXED CONSISTENCIES, difficult to chew solids, crunchy or crumbly solids. Swallowing Recommended Treatments: Compens. Strategy Educat. Recommendation for Speech: Outpatient Speech Therapy Inpatient Speech Therapy Comment: Patient seen yesterday by [employer] for first time during this hospital stay for clinical swallow assessment. [employer] upgraded diet to Chopped/Advanced with THIN liquids, pills whole with liquid. Patient was awake, had consumed all liquids on his breakfast tray as well as yogurt, but still had most of the solids (eggs, ground pancakes) on tray. Patient said he wanted some of the chicken. Food was warmed and patient was given bites of the egg and bites of pancake, with patient producing a rotary chew, normal oral transit time, timely swallow, no oral residual on bites of solids. Patient also had mandarin oranges in syrup, this was also given, with similar oral/pharyngeal pattern of swallow, no clinical signs of aspiration. Patient was given cup with water, with patient taking a reasonable sized sip, on second sip, coughed immediately after swallow. Patient also commented that the water tasted like booze. Patient also commented on what he believed was a paratrooper in the room. Recommend DOWNGRADE liquids to NECTAR THICK, administer pills CRUSHED in PUREE, AVOID/remove from tray foods with MIXED CONSISTENCIES (e.g. soups with solids, cereal and milk, fruit in syrup). MD/RD notified of recommendation, white board reading HONEY THICK changed to recommended consistencies. Patient would benefit from supervision during meal due to impulsivity/confusion; at a minimum needs tray set up well so that he can access food, proceed with meal. Frequency/Duration: Date Range for Service Req: Timeline to reassess: Tobacco Dipper Clinican/Clinical Fellow: No Supervisory Statement: I have reviewed and agree with the student/clinical fellow's documentation: N/A Speech Language Pathologist: Leeanne Hodge M.A., CCC-[employer]
[2022-08-07 11:30] LABS: Glucose, Whole Blood 256 mg/dL (60-115)
--- NOTE | 2022-08-07 13:58 | PM.PNNEP ---
Subjective Subjective Date of Service: 08/07/22 Interval history: Denies abd pain Still quite confused Stools more formed Na high, K low Physical Exam Vital Signs: Vital Signs: Last Vital Signs Temp 99.0 F 08/07/22 07:37 Pulse 98 08/07/22 09:43 Resp 20 08/07/22 07:37 BP 130/70 08/07/22 09:43 Pulse Ox 93 08/07/22 09:43 O2 Del Method 08/07/22 07:37 O2 Flow Rate 3 08/07/22 07:37 Oxygen Flow Rate 2 07/20/22 14:39 BMI result Body Mass Index 39.1 Const: General: no acute distress HEENT: Head: Yes normocephalic and Yes atraumatic Neck: Neck: Yes supple Resp: Auscultation: diminished lung sounds Cardio: Rate: regular rate Heart sounds: S1 normal heart sound present and S2 normal heart sound present GI: Palpation (GI): Soft to palpation and nontender Skin: Rashes: no rashes Neuro: Other: Delerious Extrem: General: Yes pedal edema Objective Data Labs 08/07/22 06:30 08/07/22 06:30 Labs: Laboratory Results - last 24 hr 08/06/22 08/06/22 08/07/22 15:32 19:49 06:30 WBC 16.9 H RBC 3.20 L Hgb 10.6 L Hct 31.9 L MCV 99.7 H MCH 33.1 H MCHC 33.2 RDW 14.4 Plt Count 86 L MPV 12.6 H Absolute Nucleated RBC 0.000 Nucleated RBC % (auto) 0.0 Sodium Potassium Chloride Carbon Dioxide Anion Gap BUN Creatinine Estim Creat Clear Calc Estimated GFR POC Glucose 154 H 95 Random Glucose Calcium Magnesium Total Bilirubin AST ALT Alkaline Phosphatase Ammonia Total Protein Albumin 08/07/22 08/07/22 08/07/22 06:30 06:30 07:26 WBC RBC Hgb Hct MCV MCH MCHC RDW Plt Count MPV Absolute Nucleated RBC Nucleated RBC % (auto) Sodium 148 H Potassium 2.9 L Chloride 120 H Carbon Dioxide 20 L Anion Gap 11 L BUN 17 H Creatinine 0.66 Estim Creat Clear Calc 143.1 Estimated GFR > 60 POC Glucose 171 H Random Glucose 175 H Calcium 7.8 L Magnesium 1.9 Total Bilirubin 2.3 H AST 50 H ALT 84 H Alkaline Phosphatase 181 H Ammonia 51 Total Protein 5.2 L Albumin 2.5 L 08/07/22 11:14 WBC RBC Hgb Hct MCV MCH MCHC RDW Plt Count MPV Absolute Nucleated RBC Nucleated RBC % (auto) Sodium Potassium Chloride Carbon Dioxide Anion Gap BUN Creatinine Estim Creat Clear Calc Estimated GFR POC Glucose 256 H Random Glucose Calcium Magnesium Total Bilirubin AST ALT Alkaline Phosphatase Ammonia Total Protein Albumin Microbiology Microbiology Results: Microbiology 08/02/22 13:03 Blood - Venous Blood Culture - Preliminary No growth after 48 hours. 08/02/22 13:03 Blood - Venous Blood Culture - Preliminary No growth after 48 hours. 07/20/22 15:21 Blood - Venous Blood Culture - Final No growth after 5 days. 07/20/22 15:16 Blood - Venous Blood Culture - Final No growth after 5 days. Procedures Date of Service Date of Service: 08/07/22 Assessment & Plan Assessment and plan (1) Hypernatremia: Status: Acute (2) COVID-19 virus infection: Status: Acute Plan free water deficit leading to dysnatremia non renal water loss Hypokalemia REC Keep I > O with D5w Replace potassium follow kidney function and electrolytes Time Spent With Patient Time: Total time managing care of this patient today ____ minutes. Progress Note: Quality Stroke Does the patient have a stroke diagnosis?: No
[2022-08-07 15:26] VITALS: BP 136/64; PULSE 92; RESP 20; TEMP 37.3; O2SAT 96
[2022-08-07 16:10] LABS: Glucose, Whole Blood 89 mg/dL (60-115)
[2022-08-07 19:47] LABS: Glucose, Whole Blood 159 mg/dL (60-115)
[2022-08-07] MEDS: Nortriptyline HCl 25 MG CAPSULE 50 MG PO (20:06)
[2022-08-07] MEDS: Atorvastatin Calcium 40 MG TABLET PO (20:06)
[2022-08-07] MEDS: 0.9 % Sodium Chloride Flush 10 ML SYRINGE 5 ML IVFLUSH (22:46)
[2022-08-07 23:30] VITALS: BP 106/56; PULSE 90; RESP 18; TEMP 36.7; O2SAT 94
[2022-08-08] MEDS: Piperacillin Sodium/Tazobactam 4.5 GM in 0.9 % Sodium Chloride 100 ML IV ×3 (04:48→17:17)
[2022-08-08 05:54] LABS: Hematocrit 31.6 % (42.0-52.0); Hemoglobin 10.5 g/dl (14.0-18.0); Mean Corpuscular HGB Conc 33.2 g/dl (31.0-36.0); Mean Corpuscular Hemoglobin 33.5 pg (27.0-33.0); Mean Platelet Volume 12.3 fL (9.4-12.4); Red Blood Count 3.13 X10*6/uL (4.60-5.80); Red Cell Distribution Width 14.8 % (11.0-16.0); White Blood Count 17.3 X10*3/uL (4.8-10.8)
[2022-08-08 05:55] LABS: Platelet Count 90 X10*3/uL (160-400)
[2022-08-08 06:24] LABS: Anion Gap 14 (12-20); Blood Urea Nitrogen 20 mg/dL (9-16); Calcium 7.9 mg/dL (8.4-10.2); Carbon Dioxide 19 mmol/L (22-29); Chloride 120 mmol/L (96-108); Creatinine Clr Calc Pharmacy 143.1; Estimated Glomerular Filt Rate > 60; Glucose Random 132 mg/dL (60-115); Potassium 3.7 mmol/L (3.3-5.1); Sodium 149 mmol/L (135-145)
[2022-08-08 07:41] LABS: Glucose, Whole Blood 148 mg/dL (60-115)
[2022-08-08 07:49] VITALS: BP 130/64; PULSE 97; RESP 20; TEMP 36.9; O2SAT 96
[2022-08-08] MEDS: 0.9 % Sodium Chloride Flush 10 ML SYRINGE 5 ML IVFLUSH (09:16)
[2022-08-08] MEDS: 0.9 % Sodium Chloride Flush 3 ML SYRINGE IVFLUSH (09:16)
[2022-08-08] MEDS: Nicotine 14 MG PATCH.TD24 TRANSDERMA (09:16)
[2022-08-08] MEDS: Aspirin Enteric Coated 325 MG TABLET.DR PO (09:17)
[2022-08-08] MEDS: Folic Acid 1 MG TABLET PO (09:17)
[2022-08-08] MEDS: risperiDONE 1 MG TABLET PO ×2 (09:17→19:39)
[2022-08-08] MEDS: Thiamine HCL 100 MG TABLET PO ×2 (09:17→19:40)
[2022-08-08] MEDS: rifAXIMin 550 MG TABLET PO ×2 (09:17→19:39)
[2022-08-08] MEDS: Pyridoxine HCl (Vitamin B6) 50 MG TABLET PO (09:17)
[2022-08-08] MEDS: Multivitamin TABLET 1 TAB PO (09:17)
[2022-08-08] MEDS: Gabapentin 600 MG TABLET PO ×4 (09:17→19:39)
[2022-08-08] MEDS: Magnesium Oxide 400 MG TABLET PO ×2 (09:18→19:39)
[2022-08-08] MEDS: Cholecalciferol (Vitamin D3) 25 MCG TABLET PO (09:18)
[2022-08-08] MEDS: Lactulose 20 GM/30 ML SOLUTION 30 GM PO (09:18)
[2022-08-08] MEDS: Nystatin Powder 15 GM BOTTLE 1 APPL TOPICAL ×2 (09:19→21:11)
[2022-08-08] MEDS: Fluticasone Propionate Nasal 16 GM SPRAY 1 SPRAY NOSTRIL-B (09:19)
[2022-08-08] MEDS: amLODIPine Besylate 10 MG TABLET PO (09:19)
[2022-08-08 10:20] VITALS: BP 130/64; PULSE 97; O2SAT 96
--- NOTE | 2022-08-08 10:55 | MHC.CLN ---
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
[2022-08-08 10:56] LABS: Glucose, Whole Blood 169 mg/dL (60-115)
[2022-08-08] MEDS: Insulin Lispro 100 UNIT/ML 3 ML VIAL SUBCUT ×2 (11:06→19:40)
[2022-08-08] MEDS: Dextrose 5 % 1,000 ML 75 ML IVCONT (11:07)
--- NOTE | 2022-08-08 11:55 | P.PNNP_ITS ---
Subjective Subjective Date of Service: 08/08/22 Interval history: Awake on isolation Still quite confused d Na high, K low Physical Exam 2 Vital Signs: Vital Signs: Last Vital Signs Temp 98.4 F 08/08/22 07:49 Pulse 97 08/08/22 10:20 Resp 20 08/08/22 07:49 BP 130/64 08/08/22 10:20 Pulse Ox 96 08/08/22 10:20 O2 Del Method 08/08/22 07:49 O2 Flow Rate 3 08/08/22 07:49 Oxygen Flow Rate 2 07/20/22 14:39 BMI result Body Mass Index 39.1 Const: General: no acute distress HEENT: Head: Yes normocephalic and Yes atraumatic Neck: Neck: Yes supple Resp: Auscultation: diminished lung sounds Cardio: Rate: regular rate Heart sounds: S1 normal heart sound present and S2 normal heart sound present GI: Palpation (GI): Soft to palpation and nontender Skin: Rashes: no rashes Neuro: Other: Delerious Extrem: General: Yes pedal edema Objective Data Labs 08/08/22 05:46 08/08/22 05:46 Labs: Laboratory Results - last 24 hr 08/07/22 08/07/22 08/08/22 16:05 19:44 05:46 WBC 17.3 H RBC 3.13 L Hgb 10.5 L Hct 31.6 L MCV 101.0 H MCH 33.5 H MCHC 33.2 RDW 14.8 Plt Count 90 L MPV 12.3 Absolute Nucleated RBC 0.000 Nucleated RBC % (auto) 0.0 Sodium Potassium Chloride Carbon Dioxide Anion Gap BUN Creatinine Estim Creat Clear Calc Estimated GFR POC Glucose 89 159 H Random Glucose Calcium Procalcitonin 08/08/22 08/08/22 08/08/22 05:46 05:46 07:36 WBC RBC Hgb Hct MCV MCH MCHC RDW Plt Count MPV Absolute Nucleated RBC Nucleated RBC % (auto) Sodium 149 H Potassium 3.7 D Chloride 120 H Carbon Dioxide 19 L Anion Gap 14 BUN 20 H Creatinine 0.66 Estim Creat Clear Calc 143.1 Estimated GFR > 60 POC Glucose 148 H Random Glucose 132 H Calcium 7.9 L Procalcitonin 0.20 08/08/22 10:53 WBC RBC Hgb Hct MCV MCH MCHC RDW Plt Count MPV Absolute Nucleated RBC Nucleated RBC % (auto) Sodium Potassium Chloride Carbon Dioxide Anion Gap BUN Creatinine Estim Creat Clear Calc Estimated GFR POC Glucose 169 H Random Glucose Calcium Procalcitonin Microbiology Microbiology Results: Microbiology 08/02/22 13:03 Blood - Venous Blood Culture - Final No growth after 5 days. 08/02/22 13:03 Blood - Venous Blood Culture - Final No growth after 5 days. 07/20/22 15:21 Blood - Venous Blood Culture - Final No growth after 5 days. 07/20/22 15:16 Blood - Venous Blood Culture - Final No growth after 5 days. Procedures Date of Service Date of Service: 08/08/22 Assessment & Plan Assessment and plan (1) Hypernatremia: Status: Acute (2) COVID-19 virus infection: Status: Acute Plan free water deficit leading to dysnatremia non renal water loss Hypokalemia REC Keep I > O with D5w- Increase rate by 50 ml Add PO bicarb 650 mg tid x 6 doses Replace potassium. f/u divalants and replace follow kidney function and electrolytes Time Spent With Patient Time: Total time managing care of this patient today ____ minutes. Progress Note: Quality Stroke Does the patient have a stroke diagnosis?: No
[2022-08-08 13:33] LABS: Anion Gap 11 (12-20); Blood Urea Nitrogen 21 mg/dL (9-16); Calcium 8.1 mg/dL (8.4-10.2); Carbon Dioxide 20 mmol/L (22-29); Chloride 121 mmol/L (96-108); Creatinine Clr Calc Pharmacy 143.1; Estimated Glomerular Filt Rate > 60; Glucose Random 144 mg/dL (60-115); Potassium 3.4 mmol/L (3.3-5.1); Sodium 149 mmol/L (135-145)
--- NOTE | 2022-08-08 13:42 | HO.PM.IMPN ---
Subjective Subjective Date of Service: 08/08/22 Interval History: Denies abd pain Still quite confused Stools more formed Review of Systems Review of Systems: Yes all other systems are reviewed and are negative Physical Exam Vital Signs: Vital Signs: Last Vital Signs Temp 98.4 F 08/08/22 07:49 Pulse 97 08/08/22 10:20 Resp 20 08/08/22 07:49 BP 130/64 08/08/22 10:20 Pulse Ox 96 08/08/22 10:20 O2 Del Method 08/08/22 07:49 O2 Flow Rate 3 08/08/22 07:49 Oxygen Flow Rate 2 07/20/22 14:39 BMI result Body Mass Index 39.1 Objective Data Active Medications Acetaminophen (Acetaminophen 325 Mg Tablet) 650 mg PO Q6H PRN PRN Reason: Pain, Mild (Pain Scale 1-3) Last Admin: 08/04/22 22:42 Dose: 650 mg Documented By: CARLOZ Albuterol Sulfate (Albuterol Sulfate 90 Mcg 8 Gm Inhaler) 2 puff INHALE QID PRN PRN Reason: Shortness Of Breath Or Wheezing Amlodipine Besylate (Amlodipine Besylate 10 Mg Tablet) 10 mg PO DAILY [facility]; Protocol Last Admin: 08/08/22 09:19 Dose: 10 mg Documented By: LO Aspirin (Aspirin Enteric Coated 325 Mg Tablet.) 325 mg PO DAILY [facility] Last Admin: 08/08/22 09:17 Dose: 325 mg Documented By: LO Atorvastatin Calcium (Atorvastatin Calcium 40 Mg Tablet) 40 mg PO BEDTIME [facility] Last Admin: 08/07/22 20:06 Dose: 40 mg Documented By: JEFF Dextrose (Dextrose 50 % 25 Gm/50 Ml Syringe) 25 gm IVPUSH Q15M PRN; Protocol PRN Reason: per Hypoglycemia Standing Ord. Enoxaparin Sodium (Enoxaparin Sodium 40 Mg/0.4 Ml Syringe) 40 mg SUBCUT Q24H [facility] Last Admin: 08/07/22 23:31 Dose: 40 mg Documented By: JEFF Fluticasone Propionate (Fluticasone Propionate Nasal 16 Gm [place]) 1 spray NOSTRIL-B DAILY [facility] Last Admin: 08/08/22 09:19 Dose: 1 spray Documented By: LO Folic Acid (Folic Acid 1 Mg Tablet) 1 mg PO DAILY [facility] Last Admin: 08/08/22 09:17 Dose: 1 mg Documented By: LO Gabapentin (Gabapentin 600 Mg Tablet) 600 mg PO QID [facility] Last Admin: 08/08/22 12:41 Dose: 600 mg Documented By: LO Glucagon (Glucagon,Human Recombinant 1 Mg/Ml Vial) 1 mg IM Q20M PRN PRN Reason: Hypoglycemia Glucose (Glucose Gel 15 Gm Gel..Gram.) 15 gm PO Q15M PRN PRN Reason: Hypoglycemia Glucose (Glucose Gel 15 Gm Gel..Gram.) 15 gm PO Q15M PRN; Protocol PRN Reason: per Hypoglycemia Standing Ord. Piperacillin Sod/Tazobactam (Sod 4.5 gm/ Sodium Chloride) 100 mls @ 200 mls/hr IV Q6H [facility] Stop: 08/09/22 10:59 Last Infusion: 08/08/22 12:16 Dose: 0 mls/hr Documented By: OL Dextrose (D5w) 1,000 mls @ 75 mls/hr IVCONT .[id number] [facility] Last Admin: 08/08/22 11:07 Dose: 75 mls/hr Documented By: LO Insulin Human Lispro (Insulin Lispro 100 Unit/Ml 3 Ml Vial) 0 unit SUBCUT QIDACHS [facility]; Protocol Last Admin: 08/08/22 11:06 Dose: 2 unit Documented By: LO Lactulose (Lactulose 20 Gm/30 Ml Solution) 30 gm PO DAILY [facility] Last Admin: 08/08/22 09:18 Dose: 30 gm Documented By: LO Magnesium Oxide (Magnesium Oxide 400 Mg Tablet) 400 mg PO BID [facility] Last Admin: 08/08/22 09:18 Dose: 400 mg Documented By: LO Melatonin (Melatonin 3 Mg Tablet) 6 mg PO BEDTIME PRN PRN Reason: Insomnia Last Admin: 08/04/22 22:44 Dose: 6 mg Documented By: CARLOZ Multivitamins/Vitamin C (Multivitamin Tablet) 1 tab PO DAILY [facility] Last Admin: 08/08/22 09:17 Dose: 1 tab Documented By: LO Nicotine (Nicotine 14 Mg Patch.Td24) 14 mg TRANSDERMA DAILY [facility] Last Admin: 08/08/22 09:16 Dose: 14 mg Documented By: LO Non-Formulary Medication (Ndsveudbsco-Accnyvisw-Tpbakivg [Trelegy Ellipta]) 1 inhalation INHALE DAILY [facility] Nortriptyline HCl (Nortriptyline Hcl 25 Mg Capsule) 50 mg PO BEDTIME [facility] Last Admin: 08/07/22 20:06 Dose: 50 mg Documented By: JEFF Nystatin (Nystatin Powder 15 Gm Bottle) 1 appl TOPICAL BID [facility] Last Admin: 08/08/22 09:19 Dose: 1 appl Documented By: LO Pharmacy Consult (Consult Rx Perform Med Rec) 1 each MISCELLANE ONCE PRN PRN Reason: Consult order Pyridoxine HCl (Pyridoxine Hcl (Vitamin B6) 50 Mg Tablet) 50 mg PO DAILY [facility] Last Admin: 08/08/22 09:17 Dose: 50 mg Documented By: LO Rifaximin (Rifaximin 550 Mg Tablet) 550 mg PO BID [facility] Last Admin: 08/08/22 09:17 Dose: 550 mg Documented By: LO Risperidone (Risperidone 1 Mg Tablet) 1 mg PO BID [facility] Last Admin: 08/08/22 09:17 Dose: 1 mg Documented By: LO Sodium Biphosphate/Sodium Phosphate (Sodium Phosphate,[place]-Dibasic 133 Ml Enema) 118 ml [place] DAILY PRN PRN Reason: Constipation Sodium Chloride (0.9 % Sodium Chloride Flush 3 Ml Syringe) 3 ml IVFLUSH QSHIFT [facility] Last Admin: 08/08/22 09:16 Dose: 3 ml Documented By: LO Sodium Chloride (0.9 % Sodium Chloride Flush 10 Ml Syringe) 5 ml IVFLUSH TID [facility] Last Admin: 08/08/22 09:16 Dose: 5 ml Documented By: LO Thiamine HCl (Thiamine Hcl 100 Mg Tablet) 100 mg PO BID [facility] Last Admin: 08/08/22 09:17 Dose: 100 mg Documented By: LO Vitamin D (Cholecalciferol (Vitamin D3) 25 Mcg Tablet) 25 mcg PO DAILY [facility] Last Admin: 08/08/22 09:18 Dose: 25 mcg Documented By: LO Labs 08/08/22 05:46 08/08/22 13:03 Labs: Laboratory Results - last 24 hr 08/07/22 08/07/2208/08/23 16:05 19:44 05:46 MCV 101.0 H MCH 33.5 H MCHC 33.2 RDW 14.8 Plt Count 90 L MPV 12.3 Absolute Nucleated RBC 0.000 Nucleated RBC % (auto) 0.0 Anion Gap Estim Creat Clear Calc Estimated GFR POC Glucose 89 159 H Random Glucose Calcium Procalcitonin 08/08/22 08/08/22 08/08/22 05:46 05:46 07:36 MCV MCH MCHC RDW Plt Count MPV Absolute Nucleated RBC Nucleated RBC % (auto) Anion Gap 14 Estim Creat Clear Calc 143.1 Estimated GFR > 60 POC Glucose 148 H Random Glucose 132 H Calcium 7.9 L Procalcitonin 0.20 08/08/22 08/08/22 10:53 13:03 MCV MCH MCHC RDW Plt Count MPV Absolute Nucleated RBC Nucleated RBC % (auto) Anion Gap 11 L Estim Creat Clear Calc 143.1 Estimated GFR > 60 POC Glucose 169 H Random Glucose 144 H Calcium 8.1 L Procalcitonin Microbiology Microbiology Results: Microbiology 08/02/22 13:03 Blood Culture - Final Blood - Venous No growth after 5 days. 08/02/22 13:03 Blood Culture - Final Blood - Venous No growth after 5 days. Assessment and Plan (1) Hypernatremia: Status: Acute (2) Metabolic encephalopathy: Status: Acute (3) Leukocytosis: Status: Acute (4) Altered mental status: Status: Acute Plan 62yo M with alcoholic cirrhosis, COPD, chronic hypoxia on 3L O2, DM2, HTN, vertebral fractures, sent in from [facility] where he was for STR with AMS, found to have Covid-19 infection Leukocytosis aspiration PNA on baseline amount of O2 [3L]. ID consulted appreciated. pip/meño 08/04-08/09/22. trend PCT. WBCs coming down hyperNa will give IV D5W @ 100/hr, should correct Na to 144-145 by tomorrow. encourage free water intake. hypoK. 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 resume in a few days? continue rifaximin T9/T12 vertebral fractures was on methadone for chronic back pain but this was stopped due to encephalopathy; pain is controlled at this point thrombocytopaenia mild, stable; due to cirrhosis coccygeal wound, not pressure Wound Care consulted, recommend: zinc oxide to the pinkish perianal and buttocks dermis for protection from moisture associated dermatitis. A better solution to the coccygeal opening might be small piece of silver alginate cut to fit the hole with periwound zinc and secondary dressing atop DM2 correction-dose lispro COPD not in acute exac prn albuterol, triple controller inhaler therapy chronic hypoxic resp failure 3L O2 via NC hypotension ANEUDY resolved after fluid repletion HTN amlodipine AUD continue B vitamins; no evidence of withdrawal but may have EtOH dementia Covid-19 recovered, s/p dexamethasone VTE ppx: LMWH Attending Dr. Springer dispo: anticipate return to SNF after improvement in electrolytes In my clinical judgment, the patient requires continued inpatient hospitalization for the following reasons: IV ABX, electrolyte repletion Time Spent With Patient Time: Total time managing care of this patient today ____ minutes. Quality Stroke Does the patient have a stroke diagnosis?: No VTE Prior VTE?: No VTE Risk Level:: Medical - moderate - high VTE Device Contraindication: Treatment Not Indicated VTE Drug Contraindication: N/A - Med Ordered
[2022-08-08 15:04] VITALS: BP 147/66; PULSE 120; RESP 20; TEMP 37; O2SAT 96
--- NOTE | 2022-08-08 15:38 | MHC.SL.SWA ---
Speech Pathologist Impression: Oropharyngeal dysphagia Risk of Aspiration Due to: Neurological Condition History of Pneumonia Reduced Cognition Dysphasia Diet Status: Recommend continue with CHOPPED/ADVANCED (NDD3) solids and NECTAR THICK liquids, administer pills CRUSHED in PUREE, AVOID/remove from tray foods with MIXED CONSISTENCIES (e.g. soups with solids, cereal and milk, fruit in syrup). Liquid Consistency and Strategies for Safe Swallow: Liquid Intake Recommendation: Virgie Thick Liquid Intake Strategies: Small Sips No Straws Solid Food Consistency: Dietary Recommendations: Chopped/Advanced (NDD3) Additional Modifications to Solid Foods: AVOID/remove from tray foods with MIXED CONSISTENCIES (e.g. soups with solids, cereal and milk, fruit in syrup). No straws. Patient would benefit from supervision during meal due to risk for aspiration and evident impulsivity/confusion. Oral Medication Intake: Crushed with Puree Please contact the pharmacy regarding appropriate crushable or liquid drug formulations that are available whenever modified delivery is recommended. Compensatory Strategies and Precautions to be Taken for Safe Swallow: Sitting Upright (90 deg) No Straw Liquids from Cup Small Bites and Sips Alternate Liquids/Solids Rate of Ingestion Change Supervision While Eating and Drinking for Safe Swallow: Total Supervision (1:1) Foods to Avoid: MIXED CONSISTENCIES, difficult to chew solids, crunchy or crumbly solids. Swallowing Recommended Treatments: Compens. Strategy Educat. Recommendation for Speech: Outpatient Speech Therapy Inpatient Speech Therapy Senior Pl Sql Developer Clinican/Clinical Fellow: No Supervisory Statement: I have reviewed and agree with the student/clinical fellow's documentation: N/A Speech Language Pathologist: Alessia Berkowitz M.A., CCC-TELEPHONE TRIAGE NURSE
[2022-08-08 15:58] LABS: Glucose, Whole Blood 134 mg/dL (60-115)
[2022-08-08 19:35] LABS: Glucose, Whole Blood 224 mg/dL (60-115)
[2022-08-08] MEDS: Melatonin 3 MG TABLET 6 MG PO (19:39)
[2022-08-08] MEDS: Nortriptyline HCl 25 MG CAPSULE 50 MG PO (19:40)
[2022-08-08] MEDS: Atorvastatin Calcium 40 MG TABLET PO (19:40)
[2022-08-08] MEDS: Dextrose 5 % 1,000 ML 100 ML IVCONT (21:13)
[2022-08-09] MEDS: Piperacillin Sodium/Tazobactam 4.5 GM in 0.9 % Sodium Chloride 100 ML IV ×2 (00:20→05:19)
[2022-08-09] MEDS: Enoxaparin Sodium 40 MG/0.4 ML SYRINGE SUBCUT (01:25)
[2022-08-09] MEDS: 0.9 % Sodium Chloride Flush 3 ML SYRINGE IVFLUSH ×3 (01:27→16:53)
[2022-08-09 07:29] LABS: Glucose, Whole Blood 127 mg/dL (60-115)
[2022-08-09 07:50] VITALS: BP 129/67; PULSE 92; RESP 18; TEMP 36.8; O2SAT 98
[2022-08-09 08:55] LABS: Anion Gap 14 (12-20); Blood Urea Nitrogen 21 mg/dL (9-16); Carbon Dioxide 17 mmol/L (22-29); Chloride 121 mmol/L (96-108); Creatinine Clr Calc Pharmacy 143.1; Estimated Glomerular Filt Rate > 60; Glucose Random 141 mg/dL (60-115); Potassium 3.9 mmol/L (3.3-5.1); Sodium 148 mmol/L (135-145)
[2022-08-09] MEDS: Multivitamin TABLET 1 TAB PO (09:07)
[2022-08-09] MEDS: amLODIPine Besylate 10 MG TABLET PO (09:07)
[2022-08-09] MEDS: rifAXIMin 550 MG TABLET PO (09:07)
[2022-08-09] MEDS: Gabapentin 600 MG TABLET PO ×4 (09:07→21:44)
[2022-08-09] MEDS: risperiDONE 1 MG TABLET PO ×2 (09:07→21:45)
[2022-08-09] MEDS: Magnesium Oxide 400 MG TABLET PO ×2 (09:08→21:44)
[2022-08-09] MEDS: Cholecalciferol (Vitamin D3) 25 MCG TABLET PO (09:08)
[2022-08-09] MEDS: Pyridoxine HCl (Vitamin B6) 50 MG TABLET PO (09:08)
[2022-08-09] MEDS: Folic Acid 1 MG TABLET PO (09:08)
[2022-08-09] MEDS: Thiamine HCL 100 MG TABLET PO ×2 (09:08→21:44)
[2022-08-09] MEDS: 0.9 % Sodium Chloride Flush 10 ML SYRINGE 5 ML IVFLUSH ×3 (09:09→21:45)
[2022-08-09] MEDS: Nystatin Powder 15 GM BOTTLE 1 APPL TOPICAL ×2 (09:09→21:45)
[2022-08-09] MEDS: Fluticasone Propionate Nasal 16 GM SPRAY 1 SPRAY NOSTRIL-B (09:09)
[2022-08-09] MEDS: Nicotine 14 MG PATCH.TD24 TRANSDERMA (09:13)
--- NOTE | 2022-08-09 09:16 | P.PNIM_ITS ---
Subjective Subjective Date of Service: 08/09/22 Interval History: Denies abd pain Still quite confused Stools more formed Review of Systems Review of Systems: Yes all other systems are reviewed and are negative Physical Exam Vital Signs: Vital Signs: Last Vital Signs Temp 98.2 F 08/09/22 07:50 Pulse 92 08/09/22 07:50 Resp 18 08/09/22 07:50 BP 129/67 08/09/22 07:50 Pulse Ox 98 08/09/22 07:50 O2 Del Method 08/09/22 07:50 O2 Flow Rate 2 08/09/22 07:50 Oxygen Flow Rate 2 07/20/22 14:39 BMI result Body Mass Index 39.1 Appearing in no acute distress lung sounds are clear to auscultation heart regular rate rhythm, clear S1, S2 positive bowel sounds, abdomen is soft, nontender neuro patient is alert x3, no focal deficits Objective Data Active Medications Acetaminophen (Acetaminophen 325 Mg Tablet) 650 mg PO Q6H PRN PRN Reason: Pain, Mild (Pain Scale 1-3) Last Admin: 08/04/22 22:42 Dose: 650 mg Documented By: CARLOZ Albuterol Sulfate (Albuterol Sulfate 90 Mcg 8 Gm Inhaler) 2 puff INHALE QID PRN PRN Reason: Shortness Of Breath Or Wheezing Amlodipine Besylate (Amlodipine Besylate 10 Mg Tablet) 10 mg PO DAILY [facility]; Protocol Last Admin: 08/09/22 09:07 Dose: 10 mg Documented By: BALJINDER Aspirin (Aspirin Enteric Coated 325 Mg Tablet.) 325 mg PO DAILY [facility] Last Admin: 08/08/22 09:17 Dose: 325 mg Atorvastatin Calcium (Atorvastatin Calcium 40 Mg Tablet) 40 mg PO BEDTIME [facility] Last Admin: 08/08/22 19:40 Dose: 40 mg Documented By: MAITE Dextrose (Dextrose 50 % 25 Gm/50 Ml Syringe) 25 gm IVPUSH Q15M PRN; Protocol PRN Reason: per Hypoglycemia Standing Ord. Enoxaparin Sodium (Enoxaparin Sodium 40 Mg/0.4 Ml Syringe) 40 mg SUBCUT Q24H [facility] Last Admin: 08/09/22 01:25 Dose: 40 mg Documented By: MAITE Fluticasone Propionate (Fluticasone Propionate Nasal 16 Gm [place]) 1 spray NOSTRIL-B DAILY [facility] Last Admin: 08/09/22 09:09 Dose: 1 spray Documented By: BALJINDER Fluticasone/Vilanterol (Fluticasone/Vilanterol 100/25 Blst.W.Dev) 1 puff INHALE RDAILY [facility] Folic Acid (Folic Acid 1 Mg Tablet) 1 mg PO DAILY [facility] Last Admin: 08/09/22 09:08 Dose: 1 mg Documented By: BALJINDER Gabapentin (Gabapentin 600 Mg Tablet) 600 mg PO QID [facility] Last Admin: 08/09/22 09:07 Dose: 600 mg Documented By: BALJINDER Glucagon (Glucagon,Human Recombinant 1 Mg/Ml Vial) 1 mg IM Q20M PRN PRN Reason: Hypoglycemia Glucose (Glucose Gel 15 Gm Gel..Gram.) 15 gm PO Q15M PRN PRN Reason: Hypoglycemia Glucose (Glucose Gel 15 Gm Gel..Gram.) 15 gm PO Q15M PRN; Protocol PRN Reason: per Hypoglycemia Standing Ord. Piperacillin Sod/Tazobactam (Sod 4.5 gm/ Sodium Chloride) 100 mls @ 200 mls/hr IV Q6H [facility] Stop: 08/09/22 10:59 Last Infusion: 08/09/22 06:03 Dose: 0 mls/hr Documented By: MAITE Insulin Human Lispro (Insulin Lispro 100 Unit/Ml 3 Ml Vial) 0 unit SUBCUT QIDACHS [facility]; Protocol Last Admin: 08/09/22 07:39 Dose: Not Given Documented By: BALJINDER Non-Admin Reason: No Insulin Coverage Lactulose (Lactulose 20 Gm/30 Ml Solution) 30 gm PO DAILY [facility] Last Admin: 08/08/22 09:18 Dose: 30 gm Documented By: LO Magnesium Oxide (Magnesium Oxide 400 Mg Tablet) 400 mg PO BID [facility] Last Admin: 08/09/22 09:08 Dose: 400 mg Documented By: BALJINDER Melatonin (Melatonin 3 Mg Tablet) 6 mg PO BEDTIME PRN PRN Reason: Insomnia Last Admin: 08/08/22 19:39 Dose: 6 mg Documented By: MAITE Multivitamins/Vitamin C (Multivitamin Tablet) 1 tab PO DAILY [facility] Last Admin: 08/09/22 09:07 Dose: 1 tab Documented By: BALJINDER Nicotine (Nicotine 14 Mg Patch.Td24) 14 mg TRANSDERMA DAILY [facility] Last Admin: 08/08/22 09:16 Dose: 14 mg Documented By: LO Nortriptyline HCl (Nortriptyline Hcl 25 Mg Capsule) 50 mg PO BEDTIME [facility] Last Admin: 08/08/22 19:40 Dose: 50 mg Documented By: MAITE Nystatin (Nystatin Powder 15 Gm Bottle) 1 appl TOPICAL BID [facility] Last Admin: 08/09/22 09:09 Dose: 1 appl Documented By: BALJINDER Pharmacy Consult (Consult Rx Perform Med Rec) 1 each MISCELLANE ONCE PRN PRN Reason: Consult order Pyridoxine HCl (Pyridoxine Hcl (Vitamin B6) 50 Mg Tablet) 50 mg PO DAILY [facility] Last Admin: 08/09/22 09:08 Dose: 50 mg Documented By: BALJINDER Rifaximin (Rifaximin 550 Mg Tablet) 550 mg PO BID [facility] Last Admin: 08/09/22 09:07 Dose: 550 mg Documented By: BALJINDER Risperidone (Risperidone 1 Mg Tablet) 1 mg PO BID [facility] Last Admin: 08/09/22 09:07 Dose: 1 mg Documented By: BALJINDER Sodium Biphosphate/Sodium Phosphate (Sodium Phosphate,[place]-Dibasic 133 Ml Enema) 118 ml [place] DAILY PRN PRN Reason: Constipation Sodium Chloride (0.9 % Sodium Chloride Flush 3 Ml Syringe) 3 ml IVFLUSH QSHIFT [facility] Last Admin: 08/09/22 09:08 Dose: 3 ml Documented By: BALJINDER Sodium Chloride (0.9 % Sodium Chloride Flush 10 Ml Syringe) 5 ml IVFLUSH TID [facility] Last Admin: 08/09/22 09:09 Dose: 5 ml Documented By: BALJINDER Thiamine HCl (Thiamine Hcl 100 Mg Tablet) 100 mg PO BID [facility] Last Admin: 08/09/22 09:08 Dose: 100 mg Documented By: BALJINDER Tiotropium [place] (Tiotropium [place] 18 Mcg Cap.W.Dev) 1 puff INHALE RDAILY [facility] Vitamin D (Cholecalciferol (Vitamin D3) 25 Mcg Tablet) 25 mcg PO DAILY [facility] Last Admin: 08/09/22 09:08 Dose: 25 mcg Documented By: HO.FOSTEKR Labs 08/08/22 05:46 08/09/22 08:09 Labs: Laboratory Results - last 24 hr 08/08/22 08/08/22 08/08/22 10:53 13:03 15:55 Anion Gap 11 L Estim Creat Clear Calc 143.1 Estimated GFR > 60 POC Glucose 169 H 134 H Random Glucose 144 H Calcium 8.1 L 08/08/22 08/09/22 08/09/22 19:32 07:22 08:09 Anion Gap 14 Estim Creat Clear Calc 143.1 Estimated GFR > 60 POC Glucose 224 H 127 H Random Glucose 141 H Calcium 8.0 L Assessment and Plan (1) Hypernatremia: Status: Acute (2) Metabolic encephalopathy: Status: Acute (3) Leukocytosis: Status: Acute (4) Altered mental status: Status: Acute Plan 62yo M with alcoholic cirrhosis, COPD, chronic hypoxia on 3L O2, DM2, HTN, vertebral fractures, sent in from [facility] where he was for STR with AMS, found to have Covid-19 infection Leukocytosis. Trending down aspiration PNA on baseline amount of O2 [3L]. ID consulted appreciated. pip/meño 08/04-08/09/22. trend PCT. WBCs coming down hyperNa. trendsing down D5W @ 100/hr encourage free water intake. hypoK. 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 T9/T12 vertebral fractures was on methadone for chronic back pain but this was stopped due to encephalopathy pain is controlled at this point thrombocytopaenia mild, stable; due to cirrhosis coccygeal wound, not pressure Wound Care consulted, recommend: zinc oxide to the pinkish perianal and buttocks dermis for protection from moisture associated dermatitis. A better solution to the coccygeal opening might be small piece of silver alginate cut to fit the hole with periwound zinc and secondary dressing atop DM2 correction-dose lispro COPD not in acute exac prn albuterol, triple controller inhaler therapy chronic hypoxic resp failure 3L O2 via NC hypotension ANEUDY resolved after fluid repletion HTN amlodipine AUD continue B vitamins; no evidence of withdrawal but may have EtOH dementia Covid-19 recovered, s/p dexamethasone VTE ppx: LMWH Attending Dr. Kasper dispo: anticipate return to SNF after improvement in electrolytes In my clinical judgment, the patient requires continued inpatient hospitalization for the following reasons: IV ABX, electrolyte repletion Time Spent With Patient Time: Total time managing care of this patient today ____ minutes. Quality Stroke Does the patient have a stroke diagnosis?: No VTE Prior VTE?: No VTE Risk Level:: Medical - moderate - high VTE Device Contraindication: Treatment Not Indicated VTE Drug Contraindication: N/A - Med Ordered
[2022-08-09] MEDS: Lactulose 20 GM/30 ML SOLUTION 30 GM PO (09:19)
[2022-08-09 11:07] LABS: Glucose, Whole Blood 158 mg/dL (60-115)
[2022-08-09] MEDS: Insulin Lispro 100 UNIT/ML 3 ML VIAL SUBCUT (11:17)
[2022-08-09] MEDS: Fluticasone/Vilanterol 100/25 BLST.W.DEV 1 PUFF INHALE (11:47)
[2022-08-09 11:50] VITALS: PULSE 87; RESP 20; O2SAT 98
--- NOTE | 2022-08-09 13:30 | PM.PNNEP ---
Subjective Subjective Date of Service: 08/09/22 Interval history: Still quite confused Stools more formed Physical Exam Vital Signs: Vital Signs: Last Vital Signs Temp 98.2 F 08/09/22 07:50 Pulse 87 08/09/22 11:50 Resp 20 08/09/22 11:50 BP 129/67 08/09/22 07:50 Pulse Ox 98 08/09/22 07:50 O2 Del Method 08/09/22 07:50 O2 Flow Rate 2 08/09/22 07:50 Oxygen Flow Rate 2 07/20/22 14:39 BMI result Body Mass Index 39.1 Appearing in no acute distress lung sounds are clear to auscultation heart regular rate rhythm, clear S1, S2 positive bowel sounds, abdomen is soft, nontender neuro patient is alert x3, no focal deficits Objective Data Labs 08/08/22 05:46 08/09/22 08:09 Labs: Laboratory Results - last 24 hr 08/08/22 08/08/22 08/08/22 13:03 15:55 19:32 Sodium 149 H Potassium 3.4 Chloride 121 H Carbon Dioxide 20 L Anion Gap 11 L BUN 21 H Creatinine 0.66 Estim Creat Clear Calc 143.1 Estimated GFR > 60 POC Glucose 134 H 224 H Random Glucose 144 H Calcium 8.1 L 08/09/22 08/09/22 08/09/22 07:22 08:09 10:59 Sodium 148 H Potassium 3.9 Chloride 121 H Carbon Dioxide 17 L Anion Gap 14 BUN 21 H Creatinine 0.66 Estim Creat Clear Calc 143.1 Estimated GFR > 60 POC Glucose 127 H 158 H Random Glucose 141 H Calcium 8.0 L Microbiology Microbiology Results: Microbiology 08/02/22 13:03 Blood - Venous Blood Culture - Final No growth after 5 days. 08/02/22 13:03 Blood - Venous Blood Culture - Final No growth after 5 days. 07/20/22 15:21 Blood - Venous Blood Culture - Final No growth after 5 days. 07/20/22 15:16 Blood - Venous Blood Culture - Final No growth after 5 days. Procedures Date of Service Date of Service: 08/09/22 Assessment & Plan Assessment and plan (1) Hypernatremia: Status: Acute (2) COVID-19 virus infection: Status: Acute Plan free water deficit leading to dysnatremia non renal water loss Hypokalemia REC Keep I > O with D5w- 100 ml Add PO bicarb 650 mg tid x 6 doses Replace potassium. f/u divalants and replace follow kidney function and electrolytes Time Spent With Patient Time: Total time managing care of this patient today ____ minutes. Progress Note: Quality Stroke Does the patient have a stroke diagnosis?: No
[2022-08-09 13:41] LABS: Sodium 151 mmol/L (135-145)
[2022-08-09 15:19] VITALS: BP 135/70; PULSE 90; RESP 19; TEMP 36.9; O2SAT 97
[2022-08-09 16:17] LABS: Glucose, Whole Blood 105 mg/dL (60-115)
[2022-08-09] MEDS: Acetaminophen 325 MG TABLET 650 MG PO (17:04)
[2022-08-09 19:23] VITALS: BP 126/59; PULSE 82; RESP 18; TEMP 36.2; O2SAT 97
[2022-08-09 20:04] LABS: Glucose, Whole Blood 134 mg/dL (60-115)
[2022-08-09] MEDS: Nortriptyline HCl 25 MG CAPSULE 50 MG PO (21:44)
[2022-08-09] MEDS: Atorvastatin Calcium 40 MG TABLET PO (21:44)
[2022-08-09 23:33] VITALS: BP 115/64; PULSE 114; RESP 20; TEMP 36.7; O2SAT 94
[2022-08-10] MEDS: Enoxaparin Sodium 40 MG/0.4 ML SYRINGE SUBCUT (00:37)
[2022-08-10] MEDS: 0.9 % Sodium Chloride Flush 3 ML SYRINGE IVFLUSH ×4 (00:38→20:36)
[2022-08-10] MEDS: Acetaminophen 325 MG TABLET 650 MG PO ×3 (00:45→17:46)
[2022-08-10 06:45] LABS: Anion Gap 10 (12-20); Blood Urea Nitrogen 23 mg/dL (9-16); Calcium 8.1 mg/dL (8.4-10.2); Carbon Dioxide 21 mmol/L (22-29); Chloride 121 mmol/L (96-108); Creatinine Clr Calc Pharmacy 162.8; Estimated Glomerular Filt Rate > 60; Glucose Random 124 mg/dL (60-115); Potassium 3.4 mmol/L (3.3-5.1); Sodium 149 mmol/L (135-145)
[2022-08-10 07:10] VITALS: BP 133/70; PULSE 96; RESP 20; TEMP 37.2; O2SAT 95
[2022-08-10 07:22] LABS: Glucose, Whole Blood 117 mg/dL (60-115)
[2022-08-10] MEDS: Fluticasone/Vilanterol 100/25 BLST.W.DEV 1 PUFF INHALE (08:04)
[2022-08-10 08:06] VITALS: PULSE 91; RESP 18; O2SAT 97
--- NOTE | 2022-08-10 08:55 | P.PNIM_ITS ---
Subjective Subjective Date of Service: 08/10/22 Interval History: Denies abd pain Still quite confused Stools more formed Review of Systems Review of Systems: Yes all other systems are reviewed and are negative Physical Exam Vital Signs: Vital Signs: Last Vital Signs Temp 98.9 F 08/10/22 07:10 Pulse 91 08/10/22 08:06 Resp 18 08/10/22 08:06 BP 133/70 08/10/22 07:10 Pulse Ox 95 08/10/22 07:10 O2 Del Method 08/10/22 07:10 O2 Flow Rate 2 08/10/22 07:10 Oxygen Flow Rate 2 07/20/22 14:39 BMI result Body Mass Index 39.1 Appearing in no acute distress lung sounds are clear to auscultation heart regular rate rhythm, clear S1, S2 positive bowel sounds, abdomen is soft, nontender neuro patient is alert, confused Objective Data Active Medications Acetaminophen (Acetaminophen 325 Mg Tablet) 650 mg PO Q6H PRN PRN Reason: Pain, Mild (Pain Scale 1-3) Last Admin: 08/10/22 00:45 Dose: 650 mg Documented By: ELIANA Albuterol Sulfate (Albuterol Sulfate 90 Mcg 8 Gm Inhaler) 2 puff INHALE QID PRN PRN Reason: Shortness Of Breath Or Wheezing Amlodipine Besylate (Amlodipine Besylate 10 Mg Tablet) 10 mg PO DAILY [facility]; Protocol Last Admin: 08/09/22 09:07 Dose: 10 mg Documented By: BALJINDER Aspirin (Aspirin Enteric Coated 325 Mg Tablet.) 325 mg PO DAILY [facility] Last Admin: 08/09/22 09:13 Dose: Not Given Documented By: BALJINDER Non-Admin Reason: cant crush med Atorvastatin Calcium (Atorvastatin Calcium 40 Mg Tablet) 40 mg PO BEDTIME [facility] Last Admin: 08/09/22 21:44 Dose: 40 mg Documented By: ELIANA Dextrose (Dextrose 50 % 25 Gm/50 Ml Syringe) 25 gm IVPUSH Q15M PRN; Protocol PRN Reason: per Hypoglycemia Standing Ord. Enoxaparin Sodium (Enoxaparin Sodium 40 Mg/0.4 Ml Syringe) 40 mg SUBCUT Q24H [facility] Last Admin: 08/10/22 00:37 Dose: 40 mg Documented By: ELIANA Fluticasone Propionate (Fluticasone Propionate Nasal 16 Gm [place]) 1 spray NOSTRIL-B DAILY [facility] Last Admin: 08/09/22 09:09 Dose: 1 spray Documented By: BALJINDER Fluticasone/Vilanterol (Fluticasone/Vilanterol 100/25 Blst.W.Dev) 1 puff INHALE RDAILY [facility] Last Admin: 08/10/22 08:04 Dose: 1 puff Documented By: TIA Folic Acid (Folic Acid 1 Mg Tablet) 1 mg PO DAILY [facility] Last Admin: 08/09/22 09:08 Dose: 1 mg Documented By: BALJINDER Gabapentin (Gabapentin 600 Mg Tablet) 600 mg PO QID [facility] Last Admin: 08/09/22 21:44 Dose: 600 mg Documented By: ELIANA Glucagon (Glucagon,Human Recombinant 1 Mg/Ml Vial) 1 mg IM Q20M PRN PRN Reason: Hypoglycemia Glucose (Glucose Gel 15 Gm Gel..Gram.) 15 gm PO Q15M PRN PRN Reason: Hypoglycemia Glucose (Glucose Gel 15 Gm Gel..Gram.) 15 gm PO Q15M PRN; Protocol PRN Reason: per Hypoglycemia Standing Ord. Dextrose/Sodium Chloride (D5ns) 1,000 mls @ 150 mls/hr IVCONT .Q6H40M [facility] Insulin Human Lispro (Insulin Lispro 100 Unit/Ml 3 Ml Vial) 0 unit SUBCUT QIDACHS [facility]; Protocol Last Admin: 08/10/22 07:25 Dose: Not Given Documented By: BALJINDER Non-Admin Reason: No Insulin Coverage Lactulose (Lactulose 20 Gm/30 Ml Solution) 30 gm PO DAILY [facility] Last Admin: 08/09/22 09:19 Dose: 30 gm Documented By: BALJINDER Magnesium Oxide (Magnesium Oxide 400 Mg Tablet) 400 mg PO BID [facility] Last Admin: 08/09/22 21:44 Dose: 400 mg Documented By: ELIANA Melatonin (Melatonin 3 Mg Tablet) 6 mg PO BEDTIME PRN PRN Reason: Insomnia Last Admin: 08/08/22 19:39 Dose: 6 mg Documented By: MAITE Multivitamins/Vitamin C (Multivitamin Tablet) 1 tab PO DAILY [facility] Last Admin: 08/09/22 09:07 Dose: 1 tab Documented By: BALJINDER Nicotine (Nicotine 14 Mg Patch.Td24) 14 mg TRANSDERMA DAILY [facility] Last Admin: 08/09/22 09:13 Dose: 14 mg Documented By: BALJINDER Nortriptyline HCl (Nortriptyline Hcl 25 Mg Capsule) 50 mg PO BEDTIME [facility] Last Admin: 08/09/22 21:44 Dose: 50 mg Documented By: ELIANA Nystatin (Nystatin Powder 15 Gm Bottle) 1 appl TOPICAL BID [facility] Last Admin: 08/09/22 21:45 Dose: 1 appl Documented By: ELIANA Pharmacy Consult (Consult Rx Perform Med Rec) 1 each MISCELLANE ONCE PRN PRN Reason: Consult order Pyridoxine HCl (Pyridoxine Hcl (Vitamin B6) 50 Mg Tablet) 50 mg PO DAILY [facility] Last Admin: 08/09/22 09:08 Dose: 50 mg Documented By: BALJINDER Risperidone (Risperidone 1 Mg Tablet) 1 mg PO BID [facility] Last Admin: 08/09/22 21:45 Dose: 1 mg Documented By: ELIANA Sodium Bicarbonate (Sodium Bicarbonate 650 Mg Tablet) 650 mg PO QID [facility] Stop: 08/11/22 13:01 Sodium Biphosphate/Sodium Phosphate (Sodium Phosphate,[place]-Dibasic 133 Ml Enema) 118 ml [place] DAILY PRN PRN Reason: Constipation Sodium Chloride (0.9 % Sodium Chloride Flush 3 Ml Syringe) 3 ml IVFLUSH QSHIFT [facility] Last Admin: 08/10/22 00:38 Dose: 3 ml Documented By: ELIANA Sodium Chloride (0.9 % Sodium Chloride Flush 10 Ml Syringe) 5 ml IVFLUSH TID [facility] Last Admin: 08/09/22 21:45 Dose: 5 ml Documented By: ELIANA Thiamine HCl (Thiamine Hcl 100 Mg Tablet) 100 mg PO BID [facility] Last Admin: 08/09/22 21:44 Dose: 100 mg Documented By: ELIANA Tiotropium [place] (Tiotropium [place] 18 Mcg Cap.W.Dev) 1 puff INHALE RDAILY [facility] Last Admin: 08/10/22 08:05 Dose: 1 puff Documented By: TIA Vitamin D (Cholecalciferol (Vitamin D3) 25 Mcg Tablet) 25 mcg PO DAILY [facility] Last Admin: 08/09/22 09:08 Dose: 25 mcg Documented By: BALJINDER Labs 08/08/22 05:46 08/10/22 06:00 Labs: Laboratory Results - last 24 hr 08/09/22 08/09/22 08/09/22 08:09 10:59 16:12 Anion Gap 14 Estim Creat Clear Calc 143.1 Estimated GFR > 60 POC Glucose 158 H 105 Random Glucose 141 H Calcium 8.0 L 08/09/22 08/10/22 08/10/22 20:00 06:00 07:14 Anion Gap 10 L Estim Creat Clear Calc 162.8 Estimated GFR > 60 POC Glucose 134 H 117 H Random Glucose 124 H Calcium 8.1 L Assessment and Plan (1) Hypernatremia: Status: Acute (2) Metabolic encephalopathy: Status: Acute (3) Leukocytosis: Status: Acute (4) Altered mental status: Status: Acute Plan 62yo M with alcoholic cirrhosis, COPD, chronic hypoxia on 3L O2, DM2, HTN, vertebral fractures, sent in from [facility] where he was for STR with AMS, found to have Covid-19 infection HyperNa. still u, 149 today seems like free water deficit as he has been on thick liquids increase D5W to 150hr encourage free water intake. Leukocytosis. Trending down aspiration PNA on baseline amount of O2 [3L]. ID consulted appreciated. pip/meoñ 08/04-08/09/22. trend PCT. WBCs coming down hypoK. 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 T9/T12 vertebral fractures was on methadone for chronic back pain but this was stopped due to encephalopathy pain is controlled at this point thrombocytopaenia mild, stable; due to cirrhosis coccygeal wound, not pressure Wound Care consulted, recommend: zinc oxide to the pinkish perianal and buttocks dermis for protection from moisture associated dermatitis. A better solution to the coccygeal opening might be small piece of silver alginate cut to fit the hole with periwound zinc and secondary dressing atop DM2 correction-dose lispro COPD not in acute exac prn albuterol, triple controller inhaler therapy chronic hypoxic resp failure 3L O2 via NC hypotension ANEUDY resolved after fluid repletion HTN amlodipine AUD continue B vitamins; no evidence of withdrawal but may have EtOH dementia Covid-19 recovered, s/p dexamethasone VTE ppx: LMWH Attending Dr. Shields dispo: anticipate return to SNF after improvement in electrolytes In my clinical judgment, the patient requires continued inpatient hospitalization for the following reasons: IV ABX, electrolyte repletion Time Spent With Patient Time: Total time managing care of this patient today ____ minutes. Quality Stroke Does the patient have a stroke diagnosis?: No VTE Prior VTE?: No VTE Risk Level:: Medical - moderate - high VTE Device Contraindication: Treatment Not Indicated VTE Drug Contraindication: N/A - Med Ordered
[2022-08-10] MEDS: Pyridoxine HCl (Vitamin B6) 50 MG TABLET PO (09:12)
[2022-08-10] MEDS: Gabapentin 600 MG TABLET PO ×4 (09:12→20:35)
[2022-08-10] MEDS: Multivitamin TABLET 1 TAB PO (09:12)
[2022-08-10] MEDS: risperiDONE 1 MG TABLET PO ×2 (09:12→20:34)
[2022-08-10] MEDS: Cholecalciferol (Vitamin D3) 25 MCG TABLET PO (09:12)
[2022-08-10] MEDS: Folic Acid 1 MG TABLET PO (09:12)
[2022-08-10] MEDS: amLODIPine Besylate 10 MG TABLET PO (09:12)
[2022-08-10] MEDS: Magnesium Oxide 400 MG TABLET PO ×2 (09:12→20:35)
[2022-08-10] MEDS: Sodium Bicarbonate 650 MG TABLET PO ×4 (09:12→20:36)
[2022-08-10] MEDS: Lactulose 20 GM/30 ML SOLUTION 30 GM PO (09:12)
[2022-08-10] MEDS: Thiamine HCL 100 MG TABLET PO ×2 (09:12→20:36)
[2022-08-10] MEDS: Fluticasone Propionate Nasal 16 GM SPRAY 1 SPRAY NOSTRIL-B (09:13)
[2022-08-10] MEDS: Nicotine 14 MG PATCH.TD24 TRANSDERMA (09:14)
[2022-08-10] MEDS: Nystatin Powder 15 GM BOTTLE 1 APPL TOPICAL (09:14)
[2022-08-10] MEDS: 0.9 % Sodium Chloride Flush 10 ML SYRINGE 5 ML IVFLUSH ×2 (09:35→16:13)
[2022-08-10] MEDS: Dextrose 5 % and 0.9 % NaCl 1,000 ML 150 ML IVCONT ×3 (09:44→23:31)
[2022-08-10 11:00] LABS: Glucose, Whole Blood 174 mg/dL (60-115)
[2022-08-10] MEDS: Insulin Lispro 100 UNIT/ML 3 ML VIAL SUBCUT ×2 (11:09→20:34)
[2022-08-10 15:24] LABS: Potassium Urine Random 28.8 mmol/L; Sodium Urine Random < 20.0 mmol/L
[2022-08-10 15:33] LABS: Glucose, Whole Blood 122 mg/dL (60-115)
[2022-08-10 15:36] VITALS: BP 120/77; PULSE 90; RESP 19; TEMP 37.2; O2SAT 97
[2022-08-10 15:38] LABS: Chloride Urine Random < 20.0 mmol/L
[2022-08-10 20:31] LABS: Glucose, Whole Blood 161 mg/dL (60-115)
[2022-08-10] MEDS: Nortriptyline HCl 25 MG CAPSULE 50 MG PO (20:34)
[2022-08-10] MEDS: Atorvastatin Calcium 40 MG TABLET PO (20:35)
[2022-08-10] MEDS: Melatonin 3 MG TABLET 6 MG PO (20:35)
[2022-08-10 20:43] VITALS: BP 130/65; PULSE 98; RESP 18; TEMP 36.9; O2SAT 96
[2022-08-10 23:33] VITALS: BP 118/60; PULSE 98; RESP 20; TEMP 37.2; O2SAT 93
[2022-08-11] VITALS (7 sets, daily range): BP systolic 130–155; BP diastolic 64–89; PULSE 91–116; RESP 18–20; TEMP 36.7–37.3; O2SAT 92–98
[2022-08-11] MEDS: Enoxaparin Sodium 40 MG/0.4 ML SYRINGE SUBCUT (01:42)
[2022-08-11] MEDS: Dextrose 5 % and 0.9 % NaCl 1,000 ML 150 ML IVCONT ×2 (06:27→06:28)
[2022-08-11 07:18] LABS: Glucose, Whole Blood 147 mg/dL (60-115)
[2022-08-11] MEDS: Fluticasone/Vilanterol 100/25 BLST.W.DEV 1 PUFF INHALE (07:36)
[2022-08-11] MEDS: Thiamine HCL 100 MG TABLET PO ×2 (08:17→19:53)
[2022-08-11] MEDS: amLODIPine Besylate 10 MG TABLET PO (08:17)
[2022-08-11] MEDS: Multivitamin TABLET 1 TAB PO (08:17)
[2022-08-11] MEDS: Folic Acid 1 MG TABLET PO (08:17)
[2022-08-11] MEDS: Aspirin Enteric Coated 325 MG TABLET.DR PO (08:17)
[2022-08-11] MEDS: Sodium Bicarbonate 650 MG TABLET PO ×2 (08:17→14:57)
[2022-08-11] MEDS: Gabapentin 600 MG TABLET PO ×4 (08:17→19:53)
[2022-08-11] MEDS: risperiDONE 1 MG TABLET PO ×2 (08:18→19:52)
[2022-08-11] MEDS: Pyridoxine HCl (Vitamin B6) 50 MG TABLET PO (08:18)
[2022-08-11] MEDS: Magnesium Oxide 400 MG TABLET PO ×2 (08:18→19:53)
[2022-08-11] MEDS: Cholecalciferol (Vitamin D3) 25 MCG TABLET PO (08:19)
[2022-08-11] MEDS: Fluticasone Propionate Nasal 16 GM SPRAY 1 SPRAY NOSTRIL-B (08:20)
[2022-08-11] MEDS: Lactulose 20 GM/30 ML SOLUTION 30 GM PO (08:21)
[2022-08-11] MEDS: Nicotine 14 MG PATCH.TD24 TRANSDERMA (08:21)
[2022-08-11 08:52] LABS: Anion Gap 14 (12-20); Blood Urea Nitrogen 21 mg/dL (9-16); Calcium 7.9 mg/dL (8.4-10.2); Carbon Dioxide 18 mmol/L (22-29); Chloride 123 mmol/L (96-108); Creatinine Clr Calc Pharmacy 160.1; Estimated Glomerular Filt Rate > 60; Glucose Random 151 mg/dL (60-115); Potassium 3.7 mmol/L (3.3-5.1); Sodium 151 mmol/L (135-145)
--- NOTE | 2022-08-11 09:39 | HO.PM.IMPN ---
Subjective Subjective Date of Service: 08/12/22 Interval History: Denies abd pain Still quite confused Stools more formed Review of Systems Review of Systems: Yes all other systems are reviewed and are negative Physical Exam Vital Signs: Vital Signs: Last Vital Signs Temp 98.0 F 08/11/22 07:50 Pulse 104 H 08/11/22 07:50 Resp 20 08/11/22 07:50 BP 134/64 08/11/22 07:50 Pulse Ox 94 08/11/22 07:50 O2 Del Method 08/11/22 07:50 O2 Flow Rate 3 08/11/22 07:50 Oxygen Flow Rate 2 07/20/22 14:39 BMI result Body Mass Index 39.1 Appearing in no acute distress lung sounds are clear to auscultation heart regular rate rhythm, clear S1, S2 positive bowel sounds, abdomen is soft, nontender neuro patient is alert x3, no focal deficits Objective Data Active Medications Acetaminophen (Acetaminophen 325 Mg Tablet) 650 mg PO Q6H PRN PRN Reason: Pain, Mild (Pain Scale 1-3) Last Admin: 08/10/22 17:46 Dose: 650 mg Documented By: BALJINDER Albuterol Sulfate (Albuterol Sulfate 90 Mcg 8 Gm Inhaler) 2 puff INHALE QID PRN PRN Reason: Shortness Of Breath Or Wheezing Amlodipine Besylate (Amlodipine Besylate 10 Mg Tablet) 10 mg PO DAILY [facility]; Protocol Last Admin: 08/11/22 08:17 Dose: 10 mg Documented By: ORLY Aspirin (Aspirin Enteric Coated 325 Mg Tablet.) 325 mg PO DAILY [facility] Last Admin: 08/11/22 08:17 Dose: 325 mg Documented By: ORLY Atorvastatin Calcium (Atorvastatin Calcium 40 Mg Tablet) 40 mg PO BEDTIME [facility]PL[facility] Last Admin: 08/10/22 20:35 Dose: 40 mg Documented By: ALANNA Dextrose (Dextrose 50 % 25 Gm/50 Ml Syringe) 25 gm IVPUSH Q15M PRN; Protocol PRN Reason: per Hypoglycemia Standing Ord. Enoxaparin Sodium (Enoxaparin Sodium 40 Mg/0.4 Ml Syringe) 40 mg SUBCUT Q24H [facility] Last Admin: 08/11/22 01:42 Dose: 40 mg Documented By: ALANNA Fluticasone Propionate (Fluticasone Propionate Nasal 16 Gm [place]) 1 spray NOSTRIL-B DAILY [facility] Last Admin: 08/11/22 08:20 Dose: 1 spray Documented By: ORLY Fluticasone/Vilanterol (Fluticasone/Vilanterol 100/25 Blst.W.Dev) 1 puff INHALE RDAILY [facility] Last Admin: 08/11/22 07:36 Dose: 1 puff Documented By: KD Folic Acid (Folic Acid 1 Mg Tablet) 1 mg PO DAILY [facility] Last Admin: 08/11/22 08:17 Dose: 1 mg Documented By: ORLY Furosemide (Furosemide 40 Mg/4 Ml Vial) 40 mg IVPUSH ONCE ONE; Protocol Stop: 08/11/22 09:38 Gabapentin (Gabapentin 600 Mg Tablet) 600 mg PO QID [facility] Last Admin: 08/11/22 08:17 Dose: 600 mg Documented By: ORLY Glucagon (Glucagon,Human Recombinant 1 Mg/Ml Vial) 1 mg IM Q20M PRN PRN Reason: Hypoglycemia Glucose (Glucose Gel 15 Gm Gel..Gram.) 15 gm PO Q15M PRN PRN Reason: Hypoglycemia Glucose (Glucose Gel 15 Gm Gel..Gram.) 15 gm PO Q15M PRN; Protocol PRN Reason: per Hypoglycemia Standing Ord. Albumin Human ([place] 25 %) 100 mls @ 100 mls/hr IV Q1H REPLACED BY [facility] Stop: 08/11/22 11:44 Insulin Human Lispro (Insulin Lispro 100 Unit/Ml 3 Ml Vial) 0 unit SUBCUT QIDACHS REPLACED BY [facility]; Protocol Last Admin: 08/11/22 07:26 Dose: Not Given Documented By: ORLY Non-Admin Reason: No Insulin Coverage Lactulose (Lactulose 20 Gm/30 Ml Solution) 30 gm PO DAILY [facility] Last Admin: 08/11/22 08:21 Dose: 30 gm Documented By: ORLY Magnesium Oxide (Magnesium Oxide 400 Mg Tablet) 400 mg PO BID [facility] Last Admin: 08/11/22 08:18 Dose: 400 mg Documented By: ORLY Melatonin (Melatonin 3 Mg Tablet) 6 mg PO BEDTIME PRN PRN Reason: Insomnia Last Admin: 08/10/22 20:35 Dose: 6 mg Documented By: ANANDROTonia Multivitamins/Vitamin C (Multivitamin Tablet) 1 tab PO DAILY [facility] Last Admin: 08/11/22 08:17 Dose: 1 tab Documented By: ORLY Nicotine (Nicotine 14 Mg Patch.Td24) 14 mg TRANSDERMA DAILY [facility] Last Admin: 08/11/22 08:21 Dose: 14 mg Documented By: ORLY Nortriptyline HCl (Nortriptyline Hcl 25 Mg Capsule) 50 mg PO BEDTIME [facility]PL[facility] Last Admin: 08/10/22 20:34 Dose: 50 mg Documented By: ALANNA Nystatin (Nystatin Powder 15 Gm Bottle) 1 appl TOPICAL BID [facility]PL[facility] Last Admin: 08/10/22 20:51 Dose: Not Given Documented By: ALANNA Non-Admin Reason: Previously Administered Pharmacy Consult (Consult Rx Perform Med Rec) 1 each MISCELLANE ONCE PRN PRN Reason: Consult order Pyridoxine HCl (Pyridoxine Hcl (Vitamin B6) 50 Mg Tablet) 50 mg PO DAILY [facility] Last Admin: 08/11/22 08:18 Dose: 50 mg Documented By: ORLY Risperidone (Risperidone 1 Mg Tablet) 1 mg PO BID [facility] Last Admin: 08/11/22 08:18 Dose: 1 mg Documented By: ORLY Sodium Bicarbonate (Sodium Bicarbonate 650 Mg Tablet) 650 mg PO QID [facility]PL[facility] Stop: 08/11/22 13:01 Last Admin: 08/11/22 08:17 Dose: 650 mg Documented By: ORLY Sodium Biphosphate/Sodium Phosphate (Sodium Phosphate,[place]-Dibasic 133 Ml Enema) 118 ml [place] DAILY PRN PRN Reason: Constipation Sodium Chloride (0.9 % Sodium Chloride Flush 3 Ml Syringe) 3 ml IVFLUSH QSHIFT REPLACED BY [facility] Last Admin: 08/11/22 08:18 Dose: Not Given Documented By: ORLY Non-Admin Reason: IV Running Sodium Chloride (0.9 % Sodium Chloride Flush 10 Ml Syringe) 5 ml IVFLUSH TID REPLACED BY [facility] Last Admin: 08/11/22 08:18 Dose: Not Given Documented By: ORLY Non-Admin Reason: IV Running Thiamine HCl (Thiamine Hcl 100 Mg Tablet) 100 mg PO BID [facility] Last Admin: 08/11/22 08:17 Dose: 100 mg Documented By: ORLY Tiotropium [place] (Tiotropium [place] 18 Mcg Cap.W.Dev) 1 puff INHALE RDAILY REPL[facility]ED [facility] Last Admin: 08/11/22 07:36 Dose: 1 puff Documented By: KD Vitamin D (Cholecalciferol (Vitamin D3) 25 Mcg Tablet) 25 mcg PO DAILY [facility] Last Admin: 08/11/22 08:19 Dose: 25 mcg Documented By: ORLY Labs 08/08/22 05:46 08/11/22 08:00 Labs: Laboratory Results - last 24 hr 08/10/22 08/10/22 08/10/22 10:53 14:27 15:26 Anion Gap Estim Creat Clear Calc Estimated GFR POC Glucose 174 H 122 H Random Glucose Calcium Ur Random Sodium < 20.0 Ur Random Potassium 28.8 Ur Random Chloride < 20.0 08/10/22 08/11/22 08/11/22 20:28 07:14 08:00 Anion Gap 14 Estim Creat Clear Calc 160.1 Estimated GFR > 60 POC Glucose 161 H 147 H Random Glucose 151 H Calcium 7.9 L Ur Random Sodium Ur Random Potassium Ur Random Chloride Assessment and Plan (1) Hypernatremia: Status: Acute (2) Metabolic encephalopathy: Status: Acute (3) Leukocytosis: Status: Acute (4) Altered mental status: Status: Acute Plan 62yo M with alcoholic cirrhosis, COPD, chronic hypoxia on 3L O2, DM2, HTN, vertebral fractures, sent in from [facility] where he was for STR with AMS, found to have Covid-19 infection Left upper extremity weakness with continued encephalopathy Brain CT neg for acute abnormality likely related to ongoing medical issues HyperNa. Still high despite D5W increase to 150hr encourage free water intake. Stop fluids for now, give one dose of Lasix and albumin to force diuresis place martinez cath for better I&O management sodium bicarb 650mg TID Discussed with Nephrology, waiting on urine osmolality and repeat UA Leukocytosis. Trending down aspiration PNA on baseline amount of O2 [3L]. ID consulted appreciated. pip/meño 08/04-08/09/22. hypoK. 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 T9/T12 vertebral fractures was on methadone for chronic back pain but this was stopped due to encephalopathy pain is controlled at this point thrombocytopaenia mild, stable; due to cirrhosis coccygeal wound, not pressure Wound Care consulted, recommend: zinc oxide to the pinkish perianal and buttocks dermis for protection from moisture associated dermatitis. A better solution to the coccygeal opening might be small piece of silver alginate cut to fit the hole with periwound zinc and secondary dressing atop DM2 ss, ada diet COPD not in acute exac prn albuterol, triple controller inhaler therapy chronic hypoxic resp failure 3L O2 via NC hypotension ANEUDY resolved after fluid repletion HTN amlodipine AUD continue B vitamins; no evidence of withdrawal but may have ETOH dementia Covid-19 recovered, s/p dexamethasone VTE ppx: LMWH Attending Dr. Springer dispo: anticipate return to SNF after improvement in electrolytes In my clinical judgment, the patient requires continued inpatient hospitalization for the following reasons: IV ABX, electrolyte repletion Time Spent With Patient Time: Total time managing care of this patient today ____ minutes. Quality Stroke Does the patient have a stroke diagnosis?: No VTE Prior VTE?: No VTE Risk Level:: Medical - moderate - high VTE Device Contraindication: Treatment Not Indicated VTE Drug Contraindication: N/A - Med Ordered
[2022-08-11] MEDS: Nystatin Powder 15 GM BOTTLE 1 APPL TOPICAL ×2 (10:00→20:01)
[2022-08-11 10:47] LABS: Glucose, Whole Blood 186 mg/dL (60-115)
[2022-08-11] MEDS: Furosemide 40 MG/4 ML VIAL IVPUSH (11:12)
[2022-08-11] MEDS: Insulin Lispro 100 UNIT/ML 3 ML VIAL SUBCUT (11:12)
--- NOTE | 2022-08-11 11:27 | MHC.CLN ---
F/U PO INTAKE 50% AVERAGE DIET RX: 2200DM CHOPPED-APPROPRIATE NT LIQ D/C PER MD TO INCREASE FLUID INTAKE R/T HYPERNATREMIA PT RECEIVING ENSURE MAX BID TO INCREASE KCALS/PROTEIN FOR WOUND HEALING SUPP PROVIDES 300KCALS, 60G PROTEIN CONTINUE TO MONITOR PO INTAKE CLOSELY
[2022-08-11 14:02] LABS: Anion Gap 11 (12-20); Blood Urea Nitrogen 20 mg/dL (9-16); Calcium 8.1 mg/dL (8.4-10.2); Carbon Dioxide 20 mmol/L (22-29); Chloride 123 mmol/L (96-108); Creatinine Clr Calc Pharmacy 143.1; Estimated Glomerular Filt Rate > 60; Glucose Random 160 mg/dL (60-115); Potassium 3.3 mmol/L (3.3-5.1); Sodium 151 mmol/L (135-145)
[2022-08-11] MEDS: Albumin Human 25 % 100 ML IV ×2 (14:57→16:19)
[2022-08-11] MEDS: 0.9 % Sodium Chloride Flush 3 ML SYRINGE IVFLUSH (14:58)
--- NOTE | 2022-08-11 15:17 | MHC.SL.SWA ---
Speech Pathologist Impression: Oropharyngeal dysphagia, risk of aspiration Risk of Aspiration Due to: Neurological Condition History of Pneumonia Reduced Cognition Dysphasia Diet Status: Recommend continue with CHOPPED/ADVANCED (NDD3) solids and THIN liquids, administer pills CRUSHED in PUREE, AVOID/remove from tray foods with MIXED CONSISTENCIES (e.g. soups with solids, cereal and milk, fruit in syrup). Liquid Consistency and Strategies for Safe Swallow: Liquid Intake Recommendation: Thin Liquid Intake Strategies: Small Sips No Straws Solid Food Consistency: Dietary Recommendations: Chopped/Advanced (NDD3) Additional Modifications to Solid Foods: AVOID/remove from tray foods with MIXED CONSISTENCIES (e.g. soups with solids, cereal and milk, fruit in syrup). No straws. Patient would benefit from supervision during meal due to risk for aspiration and evident impulsivity/confusion. Oral Medication Intake: Crushed with Puree Please contact the pharmacy regarding appropriate crushable or liquid drug formulations that are available whenever modified delivery is recommended. Compensatory Strategies and Precautions to be Taken for Safe Swallow: Sitting Upright (90 deg) No Straw Liquids from Cup Small Bites and Sips Alternate Liquids/Solids Rate of Ingestion Change Avoid Specific Foods Supervision While Eating and Drinking for Safe Swallow: Total Supervision (1:1) Foods to Avoid: MIXED CONSISTENCIES, difficult to chew solids, crunchy or crumbly solids. Swallowing Recommended Treatments: Compens. Strategy Educat. Recommendation for Speech: Outpatient Speech Therapy Inpatient Speech Therapy Comment: Recommend full supervision d/t observed impulsivity when presented w/ cup of water. Monitor for s/s of aspiration. Belt Maker Clinican/Clinical Fellow: No Supervisory Statement: I have reviewed and agree with the student/clinical fellow's documentation: N/A Speech Language Pathologist: Alessia Berkowitz M.A., CCC-COMPUTATIONAL BIOLOGIST
[2022-08-11 15:23] LABS: Sodium 150 mmol/L (135-145)
[2022-08-11 15:59] LABS: Glucose, Whole Blood 115 mg/dL (60-115)
[2022-08-11 16:49] LABS: Appearance Urine Clear; Color Urine Dark Yellow; Glucose Urine UA Negative (Negative); Leukocyte Esterase Urine Trace (Negative); Nitrite Urine Negative (Negative); UMIC TRIGGER UACC YES; Urine Blood Trace (Negative); Urine Ketones Negative (Negative); Urine Protein Trace mg/dL (Neg-Trace)
[2022-08-11 16:51] LABS: Bacteria Urine None Seen (None Seen); Hyaline Casts Urine 0-2 /LPF (0-2); Squamous Epithelial Cell Urine 0-2 /HPF (0-2); WBC Urine 0-5 /HPF (0-5)
[2022-08-11 17:05] LABS: Osmolality Urine 432 mosm/kg (373-1093)
[2022-08-11 19:12] LABS: Sodium 151 mmol/L (135-145)
[2022-08-11] MEDS: Nortriptyline HCl 25 MG CAPSULE 50 MG PO (19:52)
[2022-08-11] MEDS: Atorvastatin Calcium 40 MG TABLET PO (19:53)
[2022-08-11] MEDS: Melatonin 3 MG TABLET 6 MG PO (19:53)
[2022-08-11] MEDS: 0.9 % Sodium Chloride Flush 10 ML SYRINGE 5 ML IVFLUSH (19:58)
[2022-08-11 19:59] LABS: Glucose, Whole Blood 143 mg/dL (60-115)
--- NOTE | 2022-08-11 23:06 | P.PNNP_ITS ---
Subjective Subjective Date of Service: 08/11/22 Interval history: Seen and examined, events noted Sna 151 depsite IV D5W and stools reported as soft butNOT liquid diarrhea Physical Exam Vital Signs: Vital Signs: Last Vital Signs Temp 99.2 F 08/11/22 19:27 Pulse 111 H 08/11/22 19:27 Resp 20 08/11/22 19:27 BP 140/65 H 08/11/22 19:27 Pulse Ox 98 08/11/22 19:27 O2 Del Method 08/11/22 19:27 O2 Flow Rate 3 08/11/22 19:27 Oxygen Flow Rate 2 07/20/22 14:39 BMI result Body Mass Index 39.1 Const: General: no acute distress HEENT: Head: Yes normocephalic and Yes atraumatic Neck: Neck: Yes supple Resp: Auscultation: diminished lung sounds Cardio: Rate: regular rate Heart sounds: S1 normal heart sound present and S2 normal heart sound present GI: Palpation (GI): Soft to palpation and nontender Skin: Rashes: no rashes Neuro: Other: Delerious Extrem: General: Yes pedal edema Objective Data Labs 08/08/22 05:46 08/11/22 18:35 Labs: Laboratory Results - last 24 hr 08/11/22 08/11/22 08/11/22 07:14 08:00 10:41 Sodium 151 H Potassium 3.7 Chloride 123 H Carbon Dioxide 18 L Anion Gap 14 BUN 21 H Creatinine 0.59 Estim Creat Clear Calc 160.1 Estimated GFR > 60 POC Glucose 147 H 186 H Random Glucose 151 H Calcium 7.9 L Urine Color Urine Appearance Urine pH Ur Specific [place] Urine Protein Urine Glucose (UA) Urine Ketones Urine Blood Urine Nitrite Ur Leukocyte Esterase Urine RBC Urine WBC Ur Squamous Epith Cells Urine Bacteria Hyaline Casts Urine Osmolality 08/11/22 08/11/22 08/11/22 12:47 14:50 15:56 Sodium 151 H 150 H Potassium 3.3 Chloride 123 H Carbon Dioxide 20 L Anion Gap 11 L BUN 20 H Creatinine 0.66 Estim Creat Clear Calc 143.1 Estimated GFR > 60 POC Glucose 115 Random Glucose 160 H Calcium 8.1 L Urine Color Urine Appearance Urine pH Ur Specific [place] Urine Protein Urine Glucose (UA) Urine Ketones Urine Blood Urine Nitrite Ur Leukocyte Esterase Urine RBC Urine WBC Ur Squamous Epith Cells Urine Bacteria Hyaline Casts Urine Osmolality 08/11/22 08/11/22 08/11/22 16:30 16:30 18:35 Sodium 151 H Potassium Chloride Carbon Dioxide Anion Gap BUN Creatinine Estim Creat Clear Calc Estimated GFR POC Glucose Random Glucose Calcium Urine Color Dark Yellow Urine Appearance Clear Urine pH 6.0 Ur Specific [place] 1.020 Urine Protein Trace Urine Glucose (UA) Negative Urine Ketones Negative Urine Blood Trace H Urine Nitrite Negative Ur Leukocyte Esterase Trace H Urine RBC 6-10 H Urine WBC 0-5 Ur Squamous Epith Cells 0-2 Urine Bacteria None Seen Hyaline Casts 0-2 Urine Osmolality 432 08/11/22 19:55 Sodium Potassium Chloride Carbon Dioxide Anion Gap BUN Creatinine Estim Creat Clear Calc Estimated GFR POC Glucose 143 H Random Glucose Calcium Urine Color Urine Appearance Urine pH Ur Specific [place] Urine Protein Urine Glucose (UA) Urine Ketones Urine Blood Urine Nitrite Ur Leukocyte Esterase Urine RBC Urine WBC Ur Squamous Epith Cells Urine Bacteria Hyaline Casts Urine Osmolality Microbiology Microbiology Results: Microbiology 08/02/22 13:03 Blood - Venous Blood Culture - Final No growth after 5 days. 08/02/22 13:03 Blood - Venous Blood Culture - Final No growth after 5 days. 07/20/22 15:21 Blood - Venous Blood Culture - Final No growth after 5 days. 07/20/22 15:16 Blood - Venous Blood Culture - Final No growth after 5 days. Procedures Date of Service Date of Service: 08/11/22 Assessment & Plan Assessment and plan (1) Hypernatremia: Status: Acute (2) COVID-19 virus infection: Status: Acute Plan -HyperNa: DDx includes incr IWL vs inapp excess hypotonic urine ( DI) -NAGMA: supports ongoing diarrhea; RTA another possibilty REC:check Uosm; cont D5W, track SNa Time Spent With Patient Time: Total time managing care of this patient today ____ minutes. Progress Note: Quality Stroke Does the patient have a stroke diagnosis?: No
[2022-08-12] VITALS (8 sets, daily range): BP systolic 111–143; BP diastolic 67–72; PULSE 56–116; RESP 12–22; TEMP 36.4–37.8; O2SAT 92–98; BMI 35.4
[2022-08-12] MEDS: Enoxaparin Sodium 40 MG/0.4 ML SYRINGE SUBCUT ×2 (00:08→23:41)
[2022-08-12] MEDS: Acetaminophen 325 MG TABLET 650 MG PO (00:08)
[2022-08-12 07:27] LABS: Chloride 123 mmol/L (96-108)
[2022-08-12 07:29] LABS: Anion Gap 11 (12-20); Blood Urea Nitrogen 24 mg/dL (9-16); Calcium 8.1 mg/dL (8.4-10.2); Carbon Dioxide 20 mmol/L (22-29); Creatinine Clr Calc Pharmacy 160.1; Estimated Glomerular Filt Rate > 60; Glucose Random 104 mg/dL (60-115); Potassium 3.5 mmol/L (3.3-5.1); Sodium 150 mmol/L (135-145)
[2022-08-12 07:30] LABS: Glucose, Whole Blood 119 mg/dL (60-115)
[2022-08-12] MEDS: Dextrose 5 % 1,000 ML 125 ML IVCONT (07:40)
[2022-08-12] MEDS: Lactulose 20 GM/30 ML SOLUTION 30 GM PO (07:44)
[2022-08-12] MEDS: Gabapentin 600 MG TABLET PO ×4 (07:45→22:02)
[2022-08-12] MEDS: Multivitamin TABLET 1 TAB PO (07:45)
[2022-08-12] MEDS: risperiDONE 1 MG TABLET PO ×2 (07:45→22:02)
[2022-08-12] MEDS: 0.9 % Sodium Chloride Flush 3 ML SYRINGE IVFLUSH ×2 (07:46→17:12)
[2022-08-12] MEDS: Pyridoxine HCl (Vitamin B6) 50 MG TABLET PO (07:46)
[2022-08-12] MEDS: amLODIPine Besylate 10 MG TABLET PO (07:46)
[2022-08-12] MEDS: Folic Acid 1 MG TABLET PO (07:46)
[2022-08-12] MEDS: Magnesium Oxide 400 MG TABLET PO ×2 (07:46→22:02)
[2022-08-12] MEDS: Thiamine HCL 100 MG TABLET PO ×2 (07:46→22:02)
[2022-08-12] MEDS: Aspirin Enteric Coated 325 MG TABLET.DR PO (07:46)
[2022-08-12] MEDS: Fluticasone Propionate Nasal 16 GM SPRAY 1 SPRAY NOSTRIL-B (07:47)
[2022-08-12] MEDS: Nystatin Powder 15 GM BOTTLE 1 APPL TOPICAL ×2 (07:47→22:03)
[2022-08-12] MEDS: Nicotine 14 MG PATCH.TD24 TRANSDERMA (07:47)
[2022-08-12] MEDS: Cholecalciferol (Vitamin D3) 25 MCG TABLET PO (07:48)
[2022-08-12] MEDS: Fluticasone/Vilanterol 100/25 BLST.W.DEV 1 PUFF INHALE (07:50)
--- NOTE | 2022-08-12 10:11 | P.PNIM_ITS ---
Subjective Subjective Date of Service: 08/12/22 Interval History: Denies abd pain Still quite confused Stools more formed Review of Systems Review of Systems: Yes all other systems are reviewed and are negative Physical Exam Vital Signs: Vital Signs: Last Vital Signs Temp 98.0 F 08/12/22 07:15 Pulse 92 08/12/22 07:50 Resp 18 08/12/22 07:50 BP 111/70 08/12/22 07:15 Pulse Ox 93 08/12/22 07:15 O2 Del Method 08/12/22 07:15 O2 Flow Rate 3 08/12/22 07:15 Oxygen Flow Rate 2 07/20/22 14:39 BMI result Body Mass Index 39.1 Appearing in no acute distress lung sounds are clear to auscultation heart regular rate rhythm, clear S1, S2 positive bowel sounds, abdomen is soft, nontender neuro patient is alert, confused Coccyx fold wound Objective Data Active Medications Acetaminophen (Acetaminophen 325 Mg Tablet) 650 mg PO Q6H PRN PRN Reason: Pain, Mild (Pain Scale 1-3) Last Admin: 08/12/22 00:08 Dose: 650 mg Documented By: BRIANNA Albuterol Sulfate (Albuterol Sulfate 90 Mcg 8 Gm Inhaler) 2 puff INHALE QID PRN PRN Reason: Shortness Of Breath Or Wheezing Amlodipine Besylate (Amlodipine Besylate 10 Mg Tablet) 10 mg PO DAILY [facility]; Protocol Last Admin: 08/12/22 07:46 Dose: 10 mg Documented By: ORLY Aspirin (Aspirin Enteric Coated 325 Mg Tablet.) 325 mg PO DAILY [facility] Last Admin: 08/12/22 07:46 Dose: 325 mg Documented By: ORLY Atorvastatin Calcium (Atorvastatin Calcium 40 Mg Tablet) 40 mg PO BEDTIME [facility] Last Admin: 08/11/22 19:53 Dose: 40 mg Documented By: MAITE Dextrose (Dextrose 50 % 25 Gm/50 Ml Syringe) 25 gm IVPUSH Q15M PRN; Protocol PRN Reason: per Hypoglycemia Standing Ord. Enoxaparin Sodium (Enoxaparin Sodium 40 Mg/0.4 Ml Syringe) 40 mg SUBCUT Q24H [facility] Last Admin: 08/12/22 00:08 Dose: 40 mg Documented By: BRIANNA Fluticasone Propionate (Fluticasone Propionate Nasal 16 Gm [place]) 1 spray NOSTRIL-B DAILY [facility] Last Admin: 08/12/22 07:47 Dose: 1 spray Documented By: ORLY Fluticasone/Vilanterol (Fluticasone/Vilanterol 100/25 Blst.W.Dev) 1 puff INHALE RDAILY [facility] Last Admin: 08/12/22 07:50 Dose: 1 puff Documented By: ULRICEmma Folic Acid (Folic Acid 1 Mg Tablet) 1 mg PO DAILY [facility] Last Admin: 08/12/22 07:46 Dose: 1 mg Documented By: ORLY Gabapentin (Gabapentin 600 Mg Tablet) 600 mg PO QID [facility] Last Admin: 08/12/22 07:45 Dose: 600 mg Documented By: ORLY Glucagon (Glucagon,Human Recombinant 1 Mg/Ml Vial) 1 mg IM Q20M PRN PRN Reason: Hypoglycemia Glucose (Glucose Gel 15 Gm Gel..Gram.) 15 gm PO Q15M PRN PRN Reason: Hypoglycemia Glucose (Glucose Gel 15 Gm Gel..Gram.) 15 gm PO Q15M PRN; Protocol PRN Reason: per Hypoglycemia Standing Ord. Dextrose (D5w) 1,000 mls @ 125 mls/hr IVCONT .Q8H [facility] Last Admin: 08/12/22 07:40 Dose: 125 mls/hr Documented By: ORLY Insulin Human Lispro (Insulin Lispro 100 Unit/Ml 3 Ml Vial) 0 unit SUBCUT QIDACHS [facility]; Protocol Last Admin: 08/12/22 07:48 Dose: Not Given Documented By: ORLY Non-Admin Reason: No Insulin Coverage Lactulose (Lactulose 20 Gm/30 Ml Solution) 30 gm PO DAILY [facility] Last Admin: 08/12/22 07:44 Dose: 30 gm Documented By: ORLY Magnesium Oxide (Magnesium Oxide 400 Mg Tablet) 400 mg PO BID [facility] Last Admin: 08/12/22 07:46 Dose: 400 mg Documented By: ORLY Melatonin (Melatonin 3 Mg Tablet) 6 mg PO BEDTIME PRN PRN Reason: Insomnia Last Admin: 08/11/22 19:53 Dose: 6 mg Documented By: MAITE Multivitamins/Vitamin C (Multivitamin Tablet) 1 tab PO DAILY [facility] Last Admin: 08/12/22 07:45 Dose: 1 tab Documented By: ORLY Nicotine (Nicotine 14 Mg Patch.Td24) 14 mg TRANSDERMA DAILY [facility] Last Admin: 08/12/22 07:47 Dose: 14 mg Documented By: ORLY Nortriptyline HCl (Nortriptyline Hcl 25 Mg Capsule) 50 mg PO BEDTIME [facility] Last Admin: 08/11/22 19:52 Dose: 50 mg Documented By: MAITE Nystatin (Nystatin Powder 15 Gm Bottle) 1 appl TOPICAL BID [facility] Last Admin: 08/12/22 07:47 Dose: 1 appl Documented By: ORLY Pharmacy Consult (Consult Rx Perform Med Rec) 1 each MISCELLANE ONCE PRN PRN Reason: Consult order Pyridoxine HCl (Pyridoxine Hcl (Vitamin B6) 50 Mg Tablet) 50 mg PO DAILY [facility] Last Admin: 08/12/22 07:46 Dose: 50 mg Documented By: ORLY Risperidone (Risperidone 1 Mg Tablet) 1 mg PO BID [facility] Last Admin: 08/12/22 07:45 Dose: 1 mg Documented By: ORLY Sodium Biphosphate/Sodium Phosphate (Sodium Phosphate,[place]-Dibasic 133 Ml Enema) 118 ml [place] DAILY PRN PRN Reason: Constipation Sodium Chloride (0.9 % Sodium Chloride Flush 3 Ml Syringe) 3 ml IVFLUSH QSHIFT [facility] Last Admin: 08/12/22 07:46 Dose: 3 ml Documented By: ORLY Sodium Chloride (0.9 % Sodium Chloride Flush 10 Ml Syringe) 5 ml IVFLUSH TID [facility] Last Admin: 08/12/22 07:49 Dose: Not Given Documented By: ORLY Non-Admin Reason: Duplicate Order Thiamine HCl (Thiamine Hcl 100 Mg Tablet) 100 mg PO BID [facility] Last Admin: 08/12/22 07:46 Dose: 100 mg Documented By: ORLY Tiotropium [place] (Tiotropium [place] 18 Mcg Cap.W.Dev) 1 puff INHALE RDAILY [facility] Last Admin: 08/12/22 07:50 Dose: 1 puff Documented By: ULRICEmma Vitamin D (Cholecalciferol (Vitamin D3) 25 Mcg Tablet) 25 mcg PO DAILY [facility] Last Admin: 08/12/22 07:48 Dose: 25 mcg Documented By: [email or web address] Labs 08/08/22 05:46 08/12/22 05:55 Labs: Laboratory Results - last 24 hr 08/11/22 08/11/22 08/11/22 10:41 12:47 15:56 Anion Gap 11 L Estim Creat Clear Calc 143.1 Estimated GFR > 60 POC Glucose 186 H 115 Random Glucose 160 H Calcium 8.1 L Urine Color Urine Appearance Urine pH Ur Specific [place] Urine Protein Urine Glucose (UA) Urine Ketones Urine Blood Urine Nitrite Ur Leukocyte Esterase Urine RBC Urine WBC Ur Squamous Epith Cells Urine Bacteria Hyaline Casts Urine Osmolality 08/11/22 08/11/22 08/11/22 16:30 16:30 19:55 Anion Gap Estim Creat Clear Calc Estimated GFR POC Glucose 143 H Random Glucose Calcium Urine Color Dark Yellow Urine Appearance Clear Urine pH 6.0 Ur Specific [place] 1.020 Urine Protein Trace Urine Glucose (UA) Negative Urine Ketones Negative Urine Blood Trace H Urine Nitrite Negative Ur Leukocyte Esterase Trace H Urine RBC 6-10 H Urine WBC 0-5 Ur Squamous Epith Cells 0-2 Urine Bacteria None Seen Hyaline Casts 0-2 Urine Osmolality 432 08/12/22 08/12/22 05:55 07:14 Anion Gap 11 L Estim Creat Clear Calc 160.1 Estimated GFR > 60 POC Glucose 119 H Random Glucose 104 Calcium 8.1 L Urine Color Urine Appearance Urine pH Ur Specific [place] Urine Protein Urine Glucose (UA) Urine Ketones Urine Blood Urine Nitrite Ur Leukocyte Esterase Urine RBC Urine WBC Ur Squamous Epith Cells Urine Bacteria Hyaline Casts Urine Osmolality Assessment and Plan (1) Hypernatremia: Status: Acute (2) Metabolic encephalopathy: Status: Acute (3) Leukocytosis: Status: Acute (4) Altered mental status: Status: Acute Plan 62yo M with alcoholic cirrhosis, COPD, chronic hypoxia on 3L O2, DM2, HTN, vertebral fractures, sent in from [facility] where he was for STR with AMS, found to have Covid-19 infection HyperNa. possibly related to insensible losses from diarrhea. Down to 145 today encourage free water intake. placed martinez cath for better I&O management, so far has been very inaccurate s/p sodium bicarb 650mg TID x6 doses Discussed with Nephrology, urine osmo 432, no likely DI hold lactulose trend sodium continue D5W and recheck sodium at 7pm Left upper extremity weakness with continued encephalopathy Brain CT neg for acute abnormality likely related to ongoing medical issues Leukocytosis. Trending down aspiration PNA on baseline amount of O2 [3L]. ID consult appreciated. pip/meño 08/04-08/09/22. Coccyx fold wound non stick dressing daily barrier cream to reddended buttock area hypoK. 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 awake but chronically confused hold lactulose again [tests for infection all negative] d/c'ed rectal tube on 08/05. T9/T12 vertebral fractures was on methadone for chronic back pain but this was stopped due to encephalopathy pain is controlled at this point thrombocytopenia mild, stable; due to cirrhosis coccygeal wound, not pressure Wound Care consulted, recommend: zinc oxide to the pinkish perianal and buttocks dermis for protection from moisture associated dermatitis. A better solution to the coccygeal opening might be small piece of silver alginate cut to fit the hole with periwound zinc and secondary dressing atop DM2 ss, ada diet COPD not in acute exac prn albuterol, triple controller inhaler therapy chronic hypoxic resp failure 3L O2 via NC hypotension ANEUDY resolved after fluid repletion HTN amlodipine AUD continue B vitamins; no evidence of withdrawal but may have ETOH dementia Covid-19 recovered, s/p dexamethasone VTE ppx: LMWH Attending Dr. Springer dispo: anticipate return to SNF after improvement in electrolytes In my clinical judgment, the patient requires continued inpatient hospitalization for the following reasons: IV ABX, electrolyte repletion Time Spent With Patient Time: Total time managing care of this patient today ____ minutes. Quality Stroke Does the patient have a stroke diagnosis?: No VTE Prior VTE?: No VTE Risk Level:: Medical - moderate - high VTE Device Contraindication: Treatment Not Indicated VTE Drug Contraindication: N/A - Med Ordered
[2022-08-12 11:13] LABS: Glucose, Whole Blood 180 mg/dL (60-115)
[2022-08-12] MEDS: Insulin Lispro 100 UNIT/ML 3 ML VIAL SUBCUT ×2 (11:46→22:01)
--- NOTE | 2022-08-12 12:50 | PM.PNNEP ---
Subjective Subjective Date of Service: 08/12/22 Interval history: Seen and examined, events noted Physical Exam Vital Signs: Vital Signs: Last Vital Signs Temp 97.9 F 08/12/22 10:51 Pulse 98 08/12/22 11:38 Resp 12 08/12/22 10:51 BP 126/72 08/12/22 11:38 Pulse Ox 93 08/12/22 11:38 O2 Del Method 08/12/22 10:51 O2 Flow Rate 3 08/12/22 10:51 Oxygen Flow Rate 2 07/20/22 14:39 BMI result Body Mass Index 39.1 Const: General: no acute distress HEENT: Head: Yes normocephalic and Yes atraumatic Neck: Neck: Yes supple Resp: Auscultation: diminished lung sounds Cardio: Rate: regular rate Heart sounds: S1 normal heart sound present and S2 normal heart sound present GI: Palpation (GI): Soft to palpation and nontender Skin: Rashes: no rashes Neuro: Other: Delerious Extrem: General: Yes pedal edema Objective Data Labs 08/08/22 05:46 08/12/22 05:55 Labs: Laboratory Results - last 24 hr 08/11/22 08/11/22 08/11/22 12:47 14:50 15:56 Sodium 151 H 150 H Potassium 3.3 Chloride 123 H Carbon Dioxide 20 L Anion Gap 11 L BUN 20 H Creatinine 0.66 Estim Creat Clear Calc 143.1 Estimated GFR > 60 POC Glucose 115 Random Glucose 160 H Calcium 8.1 L Urine Color Urine Appearance Urine pH Ur Specific [place] Urine Protein Urine Glucose (UA) Urine Ketones Urine Blood Urine Nitrite Ur Leukocyte Esterase Urine RBC Urine WBC Ur Squamous Epith Cells Urine Bacteria Hyaline Casts Urine Osmolality 08/11/22 08/11/22 08/11/22 16:30 16:30 18:35 Sodium 151 H Potassium Chloride Carbon Dioxide Anion Gap BUN Creatinine Estim Creat Clear Calc Estimated GFR POC Glucose Random Glucose Calcium Urine Color Dark Yellow Urine Appearance Clear Urine pH 6.0 Ur Specific [place] 1.020 Urine Protein Trace Urine Glucose (UA) Negative Urine Ketones Negative Urine Blood Trace H Urine Nitrite Negative Ur Leukocyte Esterase Trace H Urine RBC 6-10 H Urine WBC 0-5 Ur Squamous Epith Cells 0-2 Urine Bacteria None Seen Hyaline Casts 0-2 Urine Osmolality 432 08/11/22 08/12/22 08/12/22 19:55 05:55 07:14 Sodium 150 H Potassium 3.5 Chloride 123 H Carbon Dioxide 20 L Anion Gap 11 L BUN 24 H Creatinine 0.59 Estim Creat Clear Calc 160.1 Estimated GFR > 60 POC Glucose 143 H 119 H Random Glucose 104 Calcium 8.1 L Urine Color Urine Appearance Urine pH Ur Specific [place] Urine Protein Urine Glucose (UA) Urine Ketones Urine Blood Urine Nitrite Ur Leukocyte Esterase Urine RBC Urine WBC Ur Squamous Epith Cells Urine Bacteria Hyaline Casts Urine Osmolality 08/12/22 10:52 Sodium Potassium Chloride Carbon Dioxide Anion Gap BUN Creatinine Estim Creat Clear Calc Estimated GFR POC Glucose 180 H Random Glucose Calcium Urine Color Urine Appearance Urine pH Ur Specific [place] Urine Protein Urine Glucose (UA) Urine Ketones Urine Blood Urine Nitrite Ur Leukocyte Esterase Urine RBC Urine WBC Ur Squamous Epith Cells Urine Bacteria Hyaline Casts Urine Osmolality Microbiology Microbiology Results: Microbiology 08/02/22 13:03 Blood - Venous Blood Culture - Final No growth after 5 days. 08/02/22 13:03 Blood - Venous Blood Culture - Final No growth after 5 days. 07/20/22 15:21 Blood - Venous Blood Culture - Final No growth after 5 days. 07/20/22 15:16 Blood - Venous Blood Culture - Final No growth after 5 days. Procedures Date of Service Date of Service: 08/12/22 Assessment & Plan Assessment and plan (1) Hypernatremia: Status: Acute (2) COVID-19 virus infection: Status: Acute Plan -HyperNa: DDx includes incr IWL vs inapp excess hypotonic urine ( DI) based on urine tests with a Uosm 432 this may represents a partial DI but more likely he has a lomited ability to concentrate his urine d/t being on lasix thus ongoing incr IWL form diarrhea and lasix and ques poor po intkae -NAGMA: improving supports ongoing diarrhea; RTA another possibilty REC: cont D5W, track SNa; encourage po intake; consider d/c diuretics Time Spent With Patient Time: Total time managing care of this patient today ____ minutes. Progress Note: Quality Stroke Does the patient have a stroke diagnosis?: No
[2022-08-12 13:46] LABS: Sodium 130 mmol/L (135-145)
--- NOTE | 2022-08-12 13:48 | MHC.SL.SWA ---
Speech Pathologist Impression: Risk of Aspiration Due to: Neurological Condition History of Pneumonia Reduced Cognition Dysphasia Diet Status: Recommend Patient continue on current diet of Chopped Advanced (NDD3) with Thin Liquids, pills whole with liquid or puree. Continue to recommend NO STRAWS, as patient is highly impulsive and an aspiration risk. Continue to recommend supervision while eating and drinking due to patients noted impulsivity and confusion at times. Additionally recommend patient remain in seated/upright position for at least half an hour after any meal. Liquid Consistency and Strategies for Safe Swallow: Liquid Intake Recommendation: Thin Liquid Intake Strategies: Small Sips No Straws Solid Food Consistency: Dietary Recommendations: Chopped/Advanced (NDD3) Additional Modifications to Solid Foods: Patient would benefit from supervision during meal due to risk for aspiration and evident impulsivity/confusion. Oral Medication Intake: Whole with Puree Please contact the pharmacy regarding appropriate crushable or liquid drug formulations that are available whenever modified delivery is recommended. Compensatory Strategies and Precautions to be Taken for Safe Swallow: Sitting Upright (90 deg) No Straw Liquids from Cup Small Bites and Sips Alternate Liquids/Solids Rate of Ingestion Change Avoid Specific Foods Supervision While Eating and Drinking for Safe Swallow: Total Supervision (1:1) Foods to Avoid: Mixed consistencies, difficult to chew solids, crunchy or crumbly solids. Swallowing Recommended Treatments: Compens. Strategy Educat. Recommendation for Speech: Outpatient Speech Therapy Inpatient Speech Therapy Comment: Patient was seen early PM for dysphagia treatment, with lunch over before therapist reached room. Patient was fully reclined in bed with water and jamshid kory at bedside with straws in them, and patient reaching for them. Patient was advised not to drink while reclined in bed. Head of bed was raised to 90 degrees. As patient had clearly been drinking liquids with straws, he was given water cup with straw to drink. Patient took large, impulsive serial gulps of water by straw, draining the cup. Patient evidenced no coughing, throat clearing or wet voice after drinking large amount by straw, however evidenced effortful breathing. Patient noted that he was having difficulty breathing, RN was advised, who then checked O2 levels which were normal and O2 flow to cannula was working properly. Patient was repositioned in bed, advised to take deep breaths which appeared to resolve the issue. Patient had been upgraded to thin liquids over weekend by MD due to concerns about adequate free liquid intake. Recommend Patient continue on current diet of Chopped Advanced (NDD3) with Thin Liquids, pills whole with liquid or puree. Continue to recommend NO STRAWS, as patient is highly impulsive and an aspiration risk. Continue to recommend supervision while eating and drinking due to patients noted impulsivity and confusion at times. Additionally recommend patient remain in seated/upright position for at least half an hour after any meal. Frequency/Duration: Date Range for Service Req: Timeline to reassess: Gyro Compass Tester Clinican/Clinical Fellow: No Supervisory Statement: I have reviewed and agree with the student/clinical fellow's documentation: N/A Speech Language Pathologist: Leeanne Hodge M.A., CCC-INSPECTOR [employer]
[2022-08-12 16:04] LABS: Glucose, Whole Blood 134 mg/dL (60-115)
[2022-08-12 16:20] LABS: Sodium 145 mmol/L (135-145)
[2022-08-12] MEDS: Dextrose 5 % 1,000 ML 100 ML IVCONT (17:08)
[2022-08-12 19:12] LABS: Sodium 131 mmol/L (135-145)
[2022-08-12 21:33] LABS: Glucose, Whole Blood 160 mg/dL (60-115)
[2022-08-12] MEDS: Nortriptyline HCl 25 MG CAPSULE 50 MG PO (22:02)
[2022-08-12] MEDS: Melatonin 3 MG TABLET 6 MG PO (22:02)
[2022-08-12] MEDS: Atorvastatin Calcium 40 MG TABLET PO (22:02)
[2022-08-12] MEDS: 0.9 % Sodium Chloride Flush 10 ML SYRINGE 5 ML IVFLUSH (22:04)
[2022-08-13] VITALS (9 sets, daily range): BP systolic 111–141; BP diastolic 60–74; PULSE 88–113; RESP 18–20; TEMP 36.2–36.7; O2SAT 90–94
[2022-08-13] MEDS: Dextrose 5 % 1,000 ML 100 ML IVCONT (02:48)
[2022-08-13 06:45] LABS: Anion Gap 13 (12-20); Blood Urea Nitrogen 22 mg/dL (9-16); Calcium 8.2 mg/dL (8.4-10.2); Carbon Dioxide 21 mmol/L (22-29); Chloride 113 mmol/L (96-108); Creatinine Clr Calc Pharmacy 149.3; Estimated Glomerular Filt Rate > 60; Glucose Random 115 mg/dL (60-115); Potassium 3.6 mmol/L (3.3-5.1); Sodium 143 mmol/L (135-145)
[2022-08-13 06:52] LABS: Magnesium 1.7 mg/dL (1.6-2.6)
[2022-08-13 07:19] LABS: Glucose, Whole Blood 127 mg/dL (60-115)
[2022-08-13] MEDS: Fluticasone/Vilanterol 100/25 BLST.W.DEV 1 PUFF INHALE (08:06)
[2022-08-13] MEDS: amLODIPine Besylate 10 MG TABLET PO (09:18)
[2022-08-13] MEDS: Gabapentin 600 MG TABLET PO ×4 (09:18→21:32)
[2022-08-13] MEDS: Lactulose 20 GM/30 ML SOLUTION 30 GM PO (09:18)
[2022-08-13] MEDS: Thiamine HCL 100 MG TABLET PO ×2 (09:18→21:32)
[2022-08-13] MEDS: Multivitamin TABLET 1 TAB PO (09:18)
[2022-08-13] MEDS: Magnesium Oxide 400 MG TABLET PO ×2 (09:18→21:32)
[2022-08-13] MEDS: risperiDONE 1 MG TABLET PO ×2 (09:18→21:32)
[2022-08-13] MEDS: Cholecalciferol (Vitamin D3) 25 MCG TABLET PO (09:19)
[2022-08-13] MEDS: Pyridoxine HCl (Vitamin B6) 50 MG TABLET PO (09:19)
[2022-08-13] MEDS: Nicotine 14 MG PATCH.TD24 TRANSDERMA (09:19)
[2022-08-13] MEDS: Folic Acid 1 MG TABLET PO (09:19)
[2022-08-13] MEDS: Nystatin Powder 15 GM BOTTLE 1 APPL TOPICAL ×2 (09:22→21:37)
[2022-08-13] MEDS: Fluticasone Propionate Nasal 16 GM SPRAY 1 SPRAY NOSTRIL-B (09:23)
[2022-08-13] MEDS: Acetaminophen 325 MG TABLET 650 MG PO (09:24)
[2022-08-13] MEDS: 0.9 % Sodium Chloride Flush 10 ML SYRINGE 5 ML IVFLUSH ×4 (09:28→19:34)
[2022-08-13] MEDS: 0.9 % Sodium Chloride Flush 3 ML SYRINGE IVFLUSH ×3 (09:28→21:36)
--- NOTE | 2022-08-13 10:24 | MHC.CLN ---
F/U PO INTAKE SLIGHTLY IMPROVED 75-100% DIET RX: 2200DM CHOPPED-APPROPRIATE NOTED SERUM NA WNL PT RECEIVING ENSURE MAX BID TO INCREASE KCALS/PROTEIN FOR WOUND HEALING SUPP PROVIDES 300KCALS, 60G PROTEIN CONTINUE TO MONITOR PO INTAKE CLOSELY
--- NOTE | 2022-08-13 10:50 | MHC.CM.PN ---
Per ROUNDS discussion, Patient is still confused and not yet medically cleared for dc. Returning to [facility] at [facility] is the goal and CM will continue to follow.
[2022-08-13 11:22] LABS: Glucose, Whole Blood 142 mg/dL (60-115)
--- NOTE | 2022-08-13 12:43 | MHC.SL.SWA ---
Addendum entered and electronically signed by Alessia Berkowitz MA, CCC-TITLE OFFICER 08/13/22 14:04: D.S. Original Note: Speech Pathologist Impression: Oropharyngeal dysphagia, risk of aspiration Risk of Aspiration Due to: Neurological Condition History of Pneumonia Reduced Cognition Dysphasia Diet Status: No change Liquid Consistency and Strategies for Safe Swallow: Liquid Intake Recommendation: Thin Liquid Intake Strategies: Small Sips No Straws Solid Food Consistency: Dietary Recommendations: Chopped/Advanced (NDD3) Additional Modifications to Solid Foods: Patient would benefit from supervision during meal due to risk for aspiration, evident impulsivity/confusion, and observed difficulty manipulating items on tray. Oral Medication Intake: Crushed or Whole with Puree, depending on patient preference Please contact the pharmacy regarding appropriate crushable or liquid drug formulations that are available whenever modified delivery is recommended. Compensatory Strategies and Precautions to be Taken for Safe Swallow: Sitting Upright (90 deg) No Straw Liquids from Cup Small Bites and Sips Alternate Liquids/Solids Rate of Ingestion Change Avoid Specific Foods Supervision While Eating and Drinking for Safe Swallow: Total Supervision (1:1) Foods to Avoid: Mixed consistencies, difficult to chew solids, crunchy or crumbly solids. Swallowing Recommended Treatments: Compens. Strategy Educat. Recommendation for Speech: Outpatient Speech Therapy Inpatient Speech Therapy Comment: Recommend patient continue with CHOPPED/ADVANCED(NDD3), THIN Liquids (no straws). Recommend pills whole with liquid or puree, depending on pt preference. RN reports patient preference for pills crushed. Continue to recommend NO STRAWS, as patient is highly impulsive and an aspiration risk. Continue to recommend 1-1 supervision while eating and drinking due to patients noted impulsivity, intermittent confusion, and observed difficulty opening and holding items on tray. Recommend patient remain in seated/upright position for at least half an hour after any meal to d/t risk of aspiration. Airplane Pilot Commercial Clinican/Clinical Fellow: Yes: Danelle Garcia M.A., CF-TITLE OFFICER
--- NOTE | 2022-08-13 14:52 | P.PNIM_ITS ---
Subjective Subjective Date of Service: 08/14/22 Interval History: Patient awake alert answers some of the questions appropriately, aware of his family members, aware that he is at [facility], provide detail history of alcohol intake but confused about when was his last alcohol intake and where was he prior to coming to [place],not aware of season, requesting for methadone, denies nausea, no vomiting, no abdominal pain, taking lactulose no further episodes of diarrhea, denies lightheadedness or dizziness, complain of discomfort lower back, Martinez catheter in place with clear urine. Review of Systems Review of Systems: Yes all other systems are reviewed and are negative Physical Exam Vital Signs: Vital Signs: Last Vital Signs Temp 98.0 F 08/13/22 11:30 Pulse 113 H 08/13/22 11:30 Resp 20 08/13/22 11:30 BP 111/62 08/13/22 11:30 Pulse Ox 94 08/13/22 11:30 O2 Del Method 08/13/22 11:30 O2 Flow Rate 4 08/13/22 11:30 Oxygen Flow Rate 2 07/20/22 14:39 BMI result Body Mass Index 35.4 Const: Other: General resting comfortably in no acute distress. Neck no JVD. CVS regular rate rhythm, Respiratory lungs clear to auscultation, no respiratory distress, no wheeze, no rhonchi. Gastrointestinal abdomen soft, nontender, bowel sounds audible, no guarding , no rigidity. Extremities no edema. 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 , no asterixis Skin no rash Martinez with clear urine Objective Data Active Medications Acetaminophen (Acetaminophen 325 Mg Tablet) 650 mg PO Q6H PRN PRN Reason: Pain, Mild (Pain Scale 1-3) Last Admin: 08/13/22 09:24 Dose: 650 mg Documented By: HAIR Albuterol Sulfate (Albuterol Sulfate 90 Mcg 8 Gm Inhaler) 2 puff INHALE QID PRN PRN Reason: Shortness Of Breath Or Wheezing Amlodipine Besylate (Amlodipine Besylate 10 Mg Tablet) 10 mg PO DAILY ON [facility] OF [facility]; Protocol Last Admin: 08/13/22 09:18 Dose: 10 mg Documented By: HAIR Aspirin (Aspirin Enteric Coated 325 Mg Tablet.) 325 mg PO DAILY ON LICENSE OF [facility] Last Admin: 08/13/22 10:15 Dose: Not Given Documented By: HAIR Non-Admin Reason: needs crushable, notified Dextrose (Dextrose 50 % 25 Gm/50 Ml Syringe) 25 gm IVPUSH Q15M PRN; Protocol PRN Reason: per Hypoglycemia Standing Ord. Enoxaparin Sodium (Enoxaparin Sodium 40 Mg/0.4 Ml Syringe) 40 mg SUBCUT Q24H ON LICENSE OF [facility] Last Admin: 08/12/22 23:41 Dose: 40 mg Documented By: MIK Fluticasone Propionate (Fluticasone Propionate Nasal 16 Gm [place]) 1 spray NOSTRIL-B DAILY ON LICENSE OF [facility] Last Admin: 08/13/22 09:23 Dose: 1 spray Documented By: HAIR Fluticasone/Vilanterol (Fluticasone/Vilanterol 100/25 Blst.W.Dev) 1 puff INHALE RDAILY ON [facility] OF [facility] Last Admin: 08/13/22 08:06 Dose: 1 puff Documented By: ZACKERY Folic Acid (Folic Acid 1 Mg Tablet) 1 mg PO DAILY ON [facility] OF [facility] Last Admin: 08/13/22 09:19 Dose: 1 mg Documented By: HAIR Gabapentin (Gabapentin 600 Mg Tablet) 600 mg PO QID ON LICENSE OF [facility] Last Admin: 08/13/22 14:16 Dose: 600 mg Documented By: TRENTON Glucagon (Glucagon,Human Recombinant 1 Mg/Ml Vial) 1 mg IM Q20M PRN PRN Reason: Hypoglycemia Glucose (Glucose Gel 15 Gm Gel..Gram.) 15 gm PO Q15M PRN PRN Reason: Hypoglycemia Glucose (Glucose Gel 15 Gm Gel..Gram.) 15 gm PO Q15M PRN; Protocol PRN Reason: per Hypoglycemia Standing Ord. Insulin Human Lispro (Insulin Lispro 100 Unit/Ml 3 Ml Vial) 0 unit SUBCUT QIDACHS ON LICENSE OF [facility]; Protocol Last Admin: 08/13/22 14:16 Dose: Not Given Documented By: TRENTON Non-Admin Reason: No Insulin Coverage Lactulose (Lactulose 20 Gm/30 Ml Solution) 30 gm PO DAILY ON [facility] OF [facility] Last Admin: 08/13/22 09:18 Dose: 30 gm Documented By: HAIR Magnesium Oxide (Magnesium Oxide 400 Mg Tablet) 400 mg PO BID ON [facility] OF [facility] Last Admin: 08/13/22 09:18 Dose: 400 mg Documented By: HAIR Melatonin (Melatonin 3 Mg Tablet) 6 mg PO BEDTIME PRN PRN Reason: Insomnia Last Admin: 08/12/22 22:02 Dose: 6 mg Documented By: MIK Multivitamins/Vitamin C (Multivitamin Tablet) 1 tab PO DAILY ON [facility] OF [facility] Last Admin: 08/13/22 09:18 Dose: 1 tab Documented By: HAIR Nicotine (Nicotine 14 Mg Patch.Td24) 14 mg TRANSDERMA DAILY ON LICENSE OF [facility] Last Admin: 08/13/22 09:19 Dose: 14 mg Documented By: HAIR Nortriptyline HCl (Nortriptyline Hcl 25 Mg Capsule) 50 mg PO BEDTIME ON LICENSE OF [facility] Last Admin: 08/12/22 22:02 Dose: 50 mg Documented By: MIK Nystatin (Nystatin Powder 15 Gm Bottle) 1 appl TOPICAL BID ON LICENSE OF [facility] Last Admin: 08/13/22 09:22 Dose: 1 appl Documented By: HAIR Pharmacy Consult (Consult Rx Perform Med Rec) 1 each MISCELLANE ONCE PRN PRN Reason: Consult order Pyridoxine HCl (Pyridoxine Hcl (Vitamin B6) 50 Mg Tablet) 50 mg PO DAILY ON [facility] OF [facility] Last Admin: 08/13/22 09:19 Dose: 50 mg Documented By: HAIR Risperidone (Risperidone 1 Mg Tablet) 1 mg PO BID ON LICENSE OF [facility] Last Admin: 08/13/22 09:18 Dose: 1 mg Documented By: HAIR Sodium Biphosphate/Sodium Phosphate (Sodium Phosphate,[place]-Dibasic 133 Ml Enema) 118 ml [place] DAILY PRN PRN Reason: Constipation Sodium Chloride (0.9 % Sodium Chloride Flush 3 Ml Syringe) 3 ml IVFLUSH QSHIFT ON LICENSE OF [facility] Last Admin: 08/13/22 09:28 Dose: 3 ml Documented By: HAIR Sodium Chloride (0.9 % Sodium Chloride Flush 10 Ml Syringe) 5 ml IVFLUSH TID ON LICENSE OF [facility] Last Admin: 08/13/22 14:18 Dose: 5 ml Documented By: TRENTON Thiamine HCl (Thiamine Hcl 100 Mg Tablet) 100 mg PO BID ON LICENSE OF [facility] Last Admin: 08/13/22 09:18 Dose: 100 mg Documented By: HAIR Tiotropium [place] (Tiotropium [place] 18 Mcg Cap.W.Dev) 1 puff INHALE RDAILY ON LICENSE OF [facility] Last Admin: 08/13/22 08:06 Dose: 1 puff Documented By: ZACKERY Vitamin D (Cholecalciferol (Vitamin D3) 25 Mcg Tablet) 25 mcg PO DAILY ON LICENSE OF [facility] Last Admin: 08/13/22 09:19 Dose: 25 mcg Documented By: HAIR Labs 08/08/22 05:46 08/13/22 05:44 Labs: Laboratory Results - last 24 hr 08/12/22 08/12/22 08/13/22 16:00 21:29 05:44 Anion Gap 13 Estim Creat Clear Calc 149.3 Estimated GFR > 60 POC Glucose 134 H 160 H Random Glucose 115 Calcium 8.2 L Magnesium 08/13/22 08/13/22 08/13/22 05:44 07:12 11:17 Anion Gap Estim Creat Clear Calc Estimated GFR POC Glucose 127 H 142 H Random Glucose Calcium Magnesium 1.7 Assessment and Plan (1) Hypernatremia: Status: Acute (2) Metabolic encephalopathy: Status: Acute (3) Leukocytosis: Status: Acute (4) Altered mental status: Status: Acute Plan 62yo M with alcoholic cirrhosis, COPD, chronic hypoxia on 3L O2, DM2, HTN, vertebral fractures, sent in from [facility] where he was for STR with AMS, found to have Covid-19 infection HyperNa. Resolved sodium 143 possibly related to insensible losses from diarrhea. encourage free water intake, diuretics discontinued, bicarb 21 s/p sodium bicarb 650mg TID x6 doses. placed martinez cath for better I&O management, on August 11 positive fluid balance of greater than 4 L DC IV fluid, Follow BMP Acute encephalopathy resolved, was likely due to COVID and hepatic encephalopathy Spoke with patient's brother , patient has poor memory for last several months likely due to ch.alcohol use Brain CT neg for acute abnormality, showed mild volume loss , no further workup Leukocytosis. Persistent elevated WBC likely due to coccygeal wound, Status post IV Zosyn 08/04-08/09/22 for aspiration PNA on baseline amount of O2 [3L]. No shortness of breath, no cough, UA unremarkable, no urinary symptoms hypoK. 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 awake ,chronically confused as per family Continue lactulose no diarrhea, rectal tube DC on 08/05, C diff negative d/c'ed rectal tube on 08/05. 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 thrombocytopenia mild, stable; due to cirrhosis coccygeal wound, not pressure Wound Care consulted, recommend: zinc oxide to the pinkish perianal and buttocks , for coccygeal opening small piece of silver alginate cut to fit the hole with maddison wound zinc and secondary dressing on top DM2 ss, ada diet ,bs 142, on metformin at home currently on hold, normal renal function and lactic acid will resume metformin. COPD not in acute exac prn albuterol, triple controller inhaler therapy chronic hypoxic resp failure 3L O2 via NC HTN BP stable continue amlodipine, losartan discontinued, on aspirin 325 mg daily will lower dose to aspirin 81 mg daily AUD continue B vitamins; no evidence of withdrawal but may have ETOH dementia Covid-19 recovered, s/p dexamethasone hypotension ANEUDY resolved after fluid repletion VTE ppx: LMWH dispo: anticipate return to SNF after improvement in electrolytes, case discussed with patient brother Dmitri Brito [phone] he provided history that patient was found on the floor with left hand trapped under him on June 30 since then he has left hand weakness, he informed that patient has been drinking alcohol 1 L [place] daily, he has been in and out of hospitals due to recurrent fall related to alcohol use, mostly admitted to [facility] and he has been noted to have memory issues for last several months. He was residing alone with help few hours daily prior to tx to rehab facility. In my clinical judgment, the patient requires continued inpatient hospitalization for multiple medical issues requiring medication adjustment and safe disposition. Time Spent With Patient Time: Total time managing care of this patient today ____ minutes. Quality Stroke Does the patient have a stroke diagnosis?: No VTE Prior VTE?: No VTE Risk Level:: Medical - moderate - high VTE Device Contraindication: Treatment Not Indicated VTE Drug Contraindication: N/A - Med Ordered
[2022-08-13 15:48] LABS: Glucose, Whole Blood 120 mg/dL (60-115)
[2022-08-13 20:57] LABS: Glucose, Whole Blood 145 mg/dL (60-115)
[2022-08-13] MEDS: Nortriptyline HCl 25 MG CAPSULE 50 MG PO (21:30)
[2022-08-13] MEDS: methADONE HCl 10 MG TABLET PO (21:31)
[2022-08-13] MEDS: Melatonin 3 MG TABLET 6 MG PO (21:34)
[2022-08-14] VITALS (7 sets, daily range): BP systolic 116–137; BP diastolic 61–74; PULSE 80–108; RESP 12–22; TEMP 36.1–36.7; O2SAT 88–98
[2022-08-14] MEDS: Acetaminophen 325 MG TABLET 650 MG PO (00:13)
[2022-08-14] MEDS: Enoxaparin Sodium 40 MG/0.4 ML SYRINGE SUBCUT ×2 (00:16→23:49)
[2022-08-14 08:00] LABS: Glucose, Whole Blood 95 mg/dL (60-115)
[2022-08-14] MEDS: Fluticasone/Vilanterol 100/25 BLST.W.DEV 1 PUFF INHALE (08:08)
[2022-08-14] MEDS: 0.9 % Sodium Chloride Flush 10 ML SYRINGE 5 ML IVFLUSH ×2 (08:33→16:28)
[2022-08-14] MEDS: Lactulose 20 GM/30 ML SOLUTION 30 GM PO (08:34)
[2022-08-14] MEDS: Nicotine 14 MG PATCH.TD24 TRANSDERMA (08:34)
[2022-08-14] MEDS: methADONE HCl 10 MG TABLET PO ×2 (08:34→21:21)
[2022-08-14] MEDS: amLODIPine Besylate 10 MG TABLET PO (08:34)
[2022-08-14] MEDS: Folic Acid 1 MG TABLET PO (08:34)
[2022-08-14] MEDS: risperiDONE 1 MG TABLET PO ×2 (08:34→21:20)
[2022-08-14] MEDS: Magnesium Oxide 400 MG TABLET PO ×2 (08:34→21:20)
[2022-08-14] MEDS: Gabapentin 600 MG TABLET PO ×4 (08:35→21:20)
[2022-08-14] MEDS: Cholecalciferol (Vitamin D3) 25 MCG TABLET PO (08:35)
[2022-08-14] MEDS: Pyridoxine HCl (Vitamin B6) 50 MG TABLET PO (08:35)
[2022-08-14] MEDS: Aspirin Enteric Coated 325 MG TABLET.DR PO (08:35)
[2022-08-14] MEDS: Thiamine HCL 100 MG TABLET PO ×2 (08:35→21:21)
[2022-08-14] MEDS: Multivitamin TABLET 1 TAB PO (08:35)
[2022-08-14] MEDS: Nystatin Powder 15 GM BOTTLE 1 APPL TOPICAL ×2 (08:35→22:12)
[2022-08-14 09:12] LABS: Hematocrit 28.9 % (42.0-52.0); Hemoglobin 9.2 g/dl (14.0-18.0); Mean Corpuscular HGB Conc 31.8 g/dl (31.0-36.0); Mean Corpuscular Hemoglobin 32.5 pg (27.0-33.0); Mean Corpuscular Volume 102.1 fL (80.0-98.0); Mean Platelet Volume 11.9 fL (9.4-12.4); Red Blood Count 2.83 X10*6/uL (4.60-5.80); Red Cell Distribution Width 14.7 % (11.0-16.0)
[2022-08-14 09:14] LABS: Platelet Count 80 X10*3/uL (160-400)
[2022-08-14 09:42] LABS: Anion Gap 12 (12-20); Blood Urea Nitrogen 26 mg/dL (9-16); Calcium 8.3 mg/dL (8.4-10.2); Carbon Dioxide 20 mmol/L (22-29); Chloride 112 mmol/L (96-108); Creatinine Clr Calc Pharmacy 149.3; Estimated Glomerular Filt Rate > 60; Glucose Random 107 mg/dL (60-115); Potassium 3.9 mmol/L (3.3-5.1); Sodium 140 mmol/L (135-145)
[2022-08-14 11:35] LABS: Glucose, Whole Blood 136 mg/dL (60-115)
--- NOTE | 2022-08-14 11:36 | MHC.SL.SWA ---
Speech Pathologist Impression: Risk of Aspiration Due to: Neurological Condition History of Pneumonia Reduced Cognition Dysphasia Diet Status: Recommend patient continue with CHOPPED/ADVANCED(NDD3), THIN Liquids (no straws), pills crushed with puree. Continue to recommend NO STRAWS, as patient is highly impulsive and an aspiration risk. Continue to recommend supervision while eating and drinking due to patients noted impulsivity, intermittent confusion, and observed difficulty opening and holding items on tray. Recommend patient remain in seated/upright position for at least half an hour after any meal to d/t risk of aspiration. Liquid Consistency and Strategies for Safe Swallow: Liquid Intake Recommendation: Thin Liquid Intake Strategies: Small Sips No Straws Solid Food Consistency: Dietary Recommendations: Chopped/Advanced (NDD3) Additional Modifications to Solid Foods: Patient would benefit from supervision during meal due to risk for aspiration, evident impulsivity/confusion, and observed difficulty manipulating items on tray. Oral Medication Intake: Crushed with Puree Please contact the pharmacy regarding appropriate crushable or liquid drug formulations that are available whenever modified delivery is recommended. Compensatory Strategies and Precautions to be Taken for Safe Swallow: Sitting Upright (90 deg) No Straw Liquids from Cup Small Bites and Sips Alternate Liquids/Solids Rate of Ingestion Change Avoid Specific Foods Supervision While Eating and Drinking for Safe Swallow: Total Supervision (1:1) Foods to Avoid: Mixed consistencies, difficult to chew solids, crunchy or crumbly solids. Swallowing Recommended Treatments: Compens. Strategy Educat. Recommendation for Speech: Outpatient Speech Therapy Inpatient Speech Therapy Comment: Patient seen this morning as he was finishing breakfast. Patient was eating chopped peaches from container, had spilled some peaches on self. Patient produced a rotary chew on solids, timely oral phase, timely swallow, no clinical signs of aspiration. Patient noted to have eaten remainder of breakfast (pancakes and eggs), and had already consumed nutritional shake with straw present in container. HEEL PAINTER warmed up coffee and prepared it to patient's request. Patient took cup independently and took sips of the hot liquid, producing a timely oral phase and swallow, no clinical signs of aspiration. Recommend Patient continue on current diet, Chopped/Advanced (NDD3) with THIN liquids, pills crushed in puree (patient's stated preference). Continue to recommend NO STRAWS, as patient is impulsive, gulps liquids by straw creating aspiration risk. Due to patients impulsivity, confusion, continue to recommend supervision during his meals. Patient is on least restrictive diet, has been stable/tolerating diet for multiple days. No further HEEL PAINTER service recommended at this time, Please re-contact if any additional concerns arise. Frequency/Duration: Date Range for Service Req: Timeline to reassess: Assistant Account Manager Clinican/Clinical Fellow: No Supervisory Statement: I have reviewed and agree with the student/clinical fellow's documentation: N/A Speech Language Pathologist: Leeanne Hodge M.A., [facility]-HEEL PAINTER
--- NOTE | 2022-08-14 11:57 | MHC.CM.PN ---
DP: [facility] IS WILLING TO ACCEPT PT BACK FOR STR ON 08/15/22 PER LIAHAMILTON Nye. THEY HAVE BEGUN THE AUTH PROCESS WITH [facility]. MADE AWARE.
[2022-08-14] MEDS: Fluticasone Propionate Nasal 16 GM SPRAY 1 SPRAY NOSTRIL-B (12:47)
--- NOTE | 2022-08-14 14:10 | PC.NURSE ---
took martinez out per providers order. pt tolerated it well. [place] cath in place. dressed coccyx wound
[2022-08-14 15:56] LABS: Glucose, Whole Blood 129 mg/dL (60-115)
--- NOTE | 2022-08-14 17:05 | HO.PM.IMPN ---
Subjective Subjective Date of Service: 08/15/22 Interval History: Complaining of lower back pain at site of coccyx wound, tolerating diet, with no nausea, no vomiting, no abdominal pain, no diarrhea, no other acute issues overnight, being followed by speech therapy they continue to recommend chopped/advanced diet, with thin liquids, pill crushed with puree. Review of Systems Review of Systems: Yes all other systems are reviewed and are negative Physical Exam Vital Signs: Vital Signs: Last Vital Signs Temp 96.9 F 08/14/22 15:43 Pulse 94 08/14/22 15:43 Resp 18 08/14/22 15:43 BP 124/65 08/14/22 15:43 Pulse Ox 93 08/14/22 15:43 O2 Del Method 08/14/22 15:43 O2 Flow Rate 4 08/14/22 15:43 Oxygen Flow Rate 2 07/20/22 14:39 BMI result Body Mass Index 35.4 Const: Other: General in mild distress due to lower back pain.? Neck no JVD. CVS? regular rate rhythm, Respiratory lungs clear to auscultation, no respiratory distress, no wheeze, no rhonchi. Gastrointestinal abdomen soft, nontender, bowel sounds audible, no guarding , no rigidity. Extremities no edema.? 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 , no asterixis Skin no rash Higginbotham with clear urine Objective Data Active Medications Acetaminophen (Acetaminophen 325 Mg Tablet) 650 mg PO Q6H PRN PRN Reason: Pain, Mild (Pain Scale 1-3) Last Admin: 08/14/22 00:13 Dose: 650 mg Documented By: KELLY Albuterol Sulfate (Albuterol Sulfate 90 Mcg 8 Gm Inhaler) 2 puff INHALE QID PRN PRN Reason: Shortness Of Breath Or Wheezing Amlodipine Besylate (Amlodipine Besylate 10 Mg Tablet) 10 mg PO DAILY [facility]; Protocol Last Admin: 08/14/22 08:34 Dose: 10 mg Documented By: FRAN Aspirin (Aspirin 81 Mg Tab.Chew) 81 mg PO DAILY [facility] Dextrose (Dextrose 50 % 25 Gm/50 Ml Syringe) 25 gm IVPUSH Q15M PRN; Protocol PRN Reason: per Hypoglycemia Standing Ord. Enoxaparin Sodium (Enoxaparin Sodium 40 Mg/0.4 Ml Syringe) 40 mg SUBCUT Q24H [facility] Last Admin: 08/14/22 00:16 Dose: 40 mg Documented By: KELLY Fluticasone Propionate (Fluticasone Propionate Nasal 16 Gm [place]) 1 spray NOSTRIL-B DAILY [facility] Last Admin: 08/14/22 12:47 Dose: 1 spray Documented By: FRAN Fluticasone/Vilanterol (Fluticasone/Vilanterol 100/25 Blst.W.Dev) 1 puff INHALE RDAILY [facility] Last Admin: 08/14/22 08:08 Dose: 1 puff Documented By: MARY Folic Acid (Folic Acid 1 Mg Tablet) 1 mg PO DAILY [facility] Last Admin: 08/14/22 08:34 Dose: 1 mg Documented By: FRAN Gabapentin (Gabapentin 600 Mg Tablet) 600 mg PO QID [facility] Last Admin: 08/14/22 16:32 Dose: 600 mg Documented By: FRAN Glucagon (Glucagon,Human Recombinant 1 Mg/Ml Vial) 1 mg IM Q20M PRN PRN Reason: Hypoglycemia Glucose (Glucose Gel 15 Gm Gel..Gram.) 15 gm PO Q15M PRN PRN Reason: Hypoglycemia Glucose (Glucose Gel 15 Gm Gel..Gram.) 15 gm PO Q15M PRN; Protocol PRN Reason: per Hypoglycemia Standing Ord. Insulin Human Lispro (Insulin Lispro 100 Unit/Ml 3 Ml Vial) 0 unit SUBCUT QIDACHS [facility]; Protocol Last Admin: 08/14/22 16:27 Dose: Not Given Documented By: FRAN Non-Admin Reason: No Insulin Coverage Lactulose (Lactulose 20 Gm/30 Ml Solution) 30 gm PO DAILY [facility] Last Admin: 08/14/22 08:34 Dose: 30 gm Documented By: FRAN Magnesium Oxide (Magnesium Oxide 400 Mg Tablet) 400 mg PO BID [facility] Last Admin: 08/14/22 08:34 Dose: 400 mg Documented By: FRAN Melatonin (Melatonin 3 Mg Tablet) 6 mg PO BEDTIME PRN PRN Reason: Insomnia Last Admin: 08/13/22 21:34 Dose: 6 mg Documented By: KELLY Methadone HCl (Methadone Hcl 10 Mg Tablet) 10 mg PO BID [facility] Last Admin: 08/14/22 08:34 Dose: 10 mg Documented By: FRAN Multivitamins/Vitamin C (Multivitamin Tablet) 1 tab PO DAILY [facility] Last Admin: 08/14/22 08:35 Dose: 1 tab Documented By: FRAN Nicotine (Nicotine 14 Mg Patch.Td24) 14 mg TRANSDERMA DAILY [facility] Last Admin: 08/14/22 08:34 Dose: 14 mg Documented By: FRAN Nortriptyline HCl (Nortriptyline Hcl 25 Mg Capsule) 50 mg PO BEDTIME [facility] Last Admin: 08/13/22 21:30 Dose: 50 mg Documented By: KELLY Nystatin (Nystatin Powder 15 Gm Bottle) 1 appl TOPICAL BID [facility] Last Admin: 08/14/22 08:35 Dose: 1 appl Documented By: FRAN Pharmacy Consult (Consult Rx Perform Med Rec) 1 each MISCELLANE ONCE PRN PRN Reason: Consult order Pyridoxine HCl (Pyridoxine Hcl (Vitamin B6) 50 Mg Tablet) 50 mg PO DAILY [facility] Last Admin: 08/14/22 08:35 Dose: 50 mg Documented By: FRAN Risperidone (Risperidone 1 Mg Tablet) 1 mg PO DAILY [facility] Sodium Biphosphate/Sodium Phosphate (Sodium Phosphate,[place]-Dibasic 133 Ml Enema) 118 ml [place] DAILY PRN PRN Reason: Constipation Sodium Chloride (0.9 % Sodium Chloride Flush 3 Ml Syringe) 3 ml IVFLUSH QSHIFT [facility] Last Admin: 08/14/22 16:29 Dose: Not Given Documented By: FRAN Non-Admin Reason: iv dc Sodium Chloride (0.9 % Sodium Chloride Flush 10 Ml Syringe) 5 ml IVFLUSH TID [facility] Last Admin: 08/14/22 16:28 Dose: 5 ml Documented By: FRAN Thiamine HCl (Thiamine Hcl 100 Mg Tablet) 100 mg PO BID [facility] Last Admin: 08/14/22 08:35 Dose: 100 mg Documented By: FRAN Tiotropium [place] (Tiotropium [place] 18 Mcg Cap.W.Dev) 1 puff INHALE RDAILY [facility] Last Admin: 08/14/22 08:09 Dose: 1 puff Documented By: SIGRIDRICEmma Vitamin D (Cholecalciferol (Vitamin D3) 25 Mcg Tablet) 25 mcg PO DAILY [facility] Last Admin: 08/14/22 08:35 Dose: 25 mcg Documented By: FRAN Labs 08/14/22 08:52 08/14/22 08:52 Labs: Laboratory Results - last 24 hr 08/13/22 08/14/22 08/14/22 20:53 07:56 08:52 MCV 102.1 H MCH 32.5 MCHC 31.8 RDW 14.7 Plt Count 80 L MPV 11.9 Absolute Nucleated RBC 0.000 Nucleated RBC % (auto) 0.0 Anion Gap Estim Creat Clear Calc Estimated GFR POC Glucose 145 H 95 Random Glucose Calcium 08/14/22 08/14/22 08/14/22 08:52 11:16 15:46 MCV MCH MCHC RDW Plt Count MPV Absolute Nucleated RBC Nucleated RBC % (auto) Anion Gap 12 Estim Creat Clear Calc 149.3 Estimated GFR > 60 POC Glucose 136 H 129 H Random Glucose 107 Calcium 8.3 L Assessment and Plan (1) Hypernatremia: Status: Acute (2) Metabolic encephalopathy: Status: Acute (3) Leukocytosis: Status: Acute (4) Altered mental status: Status: Acute Plan 62yo M with alcoholic cirrhosis, COPD, chronic hypoxia on 3L O2, DM2, HTN, vertebral fractures, sent in from [facility] where he was for STR with AMS, found to have Covid-19 infection HyperNa. Resolved sodium 140,was possibly related to insensible losses from diarrhea. encourage free water intake, diuretics discontinued, bicarb 21 s/p sodium bicarb 650mg TID x6 doses. 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 Leukocytosis. Persistent elevated WBC likely due to coccygeal wound, Status post IV Zosyn 08/04-08/09/22 for aspiration PNA on baseline amount of 3L of oxygen. No shortness of breath, no cough, UA unremarkable, no urinary symptoms hypoK. 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 T9/T12 vertebral fractures was on methadone x 1 year , was stopped due to encephalopathy patient awake alert requesting to resume methadone, will resume methadone b.i.d. History of opiate use disorder continue methadone thrombocytopenia mild, stable; due to cirrhosis, no bleeding coccygeal wound, not pressure Wound Care consulted, recommend: zinc oxide to the pinkish perianal and buttocks , for coccygeal opening small piece of silver alginate cut to fit the hole with maddison wound zinc and secondary dressing on top DM2 ss, ada diet ,bs 142, on metformin at home currently on hold, normal renal function and lactic acid will resume metformin. COPD not in acute exac prn albuterol, triple controller inhaler therapy chronic hypoxic resp failure 3L O2 via NC HTN BP stable continue amlodipine, losartan discontinued, on aspirin 325 mg daily will lower dose to aspirin 81 mg daily AUD continue B vitamins; no evidence of withdrawal but may have ETOH dementia Covid-19 recovered, s/p dexamethasone hypotension ANEUDY resolved after fluid repletion VTE ppx: LMWH dispo: anticipate return to SNF In my clinical judgment, the patient requires continued inpatient hospitalization for multiple medical issues requiring medication adjustment and safe disposition. Time Spent With Patient Time: Total time managing care of this patient today ____ minutes. Quality Stroke Does the patient have a stroke diagnosis?: No VTE Prior VTE?: No VTE Risk Level:: Medical - moderate - high VTE Device Contraindication: Treatment Not Indicated VTE Drug Contraindication: N/A - Med Ordered
[2022-08-14 19:54] LABS: Glucose, Whole Blood 123 mg/dL (60-115)
[2022-08-14] MEDS: Nortriptyline HCl 25 MG CAPSULE 50 MG PO (21:20)
[2022-08-14] MEDS: Melatonin 3 MG TABLET 6 MG PO (21:20)
[2022-08-14] MEDS: 0.9 % Sodium Chloride Flush 3 ML SYRINGE IVFLUSH (21:20)
[2022-08-15] VITALS (7 sets, daily range): BP systolic 122–165; BP diastolic 62–78; PULSE 76–95; RESP 15–20; TEMP 36.4–36.7; O2SAT 90–98
[2022-08-15] MEDS: Omeprazole 20 MG CAPSULE.DR PO (05:45)
[2022-08-15 07:12] LABS: Cholesterol 122 mg/dL; HDL Cholesterol 12 mg/dL; LDL Cholesterol Calculated 86 mg/dl; Triglycerides 120 mg/dL
[2022-08-15 07:12] LABS: Glucose, Whole Blood 95 mg/dL (60-115)
[2022-08-15 07:45] LABS: Estimated Average Glucose 108 mg/dL; Hemoglobin A1c % 5.4 %
[2022-08-15] MEDS: Fluticasone/Vilanterol 100/25 BLST.W.DEV 1 PUFF INHALE (08:07)
[2022-08-15] MEDS: Nystatin Powder 15 GM BOTTLE 1 APPL TOPICAL (09:03)
[2022-08-15] MEDS: Folic Acid 1 MG TABLET PO (09:03)
[2022-08-15] MEDS: Pyridoxine HCl (Vitamin B6) 50 MG TABLET PO (09:03)
[2022-08-15] MEDS: Fluticasone Propionate Nasal 16 GM SPRAY 1 SPRAY NOSTRIL-B (09:03)
[2022-08-15] MEDS: Lactulose 20 GM/30 ML SOLUTION 30 GM PO (09:03)
[2022-08-15] MEDS: risperiDONE 1 MG TABLET PO (09:03)
[2022-08-15] MEDS: Cholecalciferol (Vitamin D3) 25 MCG TABLET PO (09:04)
[2022-08-15] MEDS: Multivitamin TABLET 1 TAB PO (09:04)
[2022-08-15] MEDS: methADONE HCl 10 MG TABLET PO (09:04)
[2022-08-15] MEDS: amLODIPine Besylate 10 MG TABLET PO (09:04)
[2022-08-15] MEDS: Magnesium Oxide 400 MG TABLET PO (09:04)
[2022-08-15] MEDS: Aspirin 81 MG TAB.CHEW PO (09:04)
[2022-08-15] MEDS: Nicotine 14 MG PATCH.TD24 TRANSDERMA (09:04)
[2022-08-15] MEDS: Thiamine HCL 100 MG TABLET PO (09:04)
[2022-08-15] MEDS: Gabapentin 600 MG TABLET PO ×3 (09:04→17:45)
[2022-08-15] MEDS: 0.9 % Sodium Chloride Flush 10 ML SYRINGE 5 ML IVFLUSH ×2 (09:07→14:24)
[2022-08-15 11:03] LABS: Glucose, Whole Blood 130 mg/dL (60-115)
--- NOTE | 2022-08-15 11:53 | P.DS_ITS ---
DS: Providers Provider Date of Service: 08/15/22 Date of admission: 07/20/22 23:17 Primary care physician: Unknown Physician Consults: 07/20/22 23:22 Consult to Vascular Surgery Routine Consulting Provider: Joce Hernandez Reason for consultation: Dilated ascending thoracic aorta Has provider been notified: No 07/28/22 14:57 Consult to Nephrology Routine Consulting Provider: Mau Sinclair Reason for consultation: Hypernatremia Has provider been notified: No 08/02/22 12:25 Consult to Infectious Diseases Stat Consulting Provider: Tala Barnes Reason for consultation: Leukocytosis Has provider been notified: Yes 08/04/22 11:08 Consult for Sitter Routine Reason for consultation: sitter 08/04/22 14:53 Consult to Wound Care Routine Consulting Provider: [facility] [place] W[facility] Care Management Reason for consultation: coccygeal ulcer DS: Diagnosis Discharge Diagnosis (1) Hypernatremia: Status: Acute (2) Metabolic encephalopathy: Status: Acute (3) Leukocytosis: Status: Acute (4) Altered mental status: Status: Acute DS: Summary Hospital Course Hospital Course: History of presenting illness: Date of Service: 07/20/22 Attending physician on admission: Earle Sears Chief Complaint: AMS Pt is a 62-year-old male with a PMH significant for?COPD, chronic hypoxic respiratory failure on 3 L of O2 at home, xjt-vjbfvle-zppocsiag DM 2, HTN, and H/O vertebral fractures who presents from an SNF to the ED with altered mental status.? HPI difficult to obtain from the patient due to his mental status so instead taken from EMS and review of medical records.? Per EMS patient's symptoms began after his shower earlier this morning when he began to have ch anges to his mental status and spiked fever of 101 and became hypotensive.? In interviewing the patient he has no recollection of this event and is unaware where he is, why and how he got there.? Patient is seen crying, agitated, and attempting to climb out of bed. Besides wanting to go home patient has no acute complaints.? Of note patient was recently admitted to [facility] from July 03 through July 18 when he was transferred from [facility] due to findings of T9 and T12 vertebral fractures suffered during a fall.? His hospital course was complicated by left upper extremity swelling, rhabdomyolysis, leukocytosis, ANEUDY, transaminitis, acute hypoxic respiratory failure, AMS, aspiration pneumonia and acute alcohol withdrawal. ? In the ED patient was found have a fever of 101.3 with a blood pressure as low as 85/41. Labs were significant for no leukocytosis, H&H of 10.6/33.2, BUN of 27, creatinine of 1.45, mild transaminitis, hyperbilirubinemia, and alk phos, and elevated ammonia at 76. CXR showed no evidence for acute infiltrates or failure. CT?of chest showed T12 fracture, small amount of secretions/mucus versus aspirated debris in the trachea and right mainstem bronchus, trace left pleural effusion, evidence of asbestos exposure, borderline dilated ascending thoracic aorta of 4 cm, in findings compatible with cirrhosis and portal hypertension with splenomegaly and small amount of perihepatic ascites. Pt was treated with fluids for hypotension. Pt will be admitted to the hospital for treatment of AMS and hypotension. Hospital course 62yo M with alcoholic cirrhosis, COPD, chronic hypoxia on 3L O2, DM2, HTN, vertebral fractures, sent in from [facility] where he was for STR with AMS, found to have Covid-19 infection and diagnosed to have acute toxic metabolic encephalopathy, ANEUDY and hypernatremia HyperNatremia.? Resolved sodium 140,was possibly related to insensible losses from diarrhea, decreased by mouth intake, no further intervention recommended, encourage by mouth fluids. 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 Leukocytosis.? Persistent elevated WBC likely due to coccygeal wound, Status post IV Zosyn 08/04-08/09/22 for aspiration PNA, on baseline amount of 3L of oxygen, no shortness of breath, no cough, UA unremarkable, no urinary s ymptoms?follow CBC in 1 week Hyperlipidemia stop statins due to elevated LFTs, LDL 86 with total cholesterol of 122 an HDL of 12 recommend activity as tolerated. 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 T9/T12 vertebral fractures stable pain control continue methadone History of opiate use disorder continue methadone coccygeal wound, not pressure, Wound Care consulted, recommend: small piece of silver alginate cut to fit the hole with maddison wound zinc and secondary dressing on top DM2 was on metformin as outpatient noted to have a hemoglobin A1c of 5.4 will stop metformin , recommend periodic checks on blood sugars. COPD with chronic hypoxic respiratory failure had no acute exacerbation continue home inhalers continue 3L O2 via [place] HTN BP stable continue amlodipine, losartan discontinued, on aspirin 325 mg daily ,lowered dose to aspirin 81 mg daily. Covid-19 recovered, s/p dexamethasone Diarrhea resolved Time Spent with Patient Time attestation: Total time managing care of this patient today ____ minutes. Discharge coordination time: Greater than 30 minutes Quality: Safe Use of Opioids Does Pt have an Active Cancer Diagnosis on the Problem List?: No Quality: Stroke Does the patient have a stroke diagnosis?: No Physical Exam Vital Signs: Vital Signs: Last Vital Signs Temp 98.0 F 08/15/22 07:32 Pulse 91 08/15/22 10:37 Resp 15 08/15/22 08:09 BP 140/62 H 08/15/22 07:32 Pulse Ox 94 08/15/22 10:37 O2 Del Method 08/15/22 07:32 O2 Flow Rate 3 08/15/22 07:32 Oxygen Flow Rate 2 07/20/22 14:39 BMI result Body Mass Index 35.4 Const: Other: General in mild distress due to lower back pain.? Neck no JVD. CVS? regular rate rhythm, Respiratory lungs clear to auscultation, no respiratory distress, no wheeze, no rhonchi. Gastrointestinal abdomen soft, nontender, bowel sounds audible, no guarding , no rigidity. Extremities no edema.? Neuro nonfocal , speech clear, moving all 4 extremity , decreased L hand ticket sorter , no asterixis Skin no rash [place] with clear urine DS: Data Data Completed and Pending Labs on day of discharge: Laboratory Results - last 24 hr 08/14/22 08/14/22 08/15/22 15:46 19:50 06:05 POC Glucose 129 H 123 H Estimat Average Glucose Hemoglobin A1c % Triglycerides 120 Cholesterol 122 LDL Cholesterol, Calc 86 HDL Cholesterol 12 08/15/22 08/15/22 08/15/22 06:05 07:01 10:59 POC Glucose 95 130 H Estimat Average Glucose 108 Hemoglobin A1c % 5.4 Triglycerides Cholesterol LDL Cholesterol, Calc HDL Cholesterol Discharge Plan Discharge Anticipated Discharge Date/Time: 08/15/22 11:39 Patient Disposition: Xfer SNF Discharge Diagnosis: Acute toxic metabolic encephalopathy resolved COVID-19 infection 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 T9/T12 vertebral fractures Hypernatremia Referrals: [facility] [Outside] - 1 Week Physician,Unknown J [Primary Care Provider] - 1 Week Discharge Medications: New lactulose 20 gram/30 mL Solution 30 g PO DAILY Qty: 1200 0RF Spiriva with HandiHaler 18 mcg Capsule, W/Inhalation Device 18 mcg inhalation RDAILY Qty: 30 0RF omeprazole 20 mg Capsule,Delayed Release(Dr/Ec) 20 mg PO DAILY@0630 Qty: 30 0RF aspirin 81 mg Tablet,Chewable 81 mg PO DAILY Qty: 30 0RF risperidone 1 mg Tablet 1 mg PO BID Qty: 30 0RF Continued multivitamin Tablet 1 tab PO DAILY acetaminophen 325 mg Tablet 650 mg PO Q6H PRN (Reason: Fever Or Pain) gabapentin 600 mg Tablet 600 mg PO QID Rx Instructions: @ 0800, 1200, 1800, 2000 nicotine 14 mg/24 hr Patch 24 Hour 1 patch TRANSDERMAL DAILY ipratropium-albuterol 0.5 mg-3 mg(2.5 mg base)/3 mL Solution For Nebulization 3 ml INHALATION QID PRN (Reason: Shortness Of Breath Or Wheezing) levalbuterol HCl 0.63 mg/3 mL Solution For Nebulization 0.63 mg INHALATION TID PRN (Reason: Shortness Of Breath Or Wheezing) dextrose [Glucose Gel] 40 % Gel 15 g PO Q15M PRN (Reason: Hypoglycemia) Rx Instructions: until symptoms of low blood sugar are controlled thiamine HCl (vitamin B1) 100 mg Tablet 100 mg PO BID magnesium oxide 400 mg (241.3 mg magnesium) Tablet 400 mg PO BID magnesium hydroxide [Milk of Magnesia] 400 mg/5 mL Suspension 30 ml PO DAILY PRN (Reason: Constipation) amlodipine 10 mg Tablet 10 mg PO DAILY bisacodyl 10 mg Suppository 10 mg TX DAILY PRN (Reason: Constipation) Rx Instructions: use if milk of magnesia doesn't work Fleet Enema 19-7 gram/118 mL Enema 118 ml TX DAILY PRN (Reason: Constipation) Rx Instructions: when bisacodyl is ineffective pyridoxine (vitamin B6) 50 mg Tablet 50 mg PO DAILY folic acid 1 mg Tablet 1 mg PO DAILY testosterone cypionate 200 mg/mL oil 1 ml IM Q2W Rx Instructions: STARTING 08/02/2022 albuterol sulfate [ProAir HFA] 90 mcg/actuation Hfa Aerosol Inhaler 2 puff INHALATION QID PRN (Reason: Shortness Of Breath Or Wheezing) hydroxyzine HCl 10 mg Tablet 20 mg PO TID PRN (Reason: Anxiety) fluticasone propionate [Flonase Allergy Relief] 50 mcg/actuation [place],Suspension 1 spray INTRANASAL DAILY Rx Instructions: administer into each nostril nortriptyline 50 mg Capsule 50 mg PO BEDTIME methadone 5 mg/5 mL Solution 10 mg PO BID methadone 5 mg/5 mL Solution 5 mg PO DAILY@1200 cholecalciferol (vitamin D3) [Vitamin D3] 25 mcg (1,000 unit) Tablet 25 mcg PO DAILY melatonin 5 mg Tablet 5 mg PO BEDTIME PRN (Reason: Insomnia) omega 9-mxu-cvh-fish oil 1,000 mg (120 mg-180 mg) Capsule 1 cap PO TIDAC omega 0-vxo-aee-fish oil 1,000 mg (120 mg-180 mg) Capsule 1 cap PO BEDTIME Trelegy Ellipta 100-62.5-25 mcg Blister With Device 1 inh INHALATION DAILY glucagon 1 mg/0.2 mL Solution 1 mg SUBCUT Q20M PRN (Reason: Hypoglycemia) Rx Instructions: until target blood sugar attained Discontinued metformin 500 mg Tablet 500 mg PO DAILY@0800 aspirin 325 mg Tablet,Delayed Release (Dr/Ec) 325 mg PO DAILY metformin 1,000 mg Tablet 1,000 mg PO DAILY@1700 losartan 100 mg Tablet 100 mg PO DAILY rosuvastatin 10 mg Tablet 10 mg PO BEDTIME Discharge Orders: Discharge Order (Routine); Ordered 08/15/22 Ordered By: Ramon Kasper Diet: Diabetic diet Activity on Discharge: As tolerated Stand Alone Forms: Patient Portal Discharge page Care Plan Goals: Acute encephalopathy resolved patient is at baseline with chronic alcohol- induced mild dementia, blood sugars stable hemoglobin A1c 5.4 Persistent left hand weakness due to recent fall recommend brace at night and range of motion exercises 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ism Continue methadone for chronic opiate use COPD continue home oxygen 3 L, continue home inhalers T9/T12 vertebral fractures stable pain control Health Concerns: Cirrhosis follow LFTs, continue lactulose, diabetes mellitus stable follow blood sugars periodically Take all medications as prescribed. Plan of Treatment: Follow-up with primary care physician Assessment: As above
[2022-08-15 15:21] LABS: Glucose, Whole Blood 116 mg/dL (60-115)
--- NOTE | 2022-08-15 17:04 | HO.REMOVAL ---
Removal of PICC/Midline Removal of PICC/Midline: Removal of PICC: 1. Date: [08/15/2022 2. Reason removed: [NO LONGER NEEDED] 3. Inserted length: [45CM DOUBLE LUMEN PICC 5FR] 4. Removed length: [INTACT 45CM DOUBLE LUMEN 5 FR PICC] 5. A dressing (XERFORM/GAUAZE AND TEGADERM) was placed over the site upon removal. No edema or bleeding at the site.
== END 2022-08-15 20:23 | disposition skilled nursing facility (03) | DRG 177 ==
LOC: HO.ED 07-21 03:30 → HO.EDOVER 07-21 03:49 → HO.IMC 07-21 19:00
PROVIDERS: Family Medicine; Hospitalist; Internal Medicine; Nurse Practitioner Acute Care; Student in an Organized Health Care Education/Training Program; Admitting Provider Internal Medicine; Emergency Provider Emergency Medicine; Visit Provider Hospitalist
DX: U07.1 COVID-19 (principal); G92.8 Other toxic encephalopathy; J69.0 Pneumonitis due to inhalation of food and vomit; F10.27 Alcohol dependence with alcohol-induced persisting dementia; F11.20 Opioid dependence, uncomplicated; J96.11 Chronic respiratory failure with hypoxia; N17.9 Acute kidney failure, unspecified; E87.0 Hyperosmolality and hypernatremia; F05 Delirium due to known physiological condition; E87.20 Acidosis, unspecified; I77.810 Thoracic aortic ectasia; F41.9 Anxiety disorder, unspecified; E11.9 Type 2 diabetes mellitus without complications; J44.9 Chronic obstructive pulmonary disease, unspecified; I10 Essential (primary) hypertension; Z99.81 Dependence on supplemental oxygen; M54.9 Dorsalgia, unspecified; L98.491 Non-pressure chronic ulcer of skin of other sites limited to breakdown of skin; E87.6 Hypokalemia; D72.829 Elevated white blood cell count, unspecified; D69.59 Other secondary thrombocytopenia; K70.30 Alcoholic cirrhosis of liver without ascites; E78.5 Hyperlipidemia, unspecified; L30.8 Other specified dermatitis; G89.29 Other chronic pain; K76.82 Hepatic encephalopathy; E86.0 Dehydration; I95.89 Other hypotension; Z88.8 Allergy status to other drugs, medicaments and biological substances; Z79.51 Long term (current) use of inhaled steroids; Z79.899 Other long term (current) drug therapy
CPT/HCPCS: 0241U; 36415; 36573; 70450; 71045; 71250; 80048; 80053; 80061; 80076; 80202; 81001; 82140; 82436; 82803; 82947; 83036; 83605; 83690; 83735; 83880; 83935; 84133; 84145; 84295; 84300; 84484; 85025; 85027; 85610; 86140; 87040; 87493; 87507; 87635; 89055; 92526; 92610; 93005; 93971; 94640; 97110; 97116; 97162; 97530; 99285; C1751; C1758; J1100; J1650; J1940; J2060; J2543; J3370; J3371; P9047

== ENCOUNTER 2022-09-28 00:15 | Emergency (ER) | payer OTHER, SELFPAY ==
--- NOTE | ~2022-09-28 | XR_ITS ---
EXAMINATION: XR CHEST CLINICAL INFORMATION: Cough COMPARISON: 07/24/2022 TECHNIQUE: Frontal view of the chest was obtained. FINDINGS: Emphysema with diffuse mild bronchial thickening. No discrete consolidation. Bilateral calcified pleural plaques. Stable cardiomediastinal silhouette. No pneumothorax. No acute osseous abnormalities. XR/XR chest 1V IMPRESSION: * No focal consolidation. * Emphysema and chronic bronchitis. * Bilateral calcified pleural plaques.
[2022-09-28 00:22] VITALS: BP 111/61; BP 120/70; PULSE 111; PULSE 114; RESP 21; TEMP 38.1; O2SAT 94; O2SAT 96; BMI 28.0
--- NOTE | 2022-09-28 00:40 | ED.GENADULT ---
HPI - General Adult General Chief complaint: Upper Respiratory Symptoms Stated complaint: BACK PAIN,FEVER 101.5,91% 3LPM FROM SNF PER EMS Time Seen by Provider: 09/28/22 00:20 Source: patient, EMS and RN notes reviewed Mode of arrival: EMS Limitations: no limitations History of Present Illness HPI narrative: Patient is 62 years old with history of alcoholism, COPD, chronic hypoxemic respiratory failure on 2-3 L of oxygen, type 2 diabetes mellitus, hypertension, history of vertebral fracture (T9, T12) , alcoholic cirrhosis, toxic metabolic encephalopathy came from rehab for fever and cough for last 1 week with T-max 101.5 degrees today desaturated to 88% on 2 L complaining of increased pain in the back when he coughs having mucopurulent expectoration similar to that in 08/11 when he had aspiration pneumonia. On arrival rectal temperature was 100.6 heart rate of 111 blood pressure 111/61 Related Data Home Medications Medication Instructions Recorded Confirmed acetaminophen 325 mg tablet 650 mg PO Q6H PRN Fever Or Pain 07/20/22 07/20/22 albuterol sulfate 90 mcg/actuation 2 puff inhalation QID PRN 07/20/22 07/20/22 aerosol inhaler (ProAir HFA) Shortness Of Breath Or Wheezing amlodipine 10 mg tablet 10 mg PO DAILY 07/20/22 07/20/22 bisacodyl 10 mg rectal suppository 10 mg IL DAILY PRN Constipation 07/20/22 07/20/22 cholecalciferol (vitamin D3) 25 25 mcg PO DAILY 07/20/22 07/20/22 mcg (1,000 unit) tablet (Vitamin D3) dextrose 40 % oral gel (Glucose 15 g PO Q15M PRN Hypoglycemia 07/20/22 07/20/22 Gel) fluticasone fur. 100 mcg-umeclid 1 inh inhalation DAILY 07/20/22 07/20/22 62.5 mcg-vilant 25 mcg inhalat.powder (Trelegy Ellipta) fluticasone propionate 50 1 spray intranasal DAILY 07/20/22 07/20/22 mcg/actuation nasal spray,suspension (Flonase Allergy Relief) folic acid 1 mg tablet 1 mg PO DAILY 07/20/22 07/20/22 gabapentin 600 mg tablet 600 mg PO QID 07/20/22 07/20/22 glucagon 1 mg/0.2 mL subcutaneous 1 mg subcut Q20M PRN Hypoglycemia 07/20/22 07/20/22 solution hydroxyzine HCl 10 mg tablet 20 mg PO TID PRN Anxiety 07/20/22 07/20/22 ipratropium 0.5 mg-albuterol 3 mg 3 ml inhalation QID PRN Shortness 07/20/22 07/20/22 (2.5 mg base)/3 mL nebulization Of Breath Or Wheezing soln levalbuterol HCl 0.63 mg/3 mL 0.63 mg inhalation TID PRN 07/20/22 07/20/22 solution for nebulization Shortness Of Breath Or Wheezing magnesium hydroxide 400 mg/5 mL 30 ml PO DAILY PRN Constipation 07/20/22 07/20/22 oral suspension (Milk of Magnesia) magnesium oxide 400 mg (241.3 mg 400 mg PO BID 07/20/22 07/20/22 magnesium) tablet melatonin 5 mg tablet 5 mg PO BEDTIME PRN Insomnia 07/20/22 07/20/22 methadone 5 mg/5 mL oral solution 5 mg PO DAILY@1200 rhabdomyolysis 07/20/22 07/20/22 methadone 5 mg/5 mL oral solution 10 mg PO BID rhabdomyolysis 07/20/22 07/20/22 multivitamin 1 tab PO DAILY 07/20/22 07/20/22 nicotine 14 mg/24 hr daily 1 patch transdermal DAILY 07/20/22 07/20/22 transdermal patch nortriptyline 50 mg capsule 50 mg PO BEDTIME 07/20/22 07/20/22 omega 0-wjw-vhi-fish oil 1,000 mg 1 cap PO BEDTIME 07/20/22 07/20/22 (120 mg-180 mg) capsule omega 8-ens-pdv-fish oil 1,000 mg 1 cap PO TIDAC 07/20/22 07/20/22 (120 mg-180 mg) capsule pyridoxine (vitamin B6) 50 mg 50 mg PO DAILY 07/20/22 07/20/22 tablet sodium phosphates 19 gram-7 118 ml IL DAILY PRN Constipation 07/20/22 07/20/22 gram/118 mL enema (Fleet Enema) testosterone cypionate 200 mg/mL 1 ml IM Q2W 07/20/22 07/20/22 intramuscular oil thiamine HCl (vitamin B1) 100 mg 100 mg PO BID 07/20/22 07/20/22 tablet Previous Rx's Medication Instructions Recorded lactulose 20 gram/30 mL oral 30 g (45 mL) PO DAILY #1,200 mL 08/14/22 solution aspirin 81 mg chewable tablet 81 mg PO DAILY #30 tabs 08/15/22 omeprazole 20 mg capsule,delayed 20 mg PO DAILY@0630 #30 caps 08/15/22 release risperidone 1 mg tablet 1 mg PO BID #30 tabs 08/15/22 tiotropium bromide 18 mcg capsule 18 mcg inhalation RDAILY #30 08/15/22 with inhalation device (Spiriva inhalations with HandiHaler) cefuroxime axetil 500 mg tablet 500 mg PO BID #20 tabs 09/28/22 doxycycline hyclate 100 mg tablet 100 mg PO BID #20 tabs 09/28/22 Allergies Allergy/AdvReac Type Severity Reaction Status Date / Time fentanyl [From Duragesic] Allergy Unknown Unknown Verified 07/20/22 14:45 fluoxetine [From Prozac] Allergy Unknown Unknown Verified 07/20/22 14:45 lisinopril AdvReac Unknown Unknown Verified 07/20/22 14:44 Review of Systems Review of Systems: Constitutional : No Weight loss, No Fever, No Chills ENT/Mouth : No sore throat, No Rhinorrhea Eyes: No Eye Pain, No Swelling Cardiovascular : No Chest Pain, no palpitations Respiratory : ++Cough,++ Sputum, ++ shortness of breath Gastrointestinal : no Nausea, No Vomiting, No Diarrhea, No abdominal Pain, no black stools Genitourinary : No Dysuria, No Urinary Frequency Musculoskeletal : No joint pain, No Myalgias, No Joint Swelling Skin : No Skin Lesions, No rash Neuro : No Weakness, No Numbness, No Dizziness, No Headache Psych : No Anxiety/Panic, No Depression Heme/Lymph: No Bruising, No Lymphadenopathy Endocrine : No Polyuria, No Polydipsia All other systems reviewed and are negative Yes all other systems are reviewed and are negative [facility] Past Medical History Medical History Diabetes type 2, controlled Other fracture of t9-t10 vertebra, initial encounter for closed fracture Social History Social History Unable to assess alcohol history related to: Unable to respond Patient Tobacco Use Status: Tobacco use Unknown Advance Directives: Yes Advance Directives on File: Yes Advance Directives Date on File: 07/22/22 service: No Current occupational status: employed Physical Exam ED Vital Signs: Vital Signs - 24 hr 09/28/22 00:22 09/28/22 04:07 Temperature 100.6 F H Pulse Rate 111 H 84 Respiratory Rate 21 H Blood Pressure 111/61 106/67 Pulse Oximetry 96 Oxygen Delivery Method Nasal Cannula BMI result Body Mass Index 28.0 Appearance: Alert. Oriented X3. No acute distress. Febrile to touch Eyes: No pallor or icterus ENT: Pharynx normal. Oral Mucosa moist Neck: Normal inspection. Neck supple. CVS: Normal heart rate and rhythm. Pulses normal. Respiratory: My respiratory distress. Equal air entry bilateral, bilateral rales at the base with prolonged expiration Abdomen: Soft and nontender. Bowel sounds are present, no mass palpable, no CVA tenderness Skin: Skin warm and dry. Normal skin color. Normal skin turgor. Extremities: No lower extremity edema. No calf tenderness Neuro: Oriented X 3. No motor deficit. No sensory deficit.No cerebellar signs , cranial nerves II-XII intact Medications Administered Discontinued Medications Generic Name Dose Route Start Last Admin Trade Name Freq PRN Reason Stop Dose Admin Acetaminophen 650 mg 09/28/22 01:01 09/28/22 01:18 Acetaminophen 325 Mg Tablet PO 09/28/22 01:02 650 mg ONCE ONE Administration Sodium Chloride 3,000 mls @ 1,000 mls/hr 09/28/22 00:40 09/28/22 00:56 Ns IV 09/28/22 03:39 1,000 mls/hr .Q3H STA Administration Piperacillin Sod/Tazobactam 50 mls @ 100 mls/hr 09/28/22 00:46 09/28/22 04:06 Sod 3.375 gm/ Sodium Chloride IV 09/28/22 01:15 Infused ONCE ONE Infusion Ibuprofen 600 mg 09/28/22 01:01 09/28/22 01:18 Ibuprofen 600 Mg Tablet PO 09/28/22 01:02 600 mg ONCE ONE Administration Medical Decision Making Medical Decision Making MDM Narrative: Patient with chronic lung disease COPD came with fever and cough for 1 week chest x-ray without any acute significant infiltrate/consolidation WBC counts normal lactic acid normal patient received IV Zosyn in the ER afebrile now saturating 96% on 2 L without any nebulizing treatment. Discharge patient back to retirement advised to continue antibiotic doxycycline and Ceftin along with nebulizing treatment every 4-6 hours as needed Lab Data MDM Lab Attestation statement: I reviewed the patient's lab results. 09/28/22 00:53 09/28/22 00:53 Labs: Lab Results 09/28/22 09/28/22 09/28/22 Range/Units 00:53 00:53 00:53 WBC 8.4 (4.8-10.8) X10*3/uL RBC 3.31 L (4.60-5.80) X10*6/uL Hgb 10.7 L (14.0-18.0) g/dl Hct 31.7 L (42.0-52.0) % MCV 95.8 (80.0-98.0) fL MCH 32.3 (27.0-33.0) pg MCHC 33.8 (31.0-36.0) g/dl RDW 14.5 (11.0-16.0) % Plt Count 161 D (160-400) X10*3/uL MPV 10.0 (9.4-12.4) fL Immature Gran % (Auto) 0.5 H (0.0-0.4) % Neut % (Auto) 62.6 (45-73) % Lymph % (Auto) 18.5 L (20-40) % Hopkins % (Auto) 13.8 H (2-11) % Eos % (Auto) 4.4 H (0-4) % Baso % (Auto) 0.2 (0-2) % Lymph # (Auto) 1.6 (1.2-4.9) X10*3/uL Hopkins # (Auto) 1.2 (0.1-1.2) X10*3/uL Eos # (Auto) 0.4 (0.0-0.4) X10*3/uL Baso # (Auto) 0.0 (0.0-0.2) X10*3/uL Abs Immat Gran (auto) 0.04 H (0.00-0.03) X10*3/uL Absolute Neuts (auto) 5.3 (2.0-8.3) x10*3/uL Absolute Nucleated RBC 0.000 (0.0-0.012) X10*3/uL Nucleated RBC % (auto) 0.0 (0.0-0.2) /100WBC Sodium 135 (135-145) mmol/L Potassium 4.8 D (3.3-5.1) mmol/L Chloride 110 H (96-108) mmol/L Carbon Dioxide 16 L (22-29) mmol/L Anion Gap 14 (12-20) BUN 27 H (9-16) mg/dL Creatinine 0.78 (0.5-1.4) mg/dL Estim Creat Clear Calc 106.0 Estimated GFR > 60 Random Glucose 97 (60-115) mg/dL Lactic Acid 0.9 (0.5-2.0) mmol/L Calcium 8.2 L (8.4-10.2) mg/dL Magnesium 1.6 (1.6-2.6) mg/dL Total Bilirubin 0.7 (0.0-1.0) mg/dL AST 32 (5-37) U/L ALT 23 (0-40) U/L Alkaline Phosphatase 111 (39-117) U/L Total Protein 6.3 L (6.5-8.0) g/dL Albumin 3.1 L (3.5-5.0) g/dL COVID-19 (FABIOLA) (Negative) COVID-19 Clin Com 09/28/22 Range/Units 00:53 WBC (4.8-10.8) X10*3/uL RBC (4.60-5.80) X10*6/uL Hgb (14.0-18.0) g/dl Hct (42.0-52.0) % MCV (80.0-98.0) fL MCH (27.0-33.0) pg MCHC (31.0-36.0) g/dl RDW (11.0-16.0) % Plt Count (160-400) X10*3/uL MPV (9.4-12.4) fL Immature Gran % (Auto) (0.0-0.4) % Neut % (Auto) (45-73) % Lymph % (Auto) (20-40) % Hopkins % (Auto) (2-11) % Eos % (Auto) (0-4) % Baso % (Auto) (0-2) % Lymph # (Auto) (1.2-4.9) X10*3/uL Hopkins # (Auto) (0.1-1.2) X10*3/uL Eos # (Auto) (0.0-0.4) X10*3/uL Baso # (Auto) (0.0-0.2) X10*3/uL Abs Immat Gran (auto) (0.00-0.03) X10*3/uL Absolute Neuts (auto) (2.0-8.3) x10*3/uL Absolute Nucleated RBC (0.0-0.012) X10*3/uL Nucleated RBC % (auto) (0.0-0.2) /100WBC Sodium (135-145) mmol/L Potassium (3.3-5.1) mmol/L Chloride (96-108) mmol/L Carbon Dioxide (22-29) mmol/L Anion Gap (12-20) BUN (9-16) mg/dL Creatinine (0.5-1.4) mg/dL Estim Creat Clear Calc Estimated GFR Random Glucose (60-115) mg/dL Lactic Acid (0.5-2.0) mmol/L Calcium (8.4-10.2) mg/dL Magnesium (1.6-2.6) mg/dL Total Bilirubin (0.0-1.0) mg/dL AST (5-37) U/L ALT (0-40) U/L Alkaline Phosphatase (39-117) U/L Total Protein (6.5-8.0) g/dL Albumin (3.5-5.0) g/dL COVID-19 (FABIOLA) Negative (Negative) COVID-19 Clin Com See Note Discharge Plan Discharge Clinical Impression: Acute bronchitis Patient Disposition: Xfer [facility] Transfer Details: Labs chest x-ray negative for pneumonia, antibiotics as prescribed Instructions: Acute Bronchitis (ED) Additional Instructions: Continue nebulizing treatment/inhaler Antibiotic as prescribed Follow with your PCP if not better Prescriptions: New cefuroxime axetil 500 mg tablet 500 mg PO BID Qty: 20 0RF doxycycline hyclate 100 mg tablet 100 mg PO BID Qty: 20 0RF No Action multivitamin Tablet 1 tab PO DAILY acetaminophen 325 mg Tablet 650 mg PO Q6H PRN (Reason: Fever Or Pain) gabapentin 600 mg Tablet 600 mg PO QID Rx Instructions: @ 0800, 1200, 1800, 2000 nicotine 14 mg/24 hr Patch 24 Hour 1 patch TRANSDERMAL DAILY ipratropium-albuterol 0.5 mg-3 mg(2.5 mg base)/3 mL Solution For Nebulization 3 ml INHALATION QID PRN (Reason: Shortness Of Breath Or Wheezing) levalbuterol HCl 0.63 mg/3 mL Solution For Nebulization 0.63 mg INHALATION TID PRN (Reason: Shortness Of Breath Or Wheezing) dextrose [Glucose Gel] 40 % Gel 15 g PO Q15M PRN (Reason: Hypoglycemia) Rx Instructions: until symptoms of low blood sugar are controlled thiamine HCl (vitamin B1) 100 mg Tablet 100 mg PO BID magnesium oxide 400 mg (241.3 mg magnesium) Tablet 400 mg PO BID magnesium hydroxide [Milk of Magnesia] 400 mg/5 mL Suspension 30 ml PO DAILY PRN (Reason: Constipation) amlodipine 10 mg Tablet 10 mg PO DAILY bisacodyl 10 mg Suppository 10 mg IL DAILY PRN (Reason: Constipation) Rx Instructions: use if milk of magnesia doesn't work Fleet Enema 19-7 gram/118 mL Enema 118 ml IL DAILY PRN (Reason: Constipation) Rx Instructions: when bisacodyl is ineffective pyridoxine (vitamin B6) 50 mg Tablet 50 mg PO DAILY folic acid 1 mg Tablet 1 mg PO DAILY testosterone cypionate 200 mg/mL oil 1 ml IM Q2W Rx Instructions: STARTING 08/02/2022 albuterol sulfate [ProAir HFA] 90 mcg/actuation Hfa Aerosol Inhaler 2 puff INHALATION QID PRN (Reason: Shortness Of Breath Or Wheezing) hydroxyzine HCl 10 mg Tablet 20 mg PO TID PRN (Reason: Anxiety) fluticasone propionate [Flonase Allergy Relief] 50 mcg/actuation Diana,Suspension 1 spray INTRANASAL DAILY Rx Instructions: administer into each nostril nortriptyline 50 mg Capsule 50 mg PO BEDTIME methadone 5 mg/5 mL Solution 10 mg PO BID methadone 5 mg/5 mL Solution 5 mg PO DAILY@1200 cholecalciferol (vitamin D3) [Vitamin D3] 25 mcg (1,000 unit) Tablet 25 mcg PO DAILY melatonin 5 mg Tablet 5 mg PO BEDTIME PRN (Reason: Insomnia) omega 4-ftm-iyf-fish oil 1,000 mg (120 mg-180 mg) Capsule 1 cap PO TIDAC omega 1-cgw-nwa-fish oil 1,000 mg (120 mg-180 mg) Capsule 1 cap PO BEDTIME Trelegy Ellipta 100-62.5-25 mcg Blister With Device 1 inh INHALATION DAILY glucagon 1 mg/0.2 mL Solution 1 mg SUBCUT Q20M PRN (Reason: Hypoglycemia) Rx Instructions: until target blood sugar attained lactulose 20 gram/30 mL Solution 30 g PO DAILY Qty: 1200 0RF Spiriva with HandiHaler 18 mcg Capsule, W/Inhalation Device 18 mcg inhalation RDAILY Qty: 30 0RF omeprazole 20 mg Capsule,Delayed Release(Dr/Ec) 20 mg PO DAILY@0630 Qty: 30 0RF aspirin 81 mg Tablet,Chewable 81 mg PO DAILY Qty: 30 0RF risperidone 1 mg Tablet 1 mg PO BID Qty: 30 0RF
--- NOTE | 2022-09-28 00:41 | ECG_ITS ---
Test Reason : TACHYCARDIA Blood Pressure : / mmHG Vent. Rate : 110 BPM Atrial Rate : 110 BPM P-R Int : 176 ms QRS Dur : 104 ms QT Int : 360 ms P-R-T Axes : 012 071 045 degrees QTc Int : 487 ms Sinus tachycardia Otherwise normal ECG When compared with ECG of 27-JUL-2022 14:08, No significant change was found Referred By: Delio Temple Electronically Signed By:BRADLEY CLEVELAND
[2022-09-28] MEDS: 0.9 % Sodium Chloride 3,000 ML 1000 ML IV (00:56)
[2022-09-28 01:00] LABS: Basophils Percent Auto 0.2 % (0-2); Eosinophils Absolute Auto 0.4 X10*3/uL (0.0-0.4); Eosinophils Percent Auto 4.4 % (0-4); Hematocrit 31.7 % (42.0-52.0); Hemoglobin 10.7 g/dl (14.0-18.0); Imm Gran Abs Auto 0.04 X10*3/uL (0.00-0.03); Imm Gran Pct Auto 0.5 % (0.0-0.4); Lymphocytes Absolute Auto 1.6 X10*3/uL (1.2-4.9); Lymphocytes Percent Auto 18.5 % (20-40); MANUAL DIFF FLAG NO; Mean Corpuscular HGB Conc 33.8 g/dl (31.0-36.0); Mean Corpuscular Hemoglobin 32.3 pg (27.0-33.0); Mean Corpuscular Volume 95.8 fL (80.0-98.0); Monocytes Absolute Auto 1.2 X10*3/uL (0.1-1.2); Monocytes Percent Auto 13.8 % (2-11); Neutrophils Absolute Auto 5.3 x10*3/uL (2.0-8.3); Neutrophils Percent Auto 62.6 % (45-73); Platelet Count 161 X10*3/uL (160-400); Red Blood Count 3.31 X10*6/uL (4.60-5.80); Red Cell Distribution Width 14.5 % (11.0-16.0); White Blood Count 8.4 X10*3/uL (4.8-10.8)
[2022-09-28] MEDS: Piperacillin Sodium/Tazobactam 3.375 GM in 0.9 % Sodium Chloride 50 ML IV (01:08)
[2022-09-28 01:15] LABS: Lactic Acid 0.9 mmol/L (0.5-2.0)
[2022-09-28 01:17] LABS: COVID-19 Test Negative (Negative); IDNOW Serial# 6674DD1D
[2022-09-28] MEDS: Acetaminophen 325 MG TABLET 650 MG PO (01:18)
[2022-09-28] MEDS: Ibuprofen 600 MG TABLET PO (01:18)
--- NOTE | 2022-09-28 01:22 | PC.NURSE ---
this n assumed care of pt @ 0022. pt placed on cardiac rn, dr kong at bedside at this time for assessment. dr kong made aware of rectal temp 100.5, tachycardic. this rn placed iv line. placed orders. bloodwork obtained and sent down to lab. ekg obtained. pt medicated according to sep. excess linen removed from under pt. iv fluids running
[2022-09-28 01:35] LABS: Alanine Aminotransferase 23 U/L (0-40); Albumin Level 3.1 g/dL (3.5-5.0); Alkaline Phosphatase 111 U/L (39-117); Anion Gap 14 (12-20); Aspartate Amino Transferase 32 U/L (5-37); Bilirubin Total 0.7 mg/dL (0.0-1.0); Blood Urea Nitrogen 27 mg/dL (9-16); Calcium 8.2 mg/dL (8.4-10.2); Carbon Dioxide 16 mmol/L (22-29); Chloride 110 mmol/L (96-108); Estimated Glomerular Filt Rate > 60; Glucose Random 97 mg/dL (60-115); Magnesium 1.6 mg/dL (1.6-2.6); Potassium 4.8 mmol/L (3.3-5.1); Sodium 135 mmol/L (135-145); Total Protein 6.3 g/dL (6.5-8.0)
[2022-09-28 04:07] VITALS: BP 106/67; PULSE 84
--- NOTE | 2022-09-28 04:12 | PC.NURSE ---
pt sleeping on stretcher at this time. RR 20 nonlabored
[2022-09-28 04:51] VITALS: O2SAT 99
[2022-09-28 04:59] VITALS: BP 91/56; PULSE 72; RESP 13; TEMP 36.6; O2SAT 98
--- NOTE | 2022-09-28 05:14 | PC.NURSE ---
pt discharge to ems to bring back to [facility]. this rn gave hand off report to ems. iv removed at time of discharge. pt sleeping on stretcher prior to discharge. discharge packet sent with ems to hand off to snf.
--- NOTE | 2022-09-28 05:15 | PC.NURSE ---
this rn attempted x 2 to give nurse to nurse report unable to get answer from facility staff. discharge packet sent with ems
== END 2022-09-28 05:20 | disposition skilled nursing facility (03) ==
PROVIDERS: Emergency Provider Internal Medicine; PCP Emergency Medicine
DX: J20.9 Acute bronchitis, unspecified (principal); M54.50 Low back pain, unspecified; R50.9 Fever, unspecified; R00.0 Tachycardia, unspecified; R05.9 Cough, unspecified; E11.9 Type 2 diabetes mellitus without complications; I10 Essential (primary) hypertension; Z20.822 Contact with and (suspected) exposure to COVID-19; Z20.828 Contact with and (suspected) exposure to other viral communicable diseases; Z79.899 Other long term (current) drug therapy
CPT/HCPCS: 36415; 71045; 80053; 83605; 83735; 85025; 87040; 87635; 93005; 96360; 96361; 96375; 99285; J2543

== ENCOUNTER → 2023-01-14 10:51 | Outpatient (BNVA) | payer OTHER, SELFPAY | PROVIDERS: Visit Provider Orthopaedic Surgery | DX: M25.811 Other specified joint disorders, right shoulder (principal) | CPT/HCPCS: 20610; 99212; J3301 ==

== ENCOUNTER 2023-04-15 12:16 | Outpatient (REF) | payer OTHER, SELFPAY | END 2023-04-15 12:17 | disposition home or self-care (01) | LOC: HO.HOSX 12:16 | PROVIDERS: Visit Provider Orthopaedic Surgery | DX: Z13.89 Encounter for screening for other disorder (principal) ==

== ENCOUNTER 2023-04-29 07:30 | Outpatient (REF) | payer OTHER, SELFPAY ==
--- NOTE | ~2023-04-29 | XR_ITS ---
EXAMINATION: XR SHOULDER, RIGHT CLINICAL INFORMATION: Pain. COMPARISON: None available. TECHNIQUE: AP neutral and scapular Y views of the right shoulder are submitted. FINDINGS: There is mild bony demineralization. The glenohumeral joint is intact and shows moderate osteoarthritic change. The acromioclavicular and coracoclavicular intervals are normal. There is mild osteoarthritic change of the acromioclavicular joint. No fracture or dislocation is seen. There is narrowing of the rotator cuff interval. There is cortical irregularity of the greater tuberosity of the proximal right humerus. No focal soft tissue calcification or foreign body is seen. There is no right pneumothorax. XR/XR shoulder RT min 2V IMPRESSION: 1. There is moderate osteoarthritic change of the right glenohumeral joint, and mild osteoarthritic change is seen of the acromioclavicular joint. 2. Findings are consistent with right rotator cuff impingement.
== END 2023-04-29 07:31 | disposition home or self-care (01) ==
LOC: HO.HOSX 07:30
PROVIDERS: Visit Provider Orthopaedic Surgery
DX: M25.811 Other specified joint disorders, right shoulder (principal); M19.011 Primary osteoarthritis, right shoulder; M77.8 Other enthesopathies, not elsewhere classified
CPT/HCPCS: 73030; 99212

== ENCOUNTER 2023-04-29 13:26 | Outpatient (AMB) | payer OTHER, SELFPAY ==
--- NOTE | 2023-04-29 13:37 | MHC.OFFVIS ---
Intake Intake Visit Reasons: ov- Chronic RT shoulder pain last inj 01/14/23 Intake Note: Alexx is a 62 year old right hand dominant male who presents today for a follow up for his right shoulder pain. Patient states that he injured his shoulder approximately 1 year ago when he fell in his yd. Since that time his symptoms have gotten worse in spite of continued non operative treatments. He has had cortisone injections in the past which gave him temporary relief. He has also done physical therapy for 12 weeks over the last 6 months which aggravated his pain. He has tried Tylenol and anti-inflammatory medicines which gave him minimal relief. The patient did undergo left shoulder rotator cuff repair surgery approximately 20 years ago. He reports mild intermittent discomfort in his left shoulder. He denies any fevers or chills. Allergies fentanyl [From Duragesic] Allergy (Unknown, Verified 04/29/23 13:43) Unknown fluoxetine [From Prozac] Allergy (Unknown, Verified 04/29/23 13:43) Unknown lisinopril Adverse Reaction (Unknown, Verified 04/29/23 13:43) Unknown Medication List - Last Reconciled 04/29/23 by Ricardo Blankenship MD acetaminophen 650 mg PO Q6H PRN albuterol sulfate 90 mcg/actuation (ProAir HFA) 2 puffs inhalation QID PRN amlodipine 10 mg PO DAILY aspirin 81 mg PO DAILY bisacodyl 10 mg NC DAILY PRN cefuroxime axetil 500 mg PO BID cholecalciferol (vitamin D3) (Vitamin D3) 25 mcg PO DAILY dextrose 40% (Glucose Gel) 15 grams PO Q15M PRN doxycycline hyclate 100 mg PO BID fluticasone propionate 50 mcg/actuation (Flonase Allergy Relief) 1 spray intranasal DAILY [id number]-plscqvctu-rgbdsprn 100-62.5-25 mcg (Trelegy Ellipta) 1 inh inhalation DAILY folic acid 1 mg PO DAILY gabapentin 600 mg PO QID glucagon 1 mg subcut Q20M PRN hydroxyzine HCl 20 mg PO TID PRN ipratropium-albuterol 0.5 mg-3 mg(2.5 mg base)/3 mL 3 mL inhalation QID PRN lactulose 30 grams (45 mL) PO DAILY levalbuterol HCl 0.63 mg inhalation TID PRN magnesium hydroxide (Milk of Magnesia) 30 mL PO DAILY PRN magnesium oxide 400 mg PO BID melatonin 5 mg PO BEDTIME PRN methadone 10 mg PO BID methadone 5 mg PO DAILY@1200 multivitamin 1 tab PO DAILY nicotine 1 patch transdermal DAILY nortriptyline 50 mg PO BEDTIME omega 3-elo-npj-fish oil 1,000 mg (120 mg-180 mg) 1 cap PO TIDAC omega 9-uvt-gvs-fish oil 1,000 mg (120 mg-180 mg) 1 cap PO BEDTIME omeprazole 20 mg PO DAILY@0630 pyridoxine (vitamin B6) 50 mg PO DAILY risperidone 1 mg PO BID sodium phosphates 19-7 gram/118 mL (Fleet Enema) 118 mL NC DAILY PRN testosterone cypionate 1 mL IM Q2W thiamine HCl (vitamin B1) 100 mg PO BID tiotropium bromide (Spiriva with HandiHaler) 18 mcg inhalation RDAILY [facility] Medical History Diabetes type 2, controlled Other fracture of t9-t10 vertebra, initial encounter for closed fracture Social History Unable to assess alcohol history related to: Unable to respond Patient Tobacco Use Status: Tobacco use Unknown Advance Directives Date on File: 07/22/22 service: No Current occupational status: employed Physical Exam Const Other: Well-nourished well-developed very friendly male awake alert and oriented x3 in no acute distress Extrem Other: Bilateral upper extremity examination shows good capillary refill, no skin lesions noted, normal sensation light touch Right shoulder examination shows almost full range of motion when compared to his left shoulder, 4+ out of 5 strength with supraspinatus testing, positive impingement signs, tenderness over his acromioclavicular joint, no instability Results Reviewed Results Reviewed: X-rays of the patient's right shoulder show severe acromioclavicular joint narrowing, a type 3 acromion, no acute bony abnormalities No MRI has been performed because of the patient's claustrophobia Assessment & Plan Assessment & Plan (1) Impingement of right shoulder: Code(s): M25.811 - Other specified joint disorders, right shoulder Plan: Mr. Brito presents with right shoulder pain due to impingement syndrome, acromioclavicular joint arthritis and rotator cuff tendinosis versus possible rotator cuff tearing. I had a lengthy discussion with the patient regarding the treatment options. At this point he has failed continued non operative treatments. The risks and benefits of right shoulder surgery were discussed at length with the patient. The patient wishes to proceed with surgery. Surgery will most likely involve right shoulder diagnostic arthroscopy with distal clavicle excision, acromioplasty and rotator cuff repair should a full-thickness tear be found at the time of his surgery. I will have my office contact the patient to pick a surgery date. I will arrange for the patient to have a preoperative clearance appointment in your office. He will follow-up as instructed. Feel free to call me at any time should questions regarding his orthopedic management arise. I spent 22 minutes in reviewing the patient's records and imaging studies, seeing the patient and documenting in the medical record. Orders: Orders XR shoulder RT min 2V Today M25.511 - Pain in right shoulder Coding Level of Care Code Est Pt Level 2 (25133) Diagnoses Impingement of right shoulder M25.811
== END 2023-04-29 14:08 | disposition home or self-care (01) ==
PROVIDERS: PCP Emergency Medicine; Visit Provider Orthopaedic Surgery
DX: M25.811 Other specified joint disorders, right shoulder (principal)
CPT/HCPCS: 99212

== ENCOUNTER 2023-08-13 12:46 | Outpatient (AMB) | payer OTHER, SELFPAY ==
[2023-08-13 12:53] VITALS: BMI 28.0
--- NOTE | 2023-08-13 12:53 | MHC.OFFVIS ---
Intake Vital Signs 08/13/23 12:53 Height 5 ft 8 in Weight 184 lb BMI 28.0 Intake Visit Reasons: Pre-Rt Shld , Neck pain Intake Note: Alexx is a 62 year old right hand dominant male who presents with complaints of progressively worsening right shoulder pain. Patient states that he injured his shoulder approximately 1 year ago when he fell in his yard. Since that time his symptoms have gotten worse in spite of continued non operative treatments. He has had cortisone injections in the past which gave him temporary relief. He has also done physical therapy for 12 weeks over the last 6 months which aggravated his pain. He has tried Tylenol and anti-inflammatory medicines which gave him minimal relief. The patient did undergo left shoulder rotator cuff repair surgery approximately 20 years ago. He reports mild intermittent discomfort in his left shoulder. He denies any fevers or chills. The patient also has progressively worsening neck pain which radiates into both of his arms. The patient states that at times both of his hands will be ?completely numb?. He also has a history of falls. He reports intermittent weakness in both of his legs. His neck pain has gotten worse over the last few years in spite of continued non operative treatments. Allergies fentanyl [From Duragesic] Allergy (Unknown, Verified 04/29/23 13:43) Unknown fluoxetine [From Prozac] Allergy (Unknown, Verified 04/29/23 13:43) Unknown lisinopril Adverse Reaction (Unknown, Verified 04/29/23 13:43) Unknown [facility] Medical History Diabetes type 2, controlled Other fracture of t9-t10 vertebra, initial encounter for closed fracture Social History Unable to assess alcohol history related to: Unable to respond Comment: 1:1 Patient Tobacco Use Status: Tobacco use Unknown Advance Directives Date on File: 07/22/22 service: No Current occupational status: employed Physical Exam Vital Signs: BMI result Body Mass Index 28.0 Const Other: Well-nourished well-developed very friendly male awake alert and oriented x3 in no acute distress Lungs - clear to auscultation bilaterally with symmetric expansion Cardiovascular exam - regular rate and rhythm Abdominal exam - soft nontender nondistended Neck Other: Cervical spine examination shows pain with range of motion, bilateral paraspinal muscle tenderness, positive Spurling's test, 4/5 strength with testing of his bilateral biceps and wrist extensors Extrem Other: Right shoulder examination shows decreased range of motion when compared to his left shoulder, 4+ out of 5 strength with supraspinatus testing, positive impingement signs, tenderness over his acromioclavicular joint, no instability Results Reviewed Results Reviewed: X-rays of the patient's right shoulder show severe acromioclavicular joint narrowing, a type 3 acromion, no acute bony abnormalities Assessment & Plan Assessment & Plan (1) Neck pain, bilateral: Code(s): M54.2 - Cervicalgia (2) Right shoulder pain: Code(s): M25.511 - Pain in right shoulder Plan Mr. Brito presents with progressively worsening neck pain which radiates into both of his upper extremities as well as upper and lower extremity weakness possibly due to cervical stenosis. Thus, I will send the patient for an MRI of his cervical spine for further evaluation. I will contact him by phone once the MRI results are available. The patient also has progressively worsening right shoulder pain and weakness due to impingement syndrome, acromioclavicular joint arthritis and possible rotator cuff tearing. I had a lengthy discussion with the patient regarding the treatment options. At this point he has failed continued non operative treatments. The risks and benefits of right shoulder surgery were discussed at length with the patient. The patient wishes to proceed with surgery. Surgery will most likely involve right shoulder diagnostic arthroscopy with distal clavicle excision, acromioplasty and rotator cuff repair showed a full-thickness tear be found at the time of his surgery. The patient will be given a prescription for oxycodone at the time of his surgery. Will follow-up as instructed. Feel free to call me at any time should questions regarding his orthopedic management arise. I spent 22 minutes in reviewing the patient's records and imaging studies, seeing the patient and documenting in the medical record. Orders: Orders MR cervical spine wo con Today M54.2 - Cervicalgia Coding Level of Care Code Est Pt Level 2 (68860) Diagnoses Neck pain, bilateral M54.2 Right shoulder pain M25.511
== END 2023-08-13 13:16 | disposition home or self-care (01) ==
PROVIDERS: PCP Emergency Medicine; Visit Provider Orthopaedic Surgery
DX: M54.2 Cervicalgia (principal); M25.511 Pain in right shoulder
CPT/HCPCS: 99024

== ENCOUNTER → 2023-08-13 12:46 | Outpatient (BNVA) | payer OTHER, SELFPAY | PROVIDERS: PCP Emergency Medicine; Visit Provider Orthopaedic Surgery | DX: M25.511 Pain in right shoulder (principal); M54.2 Cervicalgia | CPT/HCPCS: 99212 ==

== ENCOUNTER 2023-08-28 10:21 | Day surgery (SDC) | payer OTHER, SELFPAY ==
[2023-08-28] VITALS (10 sets, daily range): BP systolic 120–160; BP diastolic 64–84; PULSE 73–84; RESP 12–20; TEMP 36.2–36.6; O2SAT 84–96; BMI 38.8
[2023-08-28 11:14] LABS: INTERNATIONAL NORM RATIO 1.1 (0.9-1.1); Prothrombin Time 13.9 SEC (11.1-13.3)
[2023-08-28] MEDS: Lactated Ringers 1,000 ML 100 ML IVCONT (11:25)
[2023-08-28 11:33] LABS: Glucose, Whole Blood 138 mg/dL (60-115)
--- NOTE | 2023-08-28 12:05 | HO.ANESPROP2 ---
Documented by User: Latasha Angeles NP 08/27/23 09:50 HPI - Anesthesia Eval Consult details Narrative: 63yo M for Right Shoulder Arthroscopy distal clavicle excision, acromialplasty, and possible rotator cuff repair SN[facility] resident Medically optimized Methadone daily PMFSH Active Problems Active Problems: All Active Problems (Updated 08/27/23 @ 08:38 by Kayleigh Kelly, RN) Neck pain, bilateral (Acute) Right shoulder pain (Acute) Impingement of right shoulder (Acute) Leukocytosis (Acute) Past Medical History Medical History (Updated 08/27/23 @ 08:38 by Kayleigh Kelly, RN) Arthritis Liver cirrhosis HTN (hypertension) Depression GI bleed Spinal stenosis COPD (chronic obstructive pulmonary disease) Diabetes type 2, controlled Other fracture of t9-t10 vertebra, initial encounter for closed fracture Surgical History Surgical History (Updated 08/27/23 @ 08:39 by Kayleigh Kelly RN) Hx of repair of left rotator cuff Hx of appendectomy Social History Social History Unable to assess alcohol history related to: Unable to respond Comment: 1:1 Patient Tobacco Use Status: Current everyday Tobacco user Tobacco use type: Cigarette Cigarettes Per Day: 3 Second Hand Smoke Exposure: No Use of substances other than those prescribed or required for medical reasons: No Are you DNR?: No Advance Directives: No Advance Directives Information Provided: Yes Advance Directives on File: No Advance Directives Date on File: 07/22/22 service: No Current occupational status: employed Meds Allergies Allergy/AdvReac Type Severity Reaction Status Date / Time fentanyl [From Duragesic] Allergy Unknown Unknown Verified 04/29/23 13:43 fluoxetine [From Prozac] Allergy Unknown Unknown Verified 04/29/23 13:43 lisinopril AdvReac Unknown Unknown Verified 04/29/23 13:43 Active Medications: Current Medications Cefazolin Sodium/Dextrose (Ancef) 2 gm in 50 mls @ 100 mls/hr IV PREOP ONE Stop: 08/28/23 05:47 Home Medications Medication Instructions Recorded Confirmed Last Taken Type acetaminophen 325 mg tablet 650 mg PO Q6H PRN Fever Or Pain 07/20/22 04/29/23 Unknown History albuterol sulfate 90 mcg/actuation 2 puff inhalation QID PRN 07/20/22 04/29/23 Unknown History aerosol inhaler (ProAir HFA) Shortness Of Breath Or Wheezing bisacodyl 10 mg rectal suppository 10 mg HI DAILY PRN Constipation 07/20/22 04/29/23 Unknown History dextrose 40 % oral gel (Glucose 15 g PO Q15M PRN Hypoglycemia 07/20/22 04/29/23 Unknown History Gel) fluticasone fur. 100 mcg-umeclid 1 inh inhalation DAILY 07/20/22 04/29/23 Unknown History 62.5 mcg-vilant 25 mcg inhalat.powder (Trelegy Ellipta) fluticasone propionate 50 1 spray intranasal DAILY 07/20/22 04/29/23 Unknown History mcg/actuation nasal spray,suspension (Flonase Allergy Relief) folic acid 1 mg tablet 1 mg PO DAILY 07/20/22 04/29/23 Unknown History gabapentin 600 mg tablet 600 mg PO QID 07/20/22 04/29/23 Unknown History glucagon 1 mg/0.2 mL subcutaneous 1 mg subcut Q20M PRN Hypoglycemia 07/20/22 04/29/23 Unknown History solution hydroxyzine HCl 10 mg tablet 20 mg PO TID PRN Anxiety 07/20/22 04/29/23 Unknown History magnesium hydroxide 400 mg/5 mL 30 ml PO DAILY PRN Constipation 07/20/22 04/29/23 Unknown History oral suspension (Milk of Magnesia) methadone 5 mg/5 mL oral solution 5 mg PO DAILY@1200 rhabdomyolysis 07/20/22 04/29/23 Unknown History methadone 5 mg/5 mL oral solution 10 mg PO BID rhabdomyolysis 07/20/22 04/29/23 Unknown History multivitamin 1 tab PO DAILY 07/20/22 04/29/23 Unknown History nicotine 14 mg/24 hr daily 1 patch transdermal DAILY 07/20/22 04/29/23 Unknown History transdermal patch sodium phosphates 19 gram-7 118 ml HI DAILY PRN Constipation 07/20/22 04/29/23 Unknown History gram/118 mL enema (Fleet Enema) carvedilol 6.25 mg tablet 6.25 mg PO BID 08/27/23 08/27/23 Unknown History furosemide 20 mg tablet 20 mg PO DAILY 08/27/23 08/27/23 Unknown History guaifenesin 600 mg tablet, 600 mg PO BID 08/27/23 08/27/23 Unknown History extended release 12 hr (Mucinex) insulin glargine 100 unit/mL unit subcut 08/27/23 Unknown History subcutaneous solution (Lantus U-100 Insulin) lidocaine 4 % topical patch 1 patch topical DAILY PRN Pain 08/27/23 08/27/23 Unknown History metformin 1,000 mg tablet 1,000 mg PO BID 08/27/23 08/27/23 Unknown History naloxone 4 mg/actuation nasal 1 spray intranasal Q3M PRN Opioid 08/27/23 08/27/23 Unknown History spray (Narcan) Overdose pantoprazole 40 mg tablet,delayed 40 mg PO BID 08/27/23 08/27/23 Unknown History release rifaximin 550 mg tablet (Xifaxan) 550 mg PO BID 08/27/23 08/27/23 Unknown History spironolactone 100 mg tablet 100 mg PO DAILY 08/27/23 08/27/23 Unknown History tramadol 50 mg tablet mg 08/27/23 08/27/23 Unknown History Exam Pertinent Lab Results Pertinent Lab Results: CBC and BMP from outside facility 07/2022. All wnl except slight low H&H Narrative Narrative: EKG 09/2022 ST @ 110 Assessment and Plan Assessment Anesthesia Assessment: Chart Reviewed Documented by User: Kayleigh Galindo DO 08/28/23 12:41 [facility] Past Medical History Medical History (Updated 08/27/23 @ 08:38 by Kayleigh Kelly, RN) Arthritis Liver cirrhosis HTN (hypertension) Depression GI bleed Spinal stenosis COPD (chronic obstructive pulmonary disease) Diabetes type 2, controlled Other fracture of t9-t10 vertebra, initial encounter for closed fracture Family History Family history of problems with anesthesia: No Surgical History Surgical History (Updated 08/27/23 @ 08:39 by Kayleigh Kelly, RN) Hx of repair of left rotator cuff Hx of appendectomy History of Problems with Anesthesia: No Social History Social History Unable to assess alcohol history related to: Unable to respond Comment: 1:1 Patient Tobacco Use Status: Current everyday Tobacco user Tobacco use type: Cigarette Cigarettes Per Day: 3 Second Hand Smoke Exposure: No Use of substances other than those prescribed or required for medical reasons: No Are you DNR?: No Advance Directives: No Advance Directives Information Provided: Yes Advance Directives on File: No Advance Directives Date on File: 07/22/22 service: No Current occupational status: employed Meds Allergies Allergy/AdvReac Type Severity Reaction Status Date / Time fentanyl [From Duragesic] Allergy Unknown Unknown Verified 04/29/23 13:43 fluoxetine [From Prozac] Allergy Unknown Unknown Verified 04/29/23 13:43 lisinopril AdvReac Unknown Unknown Verified 04/29/23 13:43 Home Medications Medication Instructions Recorded Confirmed Last Taken Type acetaminophen 325 mg tablet 650 mg PO Q6H PRN Fever Or Pain 07/20/22 04/29/23 Unknown History albuterol sulfate 90 mcg/actuation 2 puff inhalation QID PRN 07/20/22 04/29/23 Unknown History aerosol inhaler (ProAir HFA) Shortness Of Breath Or Wheezing bisacodyl 10 mg rectal suppository 10 mg HI DAILY PRN Constipation 07/20/22 04/29/23 Unknown History dextrose 40 % oral gel (Glucose 15 g PO Q15M PRN Hypoglycemia 07/20/22 04/29/23 Unknown History Gel) fluticasone fur. 100 mcg-umeclid 1 inh inhalation DAILY 07/20/22 04/29/23 Unknown History 62.5 mcg-vilant 25 mcg inhalat.powder (Trelegy Ellipta) fluticasone propionate 50 1 spray intranasal DAILY 07/20/22 04/29/23 Unknown History mcg/actuation nasal spray,suspension (Flonase Allergy Relief) folic acid 1 mg tablet 1 mg PO DAILY 07/20/22 04/29/23 Unknown History gabapentin 600 mg tablet 600 mg PO QID 07/20/22 04/29/23 Unknown History glucagon 1 mg/0.2 mL subcutaneous 1 mg subcut Q20M PRN Hypoglycemia 07/20/22 04/29/23 Unknown History solution hydroxyzine HCl 10 mg tablet 20 mg PO TID PRN Anxiety 07/20/22 04/29/23 Unknown History magnesium hydroxide 400 mg/5 mL 30 ml PO DAILY PRN Constipation 07/20/22 04/29/23 Unknown History oral suspension (Milk of Magnesia) methadone 5 mg/5 mL oral solution 5 mg PO DAILY@1200 rhabdomyolysis 07/20/22 04/29/23 Unknown History methadone 5 mg/5 mL oral solution 10 mg PO BID rhabdomyolysis 07/20/22 04/29/23 Unknown History multivitamin 1 tab PO DAILY 07/20/22 04/29/23 Unknown History nicotine 14 mg/24 hr daily 1 patch transdermal DAILY 07/20/22 04/29/23 Unknown History transdermal patch sodium phosphates 19 gram-7 118 ml HI DAILY PRN Constipation 07/20/22 04/29/23 Unknown History gram/118 mL enema (Fleet Enema) carvedilol 6.25 mg tablet 6.25 mg PO BID 08/27/23 08/27/23 Unknown History furosemide 20 mg tablet 20 mg PO DAILY 08/27/23 08/27/23 Unknown History guaifenesin 600 mg tablet, 600 mg PO BID 08/27/23 08/27/23 Unknown History extended release 12 hr (Mucinex) insulin glargine 100 unit/mL unit subcut 08/27/23 Unknown History subcutaneous solution (Lantus U-100 Insulin) lidocaine 4 % topical patch 1 patch topical DAILY PRN Pain 08/27/23 08/27/23 Unknown History metformin 1,000 mg tablet 1,000 mg PO BID 08/27/23 08/27/23 Unknown History naloxone 4 mg/actuation nasal 1 spray intranasal Q3M PRN Opioid 08/27/23 08/27/23 Unknown History spray (Narcan) Overdose pantoprazole 40 mg tablet,delayed 40 mg PO BID 08/27/23 08/27/23 Unknown History release rifaximin 550 mg tablet (Xifaxan) 550 mg PO BID 08/27/23 08/27/23 Unknown History spironolactone 100 mg tablet 100 mg PO DAILY 08/27/23 08/27/23 Unknown History tramadol 50 mg tablet mg 08/27/23 08/27/23 Unknown History Exam Exam Date and Time: August 28, 2023 120 Airway Mallampati Class: III TM Dist: <=3cm Neck ROM: Full Loose/Missing/Broken Teeth: Yes (multiple broken teeth) Heart: S1S2 Lungs: CTAB Other: Large neck. Rounded facies. Assessment and Plan Assessment Anesthesia Assessment: Anesthesia Plan Discussed and Chart Reviewed Final Anesthetic Review Family History of Problems with Anesthesia: No History of Problems with Anesthesia: No NPO: Yes ASA Class: III Final Preanesthetic Review: No Changes in Pt Med Stat, Meds/Allgs Chart Reviewed, Consent Obtained/Reviewed, Anes Risks/Benef Reviewed and DNR Form (If Appl.) (DNI - reversed for surgery and PACU) Patient Risk: Intermediate Procedure Risk: Intermediate Assessment/Block/Sedation in SS: Assess/Block/Sedation-SS (right brachial plexus block to be performed in pre-op) Anesthetic Plan Anesthetic Plan: GA, Regional Block (right brachial plexus block) and Agree w/ Assess. and Plan Disposition: Standard PACU
--- NOTE | 2023-08-28 14:44 | P.BOP_ITS ---
Brief Operative Note Date of Service: 08/28/23 Pre-op diagnosis: Right shoulder impingement syndrome, right shoulder acromioclavicular joint arthritis, right shoulder adhesive capsulitis Post-op diagnosis: other (Same as preoperative diagnoses as well as early right shoulder rotator cuff tear arthropathy) Procedure: Right shoulder diagnostic arthroscopy with right shoulder arthroscopic glenohumeral joint debridement, right shoulder arthroscopic acromioplasty, right shoulder arthroscopic anterior capsular release, right shoulder arthroscopic distal clavicle excision, right shoulder manipulation under anesthesia Implants: none Surgeon: Ricardo Blankenship MD Anesthesia: GLMA and regional Was an Customer Service Teller used for this Procedure?: No Estimated blood loss (mL): 10 Pathology: none sent Condition: stable Disposition: PACU
--- NOTE | 2023-08-28 14:45 | P.OP_ITS ---
Operative Note Operative Note Date of Service: 08/28/23 Narrative: After the patient was identified as Alexx Brito and his right shoulder was initialed by myself the patient was brought to the holding area where a right shoulder interscalene regional block was performed by the anesthesiologist in routine fashion. The patient was then brought to the operating room where general anesthesia was induced by the anesthesiologist in routine fashion. The patient was given 2 g of IV Ancef preoperatively for infection prophylaxis. Examination under anesthesia of the patient's right shoulder showed decreased passive range of motion when compared to the left shoulder. The patient's right shoulder had passive forward flexion to 90 degrees compared to 170 degrees, external rotation to 40 degrees compared to 60 degrees, and internal rotation to 40 degrees compared to 50 degrees. The patient was gently positioned in the beach chair position with all bony prominences well padded. The patient's right shoulder region and upper extremity were prepped and draped in sterile fashion. A formal time-out was completed. A #11 scalpel blade was used to make a posterior portal 2 cm inferior and 1 cm medial to the posterolateral corner of the acromion. Blunt trocar technique was used to enter the glenohumeral joint in routine fashion. An anterior portal was made just lateral to the coracoid process after proper positioning was confirmed using a spinal needle. Diagnostic arthroscopy showed diffuse grade 2 and 3 degenerative changes of the glenoid and humeral head articular surfaces. The articular surfaces were made smooth using the arthroscopic shaver. There was full-thickness tearing of the supraspinatus and infraspinatus tendons with retraction to the glenoid lip. There was no tearing of the subscapularis tendon. The biceps tendon was not identified. There was inflammation of the anterior joint capsule consistent with adhesive capsulitis. The ArthroCare Wand was then used to perform an anterior capsular release between the inferior border of the bicipital groove a nd the superior border of the subscapularis tendon. A lateral portal was made 2 fingerbreadths lateral to the anterior lateral corner of the acromion. The ArthroCare Wand was used to ablate soft tissues along the undersurface of the acromion. The coracoacromial ligament was left intact to help prevent superior migration of the humeral head. There was a sharp spur along the undersurface of the acromion which was removed using the hooded bur. The arthroscope was then placed into the lateral portal and the acromioplasty was completed with the bur in the posterior portal using the posterior aspect of the acromion as a cutting block. The ArthroCare Wand was then brought in through the anterior portal and was used to ablate soft tissues along the acromioclavicular joint and distal clavicle. The posterior and superior ligamentous structures were left intact. A distal clavicle excision of 8 mm was performed using the fluted bur. Any remaining bursal tissue was removed using the arthroscopic shaver. The subacromial space was irrigated and then drained. All arthroscopic instruments were removed. A gentle manipulation under anesthesia was then performed. Full passive range of motion was easily obtained. The 3 portals were closed with 3-0 nylon interrupted suture. The subacromial space was injected with Marcaine. Dry sterile dressing was placed over all incisions. The patient's right upper extremity was placed into a sling. The patient was awoken and extubated in the operating room. The patient was transferred to the recovery room in stable condition.
[2023-08-28] MEDS: cefTRIAXone sodium 1 GM in 0.9 % Sodium Chloride 50 ML IV (14:55)
== END 2023-08-28 16:40 | disposition home or self-care (01) ==
PROVIDERS: Nurse Practitioner; PCP Family Medicine Adult Medicine; Visit Provider Orthopaedic Surgery
PROC: (CPT 29805; principal; 2023-08-28 12:30)
DX: M75.41 Impingement syndrome of right shoulder (principal); M75.01 Adhesive capsulitis of right shoulder; M19.011 Primary osteoarthritis, right shoulder; E11.9 Type 2 diabetes mellitus without complications; I10 Essential (primary) hypertension; J44.9 Chronic obstructive pulmonary disease, unspecified; F17.210 Nicotine dependence, cigarettes, uncomplicated; R79.1 Abnormal coagulation profile; Z79.82 Long term (current) use of aspirin; Z79.4 Long term (current) use of insulin; Z79.84 Long term (current) use of oral hypoglycemic drugs
CPT/HCPCS: 29826; 29824; 36415; 82947; 85610; J0171; J0690; J0696; J1100; J2250; J2405; J2704; J2795

== ENCOUNTER → 2023-08-28 10:21 | Outpatient (BNV) | payer OTHER, SELFPAY | PROVIDERS: PCP Family Medicine Adult Medicine; Visit Provider Orthopaedic Surgery | DX: M75.41 Impingement syndrome of right shoulder (principal); M19.011 Primary osteoarthritis, right shoulder; M75.01 Adhesive capsulitis of right shoulder | CPT/HCPCS: 29824; 29826 ==

== ENCOUNTER 2023-09-10 14:31 | Outpatient (AMB) | payer OTHER, SELFPAY ==
--- NOTE | 2023-09-10 14:35 | A.OFFVIS_ITS ---
Intake Intake Visit Reasons: PO-Rt Shld 08/28 Intake Note: Alexx a 63 year old male presents today for a post operative right shoulder on 08/28/23 Patient reports he is still having pain. He is going to PT and feeling discomfort after. Allergies fentanyl [From Duragesic] Allergy (Unknown, Verified 09/10/23 14:41) Unknown fluoxetine [From Prozac] Allergy (Unknown, Verified 09/10/23 14:41) Unknown lisinopril Adverse Reaction (Unknown, Verified 09/10/23 14:41) Unknown HPI PO-Rt Shld 08/28 HPI Details 63-year-old male who presents in the off ice today 13 days status post right shoulder arthroscopic glenohumeral joint debridement, right shoulder arthroscopic acromioplasty, right shoulder arthroscopic anterior capsular release, right shoulder arthroscopic distal clavicle excision, right shoulder manipulation under anesthesia, which was performed on 08/28/[address] Blankenship. While in the office today the patient reports he is still having pain. He confirms he is attending physical therapy and feeling discomfort after. [facility] Medical History (Updated 08/27/23 @ 08:38 by Kayleigh Kelly RN) Arthritis Liver cirrhosis HTN (hypertension) Depression GI bleed Spinal stenosis COPD (chronic obstructive pulmonary disease) Diabetes type 2, controlled Other fracture of t9-t10 vertebra, initial encounter for closed fracture Surgical History (Updated 09/10/23 @ 14:43 by Mya Gonzalez) Hx of repair of left rotator cuff Hx of appendectomy Social History Unable to assess alcohol history related to: Unable to respond Comment: 1:1 Patient Tobacco Use Status: Current everyday Tobacco user Tobacco use type: Cigarette Cigarettes Per Day: 3 Second Hand Smoke Exposure: No Advance Directives Date on File: 07/22/22 service: No Current occupational status: employed Review of Systems Const All systems reviewed & are unremarkable except as noted in HPI and below Physical Exam Const General: cooperative, healthy appearing and no acute distress Resp Effort & Inspection: normal respiratory effort and able to speak in complete sentences Cardio Rate: regular rate Peripheral pulses: Peripheral pulses 2+ throughout GI Palpation (GI): Soft to palpation Skin Lesions: no lesions Rashes: no rashes Extrem Other: Right shoulder: Incision site is clean, dry, and intact. Sutures intact. Forward flexion lacking 20 degrees. Abduction to 120 degrees. NVI. Assessment & Plan Assessment & Plan (1) S/P arthroscopy of right shoulder: Onset Date: ~08/28/23 Comment: Dr. Blankenship Code(s): Z98.890 - Other specified postprocedural states Plan Mr. Brito is a 63-year-old male who presents in the office today 13 days status post right shoulder arthroscopic glenohumeral joint debridement, right shoulder arthroscopic acromioplasty, right shoulder arthroscopic anterior capsular release, right shoulder arthroscopic distal clavicle excision, right shoulder manipulation under anesthesia, which was performed on 08/28/[address] Blankenship. While in the office today the patient reports he is still having pain. He confirms he is attending physical therapy and feeling discomfort after. Sutures were removed and steri-stripes were applied. I need to work on protocol for physical therapy. 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 Information was provided. An MRI of the C-spine was ordered by Dr. Blankenship, as I am not contracted to review C-spine MRI imaging, a workload message will be sent to Dr. Blankenship to reach out to the patient to discuss results and further evaluation and treatment upon his return on 09/14/2023. Follow up for the right shoulder is PRN, or sooner if needed. Patient Instructions: Scribed by Mya Gonzalez medical records director, for Maria Elena Hung PA-C on 09/10/2023 at 2:42 pm, EST. Coding Level of Care Code Global (99877) Diagnoses S/P arthroscopy of right shoulder Z98.890
== END 2023-09-10 15:12 | disposition home or self-care (01) ==
PROVIDERS: PCP Emergency Medicine; Visit Provider Physician Assistant
DX: Z98.890 Other specified postprocedural states (principal)
CPT/HCPCS: 99024

== ENCOUNTER → 2023-09-10 14:31 | Outpatient (BNVA) | payer OTHER, SELFPAY | PROVIDERS: PCP Emergency Medicine; Visit Provider Physician Assistant | DX: Z98.890 Other specified postprocedural states (principal) | CPT/HCPCS: 99212 ==

== ENCOUNTER 2023-10-28 10:22 | Outpatient (AMB) | payer OTHER, SELFPAY ==
--- NOTE | 2023-10-28 10:30 | MHC.OFFVIS ---
Intake Vital Signs 10/28/23 10:36 Height 5 ft 8 in Weight 250 lb BMI 38.0 Intake Visit Reasons: OV-cevical spine MRI review Intake Note: Mr. Brito presents with complaints of progressively worsening neck pain which radiates down both of his arms as well as associated ?numbness and tingling? in his hands. The patient states that he was told several years ago that he has ?disc disease? in his neck and that he might need surgery. The patient has not undergone any cervical spine surgery in the past. Did undergo right shoulder arthroscopic surgery on 08/28/2023. He continues with his physical therapy exercises. He states that he has noticed some slow improvement in his right shoulder discomfort and range of motion. Allergies fentanyl [From Duragesic] Allergy (Unknown, Verified 10/28/23 10:38) Unknown fluoxetine [From Prozac] Allergy (Unknown, Verified 10/28/23 10:38) Unknown lisinopril Adverse Reaction (Unknown, Verified 10/28/23 10:38) Unknown [facility] Medical History (Updated 10/28/23 @ 10:57 by Ricardo Blankenship MD) Arthritis Liver cirrhosis HTN (hypertension) Depression GI bleed Spinal stenosis COPD (chronic obstructive pulmonary disease) Diabetes type 2, controlled Other fracture of t9-t10 vertebra, initial encounter for closed fracture Surgical History (Updated 09/10/23 @ 14:43 by Mya Gonzalez) Hx of repair of left rotator cuff Hx of appendectomy Social History Unable to assess alcohol history related to: Unable to respond Comment: 1:1 Patient Tobacco Use Status: Current everyday Tobacco user Tobacco use type: Cigarette Cigarettes Per Day: 3 Second Hand Smoke Exposure: No Advance Directives Date on File: 07/22/22 service: No Current occupational status: employed Physical Exam Vital Signs: BMI result Body Mass Index 38.0 Const Other: Well-nourished well-developed very friendly male awake alert and oriented x3 in no acute distress Neck Other: Cervical spine examination shows bilateral paraspinal muscle tenderness, pain with range of motion, positive Spurling's test Extrem Other: Right shoulder examination shows that the surgical incisions are well healed, no erythema, mild to moderate discomfort with range of motion, 3/5 strength with supraspinatus testing, no instability Assessment & Plan Assessment & Plan (1) Cervical stenosis of spinal canal: Code(s): M48.02 - Spinal stenosis, cervical region (2) Right shoulder pain: Code(s): M25.511 - Pain in right shoulder Plan Mr. Brito presents with progressively worsening neck pain which radiates into both of his upper extremities most likely due to cervical stenosis. Thus, I will have him evaluated by the Neurosurgery Service here at [facility]. The patient also has continued discomfort and weakness in his right shoulder after undergoing right shoulder arthroscopic surgery on 08/28/2023 due to a chronic rotator cuff tear. The patient wishes to hold off on total shoulder replacement surgery for as long as possible. I agree with this plan. Most likely the patient's symptoms will continue to improve over the next few months. The patient will contact me prior to his follow-up appointment in 2 months should any questions or concerns arise. Feel free to call me at any time should questions regarding his orthopedic management arise. I spent 22 minutes in reviewing the patient's records and imaging studies, seeing the patient and documenting in the medical record. Orders: Referrals Neurosurgery Referral M48.02 - Spinal stenosis, cervical region Coding Level of Care Code Est Pt Level 2 (80612) Diagnoses Cervical stenosis of spinal canal M48.02 Right shoulder pain M25.511
[2023-10-28 10:36] VITALS: BMI 38.0
== END 2023-10-28 10:58 | disposition home or self-care (01) ==
PROVIDERS: PCP Emergency Medicine; Visit Provider Orthopaedic Surgery
DX: M48.02 Spinal stenosis, cervical region (principal)
CPT/HCPCS: 99213

== ENCOUNTER → 2023-10-28 10:22 | Outpatient (BNVA) | payer OTHER, SELFPAY | PROVIDERS: PCP Emergency Medicine; Visit Provider Orthopaedic Surgery | DX: M48.02 Spinal stenosis, cervical region (principal); M25.511 Pain in right shoulder | CPT/HCPCS: 99212 ==

== ENCOUNTER 2023-11-27 13:56 | Outpatient (AMB) | payer MEDICARE, SELFPAY ==
--- NOTE | 2023-11-27 14:00 | HO.SPINEOV ---
Intake Visit Reasons: severe cervical stenosis Intake Note: Mr. Brito is here today c/o severe neck pain. Relocation Manager Required: No Allergies fentanyl [From Duragesic] Allergy (Unknown, Verified 10/28/23 10:38) Unknown fluoxetine [From Prozac] Allergy (Unknown, Verified 10/28/23 10:38) Unknown lisinopril Adverse Reaction (Unknown, Verified 10/28/23 10:38) Unknown Assessment & Plan Assessment & Plan (1) Neck pain, bilateral: Code(s): M54.2 - Cervicalgia Category: Medical Plan Dear Dr Blankenship, Thank you for referring Mr Brito to our office today. He has a 63-year-old gentleman who has been having neck pain going on for the last few months. He has a bit of a difficult historian. He is had back and neck issues for years. He was told he had problems in his neck a long time ago that might ultimately require surgery. He he has occasional pain that goes down his right arm but the main symptom is pain in the back of the neck on the left side. He currently resides in a longterm, where he has been since he had an gastrointestinal bleed in May of last year the ultimately was repaired surgically. He complains of weakness of his legs and trouble walking. He has been hoping to get more active at the longterm but there is limited resources therefore him. The patient's bladder seems to be working okay with urinary frequency but otherwise no symptoms to report. To this point he has done no dedicated conservative treatment for his neck. He is coming today with an MRI showing some degenerative disc disease. PMH: He has multiple complex medical conditions, most of which he was unable to articulate much detail about. He has a history of hypertension. History of diabetes. Recently his diabetes numbers have been in the 400-500 range on a daily basis. He has a history of cirrhosis and is unsure how bad his liver function is but tells me that his liver is enlarged, despite this he continues to drink in the evenings at the longterm. He has a history of COPD, had COVID and pneumonia last year and since that time has been on oxygen. Despite this he continues to smoke cigarettes. History of appendectomy. They are likely other conditions but I do not have any the records of his medical conditions and front of me. Social hx: He is drinking 1-2 nips a night at the longterm. Prior to being in the longterm he was a very heavy drinker. He smokes cigarettes at the longterm. Probably 4-5 day tells me. Occasional marijuana. Medications: Gabapentin, Flonase, spironolactone, Lasix, pantoprazole, carvedilol, Tylenol, trazodone, hydroxyzine, Mucinex, tramadol, Voltaren, milk of magnesia, multivitamin, albuterol, Lantus, Narcan, fleets enema, Trelegy, metformin, lidocaine patches, folic acid, Dulcolax Allergies: Please see the [facility] list Physical exam: He is awake alert oriented no acute distress, he is came today in a wheelchair but is able to stand up out of the chair and walk around the room albeit slowly. He has full strength of bilateral upper and lower extremities. Reflexes diffusely absent throughout the upper and lower extremities. He has some tenderness along the posterior aspect of his neck. Imaging review: Cervical MRI done at the [facility] shows somewhat limited study secondary to artifact. He has sjeg-zv-zmsvwfij disc degeneration at multiple levels. There are varying degrees of foraminal stenosis but very difficult to make adequate assessment secondary to motion artifact. There is no cord signal change or spinal cord impingement seen. Impression: 63-year-old male with multiple medical conditions, including cirrhosis, uncontrolled diabetes, COPD on oxygen, continues to smoke and drink at the longterm, presents for evaluation of neck pain that he has had chronically on and off for years but more recently has been acting up on him. He takes tramadol. I looked at his MRI and I do not see any significant findings that would explain his neck pain. More less this looks like deug-mo-dcxfcphy degeneration with nothing obvious that would explain the source of his neck pain. In cases like this, surgery is really helpful. He is probably better suited to see someone in pain management although I think there ability to help him will be limited because of his uncontrolled diabetes. I will defer this decision to them. Thank you for allowing us to care for your patient. The total time spent with this visit with this patient was 45 minutes reviewing history, physical exam, cervical MRI imaging review, and implementation of treatment plan or further diagnostic testing Rajeev Morgan MD,PhD [facility] Orders: Referrals Pain Management Referral M54.2 - Cervicalgia Coding Level of Care Code New Pt Level 4 (05819) Diagnoses Neck pain, bilateral M54.2
== END 2023-11-27 15:06 | disposition home or self-care (01) ==
LOC: HO.HNS 13:56
PROVIDERS: PCP Emergency Medicine; Referring Provider Orthopaedic Surgery; Visit Provider Physician Assistant
DX: M54.2 Cervicalgia (principal)
CPT/HCPCS: 99204

== ENCOUNTER → 2023-11-27 13:56 | Outpatient (BNVA) | payer MEDICARE, MEDICAID, SELFPAY | PROVIDERS: PCP Emergency Medicine; Visit Provider Physician Assistant | DX: M54.2 Cervicalgia (principal) | CPT/HCPCS: 99202 ==

== ENCOUNTER 2023-12-23 09:25 | Outpatient (AMB) | payer MEDICARE, SELFPAY ==
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
[2023-12-23 09:35] VITALS: BP 137/65; PULSE 92; RESP 15; O2SAT 90; BMI 38.0
== END 2023-12-23 10:32 | disposition home or self-care (01) ==
PROVIDERS: PCP Emergency Medicine; Visit Provider Internal Medicine
DX: M54.12 Radiculopathy, cervical region (principal); M48.02 Spinal stenosis, cervical region
CPT/HCPCS: 99204

== ENCOUNTER → 2023-12-23 09:25 | Outpatient (BNVA) | payer MEDICARE, MEDICAID, SELFPAY | PROVIDERS: PCP Emergency Medicine; Visit Provider Internal Medicine | DX: M54.12 Radiculopathy, cervical region (principal); M48.02 Spinal stenosis, cervical region | CPT/HCPCS: 99202 ==

== ENCOUNTER 2023-12-30 11:14 | Outpatient (AMB) | payer OTHER, SELFPAY ==
--- NOTE | 2023-12-30 11:21 | MHC.OFFVIS ---
Vital Signs 12/30/23 11:24 Height 5 ft 8 in Weight 250 lb BMI 38.0 Intake Visit Reasons: OV follow up Right shoulder Intake Note: Alexx is a 63 year old male who presents today for a follow up visit of his right shoulder pain. The patient did undergo right shoulder arthroscopic surgery on 08/28/2023. The patient states he got only mild relief from that procedure. He does have a chronic rotator cuff tear as well as degenerative changes within his glenohumeral joint. Has been doing physical therapy exercises which aggravated his pain. Has been seen in the neurosurgery department as well as the pain management department. Dr. Bryant is planning a cortisone injection into his cervical spine in the near future. The patient states that he had left wrist carpal tunnel release surgery approximately 20 years ago. He reports ?constant? numbness and tingling in his left hand which involves all fingers and his thumb. Allergies fentanyl [From Duragesic] Allergy (Unknown, Verified 12/30/23 11:27) Unknown fluoxetine [From Prozac] Allergy (Unknown, Verified 12/30/23 11:27) Unknown lisinopril Adverse Reaction (Unknown, Verified 12/30/23 11:27) Unknown Medication List - Last Reconciled 12/30/23 by Ricardo Blankenship MD albuterol sulfate 90 mcg/actuation (ProAir HFA) 2 puffs inhalation QID PRN aspirin 81 mg PO DAILY bisacodyl 10 mg [place] DAILY PRN carvedilol 6.25 mg PO BID dextrose 40% (Glucose Gel) 15 grams PO Q15M PRN fluticasone propionate 50 mcg/actuation (Flonase Allergy Relief) 1 spray intranasal DAILY wvkoyvzjkzy-phdmrjcvw-ycwfentw 100-62.5-25 mcg (Trelegy Ellipta) 1 inh inhalation DAILY folic acid 1 mg PO DAILY furosemide 40 mg PO DAILY gabapentin 300 mg PO TID glucagon 1 mg subcut Q20M PRN guaifenesin ER (Mucinex) 600 mg PO BID hydroxyzine HCl 20 mg PO TID PRN hydroxyzine HCl 25 mg PO BID insulin glargine (Lantus U-100 Insulin) units subcut insulin glargine-yfgn units subcut lidocaine 4% 1 patch topical DAILY PRN magnesium hydroxide (Milk of Magnesia) 30 mL PO DAILY PRN metformin 1,000 mg PO BID multivitamin 1 tab PO DAILY naloxone 4 mg/actuation (Narcan) 1 spray intranasal Q3M PRN nystatin PO pantoprazole 40 mg PO BID rifaximin (Xifaxan) 550 mg PO BID sodium phosphates 19-7 gram/118 mL (Fleet Enema) 118 mL [place] DAILY PRN spironolactone 100 mg PO DAILY tramadol mg PFSH Medical History (Updated 12/30/23 @ 11:51 by Ricardo Blankenship MD) Arthritis Liver cirrhosis HTN (hypertension) Depression GI bleed Spinal stenosis COPD (chronic obstructive pulmonary disease) Diabetes type 2, controlled Other fracture of t9-t10 vertebra, initial encounter for closed fracture Surgical History (Updated 09/10/23 @ 14:43 by Mya Gonzalez) Hx of repair of left rotator cuff Hx of appendectomy Social History (Updated 12/30/23 @ 11:33 by Sujatha Headley) Unable to assess alcohol history related to: Unable to respond Comment: 1:1 Patient Tobacco Use Status: Current everyday Tobacco user Tobacco use type: Cigarette Cigarettes Per Day: 3 Second Hand Smoke Exposure: No Advance Directives Date on File: 07/22/22 service: No Current occupational status: unemployed Physical Exam Vital Signs: BMI result Body Mass Index 38.0 Extrem Other: Right shoulder examination shows that the surgical incisions are well healed, no erythema, 3/5 strength with supraspinatus testing, crepitus with range of motion, pain with range of motion, no instability Left wrist examination shows positive Tinel's test over his carpal tunnel, thenar muscle wasting, decreased sensation to light touch along his median nerve distribution Assessment & Plan Assessment & Plan (1) Cubital tunnel syndrome on left: Code(s): G56.22 - Lesion of ulnar nerve, left upper limb Category: Medical (2) Left carpal tunnel syndrome: Code(s): G56.02 - Carpal tunnel syndrome, left upper limb Category: Medical (3) Right shoulder pain: Code(s): M25.511 - Pain in right shoulder Category: Medical Plan Mr. Brito presents with right shoulder pain and weakness due to chronic rotator cuff tear arthropathy. He also has numbness and tingling in his left hand possibly due to recurrent carpal tunnel syndrome. Thus, I will send him for an EMG of his left upper extremity for further evaluation of possible carpal tunnel syndrome and possible cubital tunnel syndrome. I will also arrange for him to have a follow-up appointment with Dr. Villafana to further discuss the risks and benefits of right reverse total shoulder arthroplasty surgery at some point in the future. The patient will follow up with Dr. Bryant for his cervical spine injection as scheduled. Feel free to call me at any time should questions regarding his orthopedic management arise. I spent 20 minutes in reviewing the patient's records and imaging studies, seeing the patient and documenting in the medical record. Orders: Orders NE electromyogram (EMG) Today G56.02 - Carpal tunnel syndrome, left upper limb, G56.22 - Lesion of ulnar nerve, left upper limb Coding Level of Care Code Est Pt Level 3 (43081) Diagnoses Cubital tunnel syndrome on left G56.22 Left carpal tunnel syndrome G56.02 Right shoulder pain M25.511
[2023-12-30 11:24] VITALS: BMI 38.0
== END 2023-12-30 11:54 | disposition home or self-care (01) ==
PROVIDERS: PCP Emergency Medicine; Visit Provider Orthopaedic Surgery
DX: G56.22 Lesion of ulnar nerve, left upper limb (principal); G56.02 Carpal tunnel syndrome, left upper limb; M25.511 Pain in right shoulder
CPT/HCPCS: 99213

== ENCOUNTER → 2023-12-30 11:14 | Outpatient (BNVA) | payer MEDICARE, SELFPAY | PROVIDERS: PCP Emergency Medicine; Visit Provider Orthopaedic Surgery | DX: M25.511 Pain in right shoulder (principal); G56.02 Carpal tunnel syndrome, left upper limb; G56.22 Lesion of ulnar nerve, left upper limb | CPT/HCPCS: 99212 ==

== ENCOUNTER 2024-01-07 06:14 | Outpatient (REF) | payer MEDICARE, MEDICAID, SELFPAY ==
--- NOTE | ~2024-01-07 | FL_ITS ---
EXAMINATION: XR FLUOROSCOPY WITH IMAGES CLINICAL INFORMATION: Cervical radiculopathy. COMPARISON: None available. TECHNIQUE: Fluoroscopy Supervised By: Dr. Bryan Bryant. Fluoroscopy Time: 0.2 minutes. Cumulative Dose: 7.00 mGy. DAP: 0.528 Gycm2. Images: 1. FINDINGS: Intraoperative fluoroscopy and spot films were performed during a procedure in the OR. A single needle is seen overlying the cervical spine with some contrast media around the tip of the needle. Precise levels can not be ascertained secondary to marked coning of the images with lack of appropriate landmarks. Please correlate with Dr. Bryan Bryant's report for complete details. FL/FL guidance in treatment room IMPRESSION: Intraoperative fluoroscopy and spot films were obtained. Please see Dr. Bryan Bryant's report for complete details.
== END 2024-01-07 06:15 | disposition home or self-care (01) ==
LOC: CF 06:14
PROVIDERS: Visit Provider Internal Medicine
DX: M54.12 Radiculopathy, cervical region (principal)
CPT/HCPCS: 62321; J3301; Q9967

== ENCOUNTER 2024-01-07 10:38 | Outpatient (AMB) | payer MEDICARE, MEDICAID, SELFPAY ==
--- NOTE | 2024-01-07 14:49 | A.OFFVIS_ITS ---
Intake Visit Reasons: Left parasagittal interlaminar C6-C7 IZABELA Allergies fentanyl [From Duragesic] Allergy (Unknown, Verified 12/30/23 11:27) Unknown fluoxetine [From Prozac] Allergy (Unknown, Verified 12/30/23 11:27) Unknown lisinopril Adverse Reaction (Unknown, Verified 12/30/23 11:27) Unknown HPI HPI Left parasagittal interlaminar C6-C7 IZABELA: Details: Patient presents for scheduled procedure. Denies any recent cough, cold, in fection, fever or other significant changes in medical history since last office visit. [facility] Medical History (Updated 12/30/23 @ 11:51 by Ricardo Blankenship MD) Arthritis Liver cirrhosis HTN (hypertension) Depression GI bleed Spinal stenosis COPD (chronic obstructive pulmonary disease) Diabetes type 2, controlled Other fracture of t9-t10 vertebra, initial encounter for closed fracture Surgical History (Updated 09/10/23 @ 14:43 by Mya Gonzalez) Hx of repair of left rotator cuff Hx of appendectomy Social History (Updated 12/30/23 @ 11:33 by BERNIE Fatima) Unable to assess alcohol history related to: Unable to respond Comment: 1:1 Patient Tobacco Use Status: Current everyday Tobacco user Tobacco use type: Cigarette Cigarettes Per Day: 3 Second Hand Smoke Exposure: No Advance Directives Date on File: 07/22/22 service: No Current occupational status: unemployed Office Procedures Joint Injection/Drain Joint Injection/Drain Details: Interlaminar epidural steroid injection, C7/T1, Left parasaggital After obtaining written consent, pre-procedure blood pressure and heart rate were stable and recorded in the nursing record. The patient was placed in the prone position. The cervicothoracic area was widely prepped with chloraprep and draped in sterile fashion. Fluoroscopic guidance was used to identify the desired interlaminar space and for needle placement. Subcutaneous 0.5% lidocaine was used to anesthetize the skin overlying the target. A 20-gauge Rowe needle was advanced to the epidural space using loss of resistance to contrast technique under fluoroscopic AP and contralateral oblique views. There was no evidence of heme or CSF and no paresthesias were elicited with needle placement. Confirmation of epidural needle placement was performed with 1cc of omnipaque 180. Next 3 ml 0.5% lidocaine mixed with 80 mg triamcinilone was administered epidurally with no pain elicited on injection. The needle tract tubing was then cleared with 1 ml of 0.5% lidocaine. The needle was removed, skin cleansed and a sterile bandage was applied. The patient tolerated the procedure well and no complications were encountered. Following the procedure the patient's vital signs were stable. The patient was discharged home in good condition with post-procedural instructions. Time Out: Immediately prior to the procedure, the following was verbally confirmed that there is a signed consent form and that the correct patient, planned procedure, site and side are consistent with documentation and that necessary equipment and/or blood products are available prior to the start of the case. Complications: none EBL: <2 cc Coding 32856 - Cervical Epidural/Interlaminar with fluoroscopy Procedure code (CPT) selection complete Assessment & Plan Assessment & Plan (1) Cervical radiculitis: Code(s): M54.12 - Radiculopathy, cervical region Category: Medical Plan Patient is status post left parasagittal interlaminar C7-T1 IZABELA. Patient tolerated procedure well and was discharged home in stable condition with discharge instructions. All questions were answered. We will follow-up via telephone or in clinic to assess response to therapy. A follow-up appointment was made during today's visit. Orders: Orders FL guidance in treatment room Today M54.12 - Radiculopathy, cervical region Coding Level of Care Code Procedure Only Diagnoses Cervical radiculitis M54.12 CPT Codes Coding - Joint 10: 79826 - Cervical Epidural/Interlaminar with fluoroscopy ([id number])
== END 2024-01-07 11:59 | disposition home or self-care (01) ==
LOC: HO.PMCPRC 10:38
PROVIDERS: PCP Emergency Medicine; Visit Provider Internal Medicine
DX: M54.12 Radiculopathy, cervical region (principal)
CPT/HCPCS: 62321

== ENCOUNTER 2024-01-14 10:03 | Outpatient (AMB) | payer MEDICARE, MEDICAID, SELFPAY ==
--- NOTE | 2024-01-14 10:04 | MHC.OFFVIS ---
Intake Visit Reasons: TELE - Discuss Right TSA Intake Note: Alexx is a 63 year old male who presents today VIA telephone for discussion of Right TSA. He was referred by Dr. Blankenship, who recommended a Right reverse TSA. History of Right shoulder with Dr. Blankenship on 08/28/23 Allergies fentanyl [From Duragesic] Allergy (Unknown, Verified 12/30/23 11:27) Unknown fluoxetine [From Prozac] Allergy (Unknown, Verified 12/30/23 11:27) Unknown lisinopril Adverse Reaction (Unknown, Verified 12/30/23 11:27) Unknown HPI HPI TELE - Discuss Right TSA: Details: Alexx is a 63 year old male who presents today VIA telephone for discussion of Right TSA. He was referred by Dr. Blankenship, who recommended a Right reverse TSA. History of Right shoulder with Dr. Blankenship on 08/28/23. He states his pain is 5/10 and not painful everyday. Shoulder arthroscvopy from 09/12 revealed RTC arthropathy. He stattes he has a Hgb A1c of 13 PFSH Medical History (Updated 01/14/24 @ 10:35 by Mayo Villafana MD) Arthritis Liver cirrhosis HTN (hypertension) Depression GI bleed Spinal stenosis COPD (chronic obstructive pulmonary disease) Diabetes type 2, controlled Other fracture of t9-t10 vertebra, initial encounter for closed fracture Surgical History (Updated 09/10/23 @ 14:43 by Mya Gonzalez) Hx of repair of left rotator cuff Hx of appendectomy Social History (Updated 12/30/23 @ 11:33 by BERNIE Fatima) Unable to assess alcohol history related to: Unable to respond Comment: 1:1 Patient Tobacco Use Status: Current everyday Tobacco user Tobacco use type: Cigarette Cigarettes Per Day: 3 Second Hand Smoke Exposure: No Advance Directives Date on File: 07/22/22 service: No Current occupational status: unemployed Telehealth Telehealth Telehealth Platform: Telephone Location of provider rendering services: practice address Location of patient: address on file Patient Identification confirmed using: Name, : Yes Telehealth method: voice only Patient verbally consented to treatment: Yes Patient verbally consented to billing insurance company: Yes Patient informed of any privacy concerns related to visit: Yes Minutes spent on Phone/Video with Pt.: 10 Results Reviewed Results Reviewed: Arthroscopic images of right shoulder reviewed and demonstrate a retracted tear of the superior RTC cuff. Assessment & Plan Assessment & Plan (1) Rotator cuff arthropathy: Code(s): M12.819 - Other specific arthropathies, not elsewhere classified, unspecified shoulder Category: Medical Plan: RTC arthropathy with a HgbA1c of 13. I recommend sugar control. If A1c below 8 can consider surgery. I discussed PT and pain management as well. He is already seeing pain management and states that insurance won't cover more PT. Coding Level of Care Code Tele Est Pt Level 3 (06152) Diagnoses Rotator cuff arthropathy M12.819
== END 2024-01-14 10:18 | disposition home or self-care (01) ==
LOC: HO.HOS 10:03
PROVIDERS: PCP Emergency Medicine; Visit Provider Orthopaedic Surgery
DX: M12.819 Other specific arthropathies, not elsewhere classified, unspecified shoulder (principal)
CPT/HCPCS: 99441

== ENCOUNTER → 2024-01-14 10:03 | Outpatient (BNVA) | payer MEDICARE, SELFPAY | PROVIDERS: PCP Emergency Medicine; Visit Provider Orthopaedic Surgery ==

== ENCOUNTER 2024-01-15 10:59 | Outpatient (REF) | payer MEDICARE, MEDICAID, SELFPAY ==
--- NOTE | 2024-01-15 11:07 | EMG_ITS ---
Chief complaint: History of left Carpal Tunnel Syndrome surgery 20 years ago, reports 2 past EMGs showing Carpal Tunnel Syndrome, but his main complaint is numbness in left 4th and 5th digits for the last 1 and half years. Reason for referral: Evaluate for ulnar neuropathy and Carpal Tunnel Syndrome Referred by: Dr. Blankenship Procedure done: Left upper extremity NCS/EMG Precautions and/or limitations: None The limb temperature was monitored continuously and remained between 32-36 degrees C during the performance of the NCS. Ulnar motor NCS was performed with moderate elbow flexion between 70-90 degrees, with across-elbow distance of 10 cm. Nerve Conduction Studies Anti Sensory Summary Table ?Stim Site NR Onset (ms) Norm Onset (ms) Peak (ms) Norm Peak (ms) O-P Amp (?V) Norm O-P Amp Site1 Site2 Delta-0 (ms) Dist (cm) Juan Francisco (m/s) Norm Juan Francisco (m/s) Left Median Anti Sensory (2nd Digit) Wrist ? 4.0 4.7 <3.6 6.4 >10 Wrist 2nd Digit 4.0 14.0 35 Left Radial Anti Sensory (Thumb) Forearm ? 1.4 2.2 <3.1 18.8 Forearm Thumb 1.4 0.0 Left Ulnar Anti Sensory (5th Digit) Wrist ? 4.5 5.2 <3.7 3.5 >15.0 Wrist 5th Digit 4.5 14.0 31 Motor Summary Table ?Stim Site NR Onset (ms) Norm Onset (ms) O-P Amp (mV) Norm O-P Amp iAmp (mV) Amp (1st) (%) Site1 Site2 Delta-0 (ms) Dist (cm) Juan Francisco (m/s) Norm Juan Francisco (m/s) Left Median Motor (Abd Poll Brev) Wrist ? 4.4 <3.9 7.9 >4.5 10.1 100.0 Elbow Wrist 4.9 22.5 46 >45 Elbow ? 9.3 5.7 7.4 72.2 Axilla Elbow 0.3 0.0 Left Ulnar Motor (Abd Dig Minimi) Wrist ? 3.4 <3.0 2.0 >5 2.5 100.0 B Elbow Wrist 4.2 19.0 45 >45 B Elbow ? 7.6 1.3 1.8 65.0 A Elbow B Elbow 0.0 >45 A Elbow NR EMG ?Side Muscle Nerve Root Ins Act Fibs Psw Amp Dur Poly Recrt Int Pat Comment Left 1stDorInt Ulnar C8-T1 Incr 1+ 1+ Nml Nml 0 Nml Complete Left Biceps Musculocut C5-6 Nml Nml Nml Nml Nml 0 Nml Complete Left Triceps Radial C6-7-8 Nml Nml Nml Nml Nml 0 Nml Complete Left Deltoid Axillary C5-6 Nml Nml Nml Nml Nml 0 Nml Complete Left FlexCarpiUln Ulnar C8,T1 Incr 1+ 1+ Nml Nml 0 Nml Complete FINDINGS: Left median motor nerve showed prolonged distal latency, normal amplitude and normal conduction velocity. Left median sensory nerve showed prolonged peak latency and small amplitude. Left ulnar motor nerve showed prolonged distal latency and absent response above the elbow. Left ulnar sensory nerve showed prolonged peak latency and small amplitude. All other nerves tested were within normal. Concentric needle EMG was performed in selected muscles of the left upper extremity. Study revealed signs of electric abnormalities as shown in the table above. Left FDI and FCU muscle showed increased insertional activity, PSWs and fibrillations. IMPRESSION: 1. This is an abnormal study. 2. There is electrodiagnostic evidence for left ulnar neuropathy at the elbow. 3. There is electrodiagnostic evidence for left moderate-severe median neuropathy at the wrist, consistent with carpal tunnel syndrome. 4. There is no electrodiagnostic evidence for brachial plexopathy or cervical radiculopathy. Thank you for your kind referral. Jaylene Paez MD, MACIEL Board Certified, [place] [employer] and Rehabilitation (ABPMR) Board Certified, [place] Board of Electrodiagnostic Medicine (ABEM) CODIN [id number] [facility]
== END 2024-01-15 11:00 | disposition home or self-care (01) ==
LOC: HO.NEURO 10:59
PROVIDERS: Visit Provider Orthopaedic Surgery
DX: G56.02 Carpal tunnel syndrome, left upper limb (principal); G56.22 Lesion of ulnar nerve, left upper limb
CPT/HCPCS: 95886; 95909

== ENCOUNTER → 2024-01-15 11:07 | Outpatient (BNV) | payer MEDICARE, MEDICAID, SELFPAY | PROVIDERS: Visit Provider Physical Medicine & Rehabilitation | DX: G56.02 Carpal tunnel syndrome, left upper limb (principal); G56.22 Lesion of ulnar nerve, left upper limb | CPT/HCPCS: 95886; 95909 ==

== ENCOUNTER 2024-02-03 10:32 | Outpatient (AMB) | payer MEDICARE, MEDICAID, SELFPAY ==
--- NOTE | 2024-02-03 10:31 | MHC.OFFVIS ---
Intake Visit Reasons: s/p Left interlaminar C6-C7 IZABELA Allergies fentanyl [From Duragesic] Allergy (Unknown, Verified 12/30/23 11:27) Unknown fluoxetine [From Prozac] Allergy (Unknown, Verified 12/30/23 11:27) Unknown lisinopril Adverse Reaction (Unknown, Verified 12/30/23 11:27) Unknown HPI HPI s/p Left interlaminar C6-C7 IZABELA: Details: 63-year-old male who presents via telephone for follow-up after C6-C7 interlaminar IZABELA The patient reports 90% relief following the procedure. He reports 2 weeks of complete pain relief following the injection. He reports he hurt his right side of neck on January 19, 2024, and has experienced a recurrence of pain since then. He rates the pain as 9 on the scale of 1 to 10, especially on the right side. He states his headaches are much better now but his right upper back area is very bothersome. He is interested in trying injection on the right side as well. Past Procedure: 01/07/24: Interlaminar epidural steroid injection, C7/T1, Left parasaggital: 90% relief PFS Medical History (Updated 01/14/24 @ 10:35 by Mayo Villafana MD) Arthritis Liver cirrhosis HTN (hypertension) Depression GI bleed Spinal stenosis COPD (chronic obstructive pulmonary disease) Diabetes type 2, controlled Other fracture of t9-t10 vertebra, initial encounter for closed fracture Surgical History (Updated 09/10/23 @ 14:43 by Mya Gonzalez) Hx of repair of left rotator cuff Hx of appendectomy Social History (Updated 12/30/23 @ 11:33 by BERNIE Fatima) Unable to assess alcohol history related to: Unable to respond Comment: 1:1 Patient Tobacco Use Status: Current everyday Tobacco user Tobacco use type: Cigarette Cigarettes Per Day: 3 Second Hand Smoke Exposure: No Advance Directives Date on File: 07/22/22 service: No Current occupational status: unemployed Review of Systems Const All systems reviewed & are unremarkable except as noted in HPI and below Telehealth Telehealth Telehealth Platform: Telephone Location of provider rendering services: practice address Location of patient: address on file Patient Identification confirmed using: Name, : Yes Telehealth method: voice only Patient verbally consented to treatment: Yes Patient verbally consented to billing insurance company: Yes Patient informed of any privacy concerns related to visit: Yes Minutes spent on Phone/Video with Pt.: 3 Results Reviewed Results Reviewed: No imaging is available for review Assessment & Plan Assessment & Plan (1) Cervical radiculitis: Code(s): M54.12 - Radiculopathy, cervical region Category: Medical Plan We will schedule for a right parasagittal C6-C7 interlaminar IZABELA injection 6 weeks out from his last injection. Patient is in agreement with the plan. Scribed for Dr. Bryant by Елена Pryor medical administrative specialist, on 02/03/2024. I, Dr. Bryant, have personally reviewed and agree with the information entered by the scribe. Coding Level of Care Code Est Pt Level 3 (89756) Diagnoses Cervical radiculitis M54.12
== END 2024-02-03 10:33 | disposition home or self-care (01) ==
LOC: HO.PMC 10:32
PROVIDERS: Visit Provider Internal Medicine
DX: M54.12 Radiculopathy, cervical region (principal)
CPT/HCPCS: 99213

== ENCOUNTER → 2024-02-03 10:32 | Outpatient (BNVA) | payer MEDICARE, MEDICAID, SELFPAY | PROVIDERS: Visit Provider Internal Medicine | DX: M54.12 Radiculopathy, cervical region (principal) | CPT/HCPCS: 99212 ==

== ENCOUNTER 2024-02-25 06:12 | Outpatient (REF) | payer MEDICARE, MEDICAID, SELFPAY | END 2024-02-25 06:13 | disposition home or self-care (01) | LOC: CF 06:12 | PROVIDERS: Visit Provider Internal Medicine | DX: Z13.89 Encounter for screening for other disorder (principal) ==

== ENCOUNTER 2024-03-10 08:00 | Outpatient (REF) | payer MEDICARE, MEDICAID, SELFPAY | END 2024-03-10 08:01 | disposition home or self-care (01) | LOC: CF 08:00 | PROVIDERS: Visit Provider Internal Medicine | DX: Z13.89 Encounter for screening for other disorder (principal) ==

== ENCOUNTER 2024-04-28 06:15 | Outpatient (REF) | payer MEDICARE, MEDICAID, SELFPAY | END 2024-04-28 06:16 | disposition home or self-care (01) | LOC: CF 06:15 | PROVIDERS: Visit Provider Internal Medicine | DX: M54.12 Radiculopathy, cervical region (principal) | CPT/HCPCS: 62321; J1100; J2003; Q9967 ==

== ENCOUNTER 2024-04-28 11:44 | Outpatient (AMB) | payer MEDICARE, MEDICAID, SELFPAY ==
--- NOTE | 2024-04-28 11:50 | MHC.OFFVIS ---
Vital Signs 04/28/24 11:51 04/28/24 12:26 BP 132/72 159/94 H Blood Pressure Location Lt brachial Lt brachial Position Sitting Sitting Pulse 101 H 99 Pulse Source Pulse Oximeter Pulse Oximeter Pulse Oximetry (%) 94 93 Oxygen Delivery Method Nasal Cannula Nasal Cannula Oxygen Flow Rate 3 3 Intake Visit Reasons: Right C6-C7 parasagittal interlaminar IZABELA Allergies fentanyl [From Duragesic] Allergy (Unknown, Verified 12/30/23 11:27) Unknown fluoxetine [From Prozac] Allergy (Unknown, Verified 12/30/23 11:27) Unknown lisinopril Adverse Reaction (Unknown, Verified 12/30/23 11:27) Unknown HPI HPI Right C6-C7 parasagittal interlaminar IZABELA: Details: Patient presents for scheduled procedure. Denies any recent cough, cold, infection, fever or other significant changes in medical history since last office visit. [facility] Medical History (Updated 01/14/24 @ 10:35 by Mayo Villafana MD) Arthritis Liver cirrhosis HTN (hypertension) Depression GI bleed Spinal stenosis COPD (chronic obstructive pulmonary disease) Diabetes type 2, controlled Other fracture of t9-t10 vertebra, initial encounter for closed fracture Surgical History (Updated 09/10/23 @ 14:43 by Mya Gonzalez) Hx of repair of left rotator cuff Hx of appendectomy Social History (Updated 12/30/23 @ 11:33 by BERNIE Fatima) Unable to assess alcohol history related to: Unable to respond Comment: 1:1 Patient Tobacco Use Status: Current everyday Tobacco user Tobacco use type: Cigarette Cigarettes Per Day: 3 Second Hand Smoke Exposure: No Advance Directives Date on File: 07/22/22 service: No Current occupational status: unemployed Physical Exam Vital Signs: Last Vital Signs Pulse 99 04/28/24 12:26 BP 159/94 H 04/28/24 12:26 Pulse Ox 93 04/28/24 12:26 Oxygen Delivery Method Nasal Cannula 04/28/24 12:26 Oxygen Flow Rate 3 04/28/24 12:26 Office Procedures Joint Injection/Aspiration Joint Injection/Aspiration Details: Interlaminar epidural steroid injection, C6/7, Left parasaggital After obtaining written consent, pre-procedure blood pressure and heart rate were stable and recorded in the nursing record. The patient was placed in the prone position. The cervicothoracic area was widely prepped with chloraprep and draped in sterile fashion. Fluoroscopic guidance was used to identify the desired interlaminar space and for needle placement. Subcutaneous 0.5% lidocaine was used to anesthetize the skin overlying the target. A 20-gauge Rowe needle was advanced to the epidural space using loss of resistance to contrast technique under fluoroscopic AP and contralateral oblique views. There was no evidence of heme or CSF and no paresthesias were elicited with needle placement. Confirmation of epidural needle placement was performed with 1cc of omnipaque 180. Next 3 ml 0.5% lidocaine mixed with dexamethasone 10 mg was administered epidurally with no pain elicited on injection. The needle tract tubing was then cleared with 1 ml of 0.5% lidocaine. The needle was removed, skin cleansed and a sterile bandage was applied. The patient tolerated the procedure well and no complications were encountered. Following the procedure the patient's vital signs were stable. The patient was discharged home in good condition with post-procedural instructions. Time Out: Immediately prior to the procedure, the following was verbally confirmed that there is a signed consent form and that the correct patient, planned procedure, site and side are consistent with documentation and that necessary equipment and/or blood products are available prior to the start of the case. Complications: none EBL: <2 cc Coding 48008 - Cervical Epidural/Interlaminar with fluoroscopy Procedure code (CPT) selection complete Assessment & Plan Assessment & Plan (1) Cervical radiculitis: Code(s): M54.12 - Radiculopathy, cervical region Category: Medical Plan Patient is status post left parasagittal C6-7 interlaminar IZABELA. Patient tolerated procedure well and was discharged home in stable condition with discharge instructions. All questions were answered. We will follow-up via telephone or in clinic to assess response to therapy. A follow-up appointment was made during today's visit. Orders: Orders FL guidance in treatment room Today M54.12 - Radiculopathy, cervical region Coding Level of Care Code Procedure Only Diagnoses Cervical radiculitis M54.12 CPT Codes Coding - Joint 10: 22180 - Cervical Epidural/Interlaminar with fluoroscopy ([id number])
[2024-04-28 11:51] VITALS: BP 132/72; PULSE 101; O2SAT 94
[2024-04-28 12:26] VITALS: BP 159/94; PULSE 99; O2SAT 93
== END 2024-04-28 12:30 | disposition home or self-care (01) ==
LOC: HO.PMCPRC 11:44
PROVIDERS: Visit Provider Internal Medicine
DX: M54.12 Radiculopathy, cervical region (principal)
CPT/HCPCS: 62321

== ENCOUNTER 2024-05-16 14:24 | Outpatient (AMB) | payer MEDICARE, SELFPAY ==
--- NOTE | 2024-05-16 14:30 | A.OFFVIS_ITS ---
Vital Signs 05/16/24 14:33 Height 5 ft 8 in Weight 250 lb BMI 38.0 Handedness Right Intake Visit Reasons: new prob - Left carpal tunnel syndrome Intake Note: Alexx is a 63 year old right hand dominant male who presents today for left carpal tunnel syndrome. Patient reports pain, numbness and tingling that occurs daily in the 2nd, 3rd, 4th and 5th digits. He expresses they also get cold to touch. HE reports difficultly with gripping, grasping, and lifting. He says he is unable to pick even a paper up so he utilizes a grabber throughout the day to pick things up. Occasionally drops objects when he lifts them. His 1st, 2nd, and 3rd digits of his bilateral hands lock. Patient states pain is worse whenever he has to use his hands. He had a compression glove that gave him some relief however the fdc lost this. Denies steroid injections and OT in the past. EMG done 01/15/24 positive for left CTS and left ulnar neuropathy. Patient wants to discuss surgery. Hx of left hand carpal tunnel release roughly [facility] [place] [place]. Allergies fentanyl [From Duragesic] Allergy (Unknown, Verified 05/16/24 14:38) Unknown fluoxetine [From Prozac] Allergy (Unknown, Verified 05/16/24 14:38) Unknown lisinopril Adverse Reaction (Unknown, Verified 05/16/24 14:38) Unknown HPI HPI new prob - Left carpal tunnel syndrome: Details: Patient is a 63-year-old male who presents for evaluation of left hand numbness and tingling. The patient states that this numbness and tingling has been going on for approximately 1-2 years. The patient states that this numbness and tingling affects the 2nd through 5th digits of the left hand. The patient states that this is intermittent, but daily, and worse at night. Of note, the patient reports that he has had increasing weakness in the left hand, to the point where he feels he has to use a Grabber to grab things. Patient has had an EMG done previously that revealed both carpal and cubital tunnel syndromes on the left. Patient states he would like to explore potential surgical intervention at this time. No other acute complaints or concerns at this time. [facility] Medical History Arthritis Liver cirrhosis HTN (hypertension) Depression GI bleed Spinal stenosis COPD (chronic obstructive pulmonary disease) Diabetes type 2, controlled Other fracture of t9-t10 vertebra, initial encounter for closed fracture Surgical History Hx of repair of left rotator cuff Hx of appendectomy Social History Unable to assess alcohol history related to: Unable to respond Comment: 1:1 Patient Tobacco Use Status: Current everyday Tobacco user Tobacco use type: Cigarette Cigarettes Per Day: 3 Second Hand Smoke Exposure: No Advance Directives Date on File: 07/22/22 service: No Current occupational status: unemployed Review of Systems Const All systems reviewed & are unremarkable except as noted in HPI and below Physical Exam Vital Signs: BMI result Body Mass Index 38.0 Extrem Other: Neuro: Decreased sensation in the 2nd through 5th digits of the left hand at this time Normal sensation in the tips of all digits of the right hand today. No thenar or intrinsic wasting. Good APB muscle firing, weakened finger cross. Vascular: Capillary refill brisk. ROM: Patient can make a fist and extend all their digits. Skin: No lacerations or abrasions noted. General: No ecchymosis. No erythema or evidence of infection. Results Reviewed Results Reviewed: IMPRESSION: 1. This is an abnormal study. 2. There is electrodiagnostic evidence for left ulnar neuropathy at the elbow. 3. There is electrodiagnostic evidence for left moderate-severe median neuropathy at the wrist, consistent with carpal tunnel syndrome. 4. There is no electrodiagnostic evidence for brachial plexopathy or cervical radiculopathy. Thank you for your kind referral. Jaylene Paez MD, MACIEL Assessment & Plan Assessment & Plan (1) Left carpal tunnel syndrome: Code(s): G56.02 - Carpal tunnel syndrome, left upper limb Category: Medical (2) Cubital tunnel syndrome on left: Code(s): G56.22 - Lesion of ulnar nerve, left upper limb Category: Medical Plan 1. Carpal tunnel syndrome of left hand 2. Cubital tunnel syndrome of left elbow Symptoms intermittent, daily, worse at night Patient is educated about these conditions in the treatment options available Patient would like to proceed with surgical intervention at this time However, upon discussion with the staff members of the residential facility where the patient lives, his last hemoglobin A1c was approximately 8.7 Patient is educated that we can not perform the surgeries unless his A1c is below 8 due to concerns for wound healing Patient expresses understanding of this Patient will follow-up after A1c testing revealing an A1c below 8 for discussion of surgical intervention, sooner with any acute concerns Coding Level of Care Code New Pt Level 3 (14352) Diagnoses Left carpal tunnel syndrome G56.02 Cubital tunnel syndrome on left G56.22
[2024-05-16 14:33] VITALS: BMI 38.0
== END 2024-05-16 15:11 | disposition home or self-care (01) ==
LOC: HO.HOS 14:24
DX: G56.02 Carpal tunnel syndrome, left upper limb (principal); G56.22 Lesion of ulnar nerve, left upper limb
CPT/HCPCS: 99203

== ENCOUNTER → 2024-05-16 14:24 | Outpatient (BNVA) | payer MEDICARE, SELFPAY | DX: G56.02 Carpal tunnel syndrome, left upper limb (principal); G56.22 Lesion of ulnar nerve, left upper limb | CPT/HCPCS: 99202 ==

== ENCOUNTER 2024-05-27 11:49 | Outpatient (AMB) | payer MEDICARE, SELFPAY ==
--- NOTE | 2024-05-27 11:45 | A.OFFVIS_ITS ---
Intake Visit Reasons: s/p right C6-C7 IZABELA Allergies fentanyl [From Duragesic] Allergy (Unknown, Verified 05/16/24 14:38) Unknown fluoxetine [From Prozac] Allergy (Unknown, Verified 05/16/24 14:38) Unknown lisinopril Adverse Reaction (Unknown, Verified 05/16/24 14:38) Unknown HPI HPI s/p right C6-C7 IZABELA: Details: 63-year-old male who presents today to the office for a status post right C6-C7 epidural steroid injection. He states that his headache has improved but he continues to experience neck pain. He states that he not had significant relief due to recent injury after the injection. He also reports scapular and low back pain. The back pain is worse with lying down. He states that he require to undergo bilateral low back MRI scan. He tried physical therapy but stopped due to pain about six months ago. [facility] neck, shoulder, and lower back. He never had extension/flexion plane films. He is planning for a carpal tunnel surgery on his left hand. He has been managing his blood sugar levels and he recently dropped his blood sugar level down from 13.4 to 8.4. Past procedures 04/28/24: Interlaminar epidural steroid injection, C6/7, Left parasaggital: 60% relief 01/07/24: Interlaminar epidural steroid injection, C7/T1, Left parasaggital: 90% relief [facility] Medical History Arthritis Liver cirrhosis HTN (hypertension) Depression GI bleed Spinal stenosis COPD (chronic obstructive pulmonary disease) Diabetes type 2, controlled Other fracture of t9-t10 vertebra, initial encounter for closed fracture Surgical History Hx of repair of left rotator cuff Hx of appendectomy Social History Unable to assess alcohol history related to: Unable to respond Comment: 1:1 Patient Tobacco Use Status: Current everyday Tobacco user Tobacco use type: Cigarette Cigarettes Per Day: 3 Second Hand Smoke Exposure: No Advance Directives Date on File: 07/22/22 service: No Current occupational status: unemployed Review of Systems Const All systems reviewed & are unremarkable except as noted in HPI and below Telehealth Telehealth Telehealth Platform: Telephone Location of provider rendering services: practice address Location of patient: address on file Patient Identification confirmed using: Name, : Yes Telehealth method: voice only Patient verbally consented to treatment: Yes Patient verbally consented to billing insurance company: Yes Patient informed of any privacy concerns related to visit: Yes Minutes spent on Phone/Video with Pt.: 8 Results Reviewed Results Reviewed: No imaging is available for review. Assessment & Plan Assessment & Plan (1) Cervical radiculitis: Code(s): M54.12 - Radiculopathy, cervical region Category: Medical (2) Low back pain: Code(s): M54.50 - Low back pain, unspecified Category: Medical Plan He did not get much relief from the last cervical epidural steroid injection. He is continuing physical therapy, so I encouraged him to continue that for neck pain. For his low back pain that is not responding to physical therapy, I ordered an MRI of the lumbar spine, which we will review after it is done. We can reconsider repeating cervical interventions in the future as needed. Scribed for Dr. Bryant by Darin Loredo, medical technologist clinical, on 05/27/2024. I, Dr. Bryant, have personally reviewed and agree with the information entered by the scribe. Coding Level of Care Code Tele Est Pt Level 3 (53889) Diagnoses Cervical radiculitis M54.12 Low back pain M54.50
== END 2024-05-27 11:50 | disposition home or self-care (01) ==
LOC: HO.PMC 11:49
PROVIDERS: Visit Provider Internal Medicine
DX: M54.12 Radiculopathy, cervical region (principal); M54.50 Low back pain, unspecified
CPT/HCPCS: 99441

== ENCOUNTER → 2024-05-27 11:49 | Outpatient (BNVA) | payer MEDICARE, SELFPAY | PROVIDERS: Visit Provider Internal Medicine ==

== ENCOUNTER 2025-01-17 10:25 | Outpatient (AMB) | payer MEDICARE, SELFPAY ==
[2025-01-17 10:32] VITALS: BMI 38.0
--- NOTE | 2025-01-17 10:32 | MHC.OFFVIS ---
Vital Signs 01/17/25 10:32 Height 5 ft 8 in Weight 250 lb BMI 38.0 Intake Visit Reasons: OV - LT CTS Intake Note: Alexx is a 64 year old male who presents today for a follow up visit and EMG review of his left upper extremity. EMG/NCS one on 01/15/24 IMPRESSION: 1. This is an abnormal study. 2. There is electrodiagnostic evidence for left ulnar neuropathy at the elbow. 3. There is electrodiagnostic evidence for left moderate-severe median neuropathy at the wrist, consistent with carpal tunnel syndrome. 4. There is no electrodiagnostic evidence for brachial plexopathy or cervical radiculopathy. Allergies fentanyl (From Duragesic) Allergy (Unknown, Verified 05/16/24 14:38) Unknown fluoxetine (From Prozac) Allergy (Unknown, Verified 05/16/24 14:38) Unknown lisinopril Adverse Reaction (Unknown, Verified 05/16/24 14:38) Unknown HPI HPI OV - LT CTS: Details: Alexx is a 64 year old male who presents today for a follow up visit and EMG review of his left upper extremity. At last visit, patient expressed interest in both left carpal and cubital tunnel releases, but his A1c was unfortunately too high to be able to proceed with any surgical intervention. Patient reports that his A1c has gotten to 7.5 at last read, and would like to proceed with surgical intervention at this time. Reports that the numbness and tingling in his left hand has worsened, primarily in the ring and small fingers. EMG/NCS one on 01/15/24 IMPRESSION: 1. This is an abnormal study. 2. There is electrodiagnostic evidence for left ulnar neuropathy at the elbow. 3. There is electrodiagnostic evidence for left moderate-severe median neuropathy at the wrist, consistent with carpal tunnel syndrome. 4. There is no electrodiagnostic evidence for brachial plexopathy or cervical radiculopathy. [facility] Medical History Arthritis Liver cirrhosis HTN (hypertension) Depression GI bleed Spinal stenosis COPD (chronic obstructive pulmonary disease) Diabetes type 2, controlled Other fracture of t9-t10 vertebra, initial encounter for closed fracture Surgical History Hx of repair of left rotator cuff Hx of appendectomy Social History Unable to assess alcohol history related to: Unable to respond Comment: 1:1 Patient Tobacco Use Status: Current everyday Tobacco user Tobacco use type: Cigarette Cigarettes Per Day: 3 Second Hand Smoke Exposure: No Advance Directives Date on File: 07/22/22 service: No Current occupational status: unemployed Review of Systems Const All systems reviewed & are unremarkable except as noted in HPI and below Physical Exam Vital Signs: BMI result Body Mass Index 38.0 Extrem Other: Neuro: Decreased sensation in the 2nd through 5th digits of the left hand at this time Normal sensation in the tips of all digits of the right hand today. No thenar or intrinsic wasting. Good APB muscle firing, weakened finger cross. Vascular: Capillary refill brisk. ROM: Patient can make a fist and extend all their digits. Skin: No lacerations or abrasions noted. General: No ecchymosis. No erythema or evidence of infection. Assessment & Plan Assessment & Plan (1) Cubital tunnel syndrome on left: Code(s): G56.22 - Lesion of ulnar nerve, left upper limb Category: Medical (2) Left carpal tunnel syndrome: Code(s): G56.02 - Carpal tunnel syndrome, left upper limb Category: Medical Plan 1. Left cubital tunnel syndrome 2. Left carpal tunnel syndrome Symptoms almost constant, daily, worse at night I educated the patient about the condition. I discussed both operative and nonoperative treatment options. The patient would like to proceed with surgery. The risks and benefits of operative treatment were discussed with the patient and the patient wishes to proceed with surgery. These risks include, but are not limited to, risk of damage to blood vessels, nerves, tendons, infection, recurrence, incomplete relief of preoperative symptoms, persistent pain, possible need for further surgery, and the risks associated with regional blocks and/or anesthesia. Plan is to take the patient to the operating room at some point in the next few weeks for the following procedures: 1. Left cubital tunnel release under general 2. Left carpal tunnel release under general All of the preoperative paperwork including the consent was discussed today. All of the patient's questions were answered in the clinic today. The patient understands that they will be in contact with our care team coordinator scheduler to discuss scheduling their procedure. Patient will require primary care clearance prior to surgery Patient reports diabetes, last A1c 7.5 Patient reports COPD, currently on oxygen therapy Denies blood thinners, asthma, heart issues, lung issues, kidney issues, or current smoking. Coding Level of Care Code Est Pt Level 4 (19608) Diagnoses Cubital tunnel syndrome on left G56.22 Left carpal tunnel syndrome G56.02
--- OUTSIDE RECORDS SUMMARY | 2025-01-17 11:35 | XMS_ITS | Continuity of Care Document ---
Author Organization [facility] Address [address] [place], [place] Phone [phone] Care Team Providers Care Microbiological Analyst Name Role Phone César Randall MD Care Team Information Rece iver Unavailable CONNIE LEYVA M.D. Care Team Information Rec eiver Unavailable César Randall MD Primary Care Physician Renee vailable Problems Active Problems Provider Date Pure hypercholesterolemia Onset: 03/14/2021 Essential hypertension Onset: Tobacco user Connie Leyva M.D. Onset: 0 04/18/2021 Type 2 diabetes mellitus Connie Leyva M.D. Onset: 04/18/2021 Social History Type Date Description Comments Sex Male Sex Unknown Allergies and adverse reactions Active Allergies Criticality Reaction Severity Comments Date Lisinopril Unable to assess criticality Cough 04/18/2021 Inactive Allergies NKDA Unable to assess criticality 04/18/2021 Medications Active Medications SIG Qnty Indications Order ing Provider Date Rosuvastatin Dqrzyaw40yd Tablets 1 tab by mouth every evening->qod 90tabs Connie Leyva M.D. 02/13/2022 Testosterone Qtzqulzap171lg/ml Solution inject 1 milliliters into muscle as directed every 2 weeks 2ml E29.1 Connie Leyva M.D. 08/15/2021 Freestyle LancetsMisc 1 unit every day 100units E11.9 Connie Leyva M.D. 04/18/2021 Albuterol Sulfate TDU454(90Base) mcg/Act Aerosol Inhale 2 Puffs By Mouth Every 4 Hours César Randall MD Ywqfwqppzo60hw Tablets 2 tab by mouth every day Unknown Folic Thtn2on Tablets 1 every day Unknown Hydroxyzine XHZ10pg Tablets Allyson Celis NP Mvit D1000(very little B) Unknown Oxygen 2-4L/daily Unknown 0 Freestyle Lite TestStrips use one strip daily as directed 100units Connie Leyva M.D. Freestyle Lite TestStrip Use One Strip Daily as Directed 100units E11.9 Connie Leyva M.D. Afnpkmnp01ri/24HR Patches 24HR Apply 1 Patch Every Day César Randall MD Eqyywntpag194cx Tablets Take 1 Tablet By Mouth Four Times A Day Unknown Nortriptyline POW25kj Capsules Take 2 Capsules By Mouth Every Day In The Evening Unknown Losartan Lqjvhroop789yu Tablets 1/d Unknown Ketorolac Tromethamine0.5% Solution Markus Ag Fluticasone Ygbhxdvcrm82mgi/Act Suspension César Randall MD Albuterol Sulfate(2.5mg/3ML) 0.083% Nebulizer Unknown Hydrochlorothiazide2 5mg Tablets 1/d César Randall MD Trelegy Oemverw221-81.5-25mc g/Inh Aerosol César Randall MD Mupirocin2% Ointment Unknown Polyethylene Glycol 738040EJ/Scoop Powder César Randall MD Stool Yjtyoqwt526dt Capsules Take 1 Capsule By Mouth Every Day Unknown Cdrsa-5-Qcgr Ethyl Loqkeh8ez Capsules Tkae 1 Capsule By Mouth 4 Times A Day With Each Meal Unknown Methadone XZR83qx Tablets 3->2&1/2 a day->10mg/d Unknown BD Luer-Flavio Wryvtcj22D X 1 3 ML Misc For Testosterone Injection Unknown Flqlgmoqe242by Tablets César Randall MD History Medications Qagpcnllbi26ij Tablets Unknown - 05/14/2022 Thiamine LGF646ca Tablets 1/d Unknown - 07/01/2021 Hbruqrzq75ib/24HR Patches 24HR Apply 1 Patch Every Day César Randall MD - 04/18/2021 Tresiba Boiwdshzw850Waro/ML Solution Pen-Inject César Matos MD - 04/18/2021 Suoteocvytoqzpdfqp6ir ERNIEK Milla Pate MD - 04/18/2021 Metformin QZC3266bt Tablets 1 tab by mouth twice a day 180tabs César Randall MD - 05/29/2022 Lthuafirvqn59qv Tablets Take 1 Tablet By Mouth Every Day César Randall MD - 02/13/2022 Amoxicillin/Clavulanate Zbxzrmtqs352-672ac Tablets Take 1 Tablet By Mouth Every 12 Hours For 10 Days César Randall MD - 05/30/2021 Xnltoagritc9np Tablets 1/d Unknown - 05/30/[address] 1/4 a day Unknow n - 05/29/2022 Testosterone Asouwjvmd761pf/ml Solution Unknown - 04/18/2021
--- OUTSIDE RECORDS SUMMARY | 2025-01-17 11:36 | XMS_ITS | Clinical Summary ---
Author Organization [facility] Address [address] [place] [address] Care Team Providers Care Ornamental Rail Installer Name Role Phone Darion Lindsey MD Primary Care Provider [phone]- [phone] Allergies Active Allergy Reactions Criticality Noted Date Comments Lisinopril Unknown/Patient and Family Unable to Define Medium 06/13/2023 Fluoxetine Unknown/Patient and Family Unable to Define Medium 06/13/2023 Diazepam Unknown/Patient and Family Unable to Define Medium 06/13/2023 Medications metFORMIN (GLUCOPHAGE) 1000 MG tablet 06/10/20 Active lidocaine (LIDODERM) 5 % patch 05/13/20 Active hydrOXYzine HCl (ATARAX) 10 MG tablet 06/10/20 Active gabapentin (NEURONTIN) 300 MG capsule 06/10/20 Active folic acid (FOLVITE) 1 MG tablet 06/10/20 Active Trelegy Ellipta 100-62.5-25 MCG/ACT inhaler 06/10/20 Active fluticasone (FloNASE) 50 mcg/spray nasal spray 06/10/20 Active insulin glargine (LANtus/SEMGLEE) 100 units/mL injectionIndicat ions:Diabetes mellitus due to underlying condition with diabetic nephropathy, without long-term current use of insulin (HCC) Inject 0.22 mL (22 Units total) under the skin daily. 10 mL 06/24/20 23 Active acetaminophen (TYLENOL) 325 MG tabletIndication s:Spondylosis of lumbar spine Take 2 tablets (650 mg total) by mouth 3 times daily (every 8 hours) as needed for mild pain or moderate pain. 30 tablet 06/24/20 Active bisacodyl (DULCOLAX) 10 MG suppositoryIndic ations:Constipat ion, unspecified constipation type Insert 1 suppository (10 mg total) into the rectum daily as needed for constipation (if no bowel movement by day 2). 12 suppository 06/24/20 23 Active miconazole (ZEASORB-AF) 2 % powderIndication s:Itching Apply topically 2 (two) times a day. 15 g 06/24/20 23 Active nicotine (NICODERM CQ) 7 MG/24HR patchIndications :Other emphysema (HCC) Place 1 patch on the skin daily. 14 patch 06/24/20 23 Active polyethylene glycol (miraLAx) 17 g packetIndication s:Constipation, unspecified constipation type,Cirrhosis of liver without ascites, unspecified hepatic cirrhosis type (HCC) Take 1 packet (17 g total) by mouth 2 times a day. 60 packet 06/24/20 23 Active rifAXIMin (XIFAXAN) 550 MG tabletIndication s:Constipation, unspecified constipation type Take 1 tablet (550 mg total) by mouth 2 times a day. 30 tablet 06/24/20 23 Active nystatin (MYCOSTATIN) 002018 UNIT/ML suspensionIndica tions:Oral thrush Take 5 mL (500,000 Units total) by mouth 4 (four) times a day. 40 mL 06/24/20 23 Active PANTOprazole (PROTONIX) 40 MG EC tabletIndication s:Gastrointestin al hemorrhage with hematemesis,Blee ding gastric varices Take 1 tablet (40 mg total) by mouth 2 (two) times a day. 60 tablet 06/24/20 23 Active carvedilol (COREG) 6.25 MG tabletIndication s:Gastrointestin al hemorrhage with hematemesis,Blee ding gastric varices Take 1 tablet (6.25 mg total) by mouth 2 (two) times a day with meals. 60 tablet 06/24/20 23 Active spironolactone (ALDACTONE) 100 MG tabletIndication s:Constipation, unspecified constipation type Take 1 tablet (100 mg total) by mouth every morning with breakfast. 30 tablet 06/25/20 23 Active furosemide (LASIX) 40 MG tabletIndication s:Constipation, unspecified constipation type Take 1 tablet (40 mg total) by mouth daily. 30 tablet 06/24/20 23 Active Active Problems Problem Noted Date Diagnosed Date Chronic obstructive pulmonary disease 06/19/2023 06/19/2023 Continuous opioid dependence 06/19/202307/2022 Diabetes mellitus 06/19/2023 06/19/2023 Hypertension 06/19/2023 06/19/2023 Spondylosis of lumbar spine 06/19/2023 12/0 07/2022 Anemia 06/19/2023 06/19/2023 Anxiety 06/19/2023 06/19/2023 GI bleed 06/13/2023 Bleeding gastric varices 06/12/2023 Social History Tobacco Use Types Packs/Day Years Used Date Smoking Tobacco: Former Cigarettes Smokeless Tobacco: Former Tobacco Cessation:Counseling Given: Not Answered [facility] Utilities Answer Date Recorded In the past 12 months has th e [employer], gas, oil, or water company threatened to shut off services in your home? No 06/15/2023 AUDIT-C Answer Date Recorded Q1: How often do you have a drink containing alc ohol? Patient declined 06/16/2023 Q2: How many drinks containi ng alcohol do you have on a typical day when you are drinking? Patient declined 06/16/2023 Q3: How often do you have si x or more drinks on one occasion? Patient declined 06/16/2023 Overall Financial Resource Strain (CARDIA) Answe r Date Recorded How hard is it for you to pa y for the very basics like food, housing, medical care, and heating? Not hard at all 06/15/2023 Hunger Vital Sign Answer Date Recorded Within the past 12 months, y ou worried that your food would run out before you got the money to buy more. Never true 06/15/20 23 Within the past 12 months, t he food you bought just didn't last and you didn't have money to get more. Never true 06/15/2023 PRAPARE - Transportation Answer Date Re corded In the past 12 months, has l ack of transportation kept you from medical appointments or from getting medications? No 05/21 In the past 12 months, has l ack of transportation kept you from meetings, work, or from getting things needed for daily living? No 06/15/2023 Housing Stability Vital Sign Answer Brayden e Recorded In the last 12 months, was t here a time when you were not able to pay the mortgage or rent on time? No 06/15/2023 In the last 12 months, how many places have you lived? 1 06/15/2023 In the last 12 months, was t here a time when you did not have a steady place to sleep or slept in a mcc (including now)? No 06/15/2023 Sex and Gender Information Value Date Recorded Sex Assigned at Male 06/13/2023 3:49 AM EST Legal Sex Male 10:30 PM EST Gender Identity Male 06/13/2023 3:49 AM EST Sexual Orientation Choose not to disclose 2022 3:49 AM EST Last Filed Vital Signs Vital Sign Reading Time Taken Comments Blood Pressure 133/60 06/24/2023 9:00 AM EST Pulse 72 06/24/2023 8:57 AM EST Temperature 35.8 C (96.4 F) 06/24/2023 3:45 AM EST Respiratory Rate 20 06/24/2023 3:45 AM EST Oxygen Saturation 91% 06/24/2023 3:45 AM EST Inhaled Oxygen Concentration - - Weight 118 kg (260 lb) 06/24/2023 5:05 AM EST Height 177.8 cm (5' 10 ) 06/13/2023 2:23 AM EST Body Mass Index 37.31 06/13/2023 2:23 AM EST Plan of Treatment Health Maintenance Due Date Last Done Comments Hepatitis C Virus Screening 1962 Foot Exam 1972 Lipid Panel 1972 Ophthalmology Exam 1972 HIV Screening 1975 Microalbumin/Creatinine Ratio Urine 1980 DTaP/Tdap/Td Vaccines (1 - Tdap) 1981 Pneumococcal Vaccines 50+ (1 of 2 - PCV) 1981 Colonoscopy 2007 Zoster (Shingles) Vaccine (1 of 2) 2012 RSV Vaccine 60 years and older and Patients (1 - Risk 60-74 years 1-dose series) 2022 Hemoglobin A1C 12/16/2023 06/17/2023 COVID-19 Vaccine (1 - season) 2024 Creatinine with GFR 06/24/2024 06/24/2023, 06/22/2023, 06/21/2023, Additional history exists Influenza Vaccine 02/17/2025 Hepatitis B Vaccines Aged Out No long er eligible based on patient's age to complete this topic Medical Devices Implanted Type Area Tobacco Sprayer Device Identifier Shelf Expiration Date Model / Serial / Lot [id number] Coil Embolization Pod 30cm Pack J-Soft Sterl Lf - [id number] Implanted:Qty: 1 on 06/13/2023 by Augustin Haywood MD at [facility] Coil N/A: Abdomen [employer] [id number] 02/24/2031 [id number] / / [id number] Coil Embolization Interlock Fibered Idc 12mm 20cm 18 Coil - [id number] Implanted:Qty: 1 on 06/13/2023 by Augustin Haywood MD at [facility] Coil N/A: Abdomen [employer] [id number] 12/26/2025 [id number] / / [id number] Coil Embolization Interlock Fibered Idc 12mm 30cm 18 Coil 2d - [id number] Implanted:Qty: 1 on 06/13/2023 by Augustin Haywood MD at [facility] Coil N/A: Abdomen [employer] [id number] 11/24/2025 [id number] / / [id number] Coil Embolization Interlock Fibered Idc 12mm 30cm 18 Coil 2d - [id number] Implanted:Qty: 1 on 06/13/2023 by Augustin Haywood MD at [facility] Coil N/A: Abdomen [employer] [id number] 11/24/2025 [id number] / / [id number] Coil Embolization Interlock Fibered Idc 14mm 20cm 18 Coil - [id number] Implanted:Qty: 1 on 06/13/2023 by Augustin Haywood MD at [facility] Coil N/A: Abdomen [employer] [id number] 08/12/2024 [id number] / / [id number] Coil Embolization Pod 30cm Pack J-Soft Sterl Lf - [id number] Implanted:Qty: 1 on 06/13/2023 by Augustin Haywood MD at [facility] Coil N/A: Abdomen [employer] [id number] 01/25/2031 [id number] / / [id number] Coil Embolization Pod 30cm Pack J-Soft Sterl Lf - [id number] Implanted:Qty: 1 on 06/13/2023 by Augustin Haywood MD at [facility] Coil N/A: Abdomen [employer] [id number] 01/25/2031 [id number] / / [id number] Coil Embolization Penumbra Coil 400 Kanwal .02in 14mm 60cm - [id number] Implanted:Qty: 1 on 06/13/2023 by Augustin Haywood MD at [facility] Coil N/A: Abdomen [employer] [id number] 12/15/2030 [id number] / / [id number] Coil Embolization Pod 12-14mm 60cm - [id number] Implanted:Qty: 1 on 06/13/2023 by Augustin Haywood MD at [facility] Coil N/A: Abdomen [employer] [id number] 06/08/2029 [id number] / / [id number] Coil Embolization Penumbra Coil 400 Kanwal .02in 16mm 60cm - [id number] Implanted:Qty: 1 on 06/13/2023 by Augustin Haywood MD at [facility] Coil N/A: Abdomen [employer] [id number] 12/06/2030 [id number] / / [id number] Coil Embolization Interlock Fibered Idc 14mm 30cm 18 Coil - [id number] Implanted:Qty: 1 on 06/13/2023 by Augustin Haywood MD at [facility] Coil N/A: Abdomen [employer] [id number] 11/07/2025 [id number] / / [id number] Coil Embolization Interlock Fibered Idc 14mm 30cm 18 Coil - [id number] Implanted:Qty: 1 on 06/13/2023 by Augustin Haywood MD at [facility] Coil N/A: Abdomen [employer] [id number] 11/07/2025 [id number] / / [id number] Coil Embolization Interlock Fibered Idc 14mm 20cm 18 Coil - [id number] Implanted:Qty: 1 on 06/13/2023 by Augustin Haywood MD at [facility] Coil N/A: Abdomen [employer] LINDA [id number] 08/12/2024 [id number] / / [id number] Procedures Procedure Name Priority Date/Time Associated Diagnosis Comments BASIC METABOLIC PANEL Routine 06/24/2023 6:28 AM EST HEMOGLOBIN A1C WITH ESTIMATED AVERAGE GLUCOSE Routine 06/17/2023 4:57 AM EST from Last 3 Months or Most Recently Relevant to Health Maintenance Results * (ABNORMAL) BASIC METABOLIC PANEL (06/24/2023 6:28 AM EST) Glucose 158(H) 65 - 99 mg/dL 06/24/2023 8:27 AM [facility] Comment:Fasting: <100 mg/dL, Non-Fasting: <200 mg/dL (ADA 2005) Blood Urea Nitrogen (BUN) 9 8 - 21 mg/dL 06/24/2023 8:27 AM [facility] Creatinine 0.6 0.5 - 1.3 mg/dL 06/24/2023 8:27 AM [facility] eGFR >90 >59 06/24/2023 8:27 AM [facility] Comment:CKD-EPI (2020) in mL /min/1.73 sq meters. Sodium 140 136 - 145 mmol/L 06/24/2023 8:27 AM [facility] Potassium 3.7 3.4 - 5.3 mmol/L 06/24/2023 8:27 AM [facility] Chloride 103 98 - 107 mmol/L 06/24/2023 8:27 AM [facility] CO2 33 22 - 33 mmol/L 06/24/2023 8:27 AM [facility] Anion Gap 4(L) 7 - 17 06/24/2023 8:27 AM [facility] Calcium 8.5(L) 8.7 - 10.5 mg/dL 06/24/2023 8:27 AM [facility] BUN/Creatinine Ratio 15 10.0 - 25.0 Ratio 06/24/2023 8:27 AM [facility] Blood specimen (specimen) (Plasma/Serum) 06/24/2023 6:28 AM EST 06/24/2023 7:57 AM EST Manjinder Haskins MD LAB BLOOD ORDERABLES Final Result Performing Organization Address [facility] [place] [address], [place] [address] * (ABNORMAL) Hemoglobin A1c with Estimated Average Glucose (06/17/2023 4:57 AM EST) Hemoglobin A1C 7.3(H) <5.7 % 06/17/2023 8:05 AM [facility] Comment: A1c% Interpretation 5.7 - 6.0 Increase risk of diabetes 6.1 - 6.4 Higher risk of diabetes > or = 6.5 Consistent with diabetes Diabetes Care, 33(Supp 1):S1-S61, 2010 Estimated Average Glucose 163 mg/dL 06/17/2023 8:05 AM [facility] Blood specimen (specimen) Blood specimen / Unknown 06/17/2023 4:57 AM EST 06/17/2023 5:38 AM EST Dennis Mike MD LAB BLOOD ORDERABLES Final Resul t Performing Organization Address [facility] [place] [address], [place] [address] from Last 3 Months or Most Recently Relevant to Health Maintenance Additional Health Concerns Infection Onset Date Last Indicated MDRO Comment:Place on contact precautions for each acute care admission Bronch 06/15/2023 - Klebsiella pneumoniae ESBL promos executive producer 06/15/2023 06/19/2023 Insurance Gu[facility] [place] [phone] [facility] Advance Directives Documents on File Type Date Recorded 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 [facility] Care Lithographic Printing Machinist Care Teams Ornamental Rail Installer Relationship Specialty Start Date End Date Darion Lindsey MD [address] [place] [id number] PCP - General Family Medicine 06/13/23
== END 2025-01-17 11:35 | disposition home or self-care (01) ==
LOC: HO.HOS 10:25
DX: G56.22 Lesion of ulnar nerve, left upper limb (principal); G56.02 Carpal tunnel syndrome, left upper limb
CPT/HCPCS: 99214

== ENCOUNTER → 2025-01-17 10:25 | Outpatient (BNVA) | payer MEDICARE, SELFPAY | DX: G56.22 Lesion of ulnar nerve, left upper limb (principal); G56.92 Unspecified mononeuropathy of left upper limb | CPT/HCPCS: 99212 ==

== ENCOUNTER 2025-02-06 10:41 | Day surgery (SDC) | payer OTHER, SELFPAY ==
[2025-02-02 13:27] VITALS: BMI 38.0
--- OUTSIDE RECORDS SUMMARY | 2025-02-03 11:56 | XMS_ITS | Clinical Summary ---
Author Organization [facility] Address [address] [place] [address] Care Team Providers Care Rock Singer Name Role Phone Darion Lindsey MD Primary Care Provider +1- [phone] Allergies Active Allergy Reactions Criticality Noted Date [...] under the skin daily. 10 mL 06/24/20 Active acetaminophen (TYLENOL) 325 MG tabletIndication s:Spondylosis [...] 30 tablet 06/24/20 23 Active nystatin (MYCOSTATIN) 162431 UNIT/ML suspensionIndica tions:Oral thrush Take 5 mL [...] Tobacco: Former Tobacco Cessation:Counseling Given: Not Answered [facility] Utilities Answer Date Recorded In the past 12 months has th e [employer], gas, oil, or water company threatened to [...] place to sleep or slept in a long-term (including now)? No 06/15/2023 Sex and Gender [...] this topic Medical Devices Implanted Type Area Coroner Technician Device Identifier Shelf Expiration Date Model / Serial / Lot [id number] Coil Embolization Pod 30cm Pack J-Soft Sterl Lf - [id number] Implanted:Qty: 1 on 06/13/2023 by Augustin Haywood MD at [facility] Coil N/A: Abdomen [employer] [id number] 02/24/2031 [id number] / / [id number] Coil Embolization Interlock Fibered Idc 12mm 20cm 18 Coil - [id number] Implanted:Qty: 1 on 06/13/2023 by Augustin Haywood MD at [facility] Coil N/A: Abdomen [employer] [id number] 12/26/2025 [id number] / / [id number] Coil Embolization Interlock Fibered Idc 12mm 30cm 18 Coil 2d - [id number] Implanted:Qty: 1 on 06/13/2023 by Augustin Haywood MD at [facility] Coil N/A: Abdomen [employer] [id number] 11/24/2025 [id number] / / [id number] Coil Embolization Interlock Fibered Idc 12mm 30cm 18 Coil 2d - [id number] Implanted:Qty: 1 on 06/13/2023 by Augustin Haywood MD at [facility] Coil N/A: Abdomen [employer] [id number] 11/24/2025 [id number] / / [id number] Coil Embolization Interlock Fibered Idc 14mm 20cm 18 Coil - [id number] Implanted:Qty: 1 on 06/13/2023 by Augustin Haywood MD at [facility] Coil N/A: Abdomen [employer] [id number] 08/12/2024 [id number] / / [id number] Coil Embolization Pod 30cm Pack J-Soft Sterl Lf - [id number] Implanted:Qty: 1 on 06/13/2023 by Augustin Haywood MD at [facility] Coil N/A: Abdomen [employer] [id number] 01/25/2031 [id number] / / [id number] Coil Embolization Pod 30cm Pack J-Soft Sterl Lf - [id number] Implanted:Qty: 1 on 06/13/2023 by Augustin Haywood MD at [facility] Coil N/A: Abdomen [employer] [id number] 01/25/2031 [id number] / / [id number] Coil Embolization Penumbra Coil 400 Kanwal .02in 14mm 60cm - [id number] Implanted:Qty: 1 on 06/13/2023 by Augustin Haywood MD at [facility] Coil N/A: Abdomen [employer] [id number] 12/15/2030 [id number] / / [id number] Coil Embolization Pod 12-14mm 60cm - [id number] Implanted:Qty: 1 on 06/13/2023 by Augustin Haywood MD at [facility] Coil N/A: Abdomen [employer] [id number] 06/08/2029 [id number] / / [id number] Coil Embolization Penumbra Coil 400 Kanwal .02in 16mm 60cm - [id number] Implanted:Qty: 1 on 06/13/2023 by Augustin Haywood MD at [facility] Coil N/A: Abdomen [employer] [id number] 12/06/2030 [id number] / / [id number] Coil Embolization Interlock Fibered Idc 14mm 30cm 18 Coil - [id number] Implanted:Qty: 1 on 06/13/2023 by Augustin Haywood MD at [facility] Coil N/A: Abdomen [employer] [id number] 11/07/2025 [id number] / / [id number] Coil Embolization Interlock Fibered Idc 14mm 30cm 18 Coil - [id number] Implanted:Qty: 1 on 06/13/2023 by Augustin Haywood MD at [facility] Coil N/A: Abdomen [employer] [id number] 11/07/2025 [id number] / / [id number] Coil Embolization Interlock Fibered Idc 14mm 20cm 18 Coil - [id number] Implanted:Qty: 1 on 06/13/2023 by Augustin Haywood MD at [facility] Coil N/A: Abdomen [employer] LINDA [id number] 08/12/2024 [id number] / / [id number] Procedures Procedure Name Priority Date/Time Associated Diagnosis Comments BASIC METABOLIC PANEL Routine 06/24/2023 6:28 AM EST HEMOGLOBIN A1C WITH ESTIMATED AVERAGE GLUCOSE Routine 06/17/2023 4:57 AM EST from Last 3 Months or Most Recently Relevant to Health Maintenance Results * (ABNORMAL) BASIC METABOLIC PANEL (06/24/2023 6:28 AM EST) Glucose 158(H) 65 - 99 mg/dL 06/24/2023 8:27 AM [facility] Comment:Fasting: <100 mg/dL, Non-Fasting: <200 mg/dL (ADA 2005) Blood Urea Nitrogen (BUN) 9 8 - 21 mg/dL 06/24/2023 8:27 AM [facility] Creatinine 0.6 0.5 - 1.3 mg/dL 06/24/2023 8:27 AM [facility] eGFR >90 >59 06/24/2023 8:27 AM [facility] Comment:CKD-EPI (2020) in mL /min/1.73 sq meters. Sodium 140 136 - 145 mmol/L 06/24/2023 8:27 AM [facility] Potassium 3.7 3.4 - 5.3 mmol/L 06/24/2023 8:27 AM [facility] Chloride 103 98 - 107 mmol/L 06/24/2023 8:27 AM [facility] CO2 33 22 - 33 mmol/L 06/24/2023 8:27 AM [facility] Anion Gap 4(L) 7 - 17 06/24/2023 8:27 AM [facility] Calcium 8.5(L) 8.7 - 10.5 mg/dL 06/24/2023 8:27 AM [facility] BUN/Creatinine Ratio 15 10.0 - 25.0 Ratio 06/24/2023 8:27 AM [facility] Blood specimen (specimen) (Plasma/Serum) 06/24/2023 6:28 AM EST 06/24/2023 7:57 AM EST Manjinder Haskins MD LAB BLOOD ORDERABLES Final Result Performing Organization Address [facility] [place] [address], [place] [address] * (ABNORMAL) Hemoglobin A1c with Estimated Average Glucose (06/17/2023 4:57 AM EST) Hemoglobin A1C 7.3(H) <5.7 % 06/17/2023 8:05 AM [facility] Comment: A1c% Interpretation 5.7 - 6.0 Increase risk of diabetes 6.1 - 6.4 Higher risk of diabetes > or = 6.5 Consistent with diabetes Diabetes Care, 33(Supp 1):S1-S61, 2010 Estimated Average Glucose 163 mg/dL 06/17/2023 8:05 AM [facility] Blood specimen (specimen) Blood specimen / Unknown 06/17/2023 4:57 AM EST 06/17/2023 5:38 AM EST Dennis Mike MD LAB BLOOD ORDERABLES Final Resul t Performing Organization Address [facility] [place] [address], [place] [address] from Last 3 Months or Most Recently Relevant to Health Maintenance Additional Health Concerns Infection Onset Date Last Indicated MDRO Comment:Place on contact precautions for each acute care admission Bronch 06/15/2023 - Klebsiella pneumoniae ESBL promotions executive producer 06/15/2023 06/19/2023 Insurance [place] [phone] [facility] Advance Directives Documents on File Type Date Recorded Patient Chef Under Expl anation Advance Directive-Scan 06/22/2023 Devin [place]OUNTT [place] 06/22/23 HH * Full Code (Latest Code Status on File) Date Activated Date Inactivated Comments 06/13/2023 2:52 AM Question Answer Comments Decision Thoroughly Discussed with: Unable to Di scuss Healthcare Agents on File Name Relationship Healthcare Agent Relationship Communication Devin Brito Healthcare advertising representative 1. [facility] Care Chef Under Care Teams Rock Singer Relationship Specialty Start Date End Date Darion Lindsey MD [address] [place] [id number] PCP - General Family Medicine 06/13/23
--- OUTSIDE RECORDS SUMMARY | 2025-02-03 11:56 | XMS_ITS | Continuity of Care Document ---
Author Organization [facility] Address [address] [place], [place] Phone [phone] Care Team Providers Care Mosaic Tile Maker Name Role Phone César Randall MD Care [...] Qnty Indications Order ing Provider Date Rosuvastatin Pggkmwn86tr Tablets 1 tab by mouth every evening->qod 90tabs Connie Leyva M.D. 02/13/2022 Testosterone Gunmrtbjl390wt/ml Solution inject 1 milliliters into muscle as directed every 2 weeks 2ml E29.1 Connie Leyva M.D. 08/15/2021 Freestyle LancetsMisc 1 unit every day 100units E11.9 Connie Leyva M.D. 04/18/2021 Albuterol Sulfate VTU317(90Base) mcg/Act Aerosol Inhale 2 Puffs By Mouth Every 4 Hours César Randall MD Gmvkdettsc48gz Tablets 2 tab by mouth every day Unknown Folic Fwhh1oh Tablets 1 every day Unknown Hydroxyzine MBQ28jd Tablets Allyson Celis NP Mvit D1000(very little B) Unknown Oxygen 2-4L/daily Unknown 0 Freestyle Lite TestStrips use one strip daily as directed 100units Connie Leyva M.D. Freestyle Lite TestStrip Use One Strip Daily as Directed 100units E11.9 Connie Leyva M.D. Mdnpszvl05gd/24HR Patches 24HR Apply 1 Patch Every Day César Randall MD Gpgseifxdv405cj Tablets Take 1 Tablet By Mouth Four Times A Day Unknown Nortriptyline TDM27tp Capsules Take 2 Capsules By Mouth Every Day In The Evening Unknown Losartan Jbbtsxcvs568ok Tablets 1/d Unknown Ketorolac Tromethamine0.5% Solution Markus Ag Fluticasone Cgtuwkyjxx06rna/Act Suspension César Randall MD Albuterol Sulfate(2.5mg/3ML) 0.083% Nebulizer Unknown Hydrochlorothiazide2 5mg Tablets 1/d César Randall MD Trelegy Yideama792-68.5-25mc g/Inh Aerosol César Randall MD Mupirocin2% Ointment Unknown Polyethylene Glycol 975109YF/Scoop Powder César Randall MD Stool Eokctcnb121fi Capsules Take 1 Capsule By Mouth Every Day Unknown Klcpo-1-Qcwv Ethyl Uuhmtz6an Capsules Tkae 1 Capsule By Mouth 4 Times A Day With Each Meal Unknown Methadone OLR37py Tablets 3->2&1/2 a day->10mg/d Unknown BD Luer-Flavio Ztrxzil81Q X 1 3 ML Misc For Testosterone Injection Unknown Giqqhqwvn928sv Tablets César Randall MD History Medications Jushipagzv51oa Tablets Unknown - 05/14/2022 Thiamine ZFO761ap Tablets 1/d Unknown - 07/01/2021 Rxlgmzvc09ue/24HR Patches 24HR Apply 1 Patch Every Day César Randall MD - 04/18/2021 Tresiba Upysjligd125Vivm/ML Solution Pen-Inject César Matos MD - 04/18/2021 Ccwogciviwlemubexz6hl ERNIEK Milla Pate MD - 04/18/2021 Metformin EBN0606wm Tablets 1 tab by mouth twice a day 180tabs César Randall MD - 05/29/2022 Injnulutwec67ye Tablets Take 1 Tablet By Mouth Every Day César Randall MD - 02/13/2022 Amoxicillin/Clavulanate Ijoxdjrmd675-944gg Tablets Take 1 Tablet By Mouth Every 12 Hours For 10 Days César Randall MD - 05/30/2021 Gtqcowahqiz5ge Tablets 1/d Unknown - 05/30/[address] 1/4 a day Unknow n - 05/29/2022 Testosterone Fnirlndzn923ix/ml Solution Unknown - 04/18/2021
--- OUTSIDE RECORDS SUMMARY | 2025-02-03 11:56 | XMS_ITS ---
Author Name [facility] Organization Unknown Problems Problem Status Onset Date Problem Type Date of Resoluti on Source GI bleed active 2023-06-13 ProblemAct [facility] Bleeding gastric varices active 2023-06-12 ProblemAct HHCCT Encounters Encounter Type Encounter Reason Primary Diagnosis Location Date Inpatient Hematemesis Hematemesis [facility] 06/13/2023 Care Team Organization Name Specialty Phone Email Start Date End [facility] 08/09/2023 [facility] 06/13/2023 10/05/2024 [facility] 06/13/2023 06/13/2023
--- NOTE | 2025-02-03 13:26 | HO.ANESPROP2 ---
Documented by User: Latasha Angeles NP 02/03/25 13:30 HPI - Anesthesia Eval Consult details Narrative: 64yo M for Left Cubital Tunnel Release, Carpal Tunnel Release SN[facility] resident Cirrhosis COPD IDDM Ortho group trying to get clearance eval, EKG and labs faxed from facility - unavilable at time of chart review. Case reviewed with LM. Orders for DOS entered s/p shoulder scope 08/2024 with [facility] 7 PMF[facility] Active Problems Active Problems: All Active Problems Low back pain (Acute) Rotator cuff arthropathy (Acute) Cubital tunnel syndrome on left (Acute) Left carpal tunnel syndrome (Acute) Cervical radiculitis (Acute) Cervical spondylosis (Acute) Cervical stenosis of spinal canal (Acute) S/P arthroscopy of right shoulder (Acute ~08/28/23) Neck pain, bilateral (Acute) Right shoulder pain (Acute) Impingement of right shoulder (Acute) Leukocytosis (Acute) Past Medical History Medical History Arthritis Liver cirrhosis HTN (hypertension) Depression GI bleed Spinal stenosis COPD (chronic obstructive pulmonary disease) Diabetes type 2, controlled Other fracture of t9-t10 vertebra, initial encounter for closed fracture Family History Family history of problems with anesthesia: No Surgical History Surgical History Hx of repair of left rotator cuff Hx of appendectomy History of Problems with Anesthesia: No Social History Social History Unable to assess alcohol history related to: Unable to respond Comment: 1:1 Patient Tobacco Use Status: Current everyday Tobacco user Tobacco use type: Cigarette Cigarettes Per Day: 3 Second Hand Smoke Exposure: No Have you been hit, kicked, punched, or otherwise hurt by someone within the past year? If so, by whom?: No Are you DNR?: No Advance Directives: No Advance Directives Information Provided: Yes Advance Directives Date on File: 07/22/22 service: No Current occupational status: unemployed Meds Allergies Allergy/AdvReac Type Severity Reaction Status Date / Time fentanyl (From Duragesic) Allergy Unknown Unknown Verified 05/16/24 14:38 fluoxetine (From Prozac) Allergy Unknown Unknown Verified 05/16/24 14:38 lisinopril AdvReac Unknown Unknown Verified 05/16/24 14:38 Home Medications ?Medication ?Instructions ?Recorded ?Confirmed ?Last Taken ?Type albuterol sulfate 90 mcg/actuation 2 puff inhalation QID PRN 07/20/22 12/30/23 Unknown History aerosol inhaler (ProAir HFA) Shortness Of Breath Or Wheezing bisacodyl 10 mg rectal suppository 10 mg RI DAILY PRN Constipation 07/20/22 12/30/23 Unknown History dextrose 40 % oral gel (Glucose 15 g PO Q15M PRN Hypoglycemia 07/20/22 12/30/23 Unknown History Gel) fluticasone fur. 100 mcg-umeclid 1 inh inhalation DAILY 07/20/22 12/30/23 Unknown History 62.5 mcg-vilant 25 mcg inhalat.powder (Trelegy Ellipta) fluticasone propionate 50 1 spray intranasal DAILY 07/20/22 12/30/23 Unknown History mcg/actuation nasal spray,suspension (Flonase Allergy Relief) folic acid 1 mg tablet 1 mg PO DAILY 07/20/22 12/30/23 Unknown History glucagon 1 mg/0.2 mL subcutaneous 1 mg subcut Q20M PRN Hypoglycemia 07/20/22 12/30/23 Unknown History solution hydroxyzine HCl 10 mg tablet 20 mg PO TID PRN Anxiety 07/20/22 12/30/23 Unknown History magnesium hydroxide 400 mg/5 mL 30 ml PO DAILY PRN Constipation 07/20/22 12/30/23 Unknown History oral suspension (Milk of Magnesia) multivitamin 1 tab PO DAILY 07/20/22 12/30/23 02/06/25 History sodium phosphates 19 gram-7 118 ml RI DAILY PRN Constipation 07/20/22 12/30/23 Unknown History gram/118 mL enema (Fleet Enema) carvedilol 6.25 mg tablet 6.25 mg PO BID 08/27/23 12/30/23 02/06/25 History guaifenesin 600 mg tablet, 600 mg PO BID 08/27/23 12/30/23 Unknown History extended release 12 hr (Mucinex) insulin glargine 100 unit/mL unit subcut 08/27/23 12/30/23 Unknown History subcutaneous solution (Lantus U-100 Insulin) lidocaine 4 % topical patch 1 patch topical DAILY PRN Pain 08/27/23 12/30/23 Unknown History metformin 1,000 mg tablet 1,000 mg PO BID 08/27/23 12/30/23 Unknown History naloxone 4 mg/actuation nasal 1 spray intranasal Q3M PRN Opioid 08/27/23 12/30/23 Unknown History spray (Narcan) Overdose pantoprazole 40 mg tablet,delayed 40 mg PO BID 08/27/23 12/30/23 02/06/25 History release rifaximin 550 mg tablet (Xifaxan) 550 mg PO BID 08/27/23 12/30/23 Unknown History spironolactone 100 mg tablet 100 mg PO DAILY 08/27/23 12/30/23 Unknown History tramadol 50 mg tablet mg 08/27/23 12/30/23 Unknown History gabapentin 300 mg capsule 300 mg PO TID 12/23/23 12/30/23 02/06/25 History furosemide 40 mg tablet 40 mg PO DAILY 12/30/23 12/30/23 Unknown History hydroxyzine HCl 25 mg tablet 25 mg PO BID 12/30/23 12/30/23 Unknown History insulin glargine-yfgn 100 unit/mL unit subcut 12/30/23 12/30/23 Unknown History subcutaneous solution nystatin 100,000 unit/mL oral PO 12/30/23 12/30/23 Unknown History suspension fluoride (sodium) 1.1 % dental PO 05/16/24 Unknown History paste (Sodium Fluoride 5000 Dry Mouth) Exam Height,Weight and Vital Signs: Height 5 ft 8 in Weight 113.398 kg Assessment and Plan Assessment Anesthesia Assessment: Chart Reviewed Final Anesthetic Review Family History of Problems with Anesthesia: No History of Problems with Anesthesia: No Documented by User: Rajinder De La O MD 02/06/25 13:51 PMFSH Past Medical History Medical History Arthritis Liver cirrhosis HTN (hypertension) Depression GI bleed Spinal stenosis COPD (chronic obstructive pulmonary disease) Diabetes type 2, controlled Other fracture of t9-t10 vertebra, initial encounter for closed fracture Surgical History Surgical History Hx of repair of left rotator cuff Hx of appendectomy Social History Social History Unable to assess alcohol history related to: Unable to respond Comment: 1:1 Patient Tobacco Use Status: Current everyday Tobacco user Tobacco use type: Cigarette Cigarettes Per Day: 3 Second Hand Smoke Exposure: No Have you been hit, kicked, punched, or otherwise hurt by someone within the past year? If so, by whom?: No Are you DNR?: No Advance Directives: No Advance Directives Information Provided: Yes Advance Directives Date on File: 07/22/22 service: No Current occupational status: unemployed Meds Allergies Allergy/AdvReac Type Severity Reaction Status Date / Time fentanyl (From Duragesic) Allergy Unknown Unknown Verified 05/16/24 14:38 fluoxetine (From Prozac) Allergy Unknown Unknown Verified 05/16/24 14:38 lisinopril AdvReac Unknown Unknown Verified 05/16/24 14:38 Home Medications ?Medication ?Instructions ?Recorded ?Confirmed ?Last Taken ?Type albuterol sulfate 90 mcg/actuation 2 puff inhalation QID PRN 07/20/22 12/30/23 Unknown History aerosol inhaler (ProAir HFA) Shortness Of Breath Or Wheezing bisacodyl 10 mg rectal suppository 10 mg RI DAILY PRN Constipation 07/20/22 12/30/23 Unknown History dextrose 40 % oral gel (Glucose 15 g PO Q15M PRN Hypoglycemia 07/20/22 12/30/23 Unknown History Gel) fluticasone fur. 100 mcg-umeclid 1 inh inhalation DAILY 07/20/22 12/30/23 Unknown History 62.5 mcg-vilant 25 mcg inhalat.powder (Trelegy Ellipta) fluticasone propionate 50 1 spray intranasal DAILY 07/20/22 12/30/23 Unknown History mcg/actuation nasal spray,suspension (Flonase Allergy Relief) folic acid 1 mg tablet 1 mg PO DAILY 07/20/22 12/30/23 Unknown History glucagon 1 mg/0.2 mL subcutaneous 1 mg subcut Q20M PRN Hypoglycemia 07/20/22 12/30/23 Unknown History solution hydroxyzine HCl 10 mg tablet 20 mg PO TID PRN Anxiety 07/20/22 12/30/23 Unknown History magnesium hydroxide 400 mg/5 mL 30 ml PO DAILY PRN Constipation 07/20/22 12/30/23 Unknown History oral suspension (Milk of Magnesia) multivitamin 1 tab PO DAILY 07/20/22 12/30/23 02/06/25 History sodium phosphates 19 gram-7 118 ml RI DAILY PRN Constipation 07/20/22 12/30/23 Unknown History gram/118 mL enema (Fleet Enema) carvedilol 6.25 mg tablet 6.25 mg PO BID 08/27/23 12/30/23 02/06/25 History guaifenesin 600 mg tablet, 600 mg PO BID 08/27/23 12/30/23 Unknown History extended release 12 hr (Mucinex) insulin glargine 100 unit/mL unit subcut 08/27/23 12/30/23 Unknown History subcutaneous solution (Lantus U-100 Insulin) lidocaine 4 % topical patch 1 patch topical DAILY PRN Pain 08/27/23 12/30/23 Unknown History metformin 1,000 mg tablet 1,000 mg PO BID 08/27/23 12/30/23 Unknown History naloxone 4 mg/actuation nasal 1 spray intranasal Q3M PRN Opioid 08/27/23 12/30/23 Unknown History spray (Narcan) Overdose pantoprazole 40 mg tablet,delayed 40 mg PO BID 08/27/23 12/30/23 02/06/25 History release rifaximin 550 mg tablet (Xifaxan) 550 mg PO BID 08/27/23 12/30/23 Unknown History spironolactone 100 mg tablet 100 mg PO DAILY 08/27/23 12/30/23 Unknown History tramadol 50 mg tablet mg 08/27/23 12/30/23 Unknown History gabapentin 300 mg capsule 300 mg PO TID 12/23/23 12/30/23 02/06/25 History furosemide 40 mg tablet 40 mg PO DAILY 12/30/23 12/30/23 Unknown History hydroxyzine HCl 25 mg tablet 25 mg PO BID 12/30/23 12/30/23 Unknown History insulin glargine-yfgn 100 unit/mL unit subcut 12/30/23 12/30/23 Unknown History subcutaneous solution nystatin 100,000 unit/mL oral PO 12/30/23 12/30/23 Unknown History suspension fluoride (sodium) 1.1 % dental PO 05/16/24 Unknown History paste (Sodium Fluoride 5000 Dry Mouth) Exam Airway Mallampati Class: III TM Dist: >3cm Neck ROM: Poor Loose/Missing/Broken Teeth: No Heart: RRR Lungs: CTA Assessment and Plan Final Anesthetic Review NPO: Yes ASA Class: III Final Preanesthetic Review: No Changes in Pt Med Stat, Meds/Allgs Chart Reviewed, Consent Obtained/Reviewed and Anes Risks/Benef Reviewed Patient Risk: Intermediate Procedure Risk: Low Anesthetic Plan Anesthetic Plan: GA Disposition: Standard PACU
[2025-02-06] VITALS (10 sets, daily range): BP systolic 121–178; BP diastolic 60–88; PULSE 77–102; RESP 17–26; TEMP 36.4–36.9; O2SAT 89–95; BMI 39.7
--- NOTE | 2025-02-06 10:52 | ECG_ITS ---
Test Reason : stat ekg pre op Blood Pressure : */* mmHG Vent. Rate : 77 BPM Atrial Rate : 77 BPM P-R Int : 172 ms QRS Dur : 140 ms QT Int : 438 ms P-R-T Axes : 1 66 64 degrees QTcB Int : 495 ms Normal sinus rhythm Right bundle branch block Abnormal ECG When compared with ECG of 28-Sep-2022 01:15, Right bundle branch block is now Present Referred By: Latasha Angeles Electronically Signed By: Mauro Mcfarland
[2025-02-06 11:14] LABS: Glucose, Whole Blood 138 mg/dL (60-115)
[2025-02-06] MEDS: Lactated Ringers 1,000 ML 100 ML IVCONT (11:35)
[2025-02-06 11:39] LABS: Hematocrit 35.4 % (42.0-52.0); Hemoglobin 11.0 g/dl (14.0-18.0); Mean Corpuscular HGB Conc 31.1 g/dl (31.0-36.0); Mean Corpuscular Hemoglobin 24.6 pg (27.0-33.0); Mean Corpuscular Volume 79.2 fL (80.0-98.0); NRBC Abs Auto 0.000 X10*3/uL (0.0-0.012); NRBC Pct Auto 0.0 /100WBC (0.0-0.2); Platelet Count 132 X10*3/uL (160-400); Red Blood Count 4.47 X10*6/uL (4.60-5.80); White Blood Count 9.8 X10*3/uL (4.8-10.8)
[2025-02-06 11:52] LABS: INTERNATIONAL NORM RATIO 1.2 (0.9-1.1); Prothrombin Time 13.6 SEC (10.9-12.4)
[2025-02-06 11:54] LABS: Alanine Aminotransferase 15 U/L (0-40); Albumin Level 4.0 g/dL (3.5-5.0); Alkaline Phosphatase 76 U/L (39-117); Anion Gap 10 (12-20); Aspartate Amino Transferase 19 U/L (5-37); Blood Urea Nitrogen 14 mg/dL (9-16); Calcium 8.7 mg/dL (8.4-10.2); Carbon Dioxide 29 mmol/L (22-29); Chloride 105 mmol/L (96-108); Creatinine Clr Calc Pharmacy 167.9; Estimated Glomerular Filt Rate > 60; Potassium 4.5 mmol/L (3.3-5.1); Sodium 139 mmol/L (135-145); Total Protein 6.6 g/dL (6.5-8.0)
--- NOTE | 2025-02-06 12:59 | MHC.SHP ---
Pre-Procedural Eval Section A - 24 Hr Update-Section A only Date of Service: 02/06/25 The patient is an INPATIENT: No Changes since office visit: No Cold of Flu in the past 2 weeks, No New Medical Problems, No Changes in Medication and No Patient answered all questions The patient has been examined within 24 hours of the surgical procedure. The History & Physical has been completed within 30 days and I have reviewed it.: Yes Section B - Complete if H&P > 30 days Chief Complaint: carpal tunnel,lesion of ulnar nerve Allergies: Allergies Allergy/AdvReac Type Severity Reaction Status Date / Time fentanyl (From Duragesic) Allergy Unknown Unknown Verified 05/16/24 14:38 fluoxetine (From Prozac) Allergy Unknown Unknown Verified 05/16/24 14:38 lisinopril AdvReac Unknown Unknown Verified 05/16/24 14:38 Plan I have reviewed the history and physical and performed a pertinent physical examination on my patient. No changes have occurred unless specified. Time Spent With Patient Time: Total time managing care of this patient today ____ minutes.
--- NOTE | 2025-02-06 13:00 | P.OP_ITS ---
Operative Note Operative Note Date of Service: 02/06/25 Narrative: Operative Note Narrative: Preop diagnosis: 1. Left Cubital tunnel syndrome 2. Left carpal tunnel syndrome Postop diagnosis: Same Procedure: 1. Left Cubital Tunnel Release 2. Left carpal tunnel release Surgeon: Una Preston MD Special Education Educational Assistant: None Anesthesia: General Anesthesia Findings: Thickening and fibrosis about the ulnar nerve at the cubital tunnel Implants: none Tourniquet time: 35 minutes EBL: 5.0 ml Specimen: none Drains: None Complications: None Disposition: Brought to the recovery room in stable condition Plan: Follow-up in 10-14 days for wound check, and suture removal Indications: The patient is 64 years old with left cubital tunnel syndrome and left carpal tunnel syndrome . He is unsure whether or not he had a previous left carpal tunnel release. . The risks and benefits of operative treatment, including but not limited to risk of damage to blood vessels, nerves, tendons, infection, recurrence, persistent pain or numbness, incomplete resolution of preoperative symptoms, or need for further surgery were discussed with the patient and they wished to proceed with surgery. Procedure: Once consent was obtained patient was brought back to the operating suite and placed in the operating table in a supine position. Perioperative antibiotics and anesthesia was administered by the anesthesia team. The limb was prepped and draped in a standard surgical fashion, and a sterile tourniquet applied to the proximal aspect of the left upper extremity. The limb was elevated exsanguinated with Esmarch bandage and the tourniquet inflated to 250 mm of mercury for a total tourniquet time of 35 minutes. Once assured that we had a good block, a 2.0 cm longitudinal incision was made centered over the left carpal tunnel. The incision was made through the skin to the subcutaneous tissues using a #15 blade. Dissection was made down to the level of the transverse carpal ligament with care being taken to protect the palmar cutaneous nerve. Once the transverse carpal ligament was clearly visualized, a longitudinal incision was made in the transverse carpal ligament 1st using a #15 blade, then using tenotomy scissors under direct visualization. Care was taken to look for and protect the motor branch of the median nerve when seen in this area. Once satisfied with our carpal tunnel release the wound was irrigated with normal saline. A 6 cm gently curved but longitudinally oriented incision was made centered over the cubital tunnel of the left upper extremity. Incision was made through the skin to the subcutaneous tissues using a # 15 Blade. I then dissected down to the level of the medial epicondyle and the cubital tunnel using tenotomy scissors. Care was taken to protect the medial antebrachial cutaneous nerve. The ulnar nerve was identified just posterior to the medial intermuscular septum. The ulnar nerve was released in a proximal to distal direction using tenotomy in iris scissors while directly visualizing and protecting the ulnar nerve. Thickening and fibrosis was appreciated about the ulnar nerve as it passed through the cubital tunnel. The ulnar nerve was assessed as I passed the elbow through full flexion and extension . The ulnar nerve was stable, with no subluxation.. At this point the tourniquet was deflated and hemostasis obtained with a brief period of local pressure and bipolar electrocautery. The wound was copiously irrigated with normal saline. The subcutaneous layer was closed with 4-0 Vicryl suture, and the skin edges were reapproximated with 4-0 nylon suture. The wound was infiltrated with some 1% lidocaine with epinephrine for postop pain control and sterile dressings were applied. The patient appears to have tolerated the procedure well and with no complications. All digits were well vascularized at the conclusion of the case.
--- NOTE | 2025-02-06 14:10 | PC.NURSE ---
voided in the urinal
--- NOTE | 2025-02-06 16:57 | PC.NURSE ---
Pt has a mail order pharmacy listed as his preferred and [facility] [place]. Surgeon Dr Una Preston contacted via [employer] message requesting that post op prescription for Percocet be re-sent to [facility] [place]. Message was read, no response at this time. Pharmacy info updated in computer and [facility] contacted and notified at 1700 that a prescription is being sent and to please deliver to PACU when it is ready as pt will likely need it for overnight pain mgmt.
[2025-02-06] MEDS: oxyCODONE HCl ER 10 MG TAB.ER.12H PO (17:55)
[2025-02-06] MEDS: oxyCODONE HCl Immed Release 5 MG TABLET PO (17:56)
== END 2025-02-06 18:55 | disposition home or self-care (01) ==
PROVIDERS: Nurse Practitioner; PCP Family Medicine; Visit Provider Orthopaedic Surgery
PROC: (CPT 64718; principal; 2025-02-06 13:20)
PROC: (CPT 64721; 2025-02-06 13:20)
DX: G56.02 Carpal tunnel syndrome, left upper limb (principal); G56.22 Lesion of ulnar nerve, left upper limb; R20.0 Anesthesia of skin; R20.2 Paresthesia of skin; I10 Essential (primary) hypertension; J44.9 Chronic obstructive pulmonary disease, unspecified; K74.60 Unspecified cirrhosis of liver; E11.9 Type 2 diabetes mellitus without complications; M19.90 Unspecified osteoarthritis, unspecified site; Z79.4 Long term (current) use of insulin; Z79.84 Long term (current) use of oral hypoglycemic drugs; Z79.51 Long term (current) use of inhaled steroids; Z79.899 Other long term (current) drug therapy; Z88.8 Allergy status to other drugs, medicaments and biological substances; F17.210 Nicotine dependence, cigarettes, uncomplicated; Z56.0 Unemployment, unspecified
CPT/HCPCS: 64721; 64718; 36415; 80053; 82947; 85027; 85610; 93005; 94660; J0131; J0690; J1100; J2003; J2004; J2250; J2371; J2405; J2704; J3010

== ENCOUNTER → 2025-02-06 10:41 | Outpatient (BNV) | payer OTHER, SELFPAY | PROVIDERS: PCP Family Medicine; Visit Provider Orthopaedic Surgery | DX: G56.02 Carpal tunnel syndrome, left upper limb (principal); G56.22 Lesion of ulnar nerve, left upper limb | CPT/HCPCS: 64718; 64721 ==

== ENCOUNTER → 2025-02-06 10:52 | Outpatient (BNV) | payer OTHER, SELFPAY | PROVIDERS: PCP Family Medicine; Visit Provider Internal Medicine Cardiovascular Disease | DX: I45.10 Unspecified right bundle-branch block (principal) | CPT/HCPCS: 93010 ==

== ENCOUNTER 2025-02-21 12:47 | Outpatient (AMB) | payer MEDICARE, SELFPAY ==
[2025-02-21 12:57] VITALS: BMI 39.5
--- NOTE | 2025-02-21 12:57 | MHC.OFFVIS ---
Vital Signs 02/21/25 12:57 Height 5 ft 8 in Weight 260 lb BMI 39.5 Intake Visit Reasons: PO LT cubital/CTR 02/06/25 AR Intake Note: Alexx is a 64 year old right hand dominant male who presents today for their first post-operative visit status post left cubital & carpal tunnel release, DOS: 02/06/[address] Preston. Patient reports on going left ring and small finger numbness and tingling. He continues taking Oxycodone for his back. Patient came in to office today wearing same post-op dressing. Per nurse from [facility], who accompanies patient today, they did not have written orders or instructions to have patient's dressing removed therefore this remained intact until today's visit. Sutures removed and steri strips applied. Allergies fentanyl (From Duragesic) Allergy (Unknown, Verified 02/21/25 12:57) Unknown fluoxetine (From Prozac) Allergy (Unknown, Verified 02/21/25 12:57) Unknown lisinopril Adverse Reaction (Unknown, Verified 02/21/25 12:57) Unknown HPI HPI PO LT cubital/CTR 02/06/25 AR: Details: Alexx is a 64 year old right hand dominant male who presents today for their first post-operative visit status post left cubital & carpal tunnel release, DOS: 02/06/[address] Preston. Patient reports on going left ring and small finger numbness and tingling. He continues taking Oxycodone for his back. Patient came in to office today wearing same post-op dressing. Per nurse from [facility], who accompanies patient today, they did not have written orders or instructions to have patient's dressing removed therefore this remained intact until today's visit. Sutures removed and steri strips applied. [facility] Medical History Arthritis Liver cirrhosis HTN (hypertension) Depression GI bleed Spinal stenosis COPD (chronic obstructive pulmonary disease) Diabetes type 2, controlled Other fracture of t9-t10 vertebra, initial encounter for closed fracture Surgical History Hx of repair of left rotator cuff Hx of appendectomy Social History Unable to assess alcohol history related to: Unable to respond Comment: 1:1 Patient Tobacco Use Status: Current everyday Tobacco user Tobacco use type: Cigarette Cigarettes Per Day: 3 Second Hand Smoke Exposure: No Advance Directives Date on File: 07/22/22 service: No Current occupational status: unemployed Review of Systems Const All systems reviewed & are unremarkable except as noted in HPI and below Physical Exam Vital Signs: BMI result Body Mass Index 39.5 Extrem Other: Neuro: Decreased sensation in the 4th and 5th digits of the left hand at this time Normal sensation in the tips of all other digits of the left hand No thenar or intrinsic wasting. Good APB muscle firing, weakened finger cross. Vascular: Capillary refill brisk. ROM: Patient can make a fist and extend all their digits. Skin: Well approximated and well healing incision sites noted over the medial left elbow and volar left wrist No lacerations or abrasions noted. General: No ecchymosis. No erythema or evidence of infection. Assessment & Plan Assessment & Plan (1) Cubital tunnel syndrome on left: Code(s): G56.22 - Lesion of ulnar nerve, left upper limb Category: Medical (2) Left carpal tunnel syndrome: Code(s): G56.02 - Carpal tunnel syndrome, left upper limb Category: Medical (3) Numbness and tingling of right hand: Code(s): R20.0 - Anesthesia of skin; R20.2 - Paresthesia of skin Category: Medical Plan 1. Status post left cubital tunnel release 2. Status post left carpal tunnel release DOS 02/06/2025 Patient appears to be recovering well postoperatively Patient is educated about the typical recovery course No acute follow-up indicated, as patient appears to be recovering very well Patient states understanding of this is amenable to this plan Of note, patient does request refill of oxycodone prescription, but states this is primarily for his back pain Patient is educated that he will need to follow-up with his provider who treats his back pain in order to inquire about potential refills, as I can not refill medication for a condition that we are not actively treating Patient states understanding of this 3. Numbness and tingling of right hand EMG done previously at [facility] We will attempt to acquire records of this EMG obtained at [facility] to determine if any further treatment is indicated If we can not get these records, or EMG is negative, we will order repeat EMG for assessment of the health of the nerves of the right upper extremity Patient understands this is amenable to this plan Follow-up after we get results for EMG for discussion of further treatment options if indicated, sooner with any acute concerns Coding Level of Care Code Global (74413) Diagnoses Cubital tunnel syndrome on left G56.22 Left carpal tunnel syndrome G56.02 Numbness and tingling of right hand R20.0; R20.2
--- OUTSIDE RECORDS SUMMARY | 2025-02-21 13:18 | XMS_ITS | Clinical Summary ---
Author Organization [facility] Address [address] [place] [address] Care Team Providers Care Manager Service Desk Name Role Phone Darion Lindsey MD Primary Care Provider [phone] Allergies Active Allergy Reactions Criticality Noted Date [...] 30 tablet 06/24/20 23 Active nystatin (MYCOSTATIN) 776650 UNIT/ML suspensionIndica tions:Oral thrush Take 5 mL [...] Tobacco: Former Tobacco Cessation:Counseling Given: Not Answered [facility] Utilities Answer Date Recorded In the past 12 months has th e [employer], gas, oil, or water company threatened to [...] place to sleep or slept in a chcf (including now)? No 06/15/2023 Sex and Gender [...] this topic Medical Devices Implanted Type Area Pararescue Manager Device Identifier Shelf Expiration Date Model / Serial / Lot [id number] Coil Embolization Pod 30cm Pack J-Soft Sterl Lf - [id number] Implanted:Qty: 1 on 06/13/2023 by Augustin Haywood MD at [facility] Coil N/A: Abdomen [employer] [id number] 02/24/2031 [id number] / / [id number] Coil Embolization Interlock Fibered Idc 12mm 20cm 18 Coil - [id number] Implanted:Qty: 1 on 06/13/2023 by Augustin Haywood MD at [facility] Coil N/A: Abdomen [employer] [id number] 12/26/2025 [id number] / / [id number] Coil Embolization Interlock Fibered Idc 12mm 30cm 18 Coil 2d - [id number] Implanted:Qty: 1 on 06/13/2023 by Augustin Haywood MD at [facility] Coil N/A: Abdomen [employer] [id number] 11/24/2025 [id number] / / [id number] Coil Embolization Interlock Fibered Idc 12mm 30cm 18 Coil 2d - [id number] Implanted:Qty: 1 on 06/13/2023 by Augustin Haywood MD at [facility] Coil N/A: Abdomen [employer] [id number] 11/24/2025 [id number] / / [id number] Coil Embolization Interlock Fibered Idc 14mm 20cm 18 Coil - [id number] Implanted:Qty: 1 on 06/13/2023 by Augustin Haywood MD at [facility] Coil N/A: Abdomen [employer] [id number] 08/12/2024 [id number] / / [id number] Coil Embolization Pod 30cm Pack J-Soft Sterl Lf - [id number] Implanted:Qty: 1 on 06/13/2023 by Augustin Haywood MD at [facility] Coil N/A: Abdomen [employer] [id number] 01/25/2031 [id number] / / [id number] Coil Embolization Pod 30cm Pack J-Soft Sterl Lf - [id number] Implanted:Qty: 1 on 06/13/2023 by Augustin Haywood MD at [facility] Coil N/A: Abdomen [employer] [id number] 01/25/2031 [id number] / / [id number] Coil Embolization Penumbra Coil 400 Kanwal .02in 14mm 60cm - [id number] Implanted:Qty: 1 on 06/13/2023 by Augustin Haywood MD at [facility] Coil N/A: Abdomen [employer] [id number] 12/15/2030 [id number] / / [id number] Coil Embolization Pod 12-14mm 60cm - [id number] Implanted:Qty: 1 on 06/13/2023 by Augustin Haywood MD at [facility] Coil N/A: Abdomen [employer] [id number] 06/08/2029 [id number] / / [id number] Coil Embolization Penumbra Coil 400 Kanwal .02in 16mm 60cm - [id number] Implanted:Qty: 1 on 06/13/2023 by Augustin Haywood MD at [facility] Coil N/A: Abdomen [employer] [id number] 12/06/2030 [id number] / / [id number] Coil Embolization Interlock Fibered Idc 14mm 30cm 18 Coil - [id number] Implanted:Qty: 1 on 06/13/2023 by Augustin Haywood MD at [facility] Coil N/A: Abdomen [employer] [id number] 11/07/2025 [id number] / / [id number] Coil Embolization Interlock Fibered Idc 14mm 30cm 18 Coil - [id number] Implanted:Qty: 1 on 06/13/2023 by Augustin Haywood MD at [facility] Coil N/A: Abdomen [employer] [id number] 11/07/2025 [id number] / / [id number] Coil Embolization Interlock Fibered Idc 14mm 20cm 18 Coil - [id number] Implanted:Qty: 1 on 06/13/2023 by Augustin Haywood MD at [facility] Coil N/A: Abdomen [employer] [id number] 08/12/2024 [id number] / / [id number] Procedures Procedure Name Priority Date/Time Associated Diagnosis Comments BASIC METABOLIC PANEL Routine 06/24/2023 6:28 AM EST HEMOGLOBIN A1C WITH ESTIMATED AVERAGE GLUCOSE Routine 06/17/2023 4:57 AM EST from Last 3 Months or Most Recently Relevant to Health Maintenance Results * (ABNORMAL) BASIC METABOLIC PANEL (06/24/2023 6:28 AM EST) Glucose 158(H) 65 - 99 mg/dL 06/24/2023 8:27 AM [facility] Comment:Fasting: <100 mg/dL, Non-Fasting: <200 mg/dL (ADA 2005) Blood Urea Nitrogen (BUN) 9 8 - 21 mg/dL 06/24/2023 8:27 AM [facility] Creatinine 0.6 0.5 - 1.3 mg/dL 06/24/2023 8:27 AM [facility] eGFR >90 >59 06/24/2023 8:27 AM [facility] Comment:CKD-EPI (2020) in mL /min/1.73 sq meters. Sodium 140 136 - 145 mmol/L 06/24/2023 8:27 AM [facility] Potassium 3.7 3.4 - 5.3 mmol/L 06/24/2023 8:27 AM [facility] Chloride 103 98 - 107 mmol/L 06/24/2023 8:27 AM [facility] CO2 33 22 - 33 mmol/L 06/24/2023 8:27 AM [facility] Anion Gap 4(L) 7 - 17 06/24/2023 8:27 AM [facility] Calcium 8.5(L) 8.7 - 10.5 mg/dL 06/24/2023 8:27 AM [facility] BUN/Creatinine Ratio 15 10.0 - 25.0 Ratio 06/24/2023 8:27 AM [facility] Blood specimen (specimen) (Plasma/Serum) 06/24/2023 6:28 AM EST 06/24/2023 7:57 AM EST Manjinder Haskins MD LAB BLOOD ORDERABLES Final Result Performing Organization Address [facility] [place] [address], [place] [address] * (ABNORMAL) Hemoglobin A1c with Estimated Average Glucose (06/17/2023 4:57 AM EST) Hemoglobin A1C 7.3(H) <5.7 % 06/17/2023 8:05 AM [facility] Comment: A1c% Interpretation 5.7 - 6.0 Increase risk of diabetes 6.1 - 6.4 Higher risk of diabetes > or = 6.5 Consistent with diabetes Diabetes Care, 33(Supp 1):S1-S61, 2010 Estimated Average Glucose 163 mg/dL 06/17/2023 8:05 AM [facility] Blood specimen (specimen) Blood specimen / Unknown 06/17/2023 4:57 AM EST 06/17/2023 5:38 AM EST Dennis Mike MD LAB BLOOD ORDERABLES Final Resul t Performing Organization Address [facility] [place] [address], [place] [address] from Last 3 Months or Most Recently Relevant to Health Maintenance Additional Health Concerns Infection Onset Date Last Indicated MDRO Comment:Place on contact precautions for each acute care admission Bronch 06/15/2023 - Klebsiella pneumoniae ESBL associate producer 06/15/2023 06/19/2023 Insurance [place] [place] [phone] [facility] Advance Directives Documents on File Type Date Recorded Patient Ppap Coordinator Expl anation Advance Directive-Scan 06/22/2023 Devin BLOUNTT [facility] [place] 06/22/23 HH * Full Code (Latest Code Status on File) Date Activated Date Inactivated Comments 06/13/2023 2:52 AM Question Answer Comments Decision Thoroughly Discussed with: Unable to Di scuss Healthcare Agents on File Name Relationship Healthcare Agent Relationship Communication Devin Brito Healthcare welding equipment sales representative 1. [facility] Care Ppap Coordinator Care Teams Manager Service Desk Relationship Specialty Start Date End Date Darion Lindsey MD [address] [place] [phone] PCP - General Family Medicine 06/13/23
--- OUTSIDE RECORDS SUMMARY | 2025-02-21 13:18 | XMS_ITS | Continuity of Care Document ---
Author Organization [facility] Address [address] [facility] [address] [place], [place] Phone [phone] Care Team Providers Care Automatic Grinder Operator Name Role Phone César Randall MD Care [...] to assess criticality Cough 04/18/2021 Inactive Allergies No Known Drug Allergies 0 04/18/2021 Medications Active Medications SIG Qnty Indications Order ing Provider Date Rosuvastatin Bycnkeg72xk Tablets 1 tab by mouth every evening->qod 90tabs Connie Leyva M.D. 02/13/2022 Testosterone Xevmnjbvr413zh/ml Solution inject 1 milliliters into muscle as directed every 2 weeks 2ml E29.1 Connie Leyva M.D. 08/15/2021 Freestyle LancetsMisc 1 unit every day 100units E11.9 Connie Leyva M.D. 04/18/2021 Albuterol Sulfate HKG297(90Base) mcg/Act Aerosol Inhale 2 Puffs By Mouth Every 4 Hours César Randall MD Sxtzohdynz70jv Tablets 2 tab by mouth every day Unknown Folic Nege3rr Tablets 1 every day Unknown Hydroxyzine WYH40er Tablets Allyson Celis NP Mvit D1000(very little B) Unknown Oxygen 2-4L/daily Unknown 0 Freestyle Lite TestStrips use one strip daily as directed 100units Connie Leyva M.D. Freestyle Lite TestStrip Use One Strip Daily as Directed 100units E11.9 Connie Leyva M.D. Eupsnddy30id/24HR Patches 24HR Apply 1 Patch Every Day César Randall MD Evopeprdbj745wq Tablets Take 1 Tablet By Mouth Four Times A Day Unknown Nortriptyline JHW13to Capsules Take 2 Capsules By Mouth Every Day In The Evening Unknown Losartan Devzsmnqm937yq Tablets 1/d Unknown Ketorolac Tromethamine0.5% Solution Markus Ag Fluticasone Ayinlizqev26wvj/Act Suspension César Randall MD Albuterol Sulfate(2.5mg/3ML) 0.083% Nebulizer Unknown Hydrochlorothiazide2 5mg Tablets 1/d César Randall MD Trelegy Gtpbdwu054-30.5-25mc g/Inh Aerosol César Randall MD Mupirocin2% Ointment Unknown Polyethylene Glycol 778671VA/Scoop Powder César Randall MD Stool Kwlcdzes412oq Capsules Take 1 Capsule By Mouth Every Day Unknown Cvcdk-7-Rcrp Ethyl Vlyurh2fm Capsules Tkae 1 Capsule By Mouth 4 Times A Day With Each Meal Unknown Methadone VJY02km Tablets 3->2&1/2 a day->10mg/d Unknown BD Luer-Flavio Uqeptfs80Q X 1 3 ML Misc For Testosterone Injection Unknown Shohobyrc295bn Tablets César Randall MD History Medications Hgskcgvdqa07ap Tablets Unknown - 05/14/2022 Thiamine XQB166wp Tablets 1/d Unknown - 07/01/2021 Kleuzbeq29yr/24HR Patches 24HR Apply 1 Patch Every Day César Randall MD - 04/18/2021 Tresiba Nbdvylvyk456Ygki/ML Solution Pen-Inject César Matos MD - 04/18/2021 Dzcxkgoxuzrrfqwyuo3ky ERNIEK Milla Pate MD - 04/18/2021 Metformin QHK3102ti Tablets 1 tab by mouth twice a day 180tabs César Randall MD - 05/29/2022 Pjaseeypudk16gp Tablets Take 1 Tablet By Mouth Every Day César Randall MD - 02/13/2022 Amoxicillin/Clavulanate Atowmkydf932-669gn Tablets Take 1 Tablet By Mouth Every 12 Hours For 10 Days César Randall MD - 05/30/2021 Udalkaykjfm7cg Tablets 1/d Unknown - 05/30/[address] 1/4 a day Unknow n - 05/29/2022 Testosterone Dzqhneucr273ej/ml Solution Unknown - 04/18/2021
== END 2025-02-21 13:46 | disposition home or self-care (01) ==
LOC: HO.HOS 12:48
DX: G56.22 Lesion of ulnar nerve, left upper limb (principal); G56.02 Carpal tunnel syndrome, left upper limb; R20.0 Anesthesia of skin; R20.2 Paresthesia of skin
CPT/HCPCS: 99024

== ENCOUNTER → 2025-02-21 12:47 | Outpatient (BNVA) | payer OTHER, SELFPAY | DX: G56.22 Lesion of ulnar nerve, left upper limb (principal); G56.02 Carpal tunnel syndrome, left upper limb; R20.0 Anesthesia of skin; R20.2 Paresthesia of skin | CPT/HCPCS: 99212 ==

== ENCOUNTER 2025-03-06 11:23 | Outpatient (AMB) | payer MEDICARE, SELFPAY ==
[2025-03-06 11:28] VITALS: BP 116/55; PULSE 78; RESP 18; O2SAT 90; BMI 39.4
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
--- OUTSIDE RECORDS SUMMARY | 2025-03-06 12:44 | XMS_ITS | Continuity of Care Document ---
Author Organization [facility] Address [address] [facility] [address] [place], [place] Phone [phone] Care Team Providers Care Gardening Manager Name Role Phone César Randall MD Care [...] Qnty Indications Order ing Provider Date Rosuvastatin Ayhugkw13ol Tablets 1 tab by mouth every evening->qod 90tabs Connie Leyva M.D. 02/13/2022 Testosterone Mzjfcwqdt748ez/ml Solution inject 1 milliliters into muscle as directed every 2 weeks 2ml E29.1 Connie Leyva M.D. 08/15/2021 Freestyle LancetsMisc 1 unit every day 100units E11.9 Connie Leyva M.D. 04/18/2021 Albuterol Sulfate WVR484(90Base) mcg/Act Aerosol Inhale 2 Puffs By Mouth Every 4 Hours César Randall MD Cwqcopgzmk23gf Tablets 2 tab by mouth every day Unknown Folic Dpno9fx Tablets 1 every day Unknown Hydroxyzine XPW33mf Tablets Allyson Celis NP Mvit D1000(very little B) Unknown Oxygen 2-4L/daily Unknown 0 Freestyle Lite TestStrips use one strip daily as directed 100units Connie Leyva M.D. Freestyle Lite TestStrip Use One Strip Daily as Directed 100units E11.9 Connie Leyva M.D. Cklbaxwy75kr/24HR Patches 24HR Apply 1 Patch Every Day César Randall MD Cypemjmqvj541qr Tablets Take 1 Tablet By Mouth Four Times A Day Unknown Nortriptyline STB05xv Capsules Take 2 Capsules By Mouth Every Day In The Evening Unknown Losartan Iiifuuzcz429kn Tablets 1/d Unknown Ketorolac Tromethamine0.5% Solution Markus Ag Fluticasone Zqbpymfnso26pjs/Act Suspension César Randall MD Albuterol Sulfate(2.5mg/3ML) 0.083% Nebulizer Unknown Hydrochlorothiazide2 5mg Tablets 1/d César Randall MD Trelegy Zrbgetk788-34.5-25mc g/Inh Aerosol César Randall MD Mupirocin2% Ointment Unknown Polyethylene Glycol 514382VV/Scoop Powder César Randall MD Stool Dheqfefc242mg Capsules Take 1 Capsule By Mouth Every Day Unknown Szumo-5-Dufi Ethyl Cnauwr9jc Capsules Tkae 1 Capsule By Mouth 4 Times A Day With Each Meal Unknown Methadone ZOA09jm Tablets 3->2&1/2 a day->10mg/d Unknown BD Luer-Flavio Hovlzbe96O X 1 3 ML Misc For Testosterone Injection Unknown Bsbiozrea208oe Tablets César Randall MD History Medications Rmrbysacrw64uv Tablets Unknown - 05/14/2022 Thiamine UTU290kx Tablets 1/d Unknown - 07/01/2021 Hetbpgvy17as/24HR Patches 24HR Apply 1 Patch Every Day César Randall MD - 04/18/2021 Tresiba Sgfdnsjcj025Vozt/ML Solution Pen-Inject César Matos MD - 04/18/2021 Itkttkrhupinkkrorf8ze ERNIEK Milla Pate MD - 04/18/2021 Metformin TLW1448vo Tablets 1 tab by mouth twice a day 180tabs César Randall MD - 05/29/2022 Osxbvdvugpo01yh Tablets Take 1 Tablet By Mouth Every Day César Randall MD - 02/13/2022 Amoxicillin/Clavulanate Gsfzakvgx558-726zf Tablets Take 1 Tablet By Mouth Every 12 Hours For 10 Days César Randall MD - 05/30/2021 Hhqehzpwdax7vg Tablets 1/d Unknown - 05/30/[address] 1/4 a day Unknow n - 05/29/2022 Testosterone Hvmhezlzw105sd/ml Solution Unknown - 04/18/2021
--- OUTSIDE RECORDS SUMMARY | 2025-03-06 12:44 | XMS_ITS | Clinical Summary ---
Author Organization [facility] Address [address] [place] [address] Care Team Providers Care Machine Operator Packaging Name Role Phone Darion Lindsey MD Primary Care Provider [phone] Allergies Active Allergy Reactions Criticality Noted Date [...] 30 tablet 06/24/20 23 Active nystatin (MYCOSTATIN) 555778 UNIT/ML suspensionIndica tions:Oral thrush Take 5 mL [...] Tobacco: Former Tobacco Cessation:Counseling Given: Not Answered [facility] Utilities Answer Date Recorded In the past 12 months has th e re3[employer], gas, oil, or water company threatened to [...] place to sleep or slept in a jail (including now)? No 06/15/2023 Sex and Gender [...] this topic Medical Devices Implanted Type Area Obstetrical Tech Device Identifier Shelf Expiration Date Model / Serial / Lot [id number] Coil Embolization Pod 30cm Pack J-Soft Sterl Lf - [id number] Implanted:Qty: 1 on 06/13/2023 by Augustin Haywood MD at [facility] Coil N/A: Abdomen [employer] [id number] 02/24/2031 [id number] / / [id number] Coil Embolization Interlock Fibered Idc 12mm 20cm 18 Coil - [id number] Implanted:Qty: 1 on 06/13/2023 by Augustin Haywood MD at [facility] Coil N/A: Abdomen [employer] [id number] 12/26/2025 [id number] / / [id number] Coil Embolization Interlock Fibered Idc 12mm 30cm 18 Coil 2d - [id number] Implanted:Qty: 1 on 06/13/2023 by Augustin Haywood MD at [facility] Coil N/A: Abdomen [employer] [id number] 11/24/2025 [id number] / / [id number] Coil Embolization Interlock Fibered Idc 12mm 30cm 18 Coil 2d - [id number] Implanted:Qty: 1 on 06/13/2023 by Augustin Haywood MD at [facility] Coil N/A: Abdomen [employer] [id number] 11/24/2025 [id number] / / [id number] Coil Embolization Interlock Fibered Idc 14mm 20cm 18 Coil - [id number] Implanted:Qty: 1 on 06/13/2023 by Augustin Haywood MD at [facility] Coil N/A: Abdomen [employer] [id number] 08/12/2024 [id number] / / [id number] Coil Embolization Pod 30cm Pack J-Soft Sterl Lf - [id number] Implanted:Qty: 1 on 06/13/2023 by Augustin Haywood MD at [facility] Coil N/A: Abdomen [employer] [id number] 01/25/2031 [id number] / / [id number] Coil Embolization Pod 30cm Pack J-Soft Sterl Lf - [id number] Implanted:Qty: 1 on 06/13/2023 by Augustin Haywood MD at [facility] Coil N/A: Abdomen [employer] [id number] 01/25/2031 [id number] / / [id number] Coil Embolization Penumbra Coil 400 Kanwal .02in 14mm 60cm - [id number] Implanted:Qty: 1 on 06/13/2023 by Augustin Haywood MD at [facility] Coil N/A: Abdomen [employer] [id number] 12/15/2030 [id number] / / [id number] Coil Embolization Pod 12-14mm 60cm - [id number] Implanted:Qty: 1 on 06/13/2023 by Augustin Haywood MD at [facility] Coil N/A: Abdomen [employer] [id number] 06/08/2029 [id number] / / [id number] Coil Embolization Penumbra Coil 400 Kanwal .02in 16mm 60cm - [id number] Implanted:Qty: 1 on 06/13/2023 by Augustin Haywood MD at [facility] Coil N/A: Abdomen [employer] [id number] 12/06/2030 [id number] / / [id number] Coil Embolization Interlock Fibered Idc 14mm 30cm 18 Coil - [id number] Implanted:Qty: 1 on 06/13/2023 by Augustin Haywood MD at [facility] Coil N/A: Abdomen [employer] [id number] 11/07/2025 [id number] / / [id number] Coil Embolization Interlock Fibered Idc 14mm 30cm 18 Coil - [id number] Implanted:Qty: 1 on 06/13/2023 by Augustin Haywood MD at [facility] Coil N/A: Abdomen [employer] [id number] 11/07/2025 [id number] / / [id number] Coil Embolization Interlock Fibered Idc 14mm 20cm 18 Coil - [id number] Implanted:Qty: 1 on 06/13/2023 by Augustin Haywood MD at [facility] Coil N/A: Abdomen [employer] LINDA [id number] 08/12/2024 [id number] / / [id number] Procedures Procedure Name Priority Date/Time Associated Diagnosis [...] BLOOD ORDERABLES Final Result Performing Organization Address [facility] [place] [address], [place] [address] * (ABNORMAL) Hemoglobin A1c with Estimated Average [...] ORDERABLES Final Resul t Performing Organization Address [facility] [place] [address], [place] [address] from Last 3 Months or Most Recently Relevant to Health Maintenance Additional Health Concerns Infection Onset Date Last Indicated MDRO Comment:Place on contact precautions for each acute care admission Bronch 06/15/2023 - Klebsiella pneumoniae ESBL marketing producer 06/15/2023 06/19/2023 Insurance [place] [address] [facility] Advance Directives Documents on File Type Date Recorded 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 [facility] Care Foreman/Project Manager Care Teams Machine Operator Packaging Relationship Specialty Start Date End Date Darion Lindsey MD [address] [place] [address] PCP - General Family Medicine 06/13/23
== END 2025-03-06 12:46 | disposition home or self-care (01) ==
LOC: HO.PMC 11:24
PROVIDERS: Visit Provider Internal Medicine
DX: M54.50 Low back pain, unspecified (principal); M54.2 Cervicalgia
CPT/HCPCS: 99214

== ENCOUNTER → 2025-03-06 11:23 | Outpatient (BNVA) | payer OTHER, SELFPAY | PROVIDERS: Visit Provider Internal Medicine | DX: M54.2 Cervicalgia (principal); M54.50 Low back pain, unspecified | CPT/HCPCS: 99212 ==

== ENCOUNTER 2025-04-06 06:23 | Outpatient (REF) | payer MEDICARE, SELFPAY ==
--- NOTE | ~2025-04-06 | FL_ITS ---
EXAMINATION: FL GUIDANCE ONLY HISTORY: M54.12 - Radiculopathy, cervical region COMPARISON: None available. TECHNIQUE: Fluoroscopy time: 0.2 minutes. Cumulative Dose: 11.0 mGy. DAP: 0.726 mGym2 Images: 3. FINDINGS: Fluoroscopic spot films of the spine demonstrate a needle and contrast material in place. FL/FL guidance in treatment room IMPRESSION: Fluoroscopy during procedure. Please see procedure report for additional information. Electronically signed by: Augustin Gant MD 04/06/2025 03:20 PM EDT
--- OUTSIDE RECORDS SUMMARY | 2025-04-06 06:25 | XMS_ITS | Continuity of Care Document ---
Author Organization [facility] 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 02/13/2022 Testosterone Tmwhsxfux289al/ml Solution inject 1 milliliters into muscle as directed every 2 weeks 2ml E29.1 Connie Leyva M.D. 08/15/2021 Freestyle LancetsMisc 1 unit every day 100units E11.9 Connie Leyva M.D. 04/18/2021 Albuterol Sulfate NRT301(90Base) mcg/Act Aerosol Inhale 2 Puffs By Mouth Every 4 Hours César Randall MD Jwnagwbhrw98bf Tablets 2 tab by mouth every day Unknown Folic Bulj3kf Tablets 1 every day Unknown Hydroxyzine NDW06os Tablets Allyson Celis NP Mvit D1000(very little B) Unknown Oxygen 2-4L/daily Unknown 0 Freestyle Lite TestStrips use one strip daily as directed 100units Connie Leyva M.D. Freestyle Lite TestStrip Use One Strip Daily as Directed 100units E11.9 Connie Leyva M.D. Lxnzknen02gn/24HR Patches 24HR Apply 1 Patch Every Day César Randall MD Kftqdrtlfl305ib Tablets Take 1 Tablet By Mouth Four Times A Day Unknown Nortriptyline QLP78xk Capsules Take 2 Capsules By Mouth Every Day In The Evening Unknown Losartan Zsmbbaxwh197hf Tablets 1/d Unknown Ketorolac Tromethamine0.5% Solution Markus Ag Fluticasone Ubpwemxjii39qnz/Act Suspension César Randall MD Albuterol Sulfate(2.5mg/3ML) 0.083% Nebulizer Unknown Hydrochlorothiazide2 5mg Tablets 1/d César Randall MD Trelegy Qdlhplq508-62.5-25mc g/Inh Aerosol César Randall MD Mupirocin2% Ointment Unknown Polyethylene Glycol 025968GM/Scoop Powder César Randall MD Stool Xmmclphp953fl Capsules Take 1 Capsule By Mouth Every Day Unknown Xnuro-4-Ywlx Ethyl Alcdgo6zn Capsules Tkae 1 Capsule By Mouth 4 Times A Day With Each Meal Unknown Methadone FWE80lt Tablets 3->2&1/2 a day->10mg/d Unknown BD Luer-Flavio Fogoyrk74W X 1 3 ML Misc For Testosterone Injection Unknown Wedaqednt796tf Tablets César Randall MD History Medications Argxbdybtv88ao Tablets Unknown - 05/14/2022 Thiamine NST083ly Tablets 1/d Unknown - 07/01/2021 Kkbmowcw16gn/24HR Patches 24HR Apply 1 Patch Every Day César Randall MD - 04/18/2021 Tresiba Zrrekdnzt449Ajhi/ML Solution Pen-Inject César Mtaos MD - 04/18/2021 Ztlnwgvbtgndkbjhza5sa ERNIEK Milla Pate MD - 04/18/2021 Metformin JCO6234qp Tablets 1 tab by mouth twice a day 180tabs César Randall MD - 05/29/2022 Itqbgfihsqn60dy Tablets Take 1 Tablet By Mouth Every Day César Randall MD - 02/13/2022 Amoxicillin/Clavulanate Afngqsgta960-912sl Tablets Take 1 Tablet By Mouth Every 12 Hours For 10 Days César Randall MD - 05/30/2021 Nrmpmyrzpbf3lw Tablets 1/d Unknown - 05/30/[address] 1/4 a day Unknow n - 05/29/2022 Testosterone Wwwxqjvnh509uv/ml Solution Unknown - 04/18/2021
--- OUTSIDE RECORDS SUMMARY | 2025-04-06 06:25 | XMS_ITS | Clinical Summary ---
Author Organization [facility] Address [address] [place] [address] Care Team Providers Care Dye Expert Name Role Phone Darion Lindsey MD Primary Care Provider [phone] Allergies Active Allergy Reactions Criticality Noted Date [...] 30 tablet 06/24/20 23 Active nystatin (MYCOSTATIN) 673002 UNIT/ML suspensionIndica tions:Oral thrush Take 5 mL [...] the past 12 months has th e [employer], gas, oil, or water company threatened to [...] place to sleep or slept in a halfway (including now)? No 06/15/2023 Sex and Gender [...] 1-dose series) 2022 Hemoglobin A1C 12/16/2023 06/17/2023 Creatinine with GFR 06/24/2024 06/24/2023, 06/22/2023, 06/21/2023, Additional history exists Influenza Vaccine 02/17/2025 COVID-19 Vaccine ( season) 2025 Hepatitis B Vaccines Aged Out No long er eligible based on patient's age to complete this topic Medical Devices Implanted Type Area Marketing Effectiveness Manager Device Identifier Shelf Expiration Date Model / Serial / Lot [id number] Coil Embolization Pod 30cm Pack J-Soft Sterl Lf - [id number] Implanted:Qty: 1 on 06/13/2023 by Augustin Haywood MD at [facility] Coil N/A: Abdomen [employer] [id number] 02/24/2031 [id number] / / [id number] Coil Embolization Interlock Fibered Idc 12mm 20cm 18 Coil - [id number] Implanted:Qty: 1 on 06/13/2023 by Augustin Haywood MD at [facility] Coil N/A: Abdomen [employer] [id number] 12/26/2025 [id number] / / [id number] Coil Embolization Interlock Fibered Idc 12mm 30cm 18 Coil 2d - [id number] Implanted:Qty: 1 on 06/13/2023 by Augustin Haywood MD at [facility] Coil N/A: Abdomen [employer] [id number] 11/24/2025 [id number] / / [id number] Coil Embolization Interlock Fibered Idc 12mm 30cm 18 Coil 2d - [id number] Implanted:Qty: 1 on 06/13/2023 by Augustin Haywood MD at [facility] Coil N/A: Abdomen [employer] [id number] 11/24/2025 [id number] / / [id number] Coil Embolization Interlock Fibered Idc 14mm 20cm 18 Coil - [id number] Implanted:Qty: 1 on 06/13/2023 by Augustin Haywood MD at [facility] Coil N/A: Abdomen [employer] [id number] 08/12/2024 [id number] / / [id number] Coil Embolization Pod 30cm Pack J-Soft Sterl Lf - [id number] Implanted:Qty: 1 on 06/13/2023 by Augustin Haywood MD at [facility] Coil N/A: Abdomen [employer] [id number] 01/25/2031 [id number] / / [id number] Coil Embolization Pod 30cm Pack J-Soft Sterl Lf - [id number] Implanted:Qty: 1 on 06/13/2023 by Augustin Haywood MD at [facility] Coil N/A: Abdomen [employer] [id number] 01/25/2031 [id number] / / [id number] Coil Embolization Penumbra Coil 400 Kanwal .02in 14mm 60cm - [id number] Implanted:Qty: 1 on 06/13/2023 by Augustin Haywood MD at [facility] Coil N/A: Abdomen [employer] [id number] 12/15/2030 [id number] / / [id number] Coil Embolization Pod 12-14mm 60cm - [id number] Implanted:Qty: 1 on 06/13/2023 by Augustin Haywood MD at [facility] Coil N/A: Abdomen [employer] [id number] 06/08/2029 [id number] / / [id number] Coil Embolization Penumbra Coil 400 Kanwal .02in 16mm 60cm - [id number] Implanted:Qty: 1 on 06/13/2023 by Augustin Haywood MD at [facility] Coil N/A: Abdomen [employer] [id number] 12/06/2030 [id number] / / [id number] Coil Embolization Interlock Fibered Idc 14mm 30cm 18 Coil - [id number] Implanted:Qty: 1 on 06/13/2023 by Augustin Haywood MD at [facility] Coil N/A: Abdomen [employer] [id number] 11/07/2025 [id number] / / [id number] Coil Embolization Interlock Fibered Idc 14mm 30cm 18 Coil - [id number] Implanted:Qty: 1 on 06/13/2023 by Augustin Haywood MD at [facility] Coil N/A: Abdomen [employer] [id number] 11/07/2025 [id number] / / [id number] Coil Embolization Interlock Fibered Idc 14mm 20cm 18 Coil - [id number] Implanted:Qty: 1 on 06/13/2023 by Augustin Haywood MD at [facility] Coil N/A: Abdomen [employer] [id number] 08/12/2024 [id number] / / [id number] Procedures Procedure Name Priority Date/Time Associated Diagnosis Comments BASIC METABOLIC PANEL Routine 06/24/2023 6:28 AM EST HEMOGLOBIN A1C WITH ESTIMATED AVERAGE GLUCOSE Routine 06/17/2023 4:57 AM EST from Last 3 Months or Most Recently Relevant to Health Maintenance Results * (ABNORMAL) BASIC METABOLIC PANEL (06/24/2023 6:28 AM EST) Glucose 158(H) 65 - 99 mg/dL 06/24/2023 8:27 AM [facility] Comment:Fasting: <100 mg/dL, Non-Fasting: <200 mg/dL (ADA 2005) Blood Urea Nitrogen (BUN) 9 8 - 21 mg/dL 06/24/2023 8:27 AM [facility] Creatinine 0.6 0.5 - 1.3 mg/dL 06/24/2023 8:27 AM [facility] eGFR >90 >59 06/24/2023 8:27 AM [facility] Comment:CKD-EPI (2020) in mL /min/1.73 sq meters. Sodium 140 136 - 145 mmol/L 06/24/2023 8:27 AM [facility] Potassium 3.7 3.4 - 5.3 mmol/L 06/24/2023 8:27 AM [facility] Chloride 103 98 - 107 mmol/L 06/24/2023 8:27 AM [facility] CO2 33 22 - 33 mmol/L 06/24/2023 8:27 AM [facility] Anion Gap 4(L) 7 - 17 06/24/2023 8:27 AM [facility] Calcium 8.5(L) 8.7 - 10.5 mg/dL 06/24/2023 8:27 AM [facility] BUN/Creatinine Ratio 15 10.0 - 25.0 Ratio 06/24/2023 8:27 AM [facility] Blood specimen (specimen) (Plasma/Serum) 06/24/2023 6:28 AM EST 06/24/2023 7:57 AM EST Manjinder Haskins MD LAB BLOOD ORDERABLES Final Result Performing Organization Address [facility] [place] [address], [place] [address] * (ABNORMAL) Hemoglobin A1c with Estimated Average Glucose (06/17/2023 4:57 AM EST) Hemoglobin A1C 7.3(H) <5.7 % 06/17/2023 8:05 AM [facility] Comment: A1c% Interpretation 5.7 - 6.0 Increase risk of diabetes 6.1 - 6.4 Higher risk of diabetes > or = 6.5 Consistent with diabetes Diabetes Care, 33(Supp 1):S1-S61, 2010 Estimated Average Glucose 163 mg/dL 06/17/2023 8:05 AM [facility] Blood specimen (specimen) Blood specimen / Unknown 06/17/2023 4:57 AM EST 06/17/2023 5:38 AM EST Dennis Mike MD LAB BLOOD ORDERABLES Final Resul t Performing Organization Address [facility] [place] [address], [place] [address] from Last 3 Months or Most Recently Relevant to Health Maintenance Additional Health Concerns Infection Onset Date Last Indicated MDRO Comment:Place on contact precautions for each acute care admission Bronch 06/15/2023 - Klebsiella pneumoniae 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 06/15/2023 06/19/2023 Insurance Guille [facility] [place] [address] [facility] Advance Directives Documents on File Type Date Recorded 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 [facility] Care Horticultural Specialty Grower Inside Care Teams Dye Expert Relationship Specialty Start Date End Date Darion Lindsey MD [address] [place] [address] PCP - General Family Medicine 06/13/23
== END 2025-04-06 06:24 | disposition home or self-care (01) ==
LOC: CF 06:23
PROVIDERS: Visit Provider Internal Medicine
DX: M54.12 Radiculopathy, cervical region (principal)
CPT/HCPCS: 62321; J1100; J2003; Q9967

== ENCOUNTER 2025-04-06 11:17 | Outpatient (AMB) | payer MEDICARE, SELFPAY ==
[2025-04-06 11:50] VITALS: BP 143/75; PULSE 76; RESP 16; O2SAT 93; BMI 39.4
--- NOTE | 2025-04-06 11:50 | A.OFFVIS_ITS ---
Vital Signs 04/06/25 11:50 04/06/25 13:11 Height 5 ft 8 in Weight 259 lb BMI 39.4 BP 143/75 H 173/73 H Blood Pressure Location Lt radial Lt radial Position Sitting Sitting Respiration 16 16 Pulse 76 89 Pulse Source Pulse Oximeter Pulse Oximeter Pulse Oximetry (%) 93 71 L Oxygen Delivery Method Room Air Room Air Intake Visit Reasons: C6-C7 interlaminar IAZBELA Allergies fentanyl (From Duragesic) Allergy (Unknown, Verified 03/06/25 11:29) Unknown fluoxetine (From Prozac) Allergy (Unknown, Verified 03/06/25 11:29) Unknown lisinopril Adverse Reaction (Unknown, Verified 03/06/25 11:29) Unknown HPI HPI C6-C7 interlaminar IZABELA: Details: Patient presents for scheduled procedure. Denies any recent cough, cold, infection, fever or other significant changes in medical history since last office visit. COUNTS INCLUDE 234 BEDS AT [facility] Medical History Arthritis Liver cirrhosis HTN (hypertension) Depression GI bleed Spinal stenosis COPD (chronic obstructive pulmonary disease) Diabetes type 2, controlled Other fracture of t9-t10 vertebra, initial encounter for closed fracture Surgical History Hx of repair of left rotator cuff Hx of appendectomy Social History Unable to assess alcohol history related to: Unable to respond Comment: 1:1 Patient Tobacco Use Status: Current everyday Tobacco user Tobacco use type: Cigarette Cigarettes Per Day: 3 Second Hand Smoke Exposure: No Advance Directives Date on File: 07/22/22 service: No Current occupational status: unemployed Physical Exam Vital Signs: Last Vital Signs Pulse 89 04/06/25 13:11 Resp 16 04/06/25 13:11 BP 173/73 H 04/06/25 13:11 Pulse Ox 71 L 04/06/25 13:11 Oxygen Delivery Method Room Air 04/06/25 13:11 BMI result Body Mass Index 39.4 Office Procedures AMB Joint Injection/Aspiration Joint Injection/Aspiration Details: Interlaminar epidural steroid injection, C6/7, Left parasaggital After obtaining written consent, pre-procedure blood pressure and heart rate were stable and recorded in the nursing record. The patient was placed in the prone position. The cervicothoracic area was widely prepped with chloraprep and draped in sterile fashion. Fluoroscopic guidance was used to identify the desired interlaminar space and for needle placement. Subcutaneous 0.5% lidocaine was used to anesthetize the skin overlying the target. A 20-gauge Rowe needle was advanced to the epidural space using loss of resistance to contrast technique under fluoroscopic AP and contralateral oblique views. There was no evidence of heme or CSF and no paresthesias were elicited with needle placement. Confirmation of epidural needle placement was performed with 1cc of omnipaque 180. Next 3 ml 0.5% lidocaine mixed with 10 mg dexamethasone was administered epidurally with no pain elicited on injection. The needle tract tubing was then cleared with 1 ml of 0.5% lidocaine. The needle was removed, skin cleansed and a sterile bandage was applied. The patient tolerated the procedure well and no complications were encountered. Following the procedure the patient's vital signs were stable. The patient was d ischarged home in good condition with post-procedural instructions. Time Out: Immediately prior to the procedure, the following was verbally confirmed that there is a signed consent form and that the correct patient, planned procedure, site and side are consistent with documentation and that necessary equipment and/or blood products are available prior to the start of the case. Complications: none EBL: <2 cc Coding 79528 - Cervical Epidural/Interlaminar with fluoroscopy Procedure code (CPT) selection complete Assessment & Plan Assessment & Plan (1) Cervical radiculitis: Code(s): M54.12 - Radiculopathy, cervical region Category: Medical Plan Patient is status post left parasagittal C6-7 interlaminar IZABELA. Patient tolerated procedure well and was discharged home in stable condition with discharge instructions. All questions were answered. We will follow-up via telephone or in clinic to assess response to therapy. A follow-up appointment was made during today's visit. Orders: Orders [place] guidance in treatment room 04/06/25 M54.12 - Radiculopathy, cervical region Coding Level of Care Code Procedure Only Diagnoses Cervical radiculitis M54.12 CPT Codes Coding - Joint 10: 74837 - Cervical Epidural/Interlaminar with fluoroscopy ([id number])
[2025-04-06 13:11] VITALS: BP 173/73; PULSE 89; RESP 16; O2SAT 71
== END 2025-04-06 13:17 | disposition home or self-care (01) ==
LOC: HO.PMCPRC 11:17
PROVIDERS: Visit Provider Internal Medicine
DX: M54.12 Radiculopathy, cervical region (principal)
CPT/HCPCS: 62321

== ENCOUNTER 2025-05-08 10:21 | Outpatient (AMB) | payer MEDICARE, SELFPAY ==
[2025-05-08 10:31] VITALS: BP 140/58; PULSE 90; RESP 16; O2SAT 90; BMI 41.0
--- NOTE | 2025-05-08 10:31 | A.OFFVIS_ITS ---
Vital Signs 05/08/25 10:31 Height 5 ft 8 in Weight 270 lb BMI 41.0 BP 140/58 H Blood Pressure Location Lt brachial Position Sitting Respiration 16 Pulse 90 Pulse Source Pulse Oximeter Pulse Oximetry (%) 90 L Oxygen Delivery Method Nasal Cannula Intake Visit Reasons: s/p C6-C7 interlaminar IZABELA Document Examiner Required: No Allergies fentanyl (From Duragesic) Allergy (Unknown, Verified 05/08/25 10:34) Unknown fluoxetine (From Prozac) Allergy (Unknown, Verified 05/08/25 10:34) Unknown lisinopril Adverse Reaction (Unknown, Verified 05/08/25 10:34) Unknown Medication List - Last Reconciled 05/08/25 by Phyllis Hernandez LPN albuterol sulfate 90 mcg/actuation (ProAir HFA) 2 puffs inhalation QID PRN bisacodyl 10 mg VT DAILY PRN buspirone 15 mg PO TID carvedilol 6.25 mg PO BID duloxetine 20 mg PO DAILY fluticasone propionate 50 mcg/actuation (Flonase Allergy Relief) 1 spray intranasal DAILY wjvkyacmtxp-jgtlvydia-totbermh 100-62.5-25 mcg (Trelegy Ellipta) 1 inh inhalation DAILY folic acid 1 mg PO DAILY furosemide 20 mg PO DAILY glucagon 1 mg subcut Q20M PRN hydroxyzine HCl 25 mg PO BID insulin glargine (Lantus U-100 Insulin) units subcut ipratropium-albuterol 0.5 mg-3 mg(2.5 mg base)/3 mL 3 mL inhalation Q6-8H PRN lidocaine 4% 1 patch topical DAILY PRN magnesium hydroxide (Milk of Magnesia) 30 mL PO DAILY PRN metformin 1,000 mg PO BID multivitamin 1 tab PO DAILY naloxone 4 mg/actuation (Narcan) 1 spray intranasal Q3M PRN oxycodone ER (OxyContin) 10 mg PO BID pantoprazole 40 mg PO BID spironolactone 100 mg PO DAILY tramadol mg trazodone 25 mg PO BEDTIME PRN HPI HPI s/p C6-C7 interlaminar IZABELA: Details: History of Present Illness The patient is a 64-year-old male presenting with cervical pain and lumbar radiculopathy. The cervical pain has been persistent, with some relief noted after a cervical interlaminar steroid injection, improving by approximately 40%. The patient has been experiencing pain in the low back, mid back, and neck, with the neck pain showing some improvement post-injection. The lumbar radiculopathy is characterized by pain radiating down the legs, occasionally affecting the buttocks and legs. The patient reports that the pain has been severe enough to impact daily activities, requiring significant effort to move around. The patient has not undergone any back surgery and has been in pain for approximately 40 years. Previous interventions included cortisone injections, with the first injection providing relief for a year, but subsequent injections being less effective. Pain Description - Onset: Pain has been present for approximately 40 years. - Quality: Pain is described as severe and persistent. - Location: Pain is located in the low back, mid back, and neck, with radiation down the legs. - Exacerbating factors: Movement and daily activities increase pain. - Relieving factors: Cervical interlaminar steroid injection provided 40% relief for neck pain. Physical Exam - Appears afebrile. - Alert and oriented. - Mood and affect appropriate. - Follows and participates in conversation appropriately. - In wheelchair Pain Management - Affect: Pain significantly impacts daily activities and mobility. - Analgesia: Previous cortisone injections provided variable relief, with the first injection being effective for a year. - Activities of Daily Living: Pain requires significant effort to perform daily tasks. [facility] Medical History Arthritis Liver cirrhosis HTN (hypertension) Depression GI bleed Spinal stenosis COPD (chronic obstructive pulmonary disease) Diabetes type 2, controlled Other fracture of t9-t10 vertebra, initial encounter for closed fracture Surgical History Hx of repair of left rotator cuff Hx of appendectomy Social History Unable to assess alcohol history related to: Unable to respond Comment: 1:1 Patient Tobacco Use Status: Current everyday Tobacco user Tobacco use type: Cigarette Cigarettes Per Day: 3 Second Hand Smoke Exposure: No Advance Directives Date on File: 07/22/22 service: No Current occupational status: unemployed Physical Exam Vital Signs: Last Vital Signs Pulse 90 05/08/25 10:31 Resp 16 05/08/25 10:31 BP 140/58 H 05/08/25 10:31 Pulse Ox 90 L 05/08/25 10:31 Oxygen Delivery Method Nasal Cannula 05/08/25 10:31 BMI result Body Mass Index 41.0 Assessment & Plan Assessment & Plan (1) Cervical radiculitis: Code(s): M54.12 - Radiculopathy, cervical region Category: Medical (2) Lumbar radicular pain: Code(s): M54.16 - Radiculopathy, lumbar region Category: Medical Plan Plan Patient was informed and verbally consented to the use of an ambient scribe for clinic note documentation during this visit. 1. Cervical Pain - Plan to continue monitoring the cervical pain and consider further interventions if necessary. 2. Lumbar Radiculopathy - Plan for an L4-5 interlaminar steroid injection to address lumbar radiculopathy. - Consider trigger point injections for mid back pain during the next visit. Discussion Notes During the visit, we discussed the patient's ongoing cervical pain and lumbar radiculopathy. The patient agreed to proceed with an L4-5 interlaminar steroid injection to manage lumbar radiculopathy and expressed interest in trigger point injections for mid back pain. Patient Instructions - Schedule an appointment for an L4-5 interlaminar steroid injection. - Consider trigger point injections for mid back pain during the next visit. Coding Level of Care Code Est Pt Level 4 (85024) Diagnoses Cervical radiculitis M54.12 Lumbar radicular pain M54.16
--- OUTSIDE RECORDS SUMMARY | 2025-05-08 11:58 | XMS_ITS | Continuity of Care Document ---
Author Organization [facility] Address [address] [place], [place] Phone [phone] Care Team Providers Care Sales Marketing Coordinator Name Role Phone César Randall MD Care [...] Qnty Indications Order ing Provider Date Rosuvastatin Zzbisso47bi Tablets 1 tab by mouth every evening->qod 90tabs Connie Leyva M.D. 02/13/2022 Testosterone Twwkgkpel451pt/ml Solution inject 1 milliliters into muscle as directed every 2 weeks 2ml E29.1 Connie Leyva M.D. 08/15/2021 Freestyle LancetsMisc 1 unit every day 100units E11.9 Connie Leyva M.D. 04/18/2021 Albuterol Sulfate DVP373(90Base) mcg/Act Aerosol Inhale 2 Puffs By Mouth Every 4 Hours César Randall MD Yramjlpxbu32kn Tablets 2 tab by mouth every day Unknown Folic Eoyc8hr Tablets 1 every day Unknown Hydroxyzine RNO20ew Tablets Allyson Celis NP Mvit D1000(very little B) Unknown Oxygen 2-4L/daily Unknown 0 Freestyle Lite TestStrips use one strip daily as directed 100units Connie Leyva M.D. Freestyle Lite TestStrip Use One Strip Daily as Directed 100units E11.9 Connie Leyva M.D. Yynsjqnc13np/24HR Patches 24HR Apply 1 Patch Every Day César Randall MD Psrmhhkneq194an Tablets Take 1 Tablet By Mouth Four Times A Day Unknown Nortriptyline BAO16rw Capsules Take 2 Capsules By Mouth Every Day In The Evening Unknown Losartan Vzoommetw913cn Tablets 1/d Unknown Ketorolac Tromethamine0.5% Solution Markus Ag Fluticasone Lczwknqjnm01xpc/Act Suspension César Randall MD Albuterol Sulfate(2.5mg/3ML) 0.083% Nebulizer Unknown Hydrochlorothiazide2 5mg Tablets 1/d César Randall MD Trelegy Kmsyauq693-78.5-25mc g/Inh Aerosol César Randall MD Mupirocin2% Ointment Unknown Polyethylene Glycol 681505PU/Scoop Powder César Randall MD Stool Jczgetdc214gq Capsules Take 1 Capsule By Mouth Every Day Unknown Rpuoc-8-Uiap Ethyl Alykcj9wv Capsules Tkae 1 Capsule By Mouth 4 Times A Day With Each Meal Unknown Methadone CLP76tn Tablets 3->2&1/2 a day->10mg/d Unknown BD Luer-Flavio Ltrwnik73E X 1 3 ML Misc For Testosterone Injection Unknown Myvbmqiyt955kw Tablets César Randall MD History Medications Ciblkljjqm75cq Tablets Unknown - 05/14/2022 Thiamine HBY856ub Tablets 1/d Unknown - 07/01/2021 Tyothpxt53lo/24HR Patches 24HR Apply 1 Patch Every Day César Randall MD - 04/18/2021 Tresiba Diamqijhj437Xuwr/ML Solution Pen-Inject César Matos MD - 04/18/2021 Xzyirndedfvbvbyjnw7sh ERNIEK Milla Pate MD - 04/18/2021 Metformin UIS2745vd Tablets 1 tab by mouth twice a day 180tabs César Randall MD - 05/29/2022 Ygtbcbzmrpl35mz Tablets Take 1 Tablet By Mouth Every Day César Randall MD - 02/13/2022 Amoxicillin/Clavulanate Hjfvzjfno600-665dd Tablets Take 1 Tablet By Mouth Every 12 Hours For 10 Days Céasr Randall MD - 05/30/2021 Tndrobwtunv7ee Tablets 1/d Unknown - 05/30/[address] 1/4 a day Unknow n - 05/29/2022 Testosterone Zhtzvbkcp055ss/ml Solution Unknown - 04/18/2021
--- OUTSIDE RECORDS SUMMARY | 2025-05-08 11:58 | XMS_ITS | Clinical Summary ---
Author Organization [facility] Address [address] [place] [address] Care Team Providers Care Material Control Associate Name Role Phone Darion Lindsey MD Primary Care Provider [phone] Allergies Active Allergy Reactions Criticality Noted Date Comments Lisinopril Unknown/Patient and Family Unable to Define Medium 06/13/2023 Fluoxetine Unknown/Patient and Family Unable to Define Medium 06/13/2023 Diazepam Unknown/Patient and Family Unable to Define Medium 06/13/2023 Medications metFORMIN (GLUCOPHAGE) 1000 MG tablet 06/10/20 Active lidocaine (LIDODERM) 5 % patch 05/13/20 Active hydrOXYzine HCl (ATARAX) 10 MG tablet 06/10/20 23 Active gabapentin (NEURONTIN) 300 MG capsule 06/10/20 [...] pain or moderate pain. 30 tablet 06/24/20 23 Active bisacodyl (DULCOLAX) 10 MG suppositoryIndic ations:Constipat [...] 30 tablet 06/24/20 23 Active nystatin (MYCOSTATIN) 220005 UNIT/ML suspensionIndica tions:Oral thrush Take 5 mL [...] Tobacco: Former Tobacco Cessation:Counseling Given: Not Answered [facility] Utilities Answer Date Recorded In the past 12 months has th e [employer], gas, oil, or water company threatened to [...] place to sleep or slept in a intermediate (including now)? No 06/15/2023 Sex and Gender [...] of 2 - PCV) 1981 Colonoscopy 2007 RSV Vaccine 50 years and older and Patients (1 - Risk 50-74 years 1-dose series) 2012 Zoster (Shingles) Vaccine (1 of 2) 2012 Hemoglobin A1C 12/16/2023 06/17/2023 Creatinine with GFR 06/24/2024 06/24/2023, 06/22/2023, 06/21/2023, Additional history exists Influenza Vaccine 02/17/2025 COVID-19 Vaccine (1 - 2023- season) 2025 Hepatitis B Vaccines Aged Out No long er eligible based on patient's age to complete this topic Medical Devices Implanted Type Area Water Softener Service Supervisor Device Identifier Shelf Expiration Date Model / Serial / Lot [id number] Coil Embolization Pod 30cm Pack J-Soft Sterl Lf - [id number] Implanted:Qty: 1 on 06/13/2023 by Augustin Haywood MD at [facility] Coil N/A: Abdomen [employer] [id number] 02/24/2031 [id number] / / [id number] Coil Embolization Interlock Fibered Idc 12mm 20cm 18 Coil - [id number] Implanted:Qty: 1 on 06/13/2023 by Augustin Haywood MD at [facility] Coil N/A: Abdomen [employer] [id number] 12/26/2025 [id number] / / [id number] Coil Embolization Interlock Fibered Idc 12mm 30cm 18 Coil 2d - [id number] Implanted:Qty: 1 on 06/13/2023 by Augustin Haywood MD at [facility] Coil N/A: Abdomen [employer] [id number] 11/24/2025 [id number] / / [id number] Coil Embolization Interlock Fibered Idc 12mm 30cm 18 Coil 2d - [id number] Implanted:Qty: 1 on 06/13/2023 by Augustin Haywood MD at [facility] Coil N/A: Abdomen [employer] [id number] 11/24/2025 [id number] / / [id number] Coil Embolization Interlock Fibered Idc 14mm 20cm 18 Coil - [id number] Implanted:Qty: 1 on 06/13/2023 by Augustin Haywood MD at [facility] Coil N/A: Abdomen [employer] [id number] 08/12/2024 [id number] / / [id number] Coil Embolization Pod 30cm Pack J-Soft Sterl Lf - [id number] Implanted:Qty: 1 on 06/13/2023 by Augustin Haywood MD at [facility] Coil N/A: Abdomen [employer] [id number] 01/25/2031 [id number] / / [id number] Coil Embolization Pod 30cm Pack J-Soft Sterl Lf - [id number] Implanted:Qty: 1 on 06/13/2023 by Augustin Haywood MD at [facility] Coil N/A: Abdomen [employer] [id number] 01/25/2031 [id number] / / [id number] Coil Embolization Penumbra Coil 400 [place]wal .02in 14mm 60cm - [id number] Implanted:Qty: 1 on 06/13/2023 by Augustin Haywood MD at [facility] Coil N/A: Abdomen [employer] [id number] 12/15/2030 [id number] / / [id number] Coil Embolization Pod 12-14mm 60cm - [id number] Implanted:Qty: 1 on 06/13/2023 by Augustin Haywood MD at [facility] Coil N/A: Abdomen [employer] [id number] 06/08/2029 [id number] / / [id number] Coil Embolization Penumbra Coil 400 Kanwal .02in 16mm 60cm - [id number] Implanted:Qty: 1 on 06/13/2023 by Augustin Haywood MD at [facility] Coil N/A: Abdomen [employer] [id number] 12/06/2030 [id number] / / [id number] Coil Embolization Interlock Fibered Idc 14mm 30cm 18 Coil - [id number] Implanted:Qty: 1 on 06/13/2023 by Augustin Haywood MD at [facility] Coil N/A: Abdomen [employer] [id number] 11/07/2025 [id number] / / [id number] Coil Embolization Interlock Fibered Idc 14mm 30cm 18 Coil - [id number] Implanted:Qty: 1 on 06/13/2023 by Augustin Haywood MD at [facility] Coil N/A: Abdomen [employer] [id number] 11/07/2025 [id number] / / [id number] Coil Embolization Interlock Fibered Idc 14mm 20cm 18 Coil - [id number] Implanted:Qty: 1 on 06/13/2023 by Augustin Haywood MD at [facility] Coil N/A: Abdomen [employer] [id number] 08/12/2024 [id number] / / [id number] Procedures Procedure Name Priority Date/Time Associated Diagnosis Comments BASIC METABOLIC PANEL Routine 06/24/2023 6:28 AM EST HEMOGLOBIN A1C WITH ESTIMATED AVERAGE GLUCOSE Routine 06/17/2023 4:57 AM EST from Last 3 Months or Most Recently Relevant to Health Maintenance Results * (ABNORMAL) BASIC METABOLIC PANEL (06/24/2023 6:28 AM EST) Glucose 158(H) 65 - 99 mg/dL 06/24/2023 8:27 AM [facility] Comment:Fasting: <100 mg/dL, Non-Fasting: <200 mg/dL (ADA 2005) Blood Urea Nitrogen (BUN) 9 8 - 21 mg/dL 06/24/2023 8:27 AM [facility] Creatinine 0.6 0.5 - 1.3 mg/dL 06/24/2023 8:27 AM [facility] eGFR >90 >59 06/24/2023 8:27 AM [facility] Comment:CKD-EPI (2020) in mL /min/1.73 sq meters. Sodium 140 136 - 145 mmol/L 06/24/2023 8:27 AM [facility] Potassium 3.7 3.4 - 5.3 mmol/L 06/24/2023 8:27 AM [facility] Chloride 103 98 - 107 mmol/L 06/24/2023 8:27 AM [facility] CO2 33 22 - 33 mmol/L 06/24/2023 8:27 AM [facility] Anion Gap 4(L) 7 - 17 06/24/2023 8:27 AM [facility] Calcium 8.5(L) 8.7 - 10.5 mg/dL 06/24/2023 8:27 AM [facility] BUN/Creatinine Ratio 15 10.0 - 25.0 Ratio 06/24/2023 8:27 AM [facility] Blood specimen (specimen) (Plasma/Serum) 06/24/2023 6:28 AM EST 06/24/2023 7:57 AM EST Manjinder Haskins MD LAB BLOOD ORDERABLES Final Result Performing Organization Address [facility] [place] [address], [place] [address] * (ABNORMAL) Hemoglobin A1c with Estimated Average Glucose (06/17/2023 4:57 AM EST) Hemoglobin A1C 7.3(H) <5.7 % 06/17/2023 8:05 AM [facility] Comment: A1c% Interpretation 5.7 - 6.0 Increase risk of diabetes 6.1 - 6.4 Higher risk of diabetes > or = 6.5 Consistent with diabetes Diabetes Care, 33(Supp 1):S1-S61, 2010 Estimated Average Glucose 163 mg/dL 06/17/2023 8:05 AM [facility] Blood specimen (specimen) Blood specimen / Unknown 06/17/2023 4:57 AM EST 06/17/2023 5:38 AM EST Dennis Mike MD LAB BLOOD ORDERABLES Final Resul t Performing Organization Address [facility] [place] [address], [place] [address] from Last 3 Months or Most Recently Relevant to Health Maintenance Additional Health Concerns Infection Onset Date Last Indicated MDRO Comment:Place on contact precautions for each acute care admission Bronch 06/15/2023 - Klebsiella pneumoniae 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 06/15/2023 06/19/2023 [place] [phone] [facility] Advance Directives Documents on File Type Date Recorded Patient 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 [facility] Centerless Grinder Operator Care Teams Material Control Associate Relationship Specialty Start Date End Date Darion Lindsey MD [address] [place] [id number] PCP - General Family Medicine 06/13/23
== END 2025-05-08 11:19 | disposition home or self-care (01) ==
PROVIDERS: Visit Provider Internal Medicine
DX: M54.12 Radiculopathy, cervical region (principal); M54.16 Radiculopathy, lumbar region
CPT/HCPCS: 99214

== ENCOUNTER → 2025-05-08 10:21 | Outpatient (BNVA) | payer MEDICARE, SELFPAY | PROVIDERS: Visit Provider Internal Medicine | DX: M54.12 Radiculopathy, cervical region (principal); M54.16 Radiculopathy, lumbar region | CPT/HCPCS: 99212 ==

== ENCOUNTER 2025-06-21 11:16 | Outpatient (REF) | payer OTHER, SELFPAY ==
--- NOTE | 2025-06-21 11:21 | EMG_ITS ---
Chief complaint: Right hand numbness especially 4th and 5th digits, neck pain History of right CTR 20 years ago. History of diabetic neuropathy. Reason for referral: Evaluate for Carpal Tunnel Syndrome Referred by: Manjinder PORTER Procedure done: Right upper extremity NCS/EMG Precautions and/or limitations: None The limb temperature was monitored continuously and remained between 32-36 degrees C during the performance of the NCS. Ulnar motor NCS was performed with moderate elbow flexion between 70-90 degrees, with across-elbow distance of 10 cm. Nerve Conduction Studies Anti Sensory Summary Table ?Stim Site NR Onset (ms) Norm Onset (ms) Peak (ms) Norm Peak (ms) O-P Amp (?V) Norm O-P Amp Site1 Site2 Delta-0 (ms) Dist (cm) Juan Francisco (m/s) Norm Juan Francisco (m/s) Right DorsCutan Anti Sensory (Dorsum 5th MC) Wrist ? 2.6 3.6 16.9 Wrist Dorsum 5th MC 2.6 0.0 Right Median Anti Sensory (2nd Digit) Wrist ? 3.3 4.1 <3.6 13.6 >10 Wrist 2nd Digit 3.3 14.0 42 Right Radial Anti Sensory (Thumb) Forearm ? 1.3 2.3 <3.1 1.8 Forearm Thumb 1.3 0.0 Right Ulnar Anti Sensory (5th Digit) Wrist NR <3.7 >15.0 Wrist 5th Digit 14.0 Motor Summary Table ?Stim Site NR Onset (ms) Norm Onset (ms) O-P Amp (mV) Norm O-P Amp iAmp (mV) Amp (1st) (%) Site1 Site2 Delta-0 (ms) Dist (cm) Juan Francisco (m/s) Norm Juan Francisco (m/s) Right Median Motor (Abd Poll Brev) Wrist ? 4.1 <3.9 4.5 >4.5 5.1 100.0 Elbow Wrist 4.3 20.0 47 >45 Elbow ? 8.4 3.3 3.8 73.3 Right Ulnar Motor (Abd Dig Minimi) Wrist ? 2.9 <3.0 5.9 >5 7.7 100.0 B Elbow Wrist 4.5 20.0 44 >45 B Elbow ? 7.4 4.9 6.3 83.1 A Elbow B Elbow 1.4 10.0 71 >45 A Elbow ? 8.8 5.0 6.8 84.7 EMG ?Side Muscle Nerve Root Ins Act Fibs Psw Amp Dur Poly Recrt Int Pat Comment Right 1stDorInt Ulnar C8-T1 Nml Nml Nml Nml Nml 0 Nml Complete Right FlexCarRad Median C6-7 Nml Nml Nml Nml Nml 0 Nml Complete Right FlexCarpiUln Ulnar C8,T1 Nml Nml Nml Nml Nml 0 Nml Complete Right Biceps Musculocut C5-6 Nml Nml Nml Nml Nml 0 Nml Complete Right Triceps Radial C6-7-8 Incr 1+ 1+ Nml Nml 0 Nml Complete Right Deltoid Axillary C5-6 Nml Nml Nml Nml Nml 0 Nml Complete Paraspinal EMG ?Side Muscle Nerve Root Ins Act Fibs Psw Comment Right Cervical Upper Rami Nml Nml Nml Right Cervical Mid Rami Nml Nml Nml Right Cervical Lower Rami Incr 1+ 1+ FINDINGS: Right median motor nerve showed prolonged distal latency, normal amplitude and normal conduction velocity. Right ulnar motor nerve showed normal distal latency, normal amplitude and slow distal/below elbow conduction velocity. No conduction block across the elbow. Right median sensory nerve showed prolonged peak latency. Right ulnar sensory nerve showed absent response. Right DUCS within normal. Right radial sensory nerve showed small amplitude. Concentric needle EMG was performed in selected muscles of the right upper extremity and cervical paraspinals. Study revealed signs of electric abnormalities as shown in the table above. IMPRESSION: 1. This is an abnormal study. 2. There is electrodiagnostic evidence for right C6/7/8 radiculopathy. 3. Rest of nerve conduction study show findings that are consistent with patient's history of diabetic neuropathy. Thank you for your kind referral. Jaylene Paez MD, MACIEL Board Certified, [place] [employer] and [employer] (ABPMR) Board Certified, [place] Board of Electrodiagnostic Medicine (ABEM) CODIN 34662 x 1 extremity MTDD
--- OUTSIDE RECORDS SUMMARY | 2025-06-21 13:34 | XMS_ITS | Clinical Summary ---
Author Organization [facility] Address [address] [place] [address] Care Team Providers Care Fans Clerk Name Role Phone Darion Lindsey MD Primary Care Provider [phone] Allergies Active Allergy Reactions Criticality Noted Date [...] 30 tablet 06/24/20 23 Active nystatin (MYCOSTATIN) 564045 UNIT/ML suspensionIndica tions:Oral thrush Take 5 mL [...] Tobacco: Former Tobacco Cessation:Counseling Given: Not Answered [facility] Utilities Answer Date Recorded In the past 12 months has th e [facility], gas, oil, or water company threatened to [...] place to sleep or slept in a penitentiary (including now)? No 06/15/2023 Sex and Gender [...] this topic Medical Devices Implanted Type Area Student Services Director Device Identifier Shelf Expiration Date Model / Serial / Lot [id number] Coil Embolization Pod 30cm Pack J-Soft Sterl Lf - [id number] Implanted:Qty: 1 on 06/13/2023 by Augustin Haywood MD at [facility] Coil N/A: Abdomen [employer] [id number] 02/24/2031 [id number] / / [id number] Coil Embolization Interlock Fibered Idc 12mm 20cm 18 Coil - [id number] Implanted:Qty: 1 on 06/13/2023 by Augustin Haywood MD at [facility] Coil N/A: Abdomen [employer] [id number] 12/26/2025 [id number] / / [id number] Coil Embolization Interlock Fibered Idc 12mm 30cm 18 Coil 2d - [id number] Implanted:Qty: 1 on 06/13/2023 by Augustin Haywood MD at [facility] Coil N/A: Abdomen [employer] [id number] 11/24/2025 [id number] / / [id number] Coil Embolization Interlock Fibered Idc 12mm 30cm 18 Coil 2d - [id number] Implanted:Qty: 1 on 06/13/2023 by Augustin Haywood MD at [facility] Coil N/A: Abdomen [employer] [id number] 11/24/2025 [id number] / / [id number] Coil Embolization Interlock Fibered Idc 14mm 20cm 18 Coil - [id number] Implanted:Qty: 1 on 06/13/2023 by Augustin Haywood MD at [facility] Coil N/A: Abdomen [employer] [id number] 08/12/2024 [id number] / / [id number] Coil Embolization Pod 30cm Pack J-Soft Sterl Lf - [id number] Implanted:Qty: 1 on 06/13/2023 by Augustin Haywood MD at [facility] Coil N/A: Abdomen [employer] [id number] 01/25/2031 [id number] / / [id number] Coil Embolization Pod 30cm Pack J-Soft Sterl Lf - [id number] Implanted:Qty: 1 on 06/13/2023 by Augustin Haywood MD at [facility] Coil N/A: Abdomen [employer] [id number] 01/25/2031 [id number] / / [id number] Coil Embolization Penumbra Coil 400 [address] .02in 14mm 60cm - [id number] Implanted:Qty: 1 on 06/13/2023 by Augustin Haywood MD at [facility] Coil N/A: Abdomen [employer] [id number] 12/15/2030 [id number] / / [id number] Coil Embolization Pod 12-14mm 60cm - [id number] Implanted:Qty: 1 on 06/13/2023 by Augustin Haywood MD at [facility] Coil N/A: Abdomen [employer] [id number] 06/08/2029 [id number] / / [id number] Coil Embolization Penumbra Coil 400 [address]wal .02in 16mm 60cm - [id number] Implanted:Qty: 1 on 06/13/2023 by Augustin Haywood MD at [facility] Coil N/A: Abdomen [employer] [id number] 12/06/2030 [id number] / / [id number] Coil Embolization Interlock Fibered Idc 14mm 30cm 18 Coil - [id number] Implanted:Qty: 1 on 06/13/2023 by Augustin Haywood MD at [facility] Coil N/A: Abdomen [employer] [id number] 11/07/2025 [id number] / / [id number] Coil Embolization Interlock Fibered Idc 14mm 30cm 18 Coil - [id number] Implanted:Qty: 1 on 06/13/2023 by Augustin Haywood MD at [facility] Coil N/A: Abdomen [employer] [id number] 11/07/2025 [id number] / / [id number] Coil Embolization Interlock Fibered Idc 14mm 20cm 18 Coil - [id number] Implanted:Qty: 1 on 06/13/2023 by Augustin Haywood MD at [facility] Coil N/A: Abdomen [employer] [id number] 08/12/2024 [id number] / / [id number] Procedures Procedure Name Priority Date/Time Associated Diagnosis Comments BASIC METABOLIC PANEL Routine 06/24/2023 6:28 AM EST HEMOGLOBIN A1C WITH ESTIMATED AVERAGE GLUCOSE Routine 06/17/2023 4:57 AM EST from Last 3 Months or Most Recently Relevant to Health Maintenance Results * (ABNORMAL) BASIC METABOLIC PANEL (06/24/2023 6:28 AM EST) Glucose 158(H) 65 - 99 mg/dL 06/24/2023 8:27 AM [facility] Comment:Fasting: <100 mg/dL, Non-Fasting: <200 mg/dL (ADA 2005) Blood Urea Nitrogen (BUN) 9 8 - 21 mg/dL 06/24/2023 8:27 AM [facility] Creatinine 0.6 0.5 - 1.3 mg/dL 06/24/2023 8:27 AM [facility] eGFR >90 >59 06/24/2023 8:27 AM [facility] Comment:CKD-EPI (2020) in mL /min/1.73 sq meters. Sodium 140 136 - 145 mmol/L 06/24/2023 8:27 AM [facility] Potassium 3.7 3.4 - 5.3 mmol/L 06/24/2023 8:27 AM [facility] Chloride 103 98 - 107 mmol/L 06/24/2023 8:27 AM [facility] CO2 33 22 - 33 mmol/L 06/24/2023 8:27 AM [facility] Anion Gap 4(L) 7 - 17 06/24/2023 8:27 AM [facility] Calcium 8.5(L) 8.7 - 10.5 mg/dL 06/24/2023 8:27 AM [facility] BUN/Creatinine Ratio 15 10.0 - 25.0 Ratio 06/24/2023 8:27 AM [facility] Blood specimen (specimen) (Plasma/Serum) 06/24/2023 6:28 AM EST 06/24/2023 7:57 AM EST Manjinder Haskins MD LAB BLOOD ORDERABLES Final Result Performing Organization Address [facility] [place] [address], [place] [address] * (ABNORMAL) Hemoglobin A1c with Estimated Average Glucose (06/17/2023 4:57 AM EST) Hemoglobin A1C 7.3(H) <5.7 % 06/17/2023 8:05 AM [facility] Comment: A1c% Interpretation 5.7 - 6.0 Increase risk of diabetes 6.1 - 6.4 Higher risk of diabetes > or = 6.5 Consistent with diabetes Diabetes Care, 33(Supp 1):S1-S61, 2010 Estimated Average Glucose 163 mg/dL 06/17/2023 8:05 AM [facility] Blood specimen (specimen) Blood specimen / Unknown 06/17/2023 4:57 AM EST 06/17/2023 5:38 AM EST Dennis Mike MD LAB BLOOD ORDERABLES Final Resul t Performing Organization Address [facility] [place] [address], [place] [address] from Last 3 Months or Most Recently Relevant to Health Maintenance Additional Health Concerns Infection Onset Date Last Indicated MDRO Comment:Place on contact precautions for each acute care admission Bronch 06/15/2023 - Klebsiella pneumoniae 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/15/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 06/19/2023 Insurance Gu[facility] [phone] [facility] Advance Directives Documents on File Type Date Recorded Patient Vault Teller Expl anation Advance Directive-Scan 06/22/2023 Devin [facility] [place] 06/22/23 HH * Full Code (Latest Code Status on File) Date Activated Date Inactivated Comments 06/13/2023 2:52 AM Question Answer Comments Decision Thoroughly Discussed with: Unable to Di scuss Healthcare Agents on File Name Relationship Healthcare Agent Relationship Communication Devin Brito Healthcare warehouse representative 1. [facility] Care Vault Teller Care Teams Fans Clerk Relationship Specialty Start Date End Date Darion Lindsey MD [address] [place] [address] PCP - General Family Medicine 06/13/23
--- OUTSIDE RECORDS SUMMARY | 2025-06-21 13:34 | XMS_ITS | Continuity of Care Document ---
Author Organization [facility] Address [address] [facility] [address] [place], [place] Phone [phone] Care Team Providers Care Core Composer Feeder Name Role Phone César Randall MD Care Team Information Rece iver Unavailable CONNIE LEYVA M.D. Care Team Information Rec eiver Unavailable César Radnall MD Primary Care Physician Renee vailable Problems [...] Qnty Indications Order ing Provider Date Rosuvastatin Olrimdo89vm Tablets 1 tab by mouth every evening->qod 90tabs Connie Leyva M.D. 02/13/2022 Testosterone Kqozvguko020eq/ml Solution inject 1 milliliters into muscle as directed every 2 weeks 2ml E29.1 Connie Leyva M.D. 08/15/2021 Freestyle LancetsMisc 1 unit every day 100units E11.9 Connie Leyva M.D. 04/18/2021 Albuterol Sulfate UZQ993(90Base) mcg/Act Aerosol Inhale 2 Puffs By Mouth Every 4 Hours César Randall MD Cygzihpius81ko Tablets 2 tab by mouth every day Unknown Folic Pbml5wm Tablets 1 every day Unknown Hydroxyzine NLZ95vz Tablets Allyson Celis NP Mvit D1000(very little B) Unknown Oxygen 2-4L/daily Unknown 0 Freestyle Lite TestStrips use one strip daily as directed 100units Connie Leyva M.D. Freestyle Lite TestStrip Use One Strip Daily as Directed 100units E11.9 Connie Leyva M.D. Uklphrxg17mi/24HR Patches 24HR Apply 1 Patch Every Day César Randall MD Xjzmzjhvxk775nv Tablets Take 1 Tablet By Mouth Four Times A Day Unknown Nortriptyline CBB55ld Capsules Take 2 Capsules By Mouth Every Day In The Evening Unknown Losartan Rfvdnokzn729dj Tablets 1/d Unknown Ketorolac Tromethamine0.5% Solution Markus Ag Fluticasone Zetmvclegj83pft/Act Suspension César Randall MD Albuterol Sulfate(2.5mg/3ML) 0.083% Nebulizer Unknown Hydrochlorothiazide2 5mg Tablets 1/d César Randall MD Trelegy Bquacsa393-54.5-25mc g/Inh Aerosol César Randall MD Mupirocin2% Ointment Unknown Polyethylene Glycol 811796GU/Scoop Powder César Randall MD Stool Bafojltt793qf Capsules Take 1 Capsule By Mouth Every Day Unknown Pogcr-7-Glzg Ethyl Qsdzjl6hz Capsules Tkae 1 Capsule By Mouth 4 Times A Day With Each Meal Unknown Methadone VYE16xa Tablets 3->2&1/2 a day->10mg/d Unknown BD Luer-Flavio Lhrptaf78M X 1 3 ML Misc For Testosterone Injection Unknown Ircvicimg909oh Tablets César Randall MD History Medications Extzxeoryp67vg Tablets Unknown - 05/14/2022 Thiamine PYE702lq Tablets 1/d Unknown - 07/01/2021 Xdbnkzqi47gu/24HR Patches 24HR Apply 1 Patch Every Day César Randall MD - 04/18/2021 Tresiba Bwnleeteb385Ajek/ML Solution Pen-Inject César Matos MD - 04/18/2021 Rjdtuzifbymgeoyxzp2fe ERNIEK Milla Pate MD - 04/18/2021 Metformin OJW5827ic Tablets 1 tab by mouth twice a day 180tabs César Randall MD - 05/29/2022 Jbgdnyuksja70uk Tablets Take 1 Tablet By Mouth Every Day César Randall MD - 02/13/2022 Amoxicillin/Clavulanate Iqkhgurcw314-285lv Tablets Take 1 Tablet By Mouth Every 12 Hours For 10 Days César Randall MD - 05/30/2021 Ggdqqgjrmcm0qm Tablets 1/d Unknown - 05/30/[address] 1/4 a day Unknow n - 05/29/2022 Testosterone Iqhsdpkwq759lq/ml Solution Unknown - 04/18/2021
== END 2025-06-21 11:17 | disposition home or self-care (01) ==
LOC: HO.NEURO 11:16
PROVIDERS: PCP Family Medicine
DX: R20.0 Anesthesia of skin (principal); R20.2 Paresthesia of skin; M54.2 Cervicalgia
CPT/HCPCS: 95886; 95909

== ENCOUNTER → 2025-06-21 11:21 | Outpatient (BNV) | payer OTHER, SELFPAY | PROVIDERS: PCP Family Medicine; Visit Provider Physical Medicine & Rehabilitation | DX: M54.16 Radiculopathy, lumbar region (principal) | CPT/HCPCS: 95886; 95909 ==